=== PATIENT | female | born 1940 | race Caucasian/White ===

== ENCOUNTER → 2016-03-10 | Outpatient (CLI) | payer OTHER ==
[~2016-03-10] MED LIST: ALB2.5NEB INH; ALBU17IN INH; AMIT50TA PO; AMIT75TA PO; ANUS25SU PR; ATEN50TA2 PO; ATOR1TAB18 PO; BUTATAB6 PO; CALCTAB41 PO; CALCTAB75 PO; CENTTAB47 PO; CLAR10CA3 PO; CLOT10TR MT; COUM1TAB14 PO; COUM2TAB10 PO; DIGO0.25 PO; DYMI137S; ESTR62CR PV; FAMO40TA3 PO; FIOR1CAP PO; FIORCAP3 PO; FISH100049 PO; FLON1SPR; GUAI1TAB PO; LANO250T12 PO; LIPI80TA PO; LUTE10TA PO; MAGN64TASA PO; MAGNESIUM PO; MUCI30TA2 PO; MUCI600T34 PO; MULT1TAB10 PO; NYST5000 PO; PATA2.5S OU; PRED20TA PO; PREM0.6254 PO; PRIL40CA PO; REFR1DRO8 OU; SYMB80INH INH; TIOT18INH INH; TYLE167L PO; ULTR50TA PO; VOLT1GEL24 TD; WARF-18 PO
--- NOTE | 2016-03-10 13:02 | REP ---
Clinical: Chronic cough. Technique: PA and lateral. Comparison: 10/13/2014. Findings: Mediastinum and cardiac silhouette are stable and within normal limits. Lung bass demonstrate diffuse chronic interstitial changes with elements of bronchiectasis and suspected fibrosis. No acute consolidation, effusion, or pneumothorax. Skeletal structures demonstrate age-related changes. Impression: Chronic interstitial changes and evidence for bronchiectasis with fibrosis. Consider chest CT for further investigation if the patient remains symptomatic. Signed by Linwood Valverde MD 03/10/2016 12:53 P
[2016-03-10 18:07] LABS: ANION GAP 9 MEQ/L (8-16); BLOOD UREA NITROGEN 13 MG/DL (7-18); CALCIUM LEVEL 8.9 MG/DL (8.8-10.2); CARBON DIOXIDE LEVEL 28 MEQ/L (21-32); CHLORIDE LEVEL 106 MEQ/L (98-107); CREATININE FOR GFR 0.64 MG/DL (0.55-1.02); GLOMERULAR FILTRATION RATE > 60.0 (>39); GLUCOSE, FASTING 101 MG/DL (83-110); POTASSIUM SERUM 4.7 MEQ/L (3.5-5.1); SODIUM LEVEL 143 MEQ/L (136-145)
[2016-03-10 18:16] LABS: MEAN CORPUSCULAR HEMOGLOBIN 31.2 pg (27.0-33.0); MEAN CORPUSCULAR HGB CONC 33.2 g/dl (32.0-36.5); MEAN CORPUSCULAR VOLUME 94.1 fl (80.0-96.0); PLATELET COUNT, AUTOMATED 252 k/mm3 (150-450); RED CELL DISTRIBUTION WIDTH 13.9 % (11.5-14.5); WHITE BLOOD COUNT 7.3 K/mm3 (4.0-10.0)
== END ==
LOC: M WUC 12:22
PROVIDERS: ATTEND Nurse Practitioner Family
DX: R35.0 Frequency of micturition (principal); R05 Cough; R06.00 Dyspnea, unspecified
CPT/HCPCS: 36415; 71020; 80048; 81002; 85025; 87088; 87186; G0463

== ENCOUNTER → 2016-03-13 | Outpatient (CLI) | payer OTHER ==
[~2016-03-13] MED LIST changes: -ALB2.5NEB INH; -BUTATAB6 PO; -CLOT10TR MT; -DIGO0.25 PO; -FAMO40TA3 PO; -FLON1SPR; -GUAI1TAB PO; -LANO250T12 PO; +LANO250T9 PO; -PRED20TA PO; -SYMB80INH INH; -VOLT1GEL24 TD
[2016-03-13 17:58] LABS: INR 4.18
== END | disposition home or self-care (01) ==
LOC: M WUC 15:00
PROVIDERS: ATTEND Nurse Practitioner Family
DX: I48.91 Unspecified atrial fibrillation (principal); Z79.01 Long term (current) use of anticoagulants

== ENCOUNTER → 2016-03-20 | Outpatient (CLI) | payer OTHER ==
[~2016-03-20] MED LIST changes: +LANO250T12 PO; -LANO250T9 PO
== END | disposition home or self-care (01) ==
LOC: M WUC 13:26
PROVIDERS: ATTEND Nurse Practitioner Family
DX: I48.2 Chronic atrial fibrillation (principal)

== ENCOUNTER → 2016-03-21 | Outpatient (REF) | payer OTHER ==
[2016-03-21 21:16] LABS: INR 4.05
== END | disposition home or self-care (01) ==
LOC: M LAB REF 09:05
PROVIDERS: ATTEND Nurse Practitioner Family
DX: I48.2 Chronic atrial fibrillation (principal)

== ENCOUNTER → 2016-03-24 | Outpatient (CLI) | payer OTHER ==
[2016-03-24 19:31] LABS: INR 1.85
== END ==
LOC: M WUC 17:13
PROVIDERS: ATTEND Nurse Practitioner Family
DX: I48.2 Chronic atrial fibrillation (principal); Z51.81 Encounter for therapeutic drug level monitoring; Z79.01 Long term (current) use of anticoagulants

== ENCOUNTER → 2016-03-24 | Outpatient (CLI) | payer OTHER ==
--- NOTE | 2016-03-25 03:14 | REP ---
Clinical: Bronchiectasis. Technique: Axial noncontrast images from the thoracic inlet to the upper abdomen with coronal and sagittal re-formations. Findings: The lung bass demonstrate mild scattered emphysematous changes with small bullae predominantly noted in the anterior right upper lobe and posterior left lower lobe. Subtle presumed chronic changes are also noted scattered amongst the subpleural right upper lobe and bilateral lower lobes. Mild perihilar bronchiectasis and bronchial wall calcifications are also apparent and consistent with chronic changes. No acute consolidation, nodule or mass lesion is appreciated. No pleural effusion/reaction. No pneumothorax. Mediastinum demonstrates atherosclerotic changes to the thoracic aorta and coronary arteries. No evidence for cardiomegaly, pericardial effusion, or aortic aneurysm. No adenopathy. Musculoskeletal structures demonstrate age-related changes without focal osseous abnormality. Impression: Mild scattered chronic appearing changes as noted above. No acute mediastinal or pleuroparenchymal process appreciated. Signed by Linwood Valverde MD 03/25/2016 03:06 A
== END ==
LOC: M RAD 17:50
PROVIDERS: ATTEND Nurse Practitioner Family
DX: J47.9 Bronchiectasis, uncomplicated (principal); I48.2 Chronic atrial fibrillation; Z51.81 Encounter for therapeutic drug level monitoring; Z79.01 Long term (current) use of anticoagulants

== ENCOUNTER 2016-04-01 22:41 | Emergency (ER) | payer OTHER ==
[2016-04-01] MEDS ORDERED: LEVALBUTEROL 1.25 MG/0.5 ML CONCENTRATE NEB As Ordered ONE (23:11)
[2016-04-01] MEDS ORDERED: dexameTHASONE 20 MG/5 ML VIAL (J1100) As Ordered ONE (23:22)
--- NOTE | 2016-04-02 00:41 | EDDOCDS ---
Nurse's Notes [facility] Name: Abida Bledsoe Age: 75 yrs Sex: Female : 1940 Arrival Date: 04/01/2016 Time: 22:41 Bed 5 Private MD: Darwin Ortega MD Diagnosis: Pulmonary fibrosis, unspecified Presentation: 04/01 22:53 Presenting complaint: Patient states: Pt to ED for evaluation after episode of what pt mv5 reports as hyperventilation after coughing episode. Pt states hx of pulmonary fibrosis, became anxious when unable to clear thick secretions during coughing episode. Pt denies chest pain. 22:53 Adult Sepsis Screening: The patient does not have new or worsening altered mentation. mv5 Patient's respiratory rate is less than 22. Systolic blood pressure is greater than 100. Patient has a qSOFA score of 0- Negative Sepsis Screen. Suicide/Homicide risk assessment- the patient denies having any suicidal and/or homicidal ideations and does not present with any other emotional, behavioral or mental health complaints. 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 Transition of care: patient was not received from another setting of care. 22:53 Acuity: GENOVEVA Level 3 mv5 22:53 Method Of Arrival: Walkin/Carried/Asstd mv5 Triage Assessment: 23:01 General: Appears in no apparent distress, well nourished. Pain: Denies pain. mv5 Neurological: No deficits noted. Level of Consciousness is awake, alert, Oriented to person, place, time. Respiratory: Onset: The symptoms/episode began/occurred today, Airway is patent Respiratory effort is even, unlabored, Respiratory pattern is regular, Sputum is Breath sounds with wheezes bilaterally. Reports hyperventilation. Historical: - Allergies: PENICILLINS; - Home Meds: 1. multivitamin Oral tab 1 tablet daily 2. Fish Oil 1,000 mg Oral cap 4 caps daily 3. loratadine 10 mg Oral TbDL 1 tab once daily 4. amitriptyline 75 mg Oral tab 1 tab once daily in PM 5. amitriptyline 50 mg Oral tab 1 tab once daily in AM 6. atenolol 50 mg Oral tab 1 tab 2 times per day 7. lutein 10 mg oral tab daily 8. magnesium oxide 140 mg Oral cap 128 mg twice a day 9. Patanol 0.1 % Opht drop 1 drop 2 times per day 10. digoxin 250 mcg Oral tab 1 tab once daily 11. Anusol Rectal supp daily 12. Calcium + Vitamin D 600 mg calcium- 200 unit oral tab 500 mg daily 13. Mucinex 600 mg oral Ta12 1 tab every 12 hours 14. Premarin 0.625 mg/gram Vagl crea every other day 15. albuterol sulfate 90 mcg/actuation Inhl HFAA 1 puff every 4-6 hours 16. Spiriva with HandiHaler 18 mcg Inhl CpDv 1 cap once daily 17. albuterol sulfate 2.5 mg /3 mL (0.083 %) Nebulizer nebu 3 mL 4 times per day 18. Lipitor 80 mg Oral tab 1 tab once daily 19. Coumadin 4 mg Oral tab 1 tab 3 times per week 20. Coumadin 2 mg Oral tab 1 tab 4 times per week 21. Fioricet 50-325-40 mg Oral tab 1 tab every 4 hours 22. prednisone 5 mg Oral DsPk Unknown daily - PMHx: pulmonary fibrosis; COPD; Hypertension; Atrial Fib; High Cholesterol; - PSHx: Right knee replacement 11/11; Cataract Surgery- Bilateral; Hysterectomy; Shoulder Arthroscopy- Left; - Social history: Smoking status: Patient states former smoker of tobacco. No barriers to communication noted, The patient speaks fluent Romansh, Patient uses. - Family history: Not pertinent. - : The pt / caregiver states he / she is on anticoagulants: coumadin. Home medication list is obtained from PCP visit history list. - Exposure Risk Screening:: None identified. Screenin:05 Screening information is obtained from the patient, family members. Fall risk: No risks mv5 identified. Assistance ADL's: requires no assistance with activities of daily living. Abuse/DV Screen: The patient / caregiver reports he/she is: not in a situation that causes fear, pain or injury. Nutritional screening: No deficits noted. Advance Directives: There is no active DNR order. home support is adequate. Assessment: 23:05 General: See triage assessment. Cardiovascular: No deficits noted. Capillary refill < 3 mv5 seconds. Derm: Skin is intact, Skin is pink, warm & dry. 23:05 Cardiovascular: Rhythm is atrial fibrillation Other in a controlled rate. mv5 04/02 00:05 General: Appears in no apparent distress. General: Pt assisted to bedside commode and mv5 returned to stretcher safely.. Respiratory: Airway is patent Respiratory effort is even, unlabored. Derm: Skin is intact, Skin is pink, warm & dry. 00:07 Reassessment: Patient states symptoms have improved. mv5 Vital Signs: 02 22:42 BP 169 / 80 RA Sitting (auto/lg); Pulse 104; Resp 20; Temp 97.2(O); Pulse Ox 88% on rs6 R/A; Weight 78.02 kg (R); Height 5 ft. 3 in. (160.02 cm) (R); Pain 0/10; 23:19 BP 153 / 68 (auto/); mv5 23:19 Pulse 90 MON; Pulse Ox 97% 1 lpm ; mv5 22:42 Body Mass Index 30.47 (78.02 kg, 160.02 cm) rs6 Vitals: 22:42 Log In Time: April 01, 2016 at 22:42. rs6 22:43 RN notified that patient meets Red Flag criteria. rs6 ED Course: 22:42 Patient visited by Autumn Lomax PCA. rs6 22:42 Darwin Ortega is Private Physician. rs6 22:42 Patient moved to Waiting rs6 22:45 Mesha Chatterjee,LITA is Primary Nurse. rs6 22:45 Niko Cao DO is Attending Physician. cs11 22:45 Patient visited by Niko Cao DO. cs11 22:45 Patient moved to 5 rs6 22:56 Triage Initiated mv5 23:05 The patient / caregiver is instructed regarding the plan of care and ED course. Cardiac mv5 monitor on. Pulse ox on. NIBP on. 23:21 Inserted saline lock: 22 gauge in right hand and blood collected. The patient tolerated mv5 the procedure well. 23:30 Patient visited by Mesha Chatterjee RN. mv5 04/02 00:05 Patient visited by Mesha Chatterjee RN. mv5 00:23 Darwin Ortega is Referral Physician. cs11 00:39 No procedures done that require assistance. mv5 Administered Medications: 04/01 23:29 Drug: Dexamethasone 12 mg [dexamethasone 4 mg/mL injection solution] Route: IV; Rate: mv5 bolus; Site: right hand; 23:30 Drug: Levalbuterol 1.25 mg [levalbuterol 1.25 mg/0.5 mL solution for nebulization (0.5 nk1 mL)] Route: Nebulizer; 23:49 Drug: Levalbuterol 1.25 mg [levalbuterol 1.25 mg/0.5 mL solution for nebulization (0.5 nk1 mL)] Route: Nebulizer; 04/02 00:28 Follow up: Response: Nebulizer completed nk1 00:28 Follow up: Response: Nebulizer completed nk1 00:28 Follow up: Response: Nebulizer completed nk1 RT: 04/01 23:35 Respiratory: Respiratory effort is even, unlabored, Respiratory pattern is regular nk1 symmetrical, Breath sounds are diminished Breath sounds with wheezes bilaterally. in left posterior upper lobe, right posterior upper lobe, left posterior lower lobe, right posterior middle lobe and right posterior lower lobe. 23:35 Initial Med Neb Given as ordered Patient was instructed and evaluated on procedure nk1 Patient tolerated procedure well without adverse effect. 23:50 Subsequent Med Neb Given as ordered Patient tolerated procedure well without adverse nk1 effect. Respiratory: Respiratory: Breath sounds with wheezes with increased aeration throughout. patient states she feels improvement since her first neb treatment. 04/02 00:05 Subsequent Med Neb Given as ordered. nk1 00:10 Respiratory: Breath sounds with wheezes bilaterally. in left posterior upper lobe, nk1 right posterior upper lobe, left posterior lower lobe, right posterior middle lobe and right posterior lower lobe with increased aeration. Order Results: There are currently no results for this order. Outcome: 00:24 Discharge ordered by Provider. cs11 00:39 Discharge Assessment: Patient awake, alert and oriented x 3. No cognitive and/or mv5 functional deficits noted. Patient verbalized understanding of disposition instructions. patient administered narcotics - no. The following High Risk Discharge criteria are identified: None. Discharged to home ambulatory. Condition: stable. Discharge instructions given to patient, family, Demonstrated understanding of instructions, Pt was receptive of discharge instructions/ teaching. No special radiology studies were completed. Property sent home with patient. 00:41 Patient left the ED. mv5 Signatures: Sendy Foreman, RN RN kmg1 Re Ca,RT RT nk1 Niko Cao, DO cs11 Autumn Lomax, ACCOUNT EXECUTIVE KEY ACCOUNTS ACCOUNT EXECUTIVE KEY ACCOUNTS rs6 Mesha ChatterjeeRN RN mv5 Corrections: (The following items were deleted from the chart) 04/01 22:52 22:52 Presenting complaint: kmg1 kmg1 04/02 23:49 Initial Med Neb Given as ordered Patient was instructed and evaluated on nk1 procedure Patient tolerated procedure well without adverse effect nk1 04/02 23:50 Subsequent Med Neb Given as ordered Patient tolerated procedure well nk1 without adverse effect nk1 04/02 00:10 Subsequent Med Neb Given as ordered nk1 nk1 MTDD
--- NOTE | 2016-04-02 00:41 | EDDOCDS ---
Physician Documentation [facility] Name: Abida Bledsoe Age: 75 yrs Sex: Female : 1940 Arrival Date: 04/01/2016 Time: 22:41 Bed 5 Private MD: Darwin Ortega MD Disposition: 04/02/16 00:24 Discharged to Home/Self Care. Impression: Pulmonary fibrosis, unspecified. - Condition is Stable. - Prescriptions for Prednisone 20 mg Oral Tablet - take 3 tablets by ORAL route once daily for 3 days; 9 tablet. - Medication Reconciliation, Local Pharmacy Hours form. - Follow up: Darwin Ortega; When: Call to arrange an appointment; Reason: Recheck today's complaints. - Problem is chronic. - Symptoms have improved. Historical: - Allergies: PENICILLINS; - Home Meds: 1. multivitamin Oral tab 1 tablet daily 2. Fish Oil 1,000 mg Oral cap 4 caps daily 3. loratadine 10 mg Oral TbDL 1 tab once daily 4. amitriptyline 75 mg Oral tab 1 tab once daily in PM 5. amitriptyline 50 mg Oral tab 1 tab once daily in AM 6. atenolol 50 mg Oral tab 1 tab 2 times per day 7. lutein 10 mg oral tab daily 8. magnesium oxide 140 mg Oral cap 128 mg twice a day 9. Patanol 0.1 % Opht drop 1 drop 2 times per day 10. digoxin 250 mcg Oral tab 1 tab once daily 11. Anusol Rectal supp daily 12. Calcium + Vitamin D 600 mg calcium- 200 unit oral tab 500 mg daily 13. Mucinex 600 mg oral Ta12 1 tab every 12 hours 14. Premarin 0.625 mg/gram Vagl crea every other day 15. albuterol sulfate 90 mcg/actuation Inhl HFAA 1 puff every 4-6 hours 16. Spiriva with HandiHaler 18 mcg Inhl CpDv 1 cap once daily 17. albuterol sulfate 2.5 mg /3 mL (0.083 %) Nebulizer nebu 3 mL 4 times per day 18. Lipitor 80 mg Oral tab 1 tab once daily 19. Coumadin 4 mg Oral tab 1 tab 3 times per week 20. Coumadin 2 mg Oral tab 1 tab 4 times per week 21. Fioricet 50-325-40 mg Oral tab 1 tab every 4 hours 22. prednisone 5 mg Oral DsPk Unknown daily - PMHx: pulmonary fibrosis; COPD; Hypertension; Atrial Fib; High Cholesterol; - PSHx: Right knee replacement 11/11; Cataract Surgery- Bilateral; Hysterectomy; Shoulder Arthroscopy- Left; - Social history: Smoking status: Patient states former smoker of tobacco. No barriers to communication noted, The patient speaks fluent Lao, Patient uses. - Family history: Not pertinent. - : The pt / caregiver states he / she is on anticoagulants: coumadin. Home medication list is obtained from PCP visit history list. - Exposure Risk Screening:: None identified. Vital Signs: 04/01 22:42 BP 169 / 80 RA Sitting (auto/lg); Pulse 104; Resp 20; Temp 97.2(O); Pulse Ox 88% on rs6 R/A; Weight 78.02 kg / 172 lbs (R); Height 5 ft. 3 in. (160.02 cm) (R); Pain 0/10; 23:19 BP 153 / 68 (auto/); mv5 23:19 Pulse 90 MON; Pulse Ox 97% 1 lpm ; mv5 22:42 Body Mass Index 30.47 (78.02 kg, 160.02 cm) rs6 MDM: 22:59 IV Saline Lock ordered. cs11 22:59 Dexamethasone 12 mg IV at bolus once ordered. cs11 22:59 Levalbuterol 1.25 mg Nebulizer every 15 minutes x3 ordered. cs11 22:59 Call Respiratory ordered. cs11 23:01 Chest, 1 View Ordered. EDMS 23:01 Call Respiratory complete. ml3 Administered Medications: 23:29 Drug: Dexamethasone 12 mg [dexamethasone 4 mg/mL injection solution] Route: IV; Rate: mv5 bolus; Site: right hand; 23:30 Drug: Levalbuterol 1.25 mg [levalbuterol 1.25 mg/0.5 mL solution for nebulization (0.5 nk1 mL)] Route: Nebulizer; 23:49 Drug: Levalbuterol 1.25 mg [levalbuterol 1.25 mg/0.5 mL solution for nebulization (0.5 nk1 mL)] Route: Nebulizer; 04/02 00:28 Follow up: Response: Nebulizer completed nk1 00:28 Follow up: Response: Nebulizer completed nk1 00:28 Follow up: Response: Nebulizer completed nk1 Signatures: Dispatcher [employer] EDPaulina Bergmanzabeth, [employer] ml3 Niko Cao, DO cs11 Mesha Chatterjee,RN RN mv5 Re Ca RT nk1 MTDD
--- NOTE | 2016-04-02 08:17 | REP ---
PORTABLE CHEST X-RAY: Single view. HISTORY: Cough. FINDINGS: EKG monitoring electrodes overlie the chest. There is some pleuroparenchymal fibrosis along the left heart border in the region of the lingula. Lung bass are otherwise clear. Heart is not enlarged. Pulmonary vasculature is not increased. Pleural angles are sharp. IMPRESSION: Pleuroparenchymal opacity consistent with fibrosis in the lingula along the left heart border. Otherwise no acute disease. Signed by Rafal Mathis MD 04/02/2016 10:06 A
[2016-04-03] MEDS ORDERED: GUAI1TAB PO (13:25)
[2016-04-03] MEDS ORDERED: BUTATAB6 PO (13:25)
[2016-04-03] MEDS ORDERED: ALB2.5NEB INH (13:31)
[2016-04-03] MEDS ORDERED: SYMB80INH INH (13:31)
[2016-04-03] MEDS ORDERED: COUM1TAB14 PO (13:31)
[2016-04-03] MEDS ORDERED: VOLT1GEL24 TD (13:31)
[2016-04-03] MEDS ORDERED: MAGN64TASA PO (13:31)
[2016-04-03] MEDS ORDERED: PRED20TA PO (13:31)
[2016-04-03] MEDS ORDERED: COUM2TAB10 PO (13:31)
[2016-04-03] MEDS ORDERED: FLON1SPR (13:31)
[2016-04-03] MEDS ORDERED: ANUS25SU PR (13:31)
[2016-04-03] MEDS ORDERED: ESTR62CR PV (13:31)
[2016-04-03] MEDS ORDERED: DIGO0.25 PO (13:31)
[2016-04-03] MEDS ORDERED: CLOT10TR MT (13:31)
[2016-04-03] MEDS ORDERED: FAMO40TA3 PO (13:31)
[2016-04-03] MEDS ORDERED: IPRATROPIUM 0.5MG/ALBUTEROL 2.5MG INH SOL UD 3ML (DUONEB)(J7620) As Ordered ONE (14:26)
--- NOTE | 2016-04-04 01:41 | EDDOCDS ---
Nurse's Notes [facility] Name: Abida Bledsoe Age: 75 yrs Sex: Female : 1940 Arrival Date: 04/01/2016 Time: 22:41 Bed 5 Private MD: Darwin Ortega MD Diagnosis: Pulmonary fibrosis, unspecified Presentation: 04/01 22:53 Presenting complaint: Patient states: Pt to ED for evaluation after episode of what pt mv5 reports as hyperventilation after coughing episode. Pt states hx of pulmonary fibrosis, became anxious when unable to clear thick secretions during coughing episode. Pt denies chest pain. 22:53 Adult Sepsis Screening: The patient does not have new or worsening altered mentation. mv5 Patient's respiratory rate is less than 22. Systolic blood pressure is greater than 100. Patient has a qSOFA score of 0- Negative Sepsis Screen. Suicide/Homicide risk assessment- the patient denies having any suicidal and/or homicidal ideations and does not present with any other emotional, behavioral or mental health complaints. Status: Patient is not a adoption services manager or dependent. Transition of care: patient was not received from another setting of care. 22:53 Acuity: GENOVEVA Level 3 mv5 22:53 Method Of Arrival: Walkin/Carried/Asstd mv5 Triage Assessment: 23:01 General: Appears in no apparent distress, well nourished. Pain: Denies pain. mv5 Neurological: No deficits noted. Level of Consciousness is awake, alert, Oriented to person, place, time. Respiratory: Onset: The symptoms/episode began/occurred today, Airway is patent Respiratory effort is even, unlabored, Respiratory pattern is regular, Sputum is Breath sounds with wheezes bilaterally. Reports hyperventilation. Historical: - Allergies: PENICILLINS; - Home Meds: 1. multivitamin Oral tab 1 tablet daily 2. Fish Oil 1,000 mg Oral cap 4 caps daily 3. loratadine 10 mg Oral TbDL 1 tab once daily 4. amitriptyline 75 mg Oral tab 1 tab once daily in PM 5. amitriptyline 50 mg Oral tab 1 tab once daily in AM 6. atenolol 50 mg Oral tab 1 tab 2 times per day 7. lutein 10 mg oral tab daily 8. magnesium oxide 140 mg Oral cap 128 mg twice a day 9. Patanol 0.1 % Opht drop 1 drop 2 times per day 10. digoxin 250 mcg Oral tab 1 tab once daily 11. Anusol Rectal supp daily 12. Calcium + Vitamin D 600 mg calcium- 200 unit oral tab 500 mg daily 13. Mucinex 600 mg oral Ta12 1 tab every 12 hours 14. Premarin 0.625 mg/gram Vagl crea every other day 15. albuterol sulfate 90 mcg/actuation Inhl HFAA 1 puff every 4-6 hours 16. Spiriva with HandiHaler 18 mcg Inhl CpDv 1 cap once daily 17. albuterol sulfate 2.5 mg /3 mL (0.083 %) Nebulizer nebu 3 mL 4 times per day 18. Lipitor 80 mg Oral tab 1 tab once daily 19. Coumadin 4 mg Oral tab 1 tab 3 times per week 20. Coumadin 2 mg Oral tab 1 tab 4 times per week 21. Fioricet 50-325-40 mg Oral tab 1 tab every 4 hours 22. prednisone 5 mg Oral DsPk Unknown daily - PMHx: pulmonary fibrosis; COPD; Hypertension; Atrial Fib; High Cholesterol; - PSHx: Right knee replacement 11/11; Cataract Surgery- Bilateral; Hysterectomy; Shoulder Arthroscopy- Left; - Social history: Smoking status: Patient states former smoker of tobacco. No barriers to communication noted, The patient speaks fluent Malay, Patient uses. - Family history: Not pertinent. - : The pt / caregiver states he / she is on anticoagulants: coumadin. Home medication list is obtained from PCP visit history list. - Exposure Risk Screening:: None identified. Screenin:05 Screening information is obtained from the patient, family members. Fall risk: No risks mv5 identified. Assistance ADL's: requires no assistance with activities of daily living. Abuse/DV Screen: The patient / caregiver reports he/she is: not in a situation that causes fear, pain or injury. Nutritional screening: No deficits noted. Advance Directives: There is no active DNR order. home support is adequate. Assessment: 23:05 General: See triage assessment. Cardiovascular: No deficits noted. Capillary refill < 3 mv5 seconds. Derm: Skin is intact, Skin is pink, warm & dry. 23:05 Cardiovascular: Rhythm is atrial fibrillation Other in a controlled rate. mv5 04/02 00:05 General: Appears in no apparent distress. General: Pt assisted to bedside commode and mv5 returned to stretcher safely.. Respiratory: Airway is patent Respiratory effort is even, unlabored. Derm: Skin is intact, Skin is pink, warm & dry. 00:07 Reassessment: Patient states symptoms have improved. mv5 Vital Signs: 0203 22:42 BP 169 / 80 RA Sitting (auto/lg); Pulse 104; Resp 20; Temp 97.2(O); Pulse Ox 88% on rs6 R/A; Weight 78.02 kg (R); Height 5 ft. 3 in. (160.02 cm) (R); Pain 0/10; 23:19 BP 153 / 68 (auto/); mv5 23:19 Pulse 90 MON; Pulse Ox 97% 1 lpm ; mv5 22:42 Body Mass Index 30.47 (78.02 kg, 160.02 cm) rs6 Vitals: 22:42 Log In Time: April 01, 2016 at 22:42. rs6 22:43 RN notified that patient meets Red Flag criteria. rs6 ED Course: 22:42 Patient visited by Autumn Lomax PCA. rs6 22:42 Darwin Ortega is Private Physician. rs6 22:42 Patient moved to Waiting rs6 22:45 Mesha Chatterjee,LITA is Primary Nurse. rs6 22:45 Niko Cao DO is Attending Physician. cs11 22:45 Patient visited by Niko Cao DO. cs11 22:45 Patient moved to 5 rs6 22:56 Triage Initiated mv5 23:05 The patient / caregiver is instructed regarding the plan of care and ED course. Cardiac mv5 monitor on. Pulse ox on. NIBP on. 23:21 Inserted saline lock: 22 gauge in right hand and blood collected. The patient tolerated mv5 the procedure well. 23:30 Patient visited by Mesha Chatterjee RN. mv5 0204 00:05 Patient visited by Mesha Chatterjee RN. mv5 00:23 Dariwn Ortega is Referral Physician. cs11 00:39 No procedures done that require assistance. mv5 00:42 Discontinued intact, bleeding controlled, pressure dressing applied, No mv5 redness/swelling at site. 01:04 Patient name changed from Abida\S\M\S\Rakan\S\ to Abida\S\Roberta\S\Rakan. EDMS 01:04 [facility] Payment Agreement was scanned into [employer] and attached to record. [facility] 08:49 Chest, 1 View Returned. EDMS 15:51 T-Sheet-- Draft Copy was scanned into [employer] and attached to record. klr Administered Medications: 04/01 23:29 Drug: Dexamethasone 12 mg [dexamethasone 4 mg/mL injection solution] Route: IV; Rate: mv5 bolus; Site: right hand; 23:30 Drug: Levalbuterol 1.25 mg [levalbuterol 1.25 mg/0.5 mL solution for nebulization (0.5 nk1 mL)] Route: Nebulizer; 23:49 Drug: Levalbuterol 1.25 mg [levalbuterol 1.25 mg/0.5 mL solution for nebulization (0.5 nk1 mL)] Route: Nebulizer; 04/02 00:28 Follow up: Response: Nebulizer completed nk1 00:28 Follow up: Response: Nebulizer completed nk1 00:28 Follow up: Response: Nebulizer completed nk1 RT: 04/01 23:35 Respiratory: Respiratory effort is even, unlabored, Respiratory pattern is regular nk1 symmetrical, Breath sounds are diminished Breath sounds with wheezes bilaterally. in left posterior upper lobe, right posterior upper lobe, left posterior lower lobe, right posterior middle lobe and right posterior lower lobe. 23:35 Initial Med Neb Given as ordered Patient was instructed and evaluated on procedure nk1 Patient tolerated procedure well without adverse effect. 23:50 Subsequent Med Neb Given as ordered Patient tolerated procedure well without adverse nk1 effect. Respiratory: Respiratory: Breath sounds with wheezes with increased aeration throughout. patient states she feels improvement since her first neb treatment. 04/02 00:05 Subsequent Med Neb Given as ordered. nk1 00:10 Respiratory: Breath sounds with wheezes bilaterally. in left posterior upper lobe, nk1 right posterior upper lobe, left posterior lower lobe, right posterior middle lobe and right posterior lower lobe with increased aeration. Order Results: Radiology Order: Chest, 1 View Test: Chest, 1 View REASON FOR EXAMINATION: Cough; PORTABLE CHEST X-RAY: Single view.; ; HISTORY: Cough.; ; FINDINGS: EKG monitoring electrodes overlie the chest. There is some; pleuroparenchymal fibrosis along the left heart border in the region of the; lingula. Lung bass are otherwise clear. Heart is not enlarged. Pulmonary; vasculature is not increased. Pleural angles are sharp.; ; IMPRESSION: Pleuroparenchymal opacity consistent with fibrosis in the lingula; along the left heart border. Otherwise no acute disease.; ; ; Signed by; Rafal Mathis MD 04/02/2016 10:06 A; Outcome: 00:24 Discharge ordered by Provider. cs11 00:39 Discharge Assessment: Patient awake, alert and oriented x 3. No cognitive and/or mv5 functional deficits noted. Patient verbalized understanding of disposition instructions. patient administered narcotics - no. The following High Risk Discharge criteria are identified: None. Discharged to home ambulatory. Condition: stable. Discharge instructions given to patient, family, Demonstrated understanding of instructions, Pt was receptive of discharge instructions/ teaching. No special radiology studies were completed. Property sent home with patient. 00:41 Patient left the ED. mv5 Signatures: Dispatcher [employer] EDMS Sendy Foreman, RN RN kmg1 Re Ca,RT RT nk1 Niko Cao, DO DO cs11 Ankita Reveles Rebecca, QUALITY CONTROL SYSTEMS MANAGER QUALITY CONTROL SYSTEMS MANAGER rs6 Jennifer Machuca Megan,RN RN mv5 Corrections: (The following items were deleted from the chart) 04/01 22:52 22:52 Presenting complaint: kmg1 km 04/02 99:04/01 23:49 Initial Med Neb Given as ordered Patient was instructed and evaluated on nk1 procedure Patient tolerated procedure well without adverse effect nk1 04/02 99:04/01 23:50 Subsequent Med Neb Given as ordered Patient tolerated procedure well nk1 without adverse effect nk1 04/02 99: 00:10 Subsequent Med Neb Given as ordered nk1 nk1 Chart Complete MTDD
--- NOTE | 2016-04-04 01:41 | EDDOCDS ---
Physician Documentation [facility] Name: Abida Bledsoe Age: 75 yrs Sex: Female : 1940 Arrival Date: 04/01/2016 Time: 22:41 Bed 5 Private MD: Darwin Ortega MD Disposition: 04/02/16 00:24 Discharged to Home/Self Care. Impression: Pulmonary fibrosis, unspecified. - Condition is Stable. - Prescriptions for Prednisone 20 mg Oral Tablet - take 3 tablets by ORAL route once daily for 3 days; 9 tablet. - Medication Reconciliation, Local Pharmacy Hours form. - Follow up: Darwin Ortega; When: Call to arrange an appointment; Reason: Recheck today's complaints. - Problem is chronic. - Symptoms have improved. Historical: - Allergies: PENICILLINS; - Home Meds: 1. multivitamin Oral tab 1 tablet daily 2. Fish Oil 1,000 mg Oral cap 4 caps daily 3. loratadine 10 mg Oral TbDL 1 tab once daily 4. amitriptyline 75 mg Oral tab 1 tab once daily in PM 5. amitriptyline 50 mg Oral tab 1 tab once daily in AM 6. atenolol 50 mg Oral tab 1 tab 2 times per day 7. lutein 10 mg oral tab daily 8. magnesium oxide 140 mg Oral cap 128 mg twice a day 9. Patanol 0.1 % Opht drop 1 drop 2 times per day 10. digoxin 250 mcg Oral tab 1 tab once daily 11. Anusol Rectal supp daily 12. Calcium + Vitamin D 600 mg calcium- 200 unit oral tab 500 mg daily 13. Mucinex 600 mg oral Ta12 1 tab every 12 hours 14. Premarin 0.625 mg/gram Vagl crea every other day 15. albuterol sulfate 90 mcg/actuation Inhl HFAA 1 puff every 4-6 hours 16. Spiriva with HandiHaler 18 mcg Inhl CpDv 1 cap once daily 17. albuterol sulfate 2.5 mg /3 mL (0.083 %) Nebulizer nebu 3 mL 4 times per day 18. Lipitor 80 mg Oral tab 1 tab once daily 19. Coumadin 4 mg Oral tab 1 tab 3 times per week 20. Coumadin 2 mg Oral tab 1 tab 4 times per week 21. Fioricet 50-325-40 mg Oral tab 1 tab every 4 hours 22. prednisone 5 mg Oral DsPk Unknown daily - PMHx: pulmonary fibrosis; COPD; Hypertension; Atrial Fib; High Cholesterol; - PSHx: Right knee replacement 11/11; Cataract Surgery- Bilateral; Hysterectomy; Shoulder Arthroscopy- Left; - Social history: Smoking status: Patient states former smoker of tobacco. No barriers to communication noted, The patient speaks fluent Uzbek, Patient uses. - Family history: Not pertinent. - : The pt / caregiver states he / she is on anticoagulants: coumadin. Home medication list is obtained from PCP visit history list. - Exposure Risk Screening:: None identified. Vital Signs: 04/01 22:42 BP 169 / 80 RA Sitting (auto/lg); Pulse 104; Resp 20; Temp 97.2(O); Pulse Ox 88% on rs6 R/A; Weight 78.02 kg / 172 lbs (R); Height 5 ft. 3 in. (160.02 cm) (R); Pain 0/10; 23:19 BP 153 / 68 (auto/); mv5 23:19 Pulse 90 MON; Pulse Ox 97% 1 lpm ; mv5 22:42 Body Mass Index 30.47 (78.02 kg, 160.02 cm) rs6 MDM: 22:59 IV Saline Lock ordered. cs11 22:59 Dexamethasone 12 mg IV at bolus once ordered. cs11 22:59 Levalbuterol 1.25 mg Nebulizer every 15 minutes x3 ordered. cs11 22:59 Call Respiratory ordered. cs11 23:01 Chest, 1 View Ordered. EDMS 23:01 Call Respiratory complete. ml3 04/02 00:44 Financial registration complete. [facility] 01:04 [facility] Payment Agreement was scanned into [employer] and attached to record. [facility] 15:51 T-Sheet-- Draft Copy was scanned into [employer] and attached to record. klr Administered Medications: 04/01 23:29 Drug: Dexamethasone 12 mg [dexamethasone 4 mg/mL injection solution] Route: IV; Rate: mv5 bolus; Site: right hand; 23:30 Drug: Levalbuterol 1.25 mg [levalbuterol 1.25 mg/0.5 mL solution for nebulization (0.5 nk1 mL)] Route: Nebulizer; 23:49 Drug: Levalbuterol 1.25 mg [levalbuterol 1.25 mg/0.5 mL solution for nebulization (0.5 nk1 mL)] Route: Nebulizer; 04/02 00:28 Follow up: Response: Nebulizer completed nk1 00:28 Follow up: Response: Nebulizer completed nk1 00:28 Follow up: Response: Nebulizer completed nk1 Signatures: Dispatcher [employer] EDMS Kaitlyn Mujica, Rivet Bucker Unit ml3 Niko Cao, DO cs11 Ankita Reveles Kathie klr Vannedery, Megan,RN RN mv5 Re Ca RT nk1 The chart was reviewed and I authenticate all verbal orders and agree with the evaluation and treatment provided.Attachments: 01:04 [facility] Payment Agreement [facility] 15:51 T-Sheet-- Draft Copy [facility] Chart Complete [facility]
--- NOTE | 2016-04-04 01:41 | EDDOCDS ---
Physician Documentation [facility] Name: Abida Bledsoe Age: 75 yrs Sex: Female : 1940 Arrival Date: 04/01/2016 Time: 22:41 Bed 5 Private MD: Darwin Ortega MD Disposition: 04/02/16 00:24 Discharged to Home/Self Care. Impression: Pulmonary fibrosis, unspecified. - Condition is Stable. - Prescriptions for Prednisone 20 mg Oral Tablet - take 3 tablets by ORAL route once daily for 3 days; 9 tablet. - Medication Reconciliation, Local Pharmacy Hours form. - Follow up: Darwin Ortega; When: Call to arrange an appointment; Reason: Recheck today's complaints. - Problem is chronic. - Symptoms have improved. Historical: - Allergies: PENICILLINS; - Home Meds: 1. multivitamin Oral tab 1 tablet daily 2. Fish Oil 1,000 mg Oral cap 4 caps daily 3. loratadine 10 mg Oral TbDL 1 tab once daily 4. amitriptyline 75 mg Oral tab 1 tab once daily in PM 5. amitriptyline 50 mg Oral tab 1 tab once daily in AM 6. atenolol 50 mg Oral tab 1 tab 2 times per day 7. lutein 10 mg oral tab daily 8. magnesium oxide 140 mg Oral cap 128 mg twice a day 9. Patanol 0.1 % Opht drop 1 drop 2 times per day 10. digoxin 250 mcg Oral tab 1 tab once daily 11. Anusol Rectal supp daily 12. Calcium + Vitamin D 600 mg calcium- 200 unit oral tab 500 mg daily 13. Mucinex 600 mg oral Ta12 1 tab every 12 hours 14. Premarin 0.625 mg/gram Vagl crea every other day 15. albuterol sulfate 90 mcg/actuation Inhl HFAA 1 puff every 4-6 hours 16. Spiriva with HandiHaler 18 mcg Inhl CpDv 1 cap once daily 17. albuterol sulfate 2.5 mg /3 mL (0.083 %) Nebulizer nebu 3 mL 4 times per day 18. Lipitor 80 mg Oral tab 1 tab once daily 19. Coumadin 4 mg Oral tab 1 tab 3 times per week 20. Coumadin 2 mg Oral tab 1 tab 4 times per week 21. Fioricet 50-325-40 mg Oral tab 1 tab every 4 hours 22. prednisone 5 mg Oral DsPk Unknown daily - PMHx: pulmonary fibrosis; COPD; Hypertension; Atrial Fib; High Cholesterol; - PSHx: Right knee replacement 11/11; Cataract Surgery- Bilateral; Hysterectomy; Shoulder Arthroscopy- Left; - Social history: Smoking status: Patient states former smoker of tobacco. No barriers to communication noted, The patient speaks fluent Korean, Patient uses. - Family history: Not pertinent. - : The pt / caregiver states he / she is on anticoagulants: coumadin. Home medication list is obtained from PCP visit history list. - Exposure Risk Screening:: None identified. Vital Signs: 04/01 22:42 BP 169 / 80 RA Sitting (auto/lg); Pulse 104; Resp 20; Temp 97.2(O); Pulse Ox 88% on rs6 R/A; Weight 78.02 kg / 172 lbs (R); Height 5 ft. 3 in. (160.02 cm) (R); Pain 0/10; 23:19 BP 153 / 68 (auto/); mv5 23:19 Pulse 90 MON; Pulse Ox 97% 1 lpm ; mv5 22:42 Body Mass Index 30.47 (78.02 kg, 160.02 cm) rs6 MDM: 22:59 IV Saline Lock ordered. cs11 22:59 Dexamethasone 12 mg IV at bolus once ordered. cs11 22:59 Levalbuterol 1.25 mg Nebulizer every 15 minutes x3 ordered. cs11 22:59 Call Respiratory ordered. cs11 23:01 Chest, 1 View Ordered. EDMS 23:01 Call Respiratory complete. ml3 04/02 00:44 Financial registration complete. [facility] 01:04 [facility] Payment Agreement was scanned into [employer] and attached to record. [facility] 15:51 T-Sheet-- Draft Copy was scanned into [employer] and attached to record. klr Administered Medications: 04/01 23:29 Drug: Dexamethasone 12 mg [dexamethasone 4 mg/mL injection solution] Route: IV; Rate: mv5 bolus; Site: right hand; 23:30 Drug: Levalbuterol 1.25 mg [levalbuterol 1.25 mg/0.5 mL solution for nebulization (0.5 nk1 mL)] Route: Nebulizer; 23:49 Drug: Levalbuterol 1.25 mg [levalbuterol 1.25 mg/0.5 mL solution for nebulization (0.5 nk1 mL)] Route: Nebulizer; 04/02 00:28 Follow up: Response: Nebulizer completed nk1 00:28 Follow up: Response: Nebulizer completed nk1 00:28 Follow up: Response: Nebulizer completed nk1 Signatures: Dispatcher [employer] EDMS Kaitlyn Mujica, Assistant Construction Superintendent Unit ml3 Niko Cao, DO cs11 Ankita Reveles Kathie klr Vannedery, Megan,RN RN mv5 Re Ca RT nk1 The chart was reviewed and I authenticate all verbal orders and agree with the evaluation and treatment provided.Attachments: 01:04 [facility] Payment Agreement [facility] 15:51 T-Sheet-- Draft Copy [facility] Chart Complete [facility]
== END 2016-04-02 00:41 | disposition home or self-care (01) ==
LOC: M ED 22:41
DX: J84.10 Pulmonary fibrosis, unspecified (principal); J44.9 Chronic obstructive pulmonary disease, unspecified; I10 Essential (primary) hypertension; I48.91 Unspecified atrial fibrillation; E78.00 Pure hypercholesterolemia, unspecified; Z87.891 Personal history of nicotine dependence; Z79.01 Long term (current) use of anticoagulants; Z79.52 Long term (current) use of systemic steroids; Z79.899 Other long term (current) drug therapy; Z88.0 Allergy status to penicillin

== ENCOUNTER 2016-04-03 12:00 | Inpatient (IN) | payer OTHER ==
[~2016-04-03] VITALS: Ht 160 cm; Wt 78.3 kg
[~2016-04-03 12:00] MED LIST changes: -ALB2.5NEB INH; -BUTATAB6 PO; -CLOT10TR MT; -DIGO0.25 PO; -FAMO40TA3 PO; -FLON1SPR; -GUAI1TAB PO; -PRED20TA PO; -SYMB80INH INH; -VOLT1GEL24 TD
[2016-04-03 12:33] LABS: BASO % 0.4 % (0.0-1.0); EOS # 0.1 K/mm3 (0.0-0.50); EOS % 0.7 % (0.0-3.0); LARGE UNSTAINED CELL # 0.2 K/mm3 (0.0-0.4); LARGE UNSTAINED CELL % 1.4 % (0.0-4.0); LYMPH # 0.9 K/mm3 (1.5-4.5); LYMPH % 7.2 % (24.0-44.0); MEAN CORPUSCULAR HGB CONC 32.9 g/dl (32.0-36.5); MEAN CORPUSCULAR VOLUME 94.1 fl (80.0-96.0); MONO # 0.7 K/mm3 (0.0-0.8); NEUTROPHILS % 84.3 % (36.0-66.0); PLATELET COUNT, AUTOMATED 271 k/mm3 (150-450); RED CELL DISTRIBUTION WIDTH 13.9 % (11.5-14.5); WHITE BLOOD COUNT 10.7 K/mm3 (4.0-10.0)
[2016-04-03] MEDS ORDERED: methylPREDNISolone INJ 125 MG/2 ML VIAL (J2930) As Ordered ONE (12:38)
[2016-04-03 12:42] LABS: INR 3.28
[2016-04-03] MEDS ORDERED: IPRATROPIUM 0.5MG/ALBUTEROL 2.5MG INH SOL UD 3ML (DUONEB)(J7620) As Ordered ONE ×2 (12:55→13:00)
[2016-04-03 13:05] LABS: ANION GAP 8 MEQ/L (8-16); BLOOD UREA NITROGEN 14 MG/DL (7-18); CALCIUM LEVEL 8.5 MG/DL (8.8-10.2); CARBON DIOXIDE LEVEL 33 MEQ/L (21-32); CHLORIDE LEVEL 99 MEQ/L (98-107); CREATININE FOR GFR 0.54 MG/DL (0.55-1.02); DIGOXIN LEVEL 1.3 NG/ML (0.5-2.0); GLOMERULAR FILTRATION RATE > 60.0 (>39); GLUCOSE, FASTING 100 MG/DL (83-110); POTASSIUM SERUM 3.8 MEQ/L (3.5-5.1); SODIUM LEVEL 140 MEQ/L (136-145)
[2016-04-03 13:16] LABS: ABG BASE EXCESS 7.7 (-2.0-2.0); ABG DEVICE NASAL CANN; ABG HCO3 34.9 MEQ/L (22.0-26.0); ABG PARTIAL PRESSURE CO2 59.7 mmHg (35.0-45.0); ABG PARTIAL PRESSURE O2 314.6 mmHg (75.0-100.0); ABG STANDARD HCO3 31.6 MEQ/L (22.0-26.0); ABG TOTAL CO2 36.8 MEQ/L (23.0-31.0); ABG pH (ARTERIAL) 7.385 UNITS (7.350-7.450)
[2016-04-03] MEDS ORDERED: BUTATAB6 PO (13:25)
[2016-04-03] MEDS ORDERED: GUAI1TAB PO (13:25)
[2016-04-03] MEDS ORDERED: COUM2TAB10 PO (13:31)
[2016-04-03] MEDS ORDERED: ANUS25SU PR (13:31)
[2016-04-03] MEDS ORDERED: COUM1TAB14 PO (13:31)
[2016-04-03] MEDS ORDERED: FAMO40TA3 PO (13:31)
[2016-04-03] MEDS ORDERED: CLOT10TR MT (13:31)
[2016-04-03] MEDS ORDERED: FLON1SPR (13:31)
[2016-04-03] MEDS ORDERED: DIGO0.25 PO (13:31)
[2016-04-03] MEDS ORDERED: ESTR62CR PV (13:31)
[2016-04-03] MEDS ORDERED: PRED20TA PO (13:31)
[2016-04-03] MEDS ORDERED: VOLT1GEL24 TD (13:31)
[2016-04-03] MEDS ORDERED: SYMB80INH INH (13:31)
[2016-04-03] MEDS ORDERED: MAGN64TASA PO (13:31)
[2016-04-03] MEDS ORDERED: ALB2.5NEB INH (13:31)
--- NOTE | 2016-04-03 13:40 | REP ---
PORTABLE CHEST X-RAY: Single view. HISTORY: Shortness of breath. Comparison chest x-ray April 01, 2016. FINDINGS: EKG monitoring electrodes overlie the chest. The lungs are symmetrically aerated and clear. Pleural angles are sharp. Heart size is unchanged. Pulmonary vasculature is not increased. IMPRESSION: No active disease. Signed by Rafal Mathis MD 04/03/2016 02:05 P
[2016-04-03] MEDS ORDERED: IPRATROPIUM 0.5MG/ALBUTEROL 2.5MG INH SOL UD 3ML (DUONEB)(J7620) NEB PRN (13:45)
[2016-04-03] MEDS ORDERED: **NOTE PATIENT COMMENT** MISC XX SCH (13:45)
--- NOTE | 2016-04-03 14:35 | ECGEPIP ---
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
--- NOTE | 2016-04-03 15:15 | EDDOCDS ---
Nurse's Notes [facility] Name: Abida Bledsoe Age: 75 yrs Sex: Female : 1940 Arrival Date: 04/03/2016 Time: 12:00 Bed 14 Private MD: Darwin Ortega MD Diagnosis: Chronic obstructive pulmonary disease with (acute) exacerbation;Chronic obstructive pulmonary disease with acute lower respiratory infection Presentation: 04/03 12:04 Presenting complaint: Patient states: cough with shortness of breath. reports was seen kr3 Monday for same, felt better at discharge but symptoms returned when got home from ED. Adult Sepsis Screening: The patient does not have new or worsening altered mentation. Patient has a respiratory rate of greater than or equal to 22 (1 point). Systolic blood pressure is greater than 100. Patient has a qSOFA score of 1- Negative Sepsis Screen. Suicide/Homicide risk assessment- the patient denies having any suicidal and/or homicidal ideations and does not present with any other emotional, behavioral or mental health complaints. Status: Patient is not a access services assistant or dependent. Transition of care: patient was not received from another setting of care. 12:04 Acuity: GENOVEVA Level 2 kr3 12:04 Method Of Arrival: Wheelchair kr3 12:19 Red Flag criteria, patient assessed and taken directly to a bed. kr3 Triage Assessment: 12:09 General: Appears uncomfortable, Behavior is appropriate for age, cooperative. Pain: kr3 Location: back Pain currently is 0 out of 10 on a pain scale. At worst was 8 out of 10 on a pain scale. The patient is triaged at the bedside. See Assessment in Nurses Notes section of ED record. Neurological: Level of Consciousness is awake, alert. Respiratory: Onset: The symptoms/episode began/occurred since monday, Reports shortness of breath cough that is productive, labored breathing pain with cough pain with respiration. Derm: Skin is normal. Historical: - Allergies: PENICILLINS; - Home Meds: 1. albuterol sulfate 90 mcg/actuation Inhl HFAA 1 puff every 4-6 hours 2. albuterol sulfate 2.5 mg /3 mL (0.083 %) Inhl nebu 3 mL 4 times per day (Last dose: 04/03/2016 11:00) 3. amitriptyline 75 mg Oral tab 1 tab nightly in PM 4. amitriptyline 50 mg Oral tab 1 tab once daily in AM 5. Anusol Rectal supp daily 6. atenolol 50 mg Oral tab 1 tab 2 times per day 7. Calcium + Vitamin D 600 mg calcium- 200 unit Oral tab 500 mg daily 8. Coumadin 4 mg Oral tab 1 tab 3 times per week 9. Coumadin 2 mg Oral tab 1 tab 4 times per week 10. digoxin 250 mcg Oral tab 1 tab once daily 11. Fioricet 50-325-40 mg Oral tab 1 tab every 4 hours 12. Fish Oil 1,000 mg Oral cap 4 caps daily 13. Lipitor 80 mg Oral tab 1 tab once daily 14. loratadine 10 mg Oral TbDL 1 tab once daily 15. lutein 10 mg oral tab daily 16. magnesium oxide 140 mg Oral cap 128 mg twice a day 17. Mucinex 600 mg oral Ta12 1 tab every 12 hours 18. multivitamin Oral tab 1 tab daily 19. Patanol 0.1 % Opht drop 1 drop 2 times per day 20. prednisone Unknown Oral once daily 21. Spiriva with HandiHaler 18 mcg Inhl CpDv 1 cap once daily 22. Premarin 0.625 mg/gram Vagl crea every other day - PMHx: Atrial Fib; COPD; High Cholesterol; Hypertension; pulmonary fibrosis; - PSHx: Cataract Surgery- Bilateral; Knee Arthroplasty, Right; Hysterectomy; Shoulder Arthroplasty, Left; - Social history: Smoking status: Patient states former smoker of tobacco. No barriers to communication noted, The patient speaks fluent Arabic, Speaks appropriately for age. - Family history: Not pertinent. - : The pt / caregiver states he / she is on anticoagulants: coumadin. Home medication list is obtained from the patient, family members, [employer] import data. - Exposure Risk Screening:: None identified. Screenin:28 Screening information is obtained from the patient. Fall risk: No risks identified. jo3 Assistance ADL's: requires no assistance with activities of daily living. Abuse/DV Screen: The patient / caregiver reports he/she is: not in a situation that causes fear, pain or injury. Nutritional screening: No deficits noted. home support is adequate. 14:56 Advance Directives: There is no active DNR order. [facility] Assessment: 12:28 General: Appears in no apparent distress, comfortable, Behavior is appropriate for age, jo3 cooperative. Neurological: Level of Consciousness is awake, alert, Oriented to person, place, time. Cardiovascular: Rhythm is atrial fibrillation. Cardiovascular: Chest pain is denied. Respiratory: Airway is patent Respiratory effort is even, labored. Derm: Skin is pink, warm & dry. 14:37 General: resting quietly on stretcher, at bedside, denies needs at this time. cj 14:37 General: respiratory treatment obtained, awaiting dispo appears comfortable. [facility] 14:56 General: no visible distress, denies further needs, states more comfortable after [facility] respiratory treatment. Respiratory: Breath sounds are diminished bilaterally. Vital Signs: 12:02 BP 194 / 90 RA Sitting (auto/lg); Pulse 114; Resp 24; Temp 99.8(T); Pulse Ox 85% on rs6 R/A; Weight 77.11 kg (R); Height 5 ft. 3 in. (160.02 cm) (R); Pain 6/10; 12:15 BP 133 / 98 (auto/); jo3 12:15 Pulse 106 MON; Pulse Ox 98% ; jo3 12:30 BP 198 / 79 (auto/); jo3 12:30 Pulse 98 MON; Pulse Ox 96% ; jo3 12:44 Pulse 102 MON; Pulse Ox 95% ; jo3 13:00 BP 174 / 79 (auto/); cjh 13:00 Pulse 92 MON; Pulse Ox 98% ; cjh 13:15 BP 179 / 86 (auto/); cjh 13:15 Pulse 96 MON; Pulse Ox 98% ; cjh 13:15 BP 130 / 0; ac1 13:30 Pulse 106 MON; Pulse Ox 95% ; cjh 13:30 BP 188 / 91 (auto/); cjh 13:45 Pulse 106 MON; Pulse Ox 96% ; cjh 13:45 BP 170 / 78 (auto/); cjh 14:00 Pulse 102 MON; Pulse Ox 95% ; cjh 14:00 BP 180 / 77 (auto/); cjh 14:14 BP 133 / 5; ac1 14:15 Pulse 104 MON; Pulse Ox 97% ; cjh 14:15 BP 181 / 79 (auto/); cjh 14:33 BP 161 / 74 (auto/); cjh 14:33 BP 161 / 74; Pulse 104 MON; Resp 20; Temp 99.4; Pulse Ox 97% ; Pain 1/10; cjh 12:02 Body Mass Index 30.11 (77.11 kg, 160.02 cm) rs6 Vitals: 12:02 Log In Time: April 03, 2016 at 12:02. RN notified that patient meets Red Flag rs6 criteria. ED Course: 12:01 Patient visited by Autumn Lomax PCA. rs6 12:01 Darwin Ortega is Private Physician. rs6 12:01 Patient moved to Waiting rs6 12:03 Patient moved to 14 rs6 12:05 Triage Initiated kr3 12:09 Imani Bergman MD is Attending Physician. sd1 12:09 Patient visited by Imani Bergman MD. sd1 12:17 Patient visited by Janine Rondon PCA. ct3 12:17 Accompanied by Family Member, Patient has correct armband on for positive ct3 identification. Placed in gown. Bed in low position. Call light in reach. Side rails up X 1. waiver analyst on. Pulse ox on. NIBP on. 12:17 EKG done. (by ED staff). Reviewed by Imani Bergman MD. ct3 12:28 The patient / caregiver is instructed regarding the plan of care and ED course. jo3 12:28 DIGOXIN LEVEL Sent. jo3 12:28 PT/INR Sent. jo3 12:28 BLOOD CULTURES Sent. jo3 12:28 BNP Sent. jo3 12:28 Inserted saline lock: 20 gauge in left forearm. Labs drawn. (by ED staff). Sent per jo3 order to lab. Labs/Blood culture drawn. 12:30 Patient visited by Kaylie Peterson RN. jo3 12:30 ON LICENSE OF [facility] Payment Agreement was scanned into [employer] and attached to record. mpb 12:32 Patient visited by Viola Childress. lr2 12:32 Assisted to bedside commode. lr2 12:45 Patient visited by Kaylie Peterson RN. jo3 13:14 -Arterial Blood Gas Sent. ac1 13:35 Aneesh Harden MD is Hospitalizing Provider. sd1 14:13 Chest, 1 View Returned. EDMS 14:47 EKG-ADULT Returned. EDMS 14:56 No procedures done that require assistance. [facility] Administered Medications: 12:45 Drug: Solu-MEDROL 125 mg [Solu-Medrol 500 mg intravenous solution (125 mg)] Route: IVP; jo3 Site: left forearm; 12:55 Drug: Albuterol-Ipratropium 1 neb [ipratropium-albuterol 0.5 mg-3 mg(2.5 mg base)/3 mL ac1 nebulization soln (1 neb)] Route: Nebulizer; 13:00 Follow up: whz bilat ac1 13:15 Follow up: BP 130 / 0 ac1 13:16 Drug: Albuterol-Ipratropium 1 neb [ipratropium-albuterol 0.5 mg-3 mg(2.5 mg base)/3 mL ac1 nebulization soln (1 neb)] Route: Nebulizer; 13:30 Drug: Albuterol-Ipratropium 1 neb [ipratropium-albuterol 0.5 mg-3 mg(2.5 mg base)/3 mL ac1 nebulization soln (1 neb)] Route: Nebulizer; 13:35 Follow up: bs-doroteo bil ac 14:14 Follow up: BP 133 / 5 ac1 14:28 Drug: Albuterol-Ipratropium 3 ml [ipratropium-albuterol 0.5 mg-3 mg(2.5 mg base)/3 mL ac1 nebulization soln (3 mL)] Route: Inhalation; Intake: RT: 12:55 Initial Med Neb Given as ordered Patient was instructed and evaluated on procedure. ac1 Respiratory: Breath sounds are diminished bilaterally. Breath sounds with wheezes. 13:15 Subsequent Med Neb Given as ordered. ac1 13:20 Respiratory: Breath sounds are diminished bilaterally. Breath sounds with wheezes. ac1 13:30 Subsequent Med Neb Given as ordered. ac1 13:40 Respiratory: Breath sounds with wheezes bilaterally. ac1 14:28 Subsequent Med Neb Given as ordered Patient was reinforced on procedure. ac1 14:29 Respiratory: Breath sounds are diminished bilaterally. Breath sounds with wheezes. ac1 14:32 Respiratory: Breath sounds with wheezes bilaterally. ac1 Order Results: Lab Order: Basic Metabolic Profile; SPEC'M 04/03/16 12:25 Test: GLUCOSE, FASTING; Value: 100; Range: 83-110; Units: MG/DL; Status: F Test: BLOOD UREA NITROGEN; Value: 14; Range: 7-18; Units: MG/DL; Status: F Test: CREATININE FOR GFR; Value: 0.54; Range: 0.55-1.02; Abnormal: Below low normal; Units: MG/DL; Status: F Test: GLOMERULAR FILTRATION RATE; Value: > 60.0; Range: >39; Status: F Test: SODIUM LEVEL; Value: 140; Range: 136-145; Units: MEQ/L; Status: F Test: POTASSIUM SERUM; Value: 3.8; Range: 3.5-5.1; Units: MEQ/L; Status: F Test: CHLORIDE LEVEL; Value: 99; Range: 98-107; Units: MEQ/L; Status: F Test: CARBON DIOXIDE LEVEL; Value: 33; Range: 21-32; Abnormal: Above high normal; Units: MEQ/L; Status: F Test: ANION GAP; Value: 8; Range: 8-16; Units: MEQ/L; Status: F Test: CALCIUM LEVEL; Value: 8.5; Range: 8.8-10.2; Abnormal: Below low normal; Units: MG/DL; Status: F Test Note: ; Units are mL/min/1.73 m2 Chronic Kidney Disease Staging per NKF: Stage I & II GFR >=60 Normal to Mildly Decreased Stage III GFR 30-59 Moderately Decreased Stage IV GFR 15-29 Severely Decreased Stage V GFR <15 Very Little GFR Left ESRD GFR <15 on HERBICIDE SERVICE SALES REPRESENTATIVE Lab Order: CBC with Diff; SPEC'M 04/03/16 12:25 Test: WHITE BLOOD COUNT; Value: 10.7; Range: 4.0-10.0; Abnormal: Above high normal; Units: K/mm3; Status: F Test: RED BLOOD COUNT; Value: 4.34; Range: 4.00-5.40; Units: M/mm3; Status: F Test: HEMOGLOBIN; Value: 13.4; Range: 12.0-16.0; Units: g/dl; Status: F Test: HEMATOCRIT; Value: 40.8; Range: 36.0-47.0; Units: %; Status: F Test: MEAN CORPUSCULAR VOLUME; Value: 94.1; Range: 80.0-96.0; Units: fl; Status: F Test: MEAN CORPUSCULAR HEMOGLOBIN; Value: 31.0; Range: 27.0-33.0; Units: pg; Status: F Test: MEAN CORPUSCULAR HGB CONC; Value: 32.9; Range: 32.0-36.5; Units: g/dl; Status: F Test: RED CELL DISTRIBUTION WIDTH; Value: 13.9; Range: 11.5-14.5; Units: %; Status: F Test: PLATELET COUNT, AUTOMATED; Value: 271; Range: 150-450; Units: k/mm3; Status: F Test: NEUTROPHILS %; Value: 84.3; Range: 36.0-66.0; Abnormal: Above high normal; Units: %; Status: F Test: LYMPH %; Value: 7.2; Range: 24.0-44.0; Abnormal: Below low normal; Units: %; Status: F Test: MONO %; Value: 6.0; Range: 0.0-5.0; Abnormal: Above high normal; Units: %; Status: F Test: EOS %; Value: 0.7; Range: 0.0-3.0; Units: %; Status: F Test: BASO %; Value: 0.4; Range: 0.0-1.0; Units: %; Status: F Test: LARGE UNSTAINED CELL %; Value: 1.4; Range: 0.0-4.0; Units: %; Status: F Test: NEUTROPHILS #; Value: 9.0; Range: 1.8-7.7; Abnormal: Above high normal; Units: K/mm3; Status: F Test: LYMPH #; Value: 0.9; Range: 1.5-4.5; Abnormal: Below low normal; Units: K/mm3; Status: F Test: MONO #; Value: 0.7; Range: 0.0-0.8; Units: K/mm3; Status: F Test: EOS #; Value: 0.1; Range: 0.0-0.50; Units: K/mm3; Status: F Test: BASO #; Value: 0.0; Range: 0.0-0.2; Units: K/mm3; Status: F Test: LARGE UNSTAINED CELL #; Value: 0.2; Range: 0.0-0.4; Units: K/mm3; Status: F Lab Order: BNP; [facility] 04/03/16 12:25 Test: BRAIN NATRIURETIC PEPTIDE; Value: 211; Range: <100; Abnormal: Above high normal; Units: PG/ML; Status: F Lab Order: PT/INR; [facility] 04/03/16 12:25 Test: PROTHROMBIN TIME; Value: 33.4; Range: 12.3-14.5; Abnormal: Above high normal; Units: SECONDS; Status: F Test: INR; Value: 3.28; Status: F Test Note: ; THERAPUTIC HUMAN INR VALUES INDICATIONS NORMAL RANGES PROPHYLAXIS/TREATMENT OF: VENOUS THROMBOSIS 2.0-3.0 PULMONARY EMBOLISM 2.0-3.0 PREVENTION OF SYSTEMIC EMBOLISM FROM: TISSUE HEART VALVES 2.0-3.0 ACUTE MYOCARDIAL INFARCTION 2.0-3.0 VALVULAR HEART DISEASE 2.0-3.0 ATRIAL FIBRILLATION 2.0-3.0 MECHANICAL VALVES(HIGH RISK) 2.5-3.5 RECURRENT MYOCARDIAL INFARCTION 2.5-3.5 Lab Order: DIGOXIN LEVEL; [facility] 04/03/16 12:25 Test: DIGOXIN LEVEL; Value: 1.3; Range: 0.5-2.0; Units: NG/ML; Status: F Lab Order: -Arterial Blood Gas; [facility] 04/03/16 13:05 Test: ABG pH (ARTERIAL); Value: 7.385; Range: 7.350-7.450; Units: UNITS; Status: F Test: ABG PARTIAL PRESSURE CO2; Value: 59.7; Range: 35.0-45.0; Abnormal: Above high normal; Units: mmHg; Status: F Test: ABG PARTIAL PRESSURE O2; Value: 314.6; Range: 75.0-100.0; Abnormal: Above high normal; Units: mmHg; Status: F Test: ABG TOTAL CO2; Value: 36.8; Range: 23.0-31.0; Abnormal: Above high normal; Units: MEQ/L; Status: F Test: ABG HCO3; Value: 34.9; Range: 22.0-26.0; Abnormal: Above high normal; Units: MEQ/L; Status: F Test: ABG BASE EXCESS; Value: 7.7; Range: -2.0-2.0; Abnormal: Above high normal; Status: F Test: ABG STANDARD HCO3; Value: 31.6; Range: 22.0-26.0; Abnormal: Above high normal; Units: MEQ/L; Status: F Test: ABG O2 SATURATION; Value: 100.0; Range: 95.0-99.0; Abnormal: Above high normal; Units: %; Status: F Test: ABG DEVICE; Value: NASAL SHERRIE; Status: F Radiology Order: EKG-ADULT Test: EKG-ADULT REASON FOR EXAMINATION: Shortness of Breath; Stationary ECG Study; [facility]; ; Test Date: 2016-04-03; Pat Name: ABIDA BLEDSOE Department:; Room: -; 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; : 1940 Requested By: Imani Bergman; Order Number: [id number] Reading MD: Severino Rodarte; Measurements; Intervals [place]; Rate: 98 P:; NE: 0 QRS: 66; QRSD: 87 T: -26; QT: 298; QTc: 380; Interpretive Statements; ATRIAL FIBRILLATION; NONSPECIFIC ST T-WAVE ABNORMALITY; ; Electronically Signed On 04-03-2016 14:34:48 EST by Severino Rodarte; Radiology Order: Chest, 1 View Test: Chest, 1 View REASON FOR EXAMINATION: Shortness of Breath; PORTABLE CHEST X-RAY: Single view.; ; HISTORY: Shortness of breath.; ; Comparison chest x-ray April 01, 2016.; ; FINDINGS: EKG monitoring electrodes overlie the chest. The lungs are; symmetrically aerated and clear. Pleural angles are sharp. Heart size is; unchanged. Pulmonary vasculature is not increased.; ; IMPRESSION:; ; No active disease.; ; ; Signed by; Rafal Mathis MD 04/03/2016 02:05 P; Outcome: 13:35 Decision to Hospitalize by Provider. sd1 14:56 Discharge Assessment: Patient awake, alert and oriented x 3. No cognitive and/or h functional deficits noted. Patient verbalized understanding of disposition instructions. patient administered narcotics - no. The following High Risk Discharge criteria are identified: None. Discharged to Admitted to Med/Surg. Condition: stable. No special radiology studies were completed. Property sent home with patient. :Personal belongings accompany Pt. 15:14 Patient left the ED. [facility] Signatures: Dispatcher [employer] EDMS Imani Bergman MD MD sd1 Barb Silvestre,RT RT ac1 Renetta Willson,RN RN kr3 Kaylie PetersonRN RN jo3 Janine Rondon, YOKER YOKER ct3 Heather HernandezRN RN [facility] Autumn Lomax, YOKER YOKER rs6 Taj Engel, Reg Reg Viola Godoy lr2 MTDD
--- NOTE | 2016-04-03 15:15 | EDDOCDS ---
Physician Documentation [facility] Name: Abida Bledsoe Age: 75 yrs Sex: Female : 1940 Arrival Date: 04/03/2016 Time: 12:00 Bed 14 Private MD: Darwin Ortega MD Disposition: 04/03/16 13:35 Hospitalization ordered by Aneesh Harden for Inpatient Admission. Preliminary diagnosis are Chronic obstructive pulmonary disease with (acute) exacerbation, Chronic obstructive pulmonary disease with acute lower respiratory infection. - Bed requested for 4 [place]. - Status is Inpatient Admission. [facility] - Condition is Stable. - Problem is an acute exacerbation. - Symptoms are unchanged. Historical: - Allergies: PENICILLINS; - Home Meds: 1. albuterol sulfate 90 mcg/actuation Inhl HFAA 1 puff every 4-6 hours 2. albuterol sulfate 2.5 mg /3 mL (0.083 %) Inhl nebu 3 mL 4 times per day (Last dose: 04/03/2016 11:00) 3. amitriptyline 75 mg Oral tab 1 tab nightly in PM 4. amitriptyline 50 mg Oral tab 1 tab once daily in AM 5. Anusol Rectal supp daily 6. atenolol 50 mg Oral tab 1 tab 2 times per day 7. Calcium + Vitamin D 600 mg calcium- 200 unit Oral tab 500 mg daily 8. Coumadin 4 mg Oral tab 1 tab 3 times per week 9. Coumadin 2 mg Oral tab 1 tab 4 times per week 10. digoxin 250 mcg Oral tab 1 tab once daily 11. Fioricet 50-325-40 mg Oral tab 1 tab every 4 hours 12. Fish Oil 1,000 mg Oral cap 4 caps daily 13. Lipitor 80 mg Oral tab 1 tab once daily 14. loratadine 10 mg Oral TbDL 1 tab once daily 15. lutein 10 mg oral tab daily 16. magnesium oxide 140 mg Oral cap 128 mg twice a day 17. Mucinex 600 mg oral Ta12 1 tab every 12 hours 18. multivitamin Oral tab 1 tab daily 19. Patanol 0.1 % Opht drop 1 drop 2 times per day 20. prednisone Unknown Oral once daily 21. Spiriva with HandiHaler 18 mcg Inhl CpDv 1 cap once daily 22. Premarin 0.625 mg/gram Vagl crea every other day - PMHx: Atrial Fib; COPD; High Cholesterol; Hypertension; pulmonary fibrosis; - PSHx: Cataract Surgery- Bilateral; Knee Arthroplasty, Right; Hysterectomy; Shoulder Arthroplasty, Left; - Social history: Smoking status: Patient states former smoker of tobacco. No barriers to communication noted, The patient speaks fluent Occitan, Speaks appropriately for age. - Family history: Not pertinent. - : The pt / caregiver states he / she is on anticoagulants: coumadin. Home medication list is obtained from the patient, family members, [employer] import data. - Exposure Risk Screening:: None identified. Vital Signs: 04/03 12:02 BP 194 / 90 RA Sitting (auto/lg); Pulse 114; Resp 24; Temp 99.8(T); Pulse Ox 85% on rs6 R/A; Weight 77.11 kg / 170 lbs (R); Height 5 ft. 3 in. (160.02 cm) (R); Pain 6/10; 12:15 BP 133 / 98 (auto/); jo3 12:15 Pulse 106 MON; Pulse Ox 98% ; jo3 12:30 BP 198 / 79 (auto/); jo3 12:30 Pulse 98 MON; Pulse Ox 96% ; jo3 12:44 Pulse 102 MON; Pulse Ox 95% ; jo3 13:00 BP 174 / 79 (auto/); cjh 13:00 Pulse 92 MON; Pulse Ox 98% ; cjh 13:15 BP 179 / 86 (auto/); cjh 13:15 Pulse 96 MON; Pulse Ox 98% ; cjh 13:15 BP 130 / 0; ac1 13:30 Pulse 106 MON; Pulse Ox 95% ; cjh 13:30 BP 188 / 91 (auto/); cjh 13:45 Pulse 106 MON; Pulse Ox 96% ; cjh 13:45 BP 170 / 78 (auto/); cjh 14:00 Pulse 102 MON; Pulse Ox 95% ; cjh 14:00 BP 180 / 77 (auto/); cjh 14:14 BP 133 / 5; ac1 14:15 Pulse 104 MON; Pulse Ox 97% ; cjh 14:15 BP 181 / 79 (auto/); cjh 14:33 BP 161 / 74 (auto/); cjh 14:33 BP 161 / 74; Pulse 104 MON; Resp 20; Temp 99.4; Pulse Ox 97% ; Pain 1/10; cjh 12:02 Body Mass Index 30.11 (77.11 kg, 160.02 cm) rs6 MDM: 12:04 -Blood Culture (Adults Only), peripheral from different site, or from device/port/PICC sd1 etc. if present ordered. 12:04 Medical Insurance Claims Processor/Pulse Ox/q 15 min VS ordered. sd1 12:04 IV Saline Lock ordered. sd1 12:04 Oxygen at 4L/Min NC or Home dosage ordered. sd1 12:04 Rhythm Strip to chart ordered. sd1 12:05 -Blood Culture Ordered. EDMS 12:05 Basic Metabolic Profile Ordered. EDMS 12:05 CBC with Diff Ordered. EDMS 12:05 ECG WITH READING ER PHYS+CARDIAG ordered. EDMS 12:05 BNP Ordered. EDMS 12:05 -Blood Culture (Adults Only), peripheral from different site, or from device/port/PICC ar3 etc. if present complete. 12:06 Chest, 1 View Ordered. EDMS 12:07 BLOOD CULTURES Ordered. EDMS 12:12 PT/INR Ordered. EDMS 12:15 DIGOXIN LEVEL Ordered. EDMS 12:18 Albuterol-Ipratropium 1 neb Nebulizer every 20 minutes x3 ordered. sd1 12:18 Solu-MEDROL 125 mg IVP once ordered. sd1 12:18 Call Respiratory ordered. sd1 12:18 Call Respiratory complete. ar3 12:19 -Arterial Blood Gas Ordered. EDMS 12:29 Financial registration complete. mpb 12:30 [facility] [place] Payment Agreement was scanned into [employer] and attached to record. mpb 12:54 BED REQUEST+ADM ordered. EDMS 13:05 CBC with Diff Reviewed. sd1 13:05 BNP Reviewed. sd1 13:05 PT/INR Reviewed. sd1 13:26 Basic Metabolic Profile Reviewed. sd1 13:26 -Arterial Blood Gas Reviewed. sd1 13:26 DIGOXIN LEVEL Reviewed. sd1 13:40 Admission / Observation Status ordered. EDMS 13:40 NO ADDED SALT DIET ordered. EDMS 14:23 Call Respiratory ordered. cjh 14:24 Call Respiratory complete. cjh 14:26 Albuterol-Ipratropium 3 ml Inhalation once ordered. [facility] Administered Medications: 12:45 Drug: Solu-MEDROL 125 mg [Solu-Medrol 500 mg intravenous solution (125 mg)] Route: IVP; jo3 Site: left forearm; 12:55 Drug: Albuterol-Ipratropium 1 neb [ipratropium-albuterol 0.5 mg-3 mg(2.5 mg base)/3 mL ac1 nebulization soln (1 neb)] Route: Nebulizer; 13:00 Follow up: z bilat ac1 13:15 Follow up: BP 130 / 0 ac1 13:16 Drug: Albuterol-Ipratropium 1 neb [ipratropium-albuterol 0.5 mg-3 mg(2.5 mg base)/3 mL ac1 nebulization soln (1 neb)] Route: Nebulizer; 13:30 Drug: Albuterol-Ipratropium 1 neb [ipratropium-albuterol 0.5 mg-3 mg(2.5 mg base)/3 mL ac1 nebulization soln (1 neb)] Route: Nebulizer; 13:35 Follow up: bs-z bil ac1 14:14 Follow up: BP 133 / 5 ac1 14:28 Drug: Albuterol-Ipratropium 3 ml [ipratropium-albuterol 0.5 mg-3 mg(2.5 mg base)/3 mL ac1 nebulization soln (3 mL)] Route: Inhalation; Signatures: Dispatcher [employer] EDMS Imani Bergman MD MD sd1 Renetta Willson RN RN tricia3 Kaylie Peterson RN RN jo3 Scarlett Anthony, PARTS PULLER PARTS PULLER ar3 Heather Hernandez RN RN cjh Sourwine, Sharon, RN RN sls2 Taj Engel, Trace Reg mpb Barb Silvestre RT ac1 The chart was reviewed and I authenticate all verbal orders and agree with the evaluation and treatment provided.Corrections: (The following items were deleted from the chart) 12:15 12:13 DIGOXIN LEVEL+LAB ordered. EDMS EDMS Attachments: 12:30 [facility] Payment Agreement mpb MTDD
[2016-04-03 15:17] VITALS: BP 168/90
[2016-04-03] MEDS: DOXYCYCLINE HYCLATE 100 MG in D5W MINI-BAG PLUS 100 ML IV SCH (15:54)
[2016-04-03] MEDS: IPRATROPIUM 0.5MG/ALBUTEROL 2.5MG INH SOL UD 3ML (DUONEB)(J7620) NEB SCH ×2 (18:44→23:06)
[2016-04-03] MEDS: ATORVASTATIN 20 MG TAB PO SCH (21:13)
[2016-04-03] MEDS: FAMOTIDINE 20 MG TAB PO SCH (21:13)
[2016-04-03] MEDS: ATENOLOL 50 MG TAB PO SCH (21:14)
[2016-04-03] MEDS: AMITRIPTYLINE 25 MG TAB PO SCH (21:15)
[2016-04-03 22:00] VITALS: BP 158/65
[2016-04-03] MEDS: CLOTRIMAZOLE 10 MG TROCHE PO SCH (22:04)
[2016-04-03] MEDS: methylPREDNISolone INJ 125 MG/2 ML VIAL (J2930) IV SCH (23:00)
[2016-04-03] MEDS: ACETAMINOPHEN TAB 650MG DOSE (2X325MG) PO PRN (23:00)
[2016-04-04] MEDS: DOXYCYCLINE HYCLATE 100 MG in D5W MINI-BAG PLUS 100 ML IV SCH ×2 (04:57→16:31)
[2016-04-04 05:42] LABS: MEAN CORPUSCULAR HEMOGLOBIN 30.5 pg (27.0-33.0); MEAN CORPUSCULAR VOLUME 95.4 fl (80.0-96.0); RED CELL DISTRIBUTION WIDTH 13.9 % (11.5-14.5); WHITE BLOOD COUNT 9.6 K/mm3 (4.0-10.0)
[2016-04-04 05:59] LABS: ANION GAP 6 MEQ/L (8-16); BLOOD UREA NITROGEN 14 MG/DL (7-18); CALCIUM LEVEL 8.5 MG/DL (8.8-10.2); CARBON DIOXIDE LEVEL 32 MEQ/L (21-32); CHLORIDE LEVEL 98 MEQ/L (98-107); CREATININE FOR GFR 0.67 MG/DL (0.55-1.02); GLOMERULAR FILTRATION RATE > 60.0 (>39); GLUCOSE, FASTING 182 MG/DL (83-110); POTASSIUM SERUM 4.3 MEQ/L (3.5-5.1); SODIUM LEVEL 136 MEQ/L (136-145)
[2016-04-04 06:00] VITALS: BP 178/92
[2016-04-04 06:00] LABS: INR 2.86
[2016-04-04 06:47] VITALS: BP 162/90
[2016-04-04] MEDS: IPRATROPIUM 0.5MG/ALBUTEROL 2.5MG INH SOL UD 3ML (DUONEB)(J7620) NEB SCH ×2 (07:46→13:26)
[2016-04-04] MEDS: AMITRIPTYLINE 50 MG TAB PO SCH (09:25)
[2016-04-04] MEDS: DIGOXIN 0.125 MG TAB PO SCH (09:31)
[2016-04-04] MEDS: ATENOLOL 50 MG TAB PO SCH ×2 (09:31→20:32)
--- NOTE | 2016-04-04 09:54 | IPNPDOC ---
Assessment/Plan Date Seen The patient was seen on 04/04/16. Problems Problems: (1) COPD exacerbation Status: Acute Problem Specific Plan: Monitor Clinically Problem Text: D2 doxy IV Solumedrol IV 60 BID 04/04/16 thick secretions; therefore, held ipra and added Mucinex/Acapella (2) Atrial fibrillation Status: Chronic Problem Specific Plan: Monitor Clinically Problem Text: On Atenolol and dig. On coumadin which was held yesterday due to supratherapeutic INR. INR today is 2.86. Will give Coumadin 2 mg today. Recheck INR tomorrow. (Pt is usually on Comadin 2 mg alternating with 4 mg, as outpt.) (3) GERD (gastroesophageal reflux disease) Status: Chronic Problem Specific Plan: Monitor Clinically Problem Text: On Pepcid. (4) Hyperlipidemia Status: Chronic Problem Specific Plan: Monitor Clinically Problem Text: Lipitor. Plan / VTE VTE Prophylaxis Ordered?: Yes (On Coumadin) Subjective Review of Systems CC/HPI The patient is a 75-year-old female admitted with a reason for visit of Copd Exacerbation. Events since last encounter Pt states she is feeling a little better today. Still with some SOB and wheezing. Denies CP, Abd pain. Constitutional: Denies: Chills, Fever Pulmonary: Reports: Dyspnea Cardiovascular: Denies: Chest Pain Gastrointestinal: Denies: Abdominal Pain Objective Physical Examination General Exam: Positive: Alert, No Acute Distress Neck Exam: Negative: JVD Chest Exam: Positive: Diminished, Rhonchi, Wheezing Abdomen Exam: Positive: Normal bowel sounds, Soft, Negative: Tenderness Extremity Exam: Negative: Edema Vital Signs/I&O Vital Signs Date Time Temp Pulse Resp B/P Pulse Ox O2 Delivery O2 Flow Rate FiO2 04/04/16 09:31 86 04/04/16 09:31 172/88 04/04/16 06:00 96.8 17 98 Nasal Cannula 2.0 I&O- Last 24 Hours up to 6 AM 04/04/16 05:59 Intake Total 220 ml Output Total 550 ml Balance -330 ml Laboratory Data Labs 24H Laboratory Tests 2 04/03/16 12:25: Anion Gap 8, B-Type Natriuretic Peptide 211H, White Blood Count 10.7H, Red Blood Count 4.34, Hemoglobin 13.4, Hematocrit 40.8, Mean Corpuscular Volume 94.1 , Mean Corpuscular Hemoglobin 31.0, Mean Corpuscular Hemoglobin Concent 32.9, Red Cell Distribution Width 13.9, Platelet Count 271, Neutrophils (%) (Auto) 84.3H, Lymphocytes (%) (Auto) 7.2L, Monocytes (%) (Auto) 6.0H, Eosinophils (%) ( Auto) 0.7, Basophils (%) (Auto) 0.4, Neutrophils # (Auto) 9.0H, Lymphocytes # ( Auto) 0.9L, Monocytes # (Auto) 0.7, Eosinophils # (Auto) 0.1, Basophils # (Auto ) 0.0, Blood Urea Nitrogen 14, Creatinine 0.54L, Sodium Level 140, Potassium Level 3.8, Chloride Level 99, Carbon Dioxide Level 33H, Calcium Level 8.5L, Digoxin Level 1.3, Glomerular Filtration Rate > 60.0, Large Unclassified Cells # 0.2, Large Unclassified Cells % 1.4, Prothromb Time International Ratio 3.28, Prothrombin Time 33.4H 04/03/16 13:05: Arterial Blood pH 7.385, Arterial Blood Partial Pressure CO2 59.7H, Arterial Blood Partial Pressure O2 314.6H, Arterial Blood Total CO2 36.8H, Arterial Blood HCO3 34.9H, Arterial Blood Base Excess 7.7H, Arterial Blood Oxygen Saturation 100.0H, Blood Gas Bicarbonate Standard 31.6H, Oxygen Delivery Device NASAL SHERRIE 04/04/16 05:27: Anion Gap 6L, Blood Urea Nitrogen 14, Creatinine 0.67, Sodium Level 136, Potassium Level 4.3, Chloride Level 98, Carbon Dioxide Level 32, Calcium Level 8.5L, Glomerular Filtration Rate > 60.0, Prothromb Time International Ratio 2.86 , Prothrombin Time 30.0H CBC/BMP Laboratory Tests 04/03/16 12:25 Calcium Level 8.5 L, Red Blood Count 4.34, Mean Corpuscular Volume 94.1, Mean Corpuscular Hemoglobin 31.0, Mean Corpuscular Hemoglobin Concent 32.9, Red Cell Distribution Width 13.9, Neutrophils (%) (Auto) 84.3 H, Lymphocytes (%) (Auto) 7.2 L, Monocytes (%) (Auto) 6.0 H, Eosinophils (%) (Auto) 0.7, Basophils (%) ( Auto) 0.4, Neutrophils # (Auto) 9.0 H, Lymphocytes # (Auto) 0.9 L, Monocytes # ( Auto) 0.7, Eosinophils # (Auto) 0.1, Basophils # (Auto) 0.0 04/04/16 05:27 Calcium Level 8.5 L, Red Blood Count 4.45, Mean Corpuscular Volume 95.4, Mean Corpuscular Hemoglobin 30.5, Mean Corpuscular Hemoglobin Concent 32.0, Red Cell Distribution Width 13.9 Microbiology Microbiology 04/03/16 Blood Culture, Received Pending 04/03/16 Blood Culture, Received Pending Angel Cruz Apr 04, 2016 09:54 Ankur Stout M.D. Apr 04, 2016 15:59
[2016-04-04] MEDS: CLOTRIMAZOLE 10 MG TROCHE PO SCH ×4 (10:29→20:32)
[2016-04-04] MEDS: ACETAMINOPHEN TAB 650MG DOSE (2X325MG) PO PRN (10:58)
[2016-04-04] MEDS: methylPREDNISolone INJ 125 MG/2 ML VIAL (J2930) IV SCH ×2 (12:54→23:11)
[2016-04-04 14:00] VITALS: BP 142/66
[2016-04-04] MEDS ORDERED: LEVALBUTEROL 1.25 MG/0.5 ML CONCENTRATE NEB INH PRN (16:00)
[2016-04-04] MEDS: LEVALBUTEROL 1.25 MG/0.5 ML CONCENTRATE NEB INH SCH ×3 (16:58→23:26)
[2016-04-04] MEDS ORDERED: WARFARIN SOD 2 MG TAB PO ONE (17:00)
[2016-04-04] MEDS: ATORVASTATIN 20 MG TAB PO SCH (20:32)
[2016-04-04] MEDS: FAMOTIDINE 20 MG TAB PO SCH (20:32)
[2016-04-04] MEDS: AMITRIPTYLINE 25 MG TAB PO SCH (20:32)
[2016-04-04] MEDS: guaiFENesin ER 600 MG TAB PO SCH (20:33)
[2016-04-04 22:00] VITALS: BP 152/68
[2016-04-05] MEDS: LEVALBUTEROL 1.25 MG/0.5 ML CONCENTRATE NEB INH SCH ×6 (03:53→23:31)
[2016-04-05] MEDS: DOXYCYCLINE HYCLATE 100 MG in D5W MINI-BAG PLUS 100 ML IV SCH ×2 (04:09→17:00)
[2016-04-05 06:00] VITALS: BP 148/64
[2016-04-05 06:40] LABS: MEAN CORPUSCULAR HEMOGLOBIN 31.1 pg (27.0-33.0); MEAN CORPUSCULAR HGB CONC 32.5 g/dl (32.0-36.5); MEAN CORPUSCULAR VOLUME 95.6 fl (80.0-96.0); RED CELL DISTRIBUTION WIDTH 13.4 % (11.5-14.5); WHITE BLOOD COUNT 11.3 K/mm3 (4.0-10.0)
[2016-04-05 06:45] LABS: INR 2.14
[2016-04-05 06:59] LABS: ANION GAP 6 MEQ/L (8-16); BLOOD UREA NITROGEN 18 MG/DL (7-18); CALCIUM LEVEL 8.9 MG/DL (8.8-10.2); CARBON DIOXIDE LEVEL 36 MEQ/L (21-32); CHLORIDE LEVEL 98 MEQ/L (98-107); CREATININE FOR GFR 0.69 MG/DL (0.55-1.02); GLOMERULAR FILTRATION RATE > 60.0 (>39); GLUCOSE, FASTING 165 MG/DL (83-110); POTASSIUM SERUM 4.1 MEQ/L (3.5-5.1); SODIUM LEVEL 140 MEQ/L (136-145)
--- NOTE | 2016-04-05 07:12 | IPNPDOC ---
Assessment/Plan Date Seen The patient was seen on 04/05/16. Problems Problems: (1) COPD exacerbation Status: Acute Problem Specific Plan: Monitor Clinically Problem Text: D3 doxy IV Solumedrol IV 60 BID D#3. Consider weaning tomorrow if continued improvement. 04/04/16 thick secretions; therefore, held ipra and added Mucinex/Acapella 04/05/16 ordered O2 titration 88-92%. Encourage acapella and ambulation to augment pulmonary toilet. Overall feels to be slowly improving. (2) Atrial fibrillation Status: Chronic Problem Specific Plan: Monitor Clinically Problem Text: On Atenolol and dig. On coumadin which was held on admission due to supratherapeutic INR. (Pt is usually on Comadin 2 mg alternating with 4 mg, as outpt.) 04/04: INR is 2.86. 2 mg given. 04/05: INR 2.14. Will give 4mg today x1. May be able to resume her outpt regimen if INR stabilizes tomorrow. Daily INR checks. (3) HARLEY on CPAP Status: Chronic Problem Specific Plan: Monitor Clinically Problem Text: Compliant at home but w/o CPAP here in hospital. She's receiving NC. (4) GERD (gastroesophageal reflux disease) Status: Chronic Problem Specific Plan: Monitor Clinically Problem Text: On Pepcid. Normal stool w/o blood or change in appearance. (5) Hyperlipidemia Status: Chronic Problem Specific Plan: Monitor Clinically Problem Text: Lipitor. (6) Depression Status: Chronic Problem Specific Plan: Monitor Clinically Problem Text: Amitriptyline BID. Stable. Plan / VTE VTE Prophylaxis Ordered?: Yes (On Coumadin) Plan Diet: Continue Current Activity: Encourage Ambulation Respiratory: Wean Oxygen Diagnostics: Repeat Labs in AM Anticipated Discharge: Home Subjective Review of Systems CC/HPI The patient is a 75-year-old female admitted with a reason for visit of Copd Exacerbation. Events since last encounter Seen and evaluated at the bedside this morning. She continues to require 2L NC, however, she has documented sats as high as 98%. Office readings are in the 90- 95% range. Overall, feels like secretions are improving. She's not been utilizing acapella, and she's only gotten up once in the past day to walk around the unit. General: Reports: Normal Appetite, Denies: Chills, Fatigue, Malaise, Night Sweats Constitutional: Denies: Chills, Fever, Malaise, Night Sweats, Weakness Pulmonary: Reports: Cough (thick secretions), Dyspnea (improving) Cardiovascular: Denies: Chest Pain, Lt Headedness, Orthopnea, Palpitations, Paroxysmal Noc. Dyspnea Gastrointestinal: Denies: Abdominal Pain, Diarrhea, Nausea, Vomiting Hematologic: Denies: Bleeding Excessively, Bruising, Petecchia, Purpura Objective Physical Examination General Exam: Positive: Alert, No Acute Distress Neck Exam: Negative: JVD Chest Exam: Positive: Diminished, Other (fair air movement), Wheezing (diffuse) , Negative: Rhonchi Heart Exam: Positive: Irregular Rhythm, Rate Normal, Negative: Murmurs Abdomen Exam: Positive: Normal bowel sounds, Soft, Negative: Tenderness Extremity Exam: Negative: Edema Skin Exam: Positive: Nl turgor and temperature Vital Signs/I&O Vital Signs Date Time Temp Pulse Resp B/P Pulse Ox O2 Delivery O2 Flow Rate FiO2 04/05/16 06:00 97.0 86 19 148/64 95 Nasal Cannula 2.0 I&O- Last 24 Hours up to 6 AM 04/05/16 06:00 Intake Total 1430 ml Output Total 1775 ml Balance -345 ml Laboratory Data Labs 24H Laboratory Tests 2 04/05/16 06:21: Anion Gap 6L, Blood Urea Nitrogen 18, Creatinine 0.69, Sodium Level 140, Potassium Level 4.1, Chloride Level 98, Carbon Dioxide Level 36H, Calcium Level 8.9, Glomerular Filtration Rate > 60.0, Prothromb Time International Ratio 2.14 , Prothrombin Time 24.0H CBC/BMP Laboratory Tests 04/05/16 06:21 Calcium Level 8.9, Red Blood Count 4.47, Mean Corpuscular Volume 95.6, Mean Corpuscular Hemoglobin 31.1, Mean Corpuscular Hemoglobin Concent 32.5, Red Cell Distribution Width 13.4 Microbiology Microbiology 04/03/16 Blood Culture - Preliminary, Resulted No growth after 24 hours . All specim... 04/03/16 Blood Culture - Preliminary, Resulted No growth after 24 hours . All specim... GME ATTESTATION GME ATTESTATION My preceptor for this patient encounter was physically present in the building during the encounter and was fully available. As needed, all aspects of the patient interview, examination, medical decision making process, and medical care plan development were reviewed and approved by the preceptor. Preceptor is aware and concurs with the plan as stated in the body of this note and will attest to such by his/her cosignature. ATTENDING NOTE Patient seen and examine and agree with care and plan. CHUCK ROSAS DO Apr 05, 2016 07:12 Rebel Mcallister MD Apr 05, 2016 12:29
[2016-04-05] MEDS: guaiFENesin ER 600 MG TAB PO SCH ×2 (09:10→20:48)
[2016-04-05] MEDS: CLOTRIMAZOLE 10 MG TROCHE PO SCH ×4 (09:10→20:48)
[2016-04-05] MEDS: AMITRIPTYLINE 50 MG TAB PO SCH (09:10)
[2016-04-05] MEDS: ATENOLOL 50 MG TAB PO SCH ×2 (09:12→20:48)
[2016-04-05] MEDS: DIGOXIN 0.125 MG TAB PO SCH (09:14)
[2016-04-05] MEDS: methylPREDNISolone INJ 125 MG/2 ML VIAL (J2930) IV SCH ×2 (12:16→23:21)
[2016-04-05 14:00] VITALS: BP 130/64
--- NOTE | 2016-04-05 16:15 | EDDOCDS ---
Physician Documentation [facility] Name: Abida Bledsoe Age: 75 yrs Sex: Female : 1940 Arrival Date: 04/03/2016 Time: 12:00 Bed 14 Private MD: Darwin Ortega MD Disposition: 04/03/16 13:35 Hospitalization ordered by Aneesh Harden for Inpatient Admission. Preliminary diagnosis are Chronic obstructive pulmonary disease with (acute) exacerbation, Chronic obstructive pulmonary disease with acute lower respiratory infection. - Bed requested for 4 [place]. - Status is Inpatient Admission. [facility] - Condition is Stable. - Problem is an acute exacerbation. - Symptoms are unchanged. Historical: - Allergies: PENICILLINS; - Home Meds: 1. albuterol sulfate 90 mcg/actuation Inhl HFAA 1 puff every 4-6 hours 2. albuterol sulfate 2.5 mg /3 mL (0.083 %) Inhl nebu 3 mL 4 times per day (Last dose: 04/03/2016 11:00) 3. amitriptyline 75 mg Oral tab 1 tab nightly in PM 4. amitriptyline 50 mg Oral tab 1 tab once daily in AM 5. Anusol Rectal supp daily 6. atenolol 50 mg Oral tab 1 tab 2 times per day 7. Calcium + Vitamin D 600 mg calcium- 200 unit Oral tab 500 mg daily 8. Coumadin 4 mg Oral tab 1 tab 3 times per week 9. Coumadin 2 mg Oral tab 1 tab 4 times per week 10. digoxin 250 mcg Oral tab 1 tab once daily 11. Fioricet 50-325-40 mg Oral tab 1 tab every 4 hours 12. Fish Oil 1,000 mg Oral cap 4 caps daily 13. Lipitor 80 mg Oral tab 1 tab once daily 14. loratadine 10 mg Oral TbDL 1 tab once daily 15. lutein 10 mg oral tab daily 16. magnesium oxide 140 mg Oral cap 128 mg twice a day 17. Mucinex 600 mg oral Ta12 1 tab every 12 hours 18. multivitamin Oral tab 1 tab daily 19. Patanol 0.1 % Opht drop 1 drop 2 times per day 20. prednisone Unknown Oral once daily 21. Spiriva with HandiHaler 18 mcg Inhl CpDv 1 cap once daily 22. Premarin 0.625 mg/gram Vagl crea every other day - PMHx: Atrial Fib; COPD; High Cholesterol; Hypertension; pulmonary fibrosis; - PSHx: Cataract Surgery- Bilateral; Knee Arthroplasty, Right; Hysterectomy; Shoulder Arthroplasty, Left; - Social history: Smoking status: Patient states former smoker of tobacco. No barriers to communication noted, The patient speaks fluent Ukrainian, Speaks appropriately for age. - Family history: Not pertinent. - : The pt / caregiver states he / she is on anticoagulants: coumadin. Home medication list is obtained from the patient, family members, [employer] import data. - Exposure Risk Screening:: None identified. Vital Signs: 04/03 12:02 BP 194 / 90 RA Sitting (auto/lg); Pulse 114; Resp 24; Temp 99.8(T); Pulse Ox 85% on rs6 R/A; Weight 77.11 kg / 170 lbs (R); Height 5 ft. 3 in. (160.02 cm) (R); Pain 6/10; 12:15 BP 133 / 98 (auto/); jo3 12:15 Pulse 106 MON; Pulse Ox 98% ; jo3 12:30 BP 198 / 79 (auto/); jo3 12:30 Pulse 98 MON; Pulse Ox 96% ; jo3 12:44 Pulse 102 MON; Pulse Ox 95% ; jo3 13:00 BP 174 / 79 (auto/); cjh 13:00 Pulse 92 MON; Pulse Ox 98% ; cjh 13:15 BP 179 / 86 (auto/); cjh 13:15 Pulse 96 MON; Pulse Ox 98% ; cjh 13:15 BP 130 / 0; ac1 13:30 Pulse 106 MON; Pulse Ox 95% ; cjh 13:30 BP 188 / 91 (auto/); cjh 13:45 Pulse 106 MON; Pulse Ox 96% ; cjh 13:45 BP 170 / 78 (auto/); cjh 14:00 Pulse 102 MON; Pulse Ox 95% ; cjh 14:00 BP 180 / 77 (auto/); cjh 14:14 BP 133 / 5; ac1 14:15 Pulse 104 MON; Pulse Ox 97% ; cjh 14:15 BP 181 / 79 (auto/); cjh 14:33 BP 161 / 74 (auto/); cjh 14:33 BP 161 / 74; Pulse 104 MON; Resp 20; Temp 99.4; Pulse Ox 97% ; Pain 1/10; cjh 12:02 Body Mass Index 30.11 (77.11 kg, 160.02 cm) rs6 MDM: 12:04 -Blood Culture (Adults Only), peripheral from different site, or from device/port/PICC sd1 etc. if present ordered. 12:04 Certified Financial Planner/Pulse Ox/q 15 min VS ordered. sd1 12:04 IV Saline Lock ordered. sd1 12:04 Oxygen at 4L/Min NC or Home dosage ordered. sd1 12:04 Rhythm Strip to chart ordered. sd1 12:05 -Blood Culture Ordered. EDMS 12:05 Basic Metabolic Profile Ordered. EDMS 12:05 CBC with Diff Ordered. EDMS 12:05 ECG WITH READING ER PHYS+CARDIAG ordered. EDMS 12:05 BNP Ordered. EDMS 12:05 -Blood Culture (Adults Only), peripheral from different site, or from device/port/PICC ar3 etc. if present complete. 12:06 Chest, 1 View Ordered. EDMS 12:07 BLOOD CULTURES Ordered. EDMS 12:12 PT/INR Ordered. EDMS 12:15 DIGOXIN LEVEL Ordered. EDMS 12:18 Albuterol-Ipratropium 1 neb Nebulizer every 20 minutes x3 ordered. sd1 12:18 Solu-MEDROL 125 mg IVP once ordered. sd1 12:18 Call Respiratory ordered. sd1 12:18 Call Respiratory complete. ar3 12:19 -Arterial Blood Gas Ordered. EDMS 12:29 Financial registration complete. mpb 12:30 [facility] [place] Payment Agreement was scanned into [employer] and attached to record. mpb 12:54 BED REQUEST+ADM ordered. EDMS 13:05 CBC with Diff Reviewed. sd1 13:05 BNP Reviewed. sd1 13:05 PT/INR Reviewed. sd1 13:26 Basic Metabolic Profile Reviewed. sd1 13:26 -Arterial Blood Gas Reviewed. sd1 13:26 DIGOXIN LEVEL Reviewed. sd1 13:40 Admission / Observation Status ordered. EDMS 13:40 NO ADDED SALT DIET ordered. EDMS 14:23 Call Respiratory ordered. cjh 14:24 Call Respiratory complete. cjh 14:26 Albuterol-Ipratropium 3 ml Inhalation once ordered. [facility] 04/04 09:37 T-Sheet-- Draft Copy was scanned into [employer] and attached to record. gb 09:38 ECG/EKG was scanned into [employer] and attached to record. gb Administered Medications: 04/03 12:45 Drug: Solu-MEDROL 125 mg [Solu-Medrol 500 mg intravenous solution (125 mg)] Route: IVP; jo3 Site: left forearm; 12:55 Drug: Albuterol-Ipratropium 1 neb [ipratropium-albuterol 0.5 mg-3 mg(2.5 mg base)/3 mL ac1 nebulization soln (1 neb)] Route: Nebulizer; 13:00 Follow up: z bilat ac1 13:15 Follow up: BP 130 / 0 ac1 13:16 Drug: Albuterol-Ipratropium 1 neb [ipratropium-albuterol 0.5 mg-3 mg(2.5 mg base)/3 mL ac1 nebulization soln (1 neb)] Route: Nebulizer; 13:30 Drug: Albuterol-Ipratropium 1 neb [ipratropium-albuterol 0.5 mg-3 mg(2.5 mg base)/3 mL ac1 nebulization soln (1 neb)] Route: Nebulizer; 13:35 Follow up: bs-z bilat ac1 14:14 Follow up: BP 133 / 5 ac1 14:28 Drug: Albuterol-Ipratropium 3 ml [ipratropium-albuterol 0.5 mg-3 mg(2.5 mg base)/3 mL ac1 nebulization soln (3 mL)] Route: Inhalation; Signatures: [facility] Imani Bergman MD MD sd1 Camilla Hudson, Reg Reg gb Renetta Willson,RN RN tricia3 Kaylie PetersonRN RN jo3 Scarlett Anthony, SLEEP MEDICINE PHYSICIAN SLEEP MEDICINE PHYSICIAN ar3 Heather Hernandez RN RN cjh Sourwine, Sharon, RN RN ashlyn2 Taj Engel, Reg Reg mpb Barb Silvestre RT ac1 The chart was reviewed and I authenticate all verbal orders and agree with the evaluation and treatment provided.Corrections: (The following items were deleted from the chart) 12:15 12:13 DIGOXIN LEVEL+LAB ordered. EDMS EDMS Attachments: 12:30 [facility] Payment Agreement mpb 04/04 09:37 T-Sheet-- Draft Copy gb 09:38 ECG/EKG gb Chart Complete MTDD
--- NOTE | 2016-04-05 16:15 | EDDOCDS ---
Physician Documentation [facility] Name: Abida Bledsoe Age: 75 yrs Sex: Female : 1940 Arrival Date: 04/03/2016 Time: 12:00 Bed 14 Private MD: Darwin Ortega MD Disposition: 04/03/16 13:35 Hospitalization ordered by Aneesh Harden for Inpatient Admission. Preliminary diagnosis are Chronic obstructive pulmonary disease with (acute) exacerbation, Chronic obstructive pulmonary disease with acute lower respiratory infection. - Bed requested for 4 [place]. - Status is Inpatient Admission. [facility] - Condition is Stable. - Problem is an acute exacerbation. - Symptoms are unchanged. Historical: - Allergies: PENICILLINS; - Home Meds: 1. albuterol sulfate 90 mcg/actuation Inhl HFAA 1 puff every 4-6 hours 2. albuterol sulfate 2.5 mg /3 mL (0.083 %) Inhl nebu 3 mL 4 times per day (Last dose: 04/03/2016 11:00) 3. amitriptyline 75 mg Oral tab 1 tab nightly in PM 4. amitriptyline 50 mg Oral tab 1 tab once daily in AM 5. Anusol Rectal supp daily 6. atenolol 50 mg Oral tab 1 tab 2 times per day 7. Calcium + Vitamin D 600 mg calcium- 200 unit Oral tab 500 mg daily 8. Coumadin 4 mg Oral tab 1 tab 3 times per week 9. Coumadin 2 mg Oral tab 1 tab 4 times per week 10. digoxin 250 mcg Oral tab 1 tab once daily 11. Fioricet 50-325-40 mg Oral tab 1 tab every 4 hours 12. Fish Oil 1,000 mg Oral cap 4 caps daily 13. Lipitor 80 mg Oral tab 1 tab once daily 14. loratadine 10 mg Oral TbDL 1 tab once daily 15. lutein 10 mg oral tab daily 16. magnesium oxide 140 mg Oral cap 128 mg twice a day 17. Mucinex 600 mg oral Ta12 1 tab every 12 hours 18. multivitamin Oral tab 1 tab daily 19. Patanol 0.1 % Opht drop 1 drop 2 times per day 20. prednisone Unknown Oral once daily 21. Spiriva with HandiHaler 18 mcg Inhl CpDv 1 cap once daily 22. Premarin 0.625 mg/gram Vagl crea every other day - PMHx: Atrial Fib; COPD; High Cholesterol; Hypertension; pulmonary fibrosis; - PSHx: Cataract Surgery- Bilateral; Knee Arthroplasty, Right; Hysterectomy; Shoulder Arthroplasty, Left; - Social history: Smoking status: Patient states former smoker of tobacco. No barriers to communication noted, The patient speaks fluent Hungarian, Speaks appropriately for age. - Family history: Not pertinent. - : The pt / caregiver states he / she is on anticoagulants: coumadin. Home medication list is obtained from the patient, family members, [employer] import data. - Exposure Risk Screening:: None identified. Vital Signs: 04/03 12:02 BP 194 / 90 RA Sitting (auto/lg); Pulse 114; Resp 24; Temp 99.8(T); Pulse Ox 85% on rs6 R/A; Weight 77.11 kg / 170 lbs (R); Height 5 ft. 3 in. (160.02 cm) (R); Pain 6/10; 12:15 BP 133 / 98 (auto/); jo3 12:15 Pulse 106 MON; Pulse Ox 98% ; jo3 12:30 BP 198 / 79 (auto/); jo3 12:30 Pulse 98 MON; Pulse Ox 96% ; jo3 12:44 Pulse 102 MON; Pulse Ox 95% ; jo3 13:00 BP 174 / 79 (auto/); cjh 13:00 Pulse 92 MON; Pulse Ox 98% ; cjh 13:15 BP 179 / 86 (auto/); cjh 13:15 Pulse 96 MON; Pulse Ox 98% ; cjh 13:15 BP 130 / 0; ac1 13:30 Pulse 106 MON; Pulse Ox 95% ; cjh 13:30 BP 188 / 91 (auto/); cjh 13:45 Pulse 106 MON; Pulse Ox 96% ; cjh 13:45 BP 170 / 78 (auto/); cjh 14:00 Pulse 102 MON; Pulse Ox 95% ; cjh 14:00 BP 180 / 77 (auto/); cjh 14:14 BP 133 / 5; ac1 14:15 Pulse 104 MON; Pulse Ox 97% ; cjh 14:15 BP 181 / 79 (auto/); cjh 14:33 BP 161 / 74 (auto/); cjh 14:33 BP 161 / 74; Pulse 104 MON; Resp 20; Temp 99.4; Pulse Ox 97% ; Pain 1/10; cjh 12:02 Body Mass Index 30.11 (77.11 kg, 160.02 cm) rs6 MDM: 12:04 -Blood Culture (Adults Only), peripheral from different site, or from device/port/PICC sd1 etc. if present ordered. 12:04 Mobile Home Technician/Pulse Ox/q 15 min VS ordered. sd1 12:04 IV Saline Lock ordered. sd1 12:04 Oxygen at 4L/Min NC or Home dosage ordered. sd1 12:04 Rhythm Strip to chart ordered. sd1 12:05 -Blood Culture Ordered. EDMS 12:05 Basic Metabolic Profile Ordered. EDMS 12:05 CBC with Diff Ordered. EDMS 12:05 ECG WITH READING ER PHYS+CARDIAG ordered. EDMS 12:05 BNP Ordered. EDMS 12:05 -Blood Culture (Adults Only), peripheral from different site, or from device/port/PICC ar3 etc. if present complete. 12:06 Chest, 1 View Ordered. EDMS 12:07 BLOOD CULTURES Ordered. EDMS 12:12 PT/INR Ordered. EDMS 12:15 DIGOXIN LEVEL Ordered. EDMS 12:18 Albuterol-Ipratropium 1 neb Nebulizer every 20 minutes x3 ordered. sd1 12:18 Solu-MEDROL 125 mg IVP once ordered. sd1 12:18 Call Respiratory ordered. sd1 12:18 Call Respiratory complete. ar3 12:19 -Arterial Blood Gas Ordered. EDMS 12:29 Financial registration complete. mpb 12:30 [facility] [place] Payment Agreement was scanned into [employer] and attached to record. mpb 12:54 BED REQUEST+ADM ordered. EDMS 13:05 CBC with Diff Reviewed. sd1 13:05 BNP Reviewed. sd1 13:05 PT/INR Reviewed. sd1 13:26 Basic Metabolic Profile Reviewed. sd1 13:26 -Arterial Blood Gas Reviewed. sd1 13:26 DIGOXIN LEVEL Reviewed. sd1 13:40 Admission / Observation Status ordered. EDMS 13:40 NO ADDED SALT DIET ordered. EDMS 14:23 Call Respiratory ordered. cjh 14:24 Call Respiratory complete. cjh 14:26 Albuterol-Ipratropium 3 ml Inhalation once ordered. [facility] 04/04 09:37 T-Sheet-- Draft Copy was scanned into [employer] and attached to record. gb 09:38 ECG/EKG was scanned into [employer] and attached to record. gb Administered Medications: 04/03 12:45 Drug: Solu-MEDROL 125 mg [Solu-Medrol 500 mg intravenous solution (125 mg)] Route: IVP; jo3 Site: left forearm; 12:55 Drug: Albuterol-Ipratropium 1 neb [ipratropium-albuterol 0.5 mg-3 mg(2.5 mg base)/3 mL ac1 nebulization soln (1 neb)] Route: Nebulizer; 13:00 Follow up: z bilat ac1 13:15 Follow up: BP 130 / 0 ac1 13:16 Drug: Albuterol-Ipratropium 1 neb [ipratropium-albuterol 0.5 mg-3 mg(2.5 mg base)/3 mL ac1 nebulization soln (1 neb)] Route: Nebulizer; 13:30 Drug: Albuterol-Ipratropium 1 neb [ipratropium-albuterol 0.5 mg-3 mg(2.5 mg base)/3 mL ac1 nebulization soln (1 neb)] Route: Nebulizer; 13:35 Follow up: bs-z bilat ac1 14:14 Follow up: BP 133 / 5 ac1 14:28 Drug: Albuterol-Ipratropium 3 ml [ipratropium-albuterol 0.5 mg-3 mg(2.5 mg base)/3 mL ac1 nebulization soln (3 mL)] Route: Inhalation; Signatures: [facility] Imani Bergman MD MD sd1 Camilla Hudson, Reg Reg gb Renetta Willson,RN RN tricia3 Kaylie PetersonRN RN jo3 Scarlett Anthony, HYDRODYNAMICS TEACHER HYDRODYNAMICS TEACHER ar3 Heather Hernandez RN RN cjh Sourwine, Sharon, RN RN ashlyn2 Taj Engel, Reg Reg mpb Barb Silvestre RT ac1 The chart was reviewed and I authenticate all verbal orders and agree with the evaluation and treatment provided.Corrections: (The following items were deleted from the chart) 12:15 12:13 DIGOXIN LEVEL+LAB ordered. EDMS EDMS Attachments: 12:30 [facility] Payment Agreement mpb 04/04 09:37 T-Sheet-- Draft Copy gb 09:38 ECG/EKG gb Chart Complete MTDD
--- NOTE | 2016-04-05 16:15 | EDDOCDS ---
Nurse's Notes [facility] Name: Abida Bledsoe Age: 75 yrs Sex: Female : 1940 Arrival Date: 04/03/2016 Time: 12:00 Bed 14 Private MD: Darwin Ortega MD Diagnosis: Chronic obstructive pulmonary disease with (acute) exacerbation;Chronic obstructive pulmonary disease with acute lower respiratory infection Presentation: 04/03 12:04 Presenting complaint: Patient states: cough with shortness of breath. reports was seen kr3 Monday for same, felt better at discharge but symptoms returned when got home from ED. Adult Sepsis Screening: The patient does not have new or worsening altered mentation. Patient has a respiratory rate of greater than or equal to 22 (1 point). Systolic blood pressure is greater than 100. Patient has a qSOFA score of 1- Negative Sepsis Screen. Suicide/Homicide risk assessment- the patient denies having any suicidal and/or homicidal ideations and does not present with any other emotional, behavioral or mental health complaints. Status: Patient is not a service station operator or dependent. Transition of care: patient was not received from another setting of care. 12:04 Acuity: GENOVEVA Level 2 kr3 12:04 Method Of Arrival: Wheelchair kr3 12:19 Red Flag criteria, patient assessed and taken directly to a bed. kr3 Triage Assessment: 12:09 General: Appears uncomfortable, Behavior is appropriate for age, cooperative. Pain: kr3 Location: back Pain currently is 0 out of 10 on a pain scale. At worst was 8 out of 10 on a pain scale. The patient is triaged at the bedside. See Assessment in Nurses Notes section of ED record. Neurological: Level of Consciousness is awake, alert. Respiratory: Onset: The symptoms/episode began/occurred since monday, Reports shortness of breath cough that is productive, labored breathing pain with cough pain with respiration. Derm: Skin is normal. Historical: - Allergies: PENICILLINS; - Home Meds: 1. albuterol sulfate 90 mcg/actuation Inhl HFAA 1 puff every 4-6 hours 2. albuterol sulfate 2.5 mg /3 mL (0.083 %) Inhl nebu 3 mL 4 times per day (Last dose: 04/03/2016 11:00) 3. amitriptyline 75 mg Oral tab 1 tab nightly in PM 4. amitriptyline 50 mg Oral tab 1 tab once daily in AM 5. Anusol Rectal supp daily 6. atenolol 50 mg Oral tab 1 tab 2 times per day 7. Calcium + Vitamin D 600 mg calcium- 200 unit Oral tab 500 mg daily 8. Coumadin 4 mg Oral tab 1 tab 3 times per week 9. Coumadin 2 mg Oral tab 1 tab 4 times per week 10. digoxin 250 mcg Oral tab 1 tab once daily 11. Fioricet 50-325-40 mg Oral tab 1 tab every 4 hours 12. Fish Oil 1,000 mg Oral cap 4 caps daily 13. Lipitor 80 mg Oral tab 1 tab once daily 14. loratadine 10 mg Oral TbDL 1 tab once daily 15. lutein 10 mg oral tab daily 16. magnesium oxide 140 mg Oral cap 128 mg twice a day 17. Mucinex 600 mg oral Ta12 1 tab every 12 hours 18. multivitamin Oral tab 1 tab daily 19. Patanol 0.1 % Opht drop 1 drop 2 times per day 20. prednisone Unknown Oral once daily 21. Spiriva with HandiHaler 18 mcg Inhl CpDv 1 cap once daily 22. Premarin 0.625 mg/gram Vagl crea every other day - PMHx: Atrial Fib; COPD; High Cholesterol; Hypertension; pulmonary fibrosis; - PSHx: Cataract Surgery- Bilateral; Knee Arthroplasty, Right; Hysterectomy; Shoulder Arthroplasty, Left; - Social history: Smoking status: Patient states former smoker of tobacco. No barriers to communication noted, The patient speaks fluent Sami, Speaks appropriately for age. - Family history: Not pertinent. - : The pt / caregiver states he / she is on anticoagulants: coumadin. Home medication list is obtained from the patient, family members, [employer] import data. - Exposure Risk Screening:: None identified. Screenin:28 Screening information is obtained from the patient. Fall risk: No risks identified. jo3 Assistance ADL's: requires no assistance with activities of daily living. Abuse/DV Screen: The patient / caregiver reports he/she is: not in a situation that causes fear, pain or injury. Nutritional screening: No deficits noted. home support is adequate. 14:56 Advance Directives: There is no active DNR order. [facility] Assessment: 12:28 General: Appears in no apparent distress, comfortable, Behavior is appropriate for age, jo3 cooperative. Neurological: Level of Consciousness is awake, alert, Oriented to person, place, time. Cardiovascular: Rhythm is atrial fibrillation. Cardiovascular: Chest pain is denied. Respiratory: Airway is patent Respiratory effort is even, labored. Derm: Skin is pink, warm & dry. 14:37 General: resting quietly on stretcher, at bedside, denies needs at this time. cj 14:37 General: respiratory treatment obtained, awaiting dispo appears comfortable. [facility] 14:56 General: no visible distress, denies further needs, states more comfortable after [facility] respiratory treatment. Respiratory: Breath sounds are diminished bilaterally. Vital Signs: 12:02 BP 194 / 90 RA Sitting (auto/lg); Pulse 114; Resp 24; Temp 99.8(T); Pulse Ox 85% on rs6 R/A; Weight 77.11 kg (R); Height 5 ft. 3 in. (160.02 cm) (R); Pain 6/10; 12:15 BP 133 / 98 (auto/); jo3 12:15 Pulse 106 MON; Pulse Ox 98% ; jo3 12:30 BP 198 / 79 (auto/); jo3 12:30 Pulse 98 MON; Pulse Ox 96% ; jo3 12:44 Pulse 102 MON; Pulse Ox 95% ; jo3 13:00 BP 174 / 79 (auto/); cjh 13:00 Pulse 92 MON; Pulse Ox 98% ; cjh 13:15 BP 179 / 86 (auto/); cjh 13:15 Pulse 96 MON; Pulse Ox 98% ; cjh 13:15 BP 130 / 0; ac1 13:30 Pulse 106 MON; Pulse Ox 95% ; cjh 13:30 BP 188 / 91 (auto/); cjh 13:45 Pulse 106 MON; Pulse Ox 96% ; cjh 13:45 BP 170 / 78 (auto/); cjh 14:00 Pulse 102 MON; Pulse Ox 95% ; cjh 14:00 BP 180 / 77 (auto/); cjh 14:14 BP 133 / 5; ac1 14:15 Pulse 104 MON; Pulse Ox 97% ; cjh 14:15 BP 181 / 79 (auto/); cjh 14:33 BP 161 / 74 (auto/); cjh 14:33 BP 161 / 74; Pulse 104 MON; Resp 20; Temp 99.4; Pulse Ox 97% ; Pain 1/10; cjh 12:02 Body Mass Index 30.11 (77.11 kg, 160.02 cm) rs6 Vitals: 12:02 Log In Time: April 03, 2016 at 12:02. RN notified that patient meets Red Flag rs6 criteria. ED Course: 12:01 Patient visited by Autumn Lomax PCA. rs6 12:01 Darwin Ortega is Private Physician. rs6 12:01 Patient moved to Waiting rs6 12:03 Patient moved to 14 rs6 12:05 Triage Initiated kr3 12:09 Imani Bergman MD is Attending Physician. sd1 12:09 Patient visited by Imani Bergman MD. sd1 12:17 Patient visited by Janine Rondon PCA. ct3 12:17 Accompanied by Family Member, Patient has correct armband on for positive ct3 identification. Placed in gown. Bed in low position. Call light in reach. Side rails up X 1. hospital personnel director on. Pulse ox on. NIBP on. 12:17 EKG done. (by ED staff). Reviewed by Imani Bergman MD. ct3 12:28 The patient / caregiver is instructed regarding the plan of care and ED course. jo3 12:28 DIGOXIN LEVEL Sent. jo3 12:28 PT/INR Sent. jo3 12:28 BLOOD CULTURES Sent. jo3 12:28 BNP Sent. jo3 12:28 Inserted saline lock: 20 gauge in left forearm. Labs drawn. (by ED staff). Sent per jo3 order to lab. Labs/Blood culture drawn. 12:30 Patient visited by Kaylie Peterson RN. jo3 12:30 [facility] Payment Agreement was scanned into R[employer] and attached to record. mpb 12:32 Patient visited by Viola Childress. lr2 12:32 Assisted to bedside commode. lr2 12:45 Patient visited by Kaylie Peterson RN. jo3 13:14 -Arterial Blood Gas Sent. ac1 13:35 Aneesh Harden MD is Hospitalizing Provider. sd1 14:13 Chest, 1 View Returned. EDMS 14:47 EKG-ADULT Returned. EDMS 14:56 No procedures done that require assistance. [facility] 04/04 09:37 T-Sheet-- Draft Copy was scanned into Revert and attached to record. gb 09:38 ECG/EKG was scanned into [employer] and attached to record. gb Administered Medications: 04/03 12:45 Drug: Solu-MEDROL 125 mg [Solu-Medrol 500 mg intravenous solution (125 mg)] Route: IVP; jo3 Site: left forearm; 12:55 Drug: Albuterol-Ipratropium 1 neb [ipratropium-albuterol 0.5 mg-3 mg(2.5 mg base)/3 mL ac1 nebulization soln (1 neb)] Route: Nebulizer; 13:00 Follow up: stephanie moses ac1 13:15 Follow up: BP 130 / 0 ac1 13:16 Drug: Albuterol-Ipratropium 1 neb [ipratropium-albuterol 0.5 mg-3 mg(2.5 mg base)/3 mL ac1 nebulization soln (1 neb)] Route: Nebulizer; 13:30 Drug: Albuterol-Ipratropium 1 neb [ipratropium-albuterol 0.5 mg-3 mg(2.5 mg base)/3 mL ac1 nebulization soln (1 neb)] Route: Nebulizer; 13:35 Follow up: bs-stephanie moses ac1 14:14 Follow up: BP 133 / 5 ac1 14:28 Drug: Albuterol-Ipratropium 3 ml [ipratropium-albuterol 0.5 mg-3 mg(2.5 mg base)/3 mL ac1 nebulization soln (3 mL)] Route: Inhalation; Intake: RT: 12:55 Initial Med Neb Given as ordered Patient was instructed and evaluated on procedure. ac1 Respiratory: Breath sounds are diminished bilaterally. Breath sounds with wheezes. 13:15 Subsequent Med Neb Given as ordered. ac1 13:20 Respiratory: Breath sounds are diminished bilaterally. Breath sounds with wheezes. ac1 13:30 Subsequent Med Neb Given as ordered. ac1 13:40 Respiratory: Breath sounds with wheezes bilaterally. ac1 14:28 Subsequent Med Neb Given as ordered Patient was reinforced on procedure. ac1 14:29 Respiratory: Breath sounds are diminished bilaterally. Breath sounds with wheezes. ac1 14:32 Respiratory: Breath sounds with wheezes bilaterally. ac1 Order Results: Lab Order: Basic Metabolic Profile; SPEC'M 04/03/16 12:25 Test: GLUCOSE, FASTING; Value: 100; Range: 83-110; Units: MG/DL; Status: F Test: BLOOD UREA NITROGEN; Value: 14; Range: 7-18; Units: MG/DL; Status: F Test: CREATININE FOR GFR; Value: 0.54; Range: 0.55-1.02; Abnormal: Below low normal; Units: MG/DL; Status: F Test: GLOMERULAR FILTRATION RATE; Value: > 60.0; Range: >39; Status: F Test: SODIUM LEVEL; Value: 140; Range: 136-145; Units: MEQ/L; Status: F Test: POTASSIUM SERUM; Value: 3.8; Range: 3.5-5.1; Units: MEQ/L; Status: F Test: CHLORIDE LEVEL; Value: 99; Range: 98-107; Units: MEQ/L; Status: F Test: CARBON DIOXIDE LEVEL; Value: 33; Range: 21-32; Abnormal: Above high normal; Units: MEQ/L; Status: F Test: ANION GAP; Value: 8; Range: 8-16; Units: MEQ/L; Status: F Test: CALCIUM LEVEL; Value: 8.5; Range: 8.8-10.2; Abnormal: Below low normal; Units: MG/DL; Status: F Test Note: ; Units are mL/min/1.73 m2 Chronic Kidney Disease Staging per NKF: Stage I & II GFR >=60 Normal to Mildly Decreased Stage III GFR 30-59 Moderately Decreased Stage IV GFR 15-29 Severely Decreased Stage V GFR <15 Very Little GFR Left ESRD GFR <15 on PUBLIC POLICY ASSOCIATE Lab Order: CBC with Diff; SPEC'M 04/03/16 12:25 Test: WHITE BLOOD COUNT; Value: 10.7; Range: 4.0-10.0; Abnormal: Above high normal; Units: K/mm3; Status: F Test: RED BLOOD COUNT; Value: 4.34; Range: 4.00-5.40; Units: M/mm3; Status: F Test: HEMOGLOBIN; Value: 13.4; Range: 12.0-16.0; Units: g/dl; Status: F Test: HEMATOCRIT; Value: 40.8; Range: 36.0-47.0; Units: %; Status: F Test: MEAN CORPUSCULAR VOLUME; Value: 94.1; Range: 80.0-96.0; Units: fl; Status: F Test: MEAN CORPUSCULAR HEMOGLOBIN; Value: 31.0; Range: 27.0-33.0; Units: pg; Status: F Test: MEAN CORPUSCULAR HGB CONC; Value: 32.9; Range: 32.0-36.5; Units: g/dl; Status: F Test: RED CELL DISTRIBUTION WIDTH; Value: 13.9; Range: 11.5-14.5; Units: %; Status: F Test: PLATELET COUNT, AUTOMATED; Value: 271; Range: 150-450; Units: k/mm3; Status: F Test: NEUTROPHILS %; Value: 84.3; Range: 36.0-66.0; Abnormal: Above high normal; Units: %; Status: F Test: LYMPH %; Value: 7.2; Range: 24.0-44.0; Abnormal: Below low normal; Units: %; Status: F Test: MONO %; Value: 6.0; Range: 0.0-5.0; Abnormal: Above high normal; Units: %; Status: F Test: EOS %; Value: 0.7; Range: 0.0-3.0; Units: %; Status: F Test: BASO %; Value: 0.4; Range: 0.0-1.0; Units: %; Status: F Test: LARGE UNSTAINED CELL %; Value: 1.4; Range: 0.0-4.0; Units: %; Status: F Test: NEUTROPHILS #; Value: 9.0; Range: 1.8-7.7; Abnormal: Above high normal; Units: K/mm3; Status: F Test: LYMPH #; Value: 0.9; Range: 1.5-4.5; Abnormal: Below low normal; Units: K/mm3; Status: F Test: MONO #; Value: 0.7; Range: 0.0-0.8; Units: K/mm3; Status: F Test: EOS #; Value: 0.1; Range: 0.0-0.50; Units: K/mm3; Status: F Test: BASO #; Value: 0.0; Range: 0.0-0.2; Units: K/mm3; Status: F Test: LARGE UNSTAINED CELL #; Value: 0.2; Range: 0.0-0.4; Units: K/mm3; Status: F Lab Order: BNP; [facility] 04/03/16 12:25 Test: BRAIN NATRIURETIC PEPTIDE; Value: 211; Range: <100; Abnormal: Above high normal; Units: PG/ML; Status: F Lab Order: PT/INR; [facility] 04/03/16 12:25 Test: PROTHROMBIN TIME; Value: 33.4; Range: 12.3-14.5; Abnormal: Above high normal; Units: SECONDS; Status: F Test: INR; Value: 3.28; Status: F Test Note: ; THERAPUTIC HUMAN INR VALUES INDICATIONS NORMAL RANGES PROPHYLAXIS/TREATMENT OF: VENOUS THROMBOSIS 2.0-3.0 PULMONARY EMBOLISM 2.0-3.0 PREVENTION OF SYSTEMIC EMBOLISM FROM: TISSUE HEART VALVES 2.0-3.0 ACUTE MYOCARDIAL INFARCTION 2.0-3.0 VALVULAR HEART DISEASE 2.0-3.0 ATRIAL FIBRILLATION 2.0-3.0 MECHANICAL VALVES(HIGH RISK) 2.5-3.5 RECURRENT MYOCARDIAL INFARCTION 2.5-3.5 Lab Order: DIGOXIN LEVEL; [facility] 04/03/16 12:25 Test: DIGOXIN LEVEL; Value: 1.3; Range: 0.5-2.0; Units: NG/ML; Status: F Lab Order: -Arterial Blood Gas; [facility] 04/03/16 13:05 Test: ABG pH (ARTERIAL); Value: 7.385; Range: 7.350-7.450; Units: UNITS; Status: F Test: ABG PARTIAL PRESSURE CO2; Value: 59.7; Range: 35.0-45.0; Abnormal: Above high normal; Units: mmHg; Status: F Test: ABG PARTIAL PRESSURE O2; Value: 314.6; Range: 75.0-100.0; Abnormal: Above high normal; Units: mmHg; Status: F Test: ABG TOTAL CO2; Value: 36.8; Range: 23.0-31.0; Abnormal: Above high normal; Units: MEQ/L; Status: F Test: ABG HCO3; Value: 34.9; Range: 22.0-26.0; Abnormal: Above high normal; Units: MEQ/L; Status: F Test: ABG BASE EXCESS; Value: 7.7; Range: -2.0-2.0; Abnormal: Above high normal; Status: F Test: ABG STANDARD HCO3; Value: 31.6; Range: 22.0-26.0; Abnormal: Above high normal; Units: MEQ/L; Status: F Test: ABG O2 SATURATION; Value: 100.0; Range: 95.0-99.0; Abnormal: Above high normal; Units: %; Status: F Test: ABG DEVICE; Value: NASAL SHERRIE; Status: F Radiology Order: EKG-ADULT Test: EKG-ADULT REASON FOR EXAMINATION: Shortness of Breath; Stationary ECG Study; [facility] - ED; ; Test Date: 2016-04-03; Pat Name: ABIDA BLEDSOE Department:; Room: -; Gender: F Scrip Clerk: ct; : 1940 Requested By: Imani Bergman; Order Number: [id number] Reading MD: Severino Rodarte; Measurements; Intervals [place]; Rate: 98 P:; TN: 0 QRS: 66; QRSD: 87 T: -26; QT: 298; QTc: 380; Interpretive Statements; ATRIAL FIBRILLATION; NONSPECIFIC ST T-WAVE ABNORMALITY; ; Electronically Signed On 04-03-2016 14:34:48 EST by Severino Rodarte; Radiology Order: Chest, 1 View Test: Chest, 1 View REASON FOR EXAMINATION: Shortness of Breath; PORTABLE CHEST X-RAY: Single view.; ; HISTORY: Shortness of breath.; ; Comparison chest x-ray April 01, 2016.; ; FINDINGS: EKG monitoring electrodes overlie the chest. The lungs are; symmetrically aerated and clear. Pleural angles are sharp. Heart size is; unchanged. Pulmonary vasculature is not increased.; ; IMPRESSION:; ; No active disease.; ; ; Signed by; Rafal Mathis MD 04/03/2016 02:05 P; Outcome: 13:35 Decision to Hospitalize by Provider. sd1 14:56 Discharge Assessment: Patient awake, alert and oriented x 3. No cognitive and/or h functional deficits noted. Patient verbalized understanding of disposition instructions. patient administered narcotics - no. The following High Risk Discharge criteria are identified: None. Discharged to Admitted to Med/Surg. Condition: stable. No special radiology studies were completed. Property sent home with patient. :Personal belongings accompany Pt. 15:14 Patient left the ED. [facility] Signatures: Dispatcher [employer] EDImani Madison MD MD sd1 Camilla Hudson, Reg Reg gb Barb Silvestre,RT RT ac1 Renetta Willson,RN RN kr3 Kaylie PetersonRN RN jo3 Janine Rondon, FILLER BLOCK INSERTER REMOVER FILLER BLOCK INSERTER REMOVER ct3 Heather Hernandez RN RN [facility] Autumn Lomax, FILLER BLOCK INSERTER REMOVER FILLER BLOCK INSERTER REMOVER rs6 Taj Engel, Reg Reg mpb Viola Childress lr2 Chart Complete MTDD
[2016-04-05] MEDS ORDERED: WARFARIN SOD 2 MG TAB PO SCH (17:00)
[2016-04-05] MEDS ORDERED: WARFARIN SOD 4 MG TAB PO ONE (17:00)
[2016-04-05] MEDS: FAMOTIDINE 20 MG TAB PO SCH (20:47)
[2016-04-05] MEDS: AMITRIPTYLINE 25 MG TAB PO SCH (20:48)
[2016-04-05] MEDS: ATORVASTATIN 20 MG TAB PO SCH (20:48)
[2016-04-05 22:00] VITALS: BP 160/64
[2016-04-05] MEDS: [UNRECOGNIZED DRUG - OTHER] OU PRN (23:21)
[2016-04-06] MEDS ORDERED: MOM 30ML SUSPENSION UDC PO PRN (01:00)
[2016-04-06] MEDS: DOXYCYCLINE HYCLATE 100 MG in D5W MINI-BAG PLUS 100 ML IV SCH ×2 (04:06→16:04)
[2016-04-06] MEDS: LEVALBUTEROL 1.25 MG/0.5 ML CONCENTRATE NEB INH SCH ×6 (04:27→23:33)
[2016-04-06 06:00] VITALS: BP 180/80
[2016-04-06 06:04] LABS: MEAN CORPUSCULAR HEMOGLOBIN 30.8 pg (27.0-33.0); MEAN CORPUSCULAR HGB CONC 32.8 g/dl (32.0-36.5); MEAN CORPUSCULAR VOLUME 93.9 fl (80.0-96.0); RED CELL DISTRIBUTION WIDTH 13.4 % (11.5-14.5); WHITE BLOOD COUNT 10.4 K/mm3 (4.0-10.0)
[2016-04-06 06:07] LABS: INR 1.99
[2016-04-06 06:16] LABS: ANION GAP 6 MEQ/L (8-16); BLOOD UREA NITROGEN 20 MG/DL (7-18); CALCIUM LEVEL 8.9 MG/DL (8.8-10.2); CARBON DIOXIDE LEVEL 35 MEQ/L (21-32); CHLORIDE LEVEL 97 MEQ/L (98-107); CREATININE FOR GFR 0.68 MG/DL (0.55-1.02); GLOMERULAR FILTRATION RATE > 60.0 (>39); GLUCOSE, FASTING 167 MG/DL (83-110); POTASSIUM SERUM 4.1 MEQ/L (3.5-5.1); SODIUM LEVEL 138 MEQ/L (136-145)
[2016-04-06] MEDS: ATENOLOL 50 MG TAB PO SCH ×2 (07:01→20:34)
[2016-04-06 08:00] VITALS: BP 160/78
[2016-04-06] MEDS: AMITRIPTYLINE 50 MG TAB PO SCH (08:32)
[2016-04-06] MEDS: guaiFENesin ER 600 MG TAB PO SCH ×2 (08:33→20:35)
[2016-04-06] MEDS: CLOTRIMAZOLE 10 MG TROCHE PO SCH ×4 (08:33→20:34)
[2016-04-06] MEDS: DIGOXIN 0.125 MG TAB PO SCH (08:33)
[2016-04-06 10:13] VITALS: BP 140/70
[2016-04-06] MEDS: methylPREDNISolone INJ 125 MG/2 ML VIAL (J2930) IV SCH ×2 (11:27→23:20)
[2016-04-06 14:00] VITALS: BP 139/83
[2016-04-06] MEDS ORDERED: WARFARIN SOD 5 MG TAB PO ONE (17:00)
--- NOTE | 2016-04-06 18:14 | IPNPDOC ---
Subjective General Date Seen The patient was seen on 04/06/16. Chief Complaint/HPI The patient is a 75-year-old female admitted with a reason for visit of Copd Exacerbation. Subjective Constitutional: Denies: Chills, Fever, Night Sweats Pulmonary: Reports: Cough, Dyspnea, Other Symptoms, Denies: Pleuritic Chest Pain Cardiovascular: Denies: Chest Pain, Palpitations Gastrointestinal: Denies: Abdominal Pain, Nausea Objective Physical Examination General Exam: Positive: Alert, No Acute Distress Neck Exam: Negative: JVD Chest Exam: Positive: Diminished, Other (fair air movement), Wheezing (none noted today), Negative: Rhonchi Heart Exam: Positive: Irregular Rhythm, Rate Normal, Negative: Murmurs Abdomen Exam: Positive: Normal bowel sounds, Soft, Negative: Tenderness Extremity Exam: Negative: Edema Skin Exam: Positive: Nl turgor and temperature Assessment /Plan Problems Problems: (1) COPD exacerbation Status: Acute Problem Specific Plan: Monitor Clinically Problem Text: D3 doxy IV Solumedrol IV 60 BID D#3. Consider weaning tomorrow if continued improvement. 04/04/16 thick secretions; therefore, held ipra and added Mucinex/Acapella 04/05/16 ordered O2 titration 88-92%. Encourage acapella and ambulation to augment pulmonary toilet. Overall feels to be slowly improving. (2) Atrial fibrillation Status: Chronic Problem Specific Plan: Monitor Clinically Problem Text: On Atenolol and dig. On coumadin which was held on admission due to supratherapeutic INR. (Pt is usually on Comadin 2 mg alternating with 4 mg, as outpt.) 04/04: INR is 2.86. 2 mg given. 04/05: INR 2.14. Will give 4mg today x1. May be able to resume her outpt regimen if INR stabilizes tomorrow. 04/06/16: INR 1.99 will receive 5mg today. Daily INR checks. (3) HARLEY on CPAP Status: Chronic Problem Specific Plan: Monitor Clinically Problem Text: Compliant at home but w/o CPAP here in hospital. She's receiving NC. (4) GERD (gastroesophageal reflux disease) Status: Chronic Problem Specific Plan: Monitor Clinically Problem Text: On Pepcid. Normal stool w/o blood or change in appearance. (5) Hyperlipidemia Status: Chronic Problem Specific Plan: Monitor Clinically Problem Text: Lipitor. (6) Depression Status: Chronic Problem Specific Plan: Monitor Clinically Problem Text: Amitriptyline BID. Stable. Plan/VTE VTE Prophylaxis Ordered?: Yes (On Coumadin) Plan Diet: Continue Current Activity: Encourage Ambulation Respiratory: Wean Oxygen Diagnostics: Repeat Labs in AM Anticipated Discharge: Home VS, I&O, 24H, Fishbone Vital Signs/I&O Vital Signs Date Time Temp Pulse Resp B/P Pulse Ox O2 Delivery O2 Flow Rate FiO2 04/06/16 14:00 95.3 89 18 139/83 91 Nasal Cannula 1.0 I&O- Last 24 Hours up to 6 AM 04/06/16 06:00 Intake Total 810 ml Output Total 1550 ml Balance -740 ml Laboratory Data 24H LABS Laboratory Tests 2 04/06/16 05:22: Anion Gap 6L, Blood Urea Nitrogen 20H, Creatinine 0.68, Sodium Level 138, Potassium Level 4.1, Chloride Level 97L, Carbon Dioxide Level 35H, Calcium Level 8.9, Glomerular Filtration Rate > 60.0, Prothromb Time International Ratio 1.99, Prothrombin Time 22.7H CBC/BMP Laboratory Tests 04/06/16 05:22 Calcium Level 8.9, Red Blood Count 4.42, Mean Corpuscular Volume 93.9, Mean Corpuscular Hemoglobin 30.8, Mean Corpuscular Hemoglobin Concent 32.8, Red Cell Distribution Width 13.4 Microbiology Microbiology 04/03/16 Blood Culture - Preliminary, Resulted No Growth after 48 hours. All Specime... 04/03/16 Blood Culture - Preliminary, Resulted No Growth after 72 hours. All specime... Rebel Mcallister MD Apr 06, 2016 18:14
[2016-04-06] MEDS: AMITRIPTYLINE 25 MG TAB PO SCH (20:34)
[2016-04-06] MEDS: ATORVASTATIN 20 MG TAB PO SCH (20:34)
[2016-04-06] MEDS: FAMOTIDINE 20 MG TAB PO SCH (20:35)
[2016-04-06 22:00] VITALS: BP 140/72
[2016-04-06] MEDS: ACETAMINOPHEN TAB 650MG DOSE (2X325MG) PO PRN (23:20)
[2016-04-07] MEDS: LEVALBUTEROL 1.25 MG/0.5 ML CONCENTRATE NEB INH SCH ×6 (04:29→23:40)
[2016-04-07] MEDS: DOXYCYCLINE HYCLATE 100 MG in D5W MINI-BAG PLUS 100 ML IV SCH ×2 (04:39→16:45)
[2016-04-07 05:57] LABS: MEAN CORPUSCULAR HEMOGLOBIN 30.4 pg (27.0-33.0); MEAN CORPUSCULAR HGB CONC 32.1 g/dl (32.0-36.5); MEAN CORPUSCULAR VOLUME 94.6 fl (80.0-96.0); RED CELL DISTRIBUTION WIDTH 13.6 % (11.5-14.5)
[2016-04-07 06:00] VITALS: BP 148/70
[2016-04-07 06:01] LABS: INR 2.6
[2016-04-07 06:08] LABS: ANION GAP 4 MEQ/L (8-16); BLOOD UREA NITROGEN 22 MG/DL (7-18); CALCIUM LEVEL 8.7 MG/DL (8.8-10.2); CARBON DIOXIDE LEVEL 39 MEQ/L (21-32); CHLORIDE LEVEL 97 MEQ/L (98-107); CREATININE FOR GFR 0.73 MG/DL (0.55-1.02); GLOMERULAR FILTRATION RATE > 60.0 (>39); GLUCOSE, FASTING 116 MG/DL (83-110); POTASSIUM SERUM 4.1 MEQ/L (3.5-5.1); SODIUM LEVEL 140 MEQ/L (136-145)
--- NOTE | 2016-04-07 08:10 | ECWPNAD ---
PATIENT NAME: KYREE PAGE : 1940 GENDER: FEMALE VISIT DATE: 04/03/2016 DISCHARGE DATE: 04/03/16 0000 VISIT LOCKED DATE TIME: PHYSICIAN: RAJNI MCCLAIN PHYSICIAN PAGER NO: TEXT TO [phone] RESOURCE: RAJNI MCCLAIN REASON FOR APPOINTMENT 1. ADMIT H + P HISTORY OF PRESENT ILLNESS GENERAL: COPD EXACERBATION, FAILED OUTPT TX. WAS IN ER 2/3, [place] WITH ABIO AND PREDNISONE. GOT WORSE YESTERDAY, PRESENTED TO ER TODAY. O2 SATS 83% RA, ADMITTED.WAS SEEN IN OFFICE 03/29, REFERRED TO [facility] FOR COPD. CURRENT MEDICATIONS TAKING MULTIVITAMINS 1 TABLET 1 TAB(S) ORALLY DAILY TAKING FISH OIL 1000 MG CAPSULE 2 CAPSULES ORALLY TWICE A DAY TAKING LORATADINE 10 MG TABLET 1 TABLET ORALLY DAILY NEEDED TAKING AMITRIPTYLINE HCL 75MG TABLET 50MG IN MORNING 75MG BEDTIME ORALLY TWICE DAILY TAKING ATENOLOL 50 MG TABLET 1 TABLET P.O. TWICE A DAY TAKING LUTEIN 10 MG TABLET 1 TABLET WITH A MEAL ORALLY ONCE A DAY TAKING MAGNESIUM CR 535 (64 MG) MG TABLET EXTENDED RELEASE 2 TABLET ORALLY TWICE A DAY TAKING PATANOL 0.1 % SOLUTION 1 DROP INTO AFFECTED EYE OPHTHALMIC TWICE A DAY TAKING MAY HAVE NYSTATIN LOZENGE 1 LOZENGE FOUR TIMES DAILY TAKING ANUSOL 25MG SUPPOSITORY 1 SUPPOSITORY NEEDED RECTAL ONCE A DAY TAKING CALCIUM 500+D 500-400 MG-UNIT TABLET 1 TABLET WITH MEALS ORALLY ONCE A DAY, NOTES: 1200MG DAILY TAKING PREMARIN 0.625 MG/GM CREAM DIRECTED VAGINAL EVERY OTHER DAY TAKING DIGOXIN 125 MCG TABLET 1 TABLET ORALLY ONCE A DAY TAKING MUCINEX 600 MG TABLET EXTENDED RELEASE 12 HOUR 1 TABLET NEEDED ORALLY EVERY 12 HRS TAKING COUMADIN 4 MG TABLET 4MG THREE TIMES A WEEK, 2MG THE REST OF THE WEEK ORALLY DIRECTED WITH PT/INR TAKING VENTOLIN HFA 108 (90 BASE) MCG/ACT AEROSOL SOLUTION 2 PUFFS NEEDED INHALATION EVERY 4 HRS TAKING SPIRIVA HANDIHALER 18 MCG CAPSULE 1 CAPSULE INHALATION ONCE A DAY TAKING NEBULIZER/TUBING/MOUTHPIECE - - DIRECTED VIA NEBULIZER QID PRN/ DX : J44.9 TAKING LIPITOR 80 MG TABLET 1 TABLET ORALLY AT BEDTIME TAKING VOLTAREN 1 % GEL APPLY TO R KNEE TRANSDERMAL TID PRN TAKING FLONASE 50 MCG/DOSE INHALER 2 SPRAYS IN EACH NOSTRIL NASALLY ONCE A DAY TAKING ALBUTEROL SULFATE (2.5 MG/3ML) 0.083% NEBULIZATION SOLUTION 1 VIAL INHALATION DX:J44.9 FOUR TIMES DAILY NEEDED TAKING FAMOTIDINE 40 MG TABLET 1 TABLET BEFORE BEDTIME ORALLY ONCE A DAY TAKING FIORICET 50-325-40 MG TABLET 1 TABLET NEEDED FOR TENSION HEADACHE ORALLY EVERY 4 HRS PRN MDD #2 TAKING SYMBICORT 80-4.5 MCG/ACT AEROSOL 2 PUFFS INHALATION TWICE A DAY TAKING SPACER/AERO CHAMBER MOUTHPIECE - MISCELLANEOUS DIRECTED _ - TAKING PREDNISONE 20 MG TABLET 1 TABLET ORALLY 40 MG PO DAILY X 3 DAYS THEN 20 MG PO DAILY X 3 DAYS, THEN 10 MG PO DAILY X 3 DAYS NOT-TAKING BACTRIM DS 800-160 MG TABLET 1 TABLET ORALLY TWICE A DAY NOT-TAKING PREDNISONE 20 MG TABLET 1 TABLET ORALLY ONCE A DAY NOT-TAKING DRISDOL (6 WEEK) 25561 UNIT 1 CAPSULE ORALLY ONCE WEEKLY, THEN STOP UNTIL FURTHER LAB TESTING IS DONE NOT-TAKING DRISDOL (6 WEEK) 13514 UNIT CAPSULE 1 CAPSULE ORALLY ONCE WEEKLY, THEN STOP UNTIL FURTHER LAB TESTING IS DONE NOT-TAKING MAY PT/INR STANDING ORDER - VENOUS DRAW ON DEMAND/DX : I48.0 NOT-TAKING VENTOLIN HFA 108 (90 BASE) MCG/ACT AEROSOL SOLUTION 2 PUFFS NEEDED INHALATION EVERY 4 HRS PRN DYSPNEA PAST MEDICAL HISTORY ATRIAL FIBRILLATION (REDDY) PFO (REDDY) CHRONIC BRONCHITIS HYPERLIPIDEMIA - ASVCD 10-YEAR RISK 21.3% IN 06/2015 TENSION HEADACHES OA (BACK AND KNEES) GERD/UGI 09/10 SMALL HH DEPRESSION (SREEDHAR) BILATERAL CAROTID STENOSIS - CAROTID U/S DONE 05/10 [facility] 15-49% ICAS, NO HEMODYNAMICALLY SIGNIFICANT STENOSIS 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 COPD ALLERGIES PENICILLIN (FOR ALLERGIES USE ONLY): ANAPHYLAXIS/RASH: ALLERGY EXAMINATION GENERAL EXAMINATION: GENERAL APPEARANCE:NO ACUTE DISTRESS, WELL NOURISHED AND HYDRATED. PSYCHAPPROPRIATE MOOD AND AFFECT . HEENT:UNREMARKABLE. NECK:NO LYMPHADENOPATHY, SUPPLE. CHEST:SYMMETRICAL, NORMAL SHAPE AND EXPANSION. LUNGS:BILATERAL WHEEZES, NO RALES, BILATERAL RHONCHI, CLEARED WITH COUGH. HEART:NO MURMURS, REGULAR RATE AND RHYTHM. ABDOMEN:NO HEPATOSPLENOMEGALY, NO MASSES PALPATED, SOFT AND NOT TENDER, SOFT, BOWEL SOUNDS PRESENT. EXTREMITIES:BILATERAL PITTING EDEMA. PERIPHERAL PULSES: NORMAL (2+) BILATERALLY. NEUROLOGIC EXAM:NON-FOCAL EXAM. LAB TESTS REVIEWEDPREOP LABS WERE REVIEWED. DIAGNOSTIC TESTS REVIEWEDEKG: NL; CXR: NAD. 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 ATRIAL FIBRILLATION CLINICAL NOTES: INR 3.X; HOLD WARFARIN TODAY, DAILY INR ORDERED. WILL NEED TO RESUME ONCE INR IN DOWN. PROCEDURE CODES ADM00 ADM HOSPITAL ADMISSION FOLLOW UP 1 WEEK ELECTRONICALLY SIGNED BY RAJNI MCCLAIN MD ON 04/05/2016 AT 09:18 AM EST DISCLAIMER : THIS IS A VISIT SUMMARY EXTRACTED FROM THE [employer] CHART. IT IS NOT A COPY OF THE [employer] PROGRESS NOTE. MTDD
[2016-04-07 09:00] VITALS: BP 144/78
[2016-04-07] MEDS: guaiFENesin ER 600 MG TAB PO SCH ×2 (09:11→20:32)
[2016-04-07] MEDS: CLOTRIMAZOLE 10 MG TROCHE PO SCH ×4 (09:11→20:32)
[2016-04-07] MEDS: AMITRIPTYLINE 50 MG TAB PO SCH (09:12)
[2016-04-07] MEDS: DIGOXIN 0.125 MG TAB PO SCH (09:13)
[2016-04-07] MEDS: ATENOLOL 50 MG TAB PO SCH ×2 (09:14→20:33)
--- NOTE | 2016-04-07 09:57 | IPNPDOC ---
Subjective General Date Seen The patient was seen on 04/07/16. Subjective Chief Complaint/HPI The patient is a 75-year-old female admitted with a reason for visit of Copd Exacerbation. Events since last encounter Seen this morning on 4PAV. She's reporting continued improvement in her cough but does still require O2 to maintain sats. Diet is good. General: Reports: Normal Appetite, Denies: Chills, Fatigue, Malaise, Night Sweats ENT: Denies: Dysphagia, Ear Pain, Head Aches Pulmonary: Reports: Cough, Denies: Dyspnea, Pleuritic Chest Pain Cardiovascular: Denies: Chest Pain, Lt Headedness, Orthopnea, Palpitations, Paroxysmal Noc. Dyspnea Gastrointestinal: Denies: Abdominal Pain, Constipation, Diarrhea, Nausea, Vomiting Objective Physical Examination General Exam: Positive: Alert, No Acute Distress Neck Exam: Negative: JVD Chest Exam: Positive: Diminished, Other (fair air movement), Wheezing (none noted today), Negative: Rhonchi Heart Exam: Positive: Irregular Rhythm, Rate Normal, Negative: Murmurs Abdomen Exam: Positive: Normal bowel sounds, Soft, Negative: Tenderness Extremity Exam: Negative: Edema Skin Exam: Positive: Nl turgor and temperature Assessment /Plan Problems Problems: (1) COPD exacerbation Status: Acute Problem Specific Plan: Monitor Clinically Problem Text: D5 doxy IV Solumedrol IV 60 BID D#5. Wean tonight to 30 BID. O2 titration 88-92%. Encourage acapella and ambulation to augment pulmonary toilet. Overall feels to be slowly improving. (2) Atrial fibrillation Status: Chronic Problem Specific Plan: Monitor Clinically Problem Text: On Atenolol and dig. On coumadin which was held on admission due to supratherapeutic INR. (Pt is usually on Comadin 2 mg alternating with 4 mg, as outpt.) 04/04: INR is 2.86. 2 mg given. 04/05: INR 2.14. Will give 4mg today x1. May be able to resume her outpt regimen if INR stabilizes tomorrow. 04/06/16: INR 1.99 will receive 5mg today. 04/07/16: INR up to 2.6. 2mg today. Daily INR checks. (3) HARLEY on CPAP Status: Chronic Problem Specific Plan: Monitor Clinically Problem Text: Compliant at home but w/o CPAP here in hospital. She's receiving NC. (4) GERD (gastroesophageal reflux disease) Status: Chronic Problem Specific Plan: Monitor Clinically Problem Text: On Pepcid. Normal stool w/o blood or change in appearance. (5) Hyperlipidemia Status: Chronic Problem Specific Plan: Monitor Clinically Problem Text: Lipitor. (6) Depression Status: Chronic Problem Specific Plan: Monitor Clinically Problem Text: Amitriptyline BID. Stable. Plan/VTE VTE Prophylaxis Ordered?: Yes (On Coumadin) Plan Diet: Continue Current Activity: Encourage Ambulation Respiratory: Wean Oxygen Diagnostics: Repeat Labs in AM Anticipated Discharge: Home VS, I&O, 24H, [facility] Vital Signs/I&O Vital Signs Date Time Temp Pulse Resp B/P Pulse Ox O2 Delivery O2 Flow Rate FiO2 04/07/16 09:14 84 144/78 04/07/16 06:50 NIPPV (BIPAP/CPAP) 04/07/16 06:00 97.4 19 95 04/06/16 23:25 2.0 I&O- Last 24 Hours up to 6 AM 04/07/16 06:00 Intake Total 1677 ml Output Total 1350 ml Balance 327 ml Laboratory Data 24H LABS Laboratory Tests 2 04/07/16 05:30: Anion Gap 4L, Blood Urea Nitrogen 22H, Creatinine 0.73, Sodium Level 140, Potassium Level 4.1, Chloride Level 97L, Carbon Dioxide Level 39H, Calcium Level 8.7L, Glomerular Filtration Rate > 60.0, Prothromb Time International Ratio 2.60, Prothrombin Time 27.9H CBC/BMP Laboratory Tests 04/07/16 05:30 Calcium Level 8.7 L, Red Blood Count 4.38, Mean Corpuscular Volume 94.6, Mean Corpuscular Hemoglobin 30.4, Mean Corpuscular Hemoglobin Concent 32.1, Red Cell Distribution Width 13.6 Microbiology Microbiology 04/03/16 Blood Culture - Preliminary, Resulted No Growth after 72 hours. All specime... 04/03/16 Blood Culture - Preliminary, Resulted No Growth after 72 hours. All specime... GME ATTESTATION GME ATTESTATION My preceptor for this patient encounter was physically present in the building during the encounter and was fully available. As needed, all aspects of the patient interview, examination, medical decision making process, and medical care plan development were reviewed and approved by the preceptor. Preceptor is aware and concurs with the plan as stated in the body of this note and will attest to such by his/her cosignature. ATTENDING NOTE Patient seen and examined and agree with findings and plan of care as noted by Dr. Rosas. CHUCK ROSAS DO Apr 07, 2016 09:57 Rebel Mcallister MD Apr 07, 2016 14:58
[2016-04-07] MEDS: methylPREDNISolone INJ 40 MG/1 ML VIAL (J2920) IV SCH ×2 (12:04→23:44)
[2016-04-07 14:00] VITALS: BP 166/72
[2016-04-07] MEDS: [UNRECOGNIZED DRUG - OTHER] OU PRN (16:45)
[2016-04-07] MEDS ORDERED: WARFARIN SOD 2 MG TAB PO ONE (17:00)
[2016-04-07] MEDS: SODIUM CHLORIDE NASAL 0.65% SPRAY BTL (OCEAN) PRN ×2 (18:34→20:33)
[2016-04-07 20:30] VITALS: BP 164/74
[2016-04-07] MEDS: FAMOTIDINE 20 MG TAB PO SCH (20:32)
[2016-04-07] MEDS: AMITRIPTYLINE 25 MG TAB PO SCH (20:32)
[2016-04-07] MEDS: ATORVASTATIN 20 MG TAB PO SCH (20:32)
[2016-04-08] MEDS: DOXYCYCLINE HYCLATE 100 MG in D5W MINI-BAG PLUS 100 ML IV SCH (03:01)
[2016-04-08] MEDS: LEVALBUTEROL 1.25 MG/0.5 ML CONCENTRATE NEB INH SCH ×3 (03:50→11:24)
[2016-04-08 05:45] VITALS: BP 132/76
[2016-04-08 07:13] LABS: MEAN CORPUSCULAR HEMOGLOBIN 30.5 pg (27.0-33.0); MEAN CORPUSCULAR HGB CONC 32.2 g/dl (32.0-36.5); MEAN CORPUSCULAR VOLUME 94.6 fl (80.0-96.0); RED CELL DISTRIBUTION WIDTH 13.2 % (11.5-14.5); WHITE BLOOD COUNT 13.6 K/mm3 (4.0-10.0)
[2016-04-08 07:35] LABS: ANION GAP 7 MEQ/L (8-16); BLOOD UREA NITROGEN 18 MG/DL (7-18); CALCIUM LEVEL 8.7 MG/DL (8.8-10.2); CARBON DIOXIDE LEVEL 34 MEQ/L (21-32); CHLORIDE LEVEL 98 MEQ/L (98-107); CREATININE FOR GFR 0.62 MG/DL (0.55-1.02); GLOMERULAR FILTRATION RATE > 60.0 (>39); GLUCOSE, FASTING 133 MG/DL (83-110); POTASSIUM SERUM 4.3 MEQ/L (3.5-5.1); SODIUM LEVEL 139 MEQ/L (136-145)
[2016-04-08 07:44] LABS: INR 2.79
[2016-04-08 08:06] VITALS: BP 162/84
[2016-04-08] MEDS: DIGOXIN 0.125 MG TAB PO SCH (08:06)
[2016-04-08] MEDS: ACETAMINOPHEN TAB 650MG DOSE (2X325MG) PO PRN (08:06)
[2016-04-08] MEDS: guaiFENesin ER 600 MG TAB PO SCH (08:06)
[2016-04-08] MEDS: ATENOLOL 50 MG TAB PO SCH (08:06)
[2016-04-08] MEDS: AMITRIPTYLINE 50 MG TAB PO SCH (08:06)
[2016-04-08] MEDS ORDERED: DOXY-278 PO (10:29)
[2016-04-08] MEDS ORDERED: PRED20TA PO (10:29)
[2016-04-08] MEDS: CLOTRIMAZOLE 10 MG TROCHE PO SCH ×2 (11:53→12:02)
[2016-04-08] MEDS: methylPREDNISolone INJ 40 MG/1 ML VIAL (J2920) IV SCH (12:02)
--- NOTE | 2016-04-08 14:38 | DSES ---
DATE OF ADMISSION: 04/03/2016 DATE OF DISCHARGE: 04/08/2016 PRIMARY CARE PROVIDER: Darwin Ortega MD and SHELLIE Fleming HISTORY OF PRESENT ILLNESS: 75-year-old female who has failed multiple days of outpatient treatment for chronic obstructive pulmonary disease (COPD) exacerbation, presented to the emergency room, was found to have some hypoxia requiring oxygen. Chest xray was negative. Patient was placed on steroid therapy with doxycycline intravenous (IV). She has received 5 days of IV doxycycline and her Solu-Medrol has been slowly weaned down. Patient has been stable on 1-2 liters nasal cannula in the 90-97% range. Vital signs have remained stable. White blood cell count has remained stable. Patient is anticipating potential for discharge today. PHYSICAL EXAMINATION: VITAL SIGNS: Stable. She is afebrile. HEENT: Neck is supple without lymphadenopathy. CARDIOVASCULAR: Heart rate and rhythm are regular. PULMONARY: Lungs are clear. ABDOMEN: Soft and nontender. Bilateral lower extremities are without any edema. Intake and output is stable. ASSESSMENT: 1. Chronic obstructive pulmonary disease (COPD) exacerbation. 2. History of atrial fibrillation. 3. Sleep apnea with continuous positive airway pressure (CPAP). 4. Gastroesophageal reflux disease (GERD). 5. Hyperlipidemia. 6. History of depression. PLAN: Patient will be discharged home. Diet is 2 gram sodium. Activity is as tolerated. She will remain on two liters nasal cannula oxygen in the home. MEDICATIONS: Are as follows: - doxycycline 100 mg by mouth twice a day for 10 days - prednisone 20 mg tablet, she is to take 60 mg by mouth daily for the next 5 days - Fioricet every 4 hours as needed for headache - albuterol sulfate inhalation every 4 hours as needed for shortness of breath - albuterol sulfate nebulizer four times a day as needed for shortness of breath - amitriptyline 50 mg tablet by mouth every morning - amitriptyline 75 mg by mouth nightly - atenolol 50 mg by mouth twice a day - atorvastatin 80 mg by mouth nightly - Symbicort two puffs inhalation twice a day - calcium with vitamin D one tablet by mouth daily - clotrimazole 10 mg three times a day as needed for thrush - Premarin vaginally every 2 days - digoxin 0.25 mg by mouth daily - famotidine 40 mg by mouth nightly - fish oil 1000 mg, she is to take two by mouth twice a day - Flonase one spray each nostril twice a day - guaifenesin 600 mg by mouth every 12 hours as needed for chest congestion - Anusol-HC per rectum as needed for hemorrhoids - Claritin 10 mg by mouth daily - Lutein 10 mg by mouth daily - magnesium chloride 64 mg by mouth twice a day - multivitamin one daily - Patanol both eyes twice a day as needed for allergy symptoms - Voltaren gel three times a day - warfarin 4 mg by mouth twice per week - warfarin sodium 2 mg by mouth five times per week Patient will repeat her INR on 04/11/2016. Patient is discharged in stable and satisfactory condition. No further questions at time of discharge.
== END 2016-04-08 13:51 | disposition home or self-care (01) | DRG 191 ==
LOC: M ED 12:00 → M ED INP 13:31 → M MSPAV 15:17
PROVIDERS: ADMIT Family Medicine; ATTEND Family Medicine
DX: J44.1 Chronic obstructive pulmonary disease with (acute) exacerbation (principal); Q21.1 Atrial septal defect; I48.91 Unspecified atrial fibrillation; K21.9 Gastro-esophageal reflux disease without esophagitis; F32.9 Major depressive disorder, single episode, unspecified; E78.5 Hyperlipidemia, unspecified; G47.33 Obstructive sleep apnea (adult) (pediatric); Z99.81 Dependence on supplemental oxygen; Z99.89 Dependence on other enabling machines and devices; Z79.01 Long term (current) use of anticoagulants; Z79.51 Long term (current) use of inhaled steroids; Z88.0 Allergy status to penicillin; Z79.899 Other long term (current) drug therapy

== ENCOUNTER → 2016-04-03 | Outpatient (CLI) | payer OTHER ==
[~2016-04-03] MED LIST changes: +ALB2.5NEB INH; +BUTATAB6 PO; +CLOT10TR MT; +DIGO0.25 PO; +FAMO40TA3 PO; +FLON1SPR; +GUAI1TAB PO; +PRED20TA PO; +SYMB80INH INH; +VOLT1GEL24 TD
[2016-04-03 18:27] LABS: INR 3.14
== END ==
LOC: M WUC 11:29
PROVIDERS: ATTEND Nurse Practitioner Family
DX: I48.2 Chronic atrial fibrillation (principal); Z51.81 Encounter for therapeutic drug level monitoring; Z79.01 Long term (current) use of anticoagulants

== ENCOUNTER → 2016-04-10 | Outpatient (CLI) | payer OTHER ==
[~2016-04-10] MED LIST changes: +ALB2.5NEB INH; +BUTATAB6 PO; +CLOT10TR MT; +DIGO0.25 PO; +DOXY-278 PO; +FAMO40TA3 PO; +FLON1SPR; +GUAI1TAB PO; +PRED20TA PO; +SYMB80INH INH; +VOLT1GEL24 TD
[2016-04-10 17:40] LABS: INR 3.6
== END | disposition home or self-care (01) ==
LOC: M WUC 15:48
PROVIDERS: ATTEND Nurse Practitioner Family
DX: I48.2 Chronic atrial fibrillation (principal)

== ENCOUNTER → 2016-04-17 | Outpatient (CLI) | payer OTHER, SELFPAY ==
[2016-04-17 19:07] LABS: INR 2.36
== END | disposition home or self-care (01) ==
LOC: M WUC 10:49
PROVIDERS: ATTEND Nurse Practitioner Family
DX: I48.2 Chronic atrial fibrillation (principal)

== ENCOUNTER → 2016-04-24 | Outpatient (CLI) | payer OTHER ==
[2016-04-24 18:17] LABS: INR 1.64
== END ==
LOC: M WUC 14:35
PROVIDERS: ATTEND Nurse Practitioner Family
DX: I48.2 Chronic atrial fibrillation (principal)

== ENCOUNTER → 2016-05-01 | Outpatient (CLI) | payer OTHER ==
[2016-05-01 18:13] LABS: INR 2.11
== END ==
LOC: M WUC 14:36
PROVIDERS: ATTEND Nurse Practitioner Family
DX: I48.2 Chronic atrial fibrillation (principal)

== ENCOUNTER → 2016-05-02 | Outpatient (CLI) | payer OTHER ==
[~2016-05-02] MED LIST changes: -LANO250T12 PO; +LANO250T15 PO
--- NOTE | 2016-05-03 06:29 | REP ---
Bilateral knee series: 11 views including AP standing view of both knees. History: Bilateral arthritis. Status post right knee replacement. Comparison radiographs of the left knee are from December 20, 2015. Findings: Standing view of the left knee demonstrates fairly advanced joint space loss in the medial compartment of the left knee with osteoarthritic spurring and some sclerosis. There is lateral osteophyte formation and there is medial and lateral chondrocalcinosis. Patellofemoral spurring is noted as well. There is vascular calcification. The findings are unchanged radiographically from December 20, 2015. Multiple views of the right knee demonstrate a right knee arthroplasty, components of which appear to be in good position relative to each other and their chilkat bones. Impression: Three compartment osteoarthritis left knee. Status post right knee arthroplasty. No acute abnormality seen. Signed by Rafal Mathis MD 05/03/2016 10:04 A
== END ==
LOC: M WUC 18:46
PROVIDERS: ATTEND Family Medicine
DX: M17.0 Bilateral primary osteoarthritis of knee (principal); Z96.651 Presence of right artificial knee joint
CPT/HCPCS: 73565; G0463

== ENCOUNTER → 2016-05-08 | Outpatient (CLI) | payer OTHER ==
[~2016-05-08] MED LIST changes: +LANO250T12 PO; -LANO250T15 PO
[2016-05-08 18:24] LABS: INR 1.66
== END ==
LOC: M WUC 11:02
PROVIDERS: ATTEND Nurse Practitioner Family
DX: I48.2 Chronic atrial fibrillation (principal); Z79.01 Long term (current) use of anticoagulants

== ENCOUNTER → 2016-05-15 | Outpatient (CLI) | payer OTHER ==
[2016-05-15 18:25] LABS: INR 2.66
== END ==
LOC: M WUC 14:04
PROVIDERS: ATTEND Nurse Practitioner Family
DX: I48.2 Chronic atrial fibrillation (principal)

== ENCOUNTER → 2016-05-22 | Outpatient (CLI) | payer OTHER ==
[2016-05-22 17:23] LABS: INR 2.42
== END ==
LOC: M WUC 15:35
PROVIDERS: ATTEND Nurse Practitioner Family
DX: I48.2 Chronic atrial fibrillation (principal)

== ENCOUNTER → 2016-05-29 | Outpatient (CLI) | payer OTHER ==
[~2016-05-29] MED LIST changes: -LANO250T12 PO; +LANO250T15 PO
[2016-05-29 17:46] LABS: INR 1.66
== END ==
LOC: M WUC 16:33
PROVIDERS: ATTEND Nurse Practitioner Family
DX: I48.2 Chronic atrial fibrillation (principal)

== ENCOUNTER → 2016-06-05 | Outpatient (CLI) | payer OTHER | LOC: M WUC 14:14 | PROVIDERS: ATTEND Nurse Practitioner Family | DX: I48.2 Chronic atrial fibrillation (principal) ==

== ENCOUNTER → 2016-06-19 | Outpatient (REF) | payer OTHER ==
[2016-06-19 20:28] LABS: INR 2.65
== END ==
LOC: M LABWUC 20:05
PROVIDERS: ATTEND Nurse Practitioner Family
DX: I48.2 Chronic atrial fibrillation (principal)

== ENCOUNTER → 2016-07-03 | Outpatient (CLI) | payer OTHER ==
[2016-07-03 18:56] LABS: INR 2.76
== END ==
LOC: M WUC 14:54
PROVIDERS: ATTEND Nurse Practitioner Family
DX: I48.2 Chronic atrial fibrillation (principal)

== ENCOUNTER → 2016-07-04 | Outpatient (CLI) | payer OTHER ==
--- NOTE | 2016-07-05 03:16 | REP ---
Clinical: Acute bilateral knee pain. Technique: AP, lateral, bilateral oblique and sunrise views of the right and left knee. Comparison: 05/02/2016. Findings: Right knee demonstrates prior stable arthroplasty with degenerative changes involving the patella including irregular mottled appearance and. Patellar calcifications. Subtle acute injury along the superior aspect of the patella and specifically at the insertion of quadriceps tendon should be correlated with physical examination. Left knee demonstrates advanced tricompartmental osteoarthritic degenerative changes similar to prior examination. The anterior and suprapatellar soft tissues are incompletely evaluated due to positioning. No obvious acute fracture noted. Impression: 1. Degenerative changes as described above including prior right arthroplasty. Trauma involving the superior aspect of the right patella and associated quadriceps tendon cannot be excluded and requires correlation. 2. Advanced tricompartmental degenerative changes to the left knee similar to prior examination. Signed by Linwood Valverde MD 07/05/2016 03:06 A
== END ==
LOC: M WUC 15:01
PROVIDERS: ATTEND Family Medicine
DX: M17.0 Bilateral primary osteoarthritis of knee (principal)
CPT/HCPCS: 73564; G0463

== ENCOUNTER → 2016-07-29 | Outpatient (CLI) | payer OTHER ==
--- NOTE | 2016-07-29 14:52 | REP ---
TRIPLE PHASE BONE SCAN OF THE KNEES: Following the intravenous administration of 19.7 mCi of technetium-99m MDP, patient's knees are imaged in the flow phase in the anterior and posterior projections showing symmetrical blood flow. Immediate blood pool and 3 hour delayed images are performed of the knees in the anterior, posterior, and both lateral projections. There is a photopenic area in the right knee joint compatible with a total knee prosthesis. Minimal increased uptake along the margins of the femoral and tibial prosthesis is likely normal postsurgical uptake. There is increased uptake in the medial left knee joint most consistent with arthritic change. IMPRESSION: No compelling scintigraphic evidence of loosening of the right knee prosthesis. There is arthritic uptake in the medial left knee joint. Signed by Vel Bansal MD 07/29/2016 04:00 P
== END ==
LOC: M RAD 10:41
PROVIDERS: ATTEND Orthopaedic Surgery
DX: Z96.651 Presence of right artificial knee joint (principal); M25.561 Pain in right knee
CPT/HCPCS: 78315; A9503

== ENCOUNTER → 2016-07-31 | Outpatient (CLI) | payer OTHER ==
[2016-07-31 17:45] LABS: INR 2.87
== END ==
LOC: M WUC 15:25
PROVIDERS: ATTEND Nurse Practitioner Family
DX: I48.2 Chronic atrial fibrillation (principal)

== ENCOUNTER → 2016-08-07 | Outpatient (CLI) | payer OTHER ==
[2016-08-07 18:12] LABS: BASO % 0.7 % (0.0-1.0); EOS # 0.2 K/mm3 (0.0-0.50); EOS % 2.8 % (0.0-3.0); LARGE UNSTAINED CELL # 0.1 K/mm3 (0.0-0.4); LARGE UNSTAINED CELL % 2.1 % (0.0-4.0); LYMPH # 1.2 K/mm3 (1.5-4.5); LYMPH % 16.5 % (24.0-44.0); MEAN CORPUSCULAR HEMOGLOBIN 31.3 pg (27.0-33.0); MEAN CORPUSCULAR HGB CONC 33.6 g/dl (32.0-36.5); MEAN CORPUSCULAR VOLUME 92.9 fl (80.0-96.0); MONO # 0.5 K/mm3 (0.0-0.8); MONO % 7.4 % (0.0-5.0); NEUTROPHILS # 4.6 K/mm3 (1.8-7.7); NEUTROPHILS % 70.6 % (36.0-66.0); PLATELET COUNT, AUTOMATED 235 k/mm3 (150-450); RED CELL DISTRIBUTION WIDTH 13.6 % (11.5-14.5); WHITE BLOOD COUNT 6.5 K/mm3 (4.0-10.0)
[2016-08-07 18:49] LABS: ERYTHROCYTE SEDIMENTATION RATE 19 mm/hr (0-30)
== END ==
LOC: M WUC 13:47
PROVIDERS: ATTEND Orthopaedic Surgery
DX: M25.569 Pain in unspecified knee (principal)

== ENCOUNTER → 2016-08-28 | Outpatient (CLI) | payer OTHER ==
[~2016-08-28] MED LIST changes: +AMLO5TAB2 PO; -ATOR1TAB18 PO; +ATOR80TA59 PO; -COUM2TAB10 PO; +COUM2TAB22 PO; +LISI10TA4 PO; -MUCI30TA2 PO; +MUCI30TA5 PO; -MUCI600T34 PO; +MUCI600T37 PO; -ULTR50TA PO; +ULTR50TA8 PO; +VOLT1GEL15 TD; -VOLT1GEL24 TD
[2016-08-29 09:54] LABS: INR 2.68
== END ==
LOC: M WUC 15:32
PROVIDERS: ATTEND Nurse Practitioner Family
DX: I48.2 Chronic atrial fibrillation (principal)

== ENCOUNTER → 2016-09-19 | Outpatient (CLI) | payer OTHER ==
--- NOTE | 2016-09-19 17:53 | REP ---
MRI LEFT SHOULDER: TECHNIQUE: Axial T2 fat sat, coronal oblique T1, T2 fat sat, post arthrogram axial T1 fat sat, proton density, coronal oblique T1 fat sat, T2 sat, sagittal oblique T2 fat sat, ABER T1 fat sat. There is evidence of prior surgery with apparent resection of the distal end of the clavicle. Ill-defined high signal in the supraspinatus tendon on T2 weighed images is compatible with mild tendinopathy/tendonitis. No definite rotator cuff tendon tear is seen. Biceps tendon is within the bicipital groove with no tenosynovitis. There is no Hill Sach's deformity. The deltoid muscle demonstrates no abnormal signal. No definite labral tear is seen. Moderate chondromalacia is seen of the glenoid with subchondral marrow edema. Mild fluid in the subacromial subdeltoid bursae suggests bursitis. IMPRESSION: Evidence of prior surgery at the acromioclavicular region with resection of the distal end of the clavicle. Supraspinatus tendinopathy/tendonitis with no definite rotator cuff tear. No definite labral tear. Moderate chondromalacia of the glenoid with subchondral marrow edema. Mild fluid in the subacromial/subdeltoid bursae suggests bursitis. Signed by Vel Bansal MD 09/20/2016 03:26 P
--- NOTE | 2016-09-19 18:35 | REP ---
MRI RIGHT SHOULDER: TECHNIQUE: Axial T2 fat sat, coronal oblique T1, T2 fat sat, post arthrogram axial T1 fat sat, proton density, coronal oblique T1 fat sat, T2 sat, sagittal oblique T2 fat sat, ABER T1 fat sat. There is a full thickness tear of the supraspinatus tendon predominantly involving the anterior aspect of the tendon. There is a gap in the tendon measuring approximately 1 cm in length. There is no other definite rotator cuff tendon tear. There are moderate hypertrophic degenerative changes of the acromioclavicular joint. The acromion is mildly curved in shape. Biceps tendon is within the bicipital groove with no tenosynovitis. There is no Hill-Sachs deformity. Deltoid muscle demonstrates no abnormal signal. No definite labral tear is seen. A few tiny subchondral cysts are seen in the superolateral humeral head. There is moderate chondromalacia of the glenoid with subchondral marrow edema in the glenoid. Moderate joint fluid extends into the subacromial subdeltoid bursa. IMPRESSION: Full thickness tear supraspinatus tendon with a 1 cm gap in the tendon. The tear is predominantly anteriorly in the distal end of the tendon. Moderate hypertrophic degenerative changes of acromioclavicular joint. No definite labral tear. A few tiny subchondral cysts are seen in the humeral head. There is moderate chondromalacia at the glenohumeral joint with mild spurring. There is moderate subchondral marrow edema in the glenoid. Moderate joint effusion extending into the subacromial subdeltoid bursa. Signed by Vel Bansal MD 09/20/2016 03:27 P
== END ==
LOC: M RAD 15:09
PROVIDERS: ATTEND Physician Assistant Surgical
DX: M19.011 Primary osteoarthritis, right shoulder (principal); M19.012 Primary osteoarthritis, left shoulder

== ENCOUNTER → 2016-09-25 | Outpatient (CLI) | payer OTHER | LOC: M WUC 15:40 | PROVIDERS: ATTEND Nurse Practitioner Family | DX: Z53.8 Procedure and treatment not carried out for other reasons (principal) ==

== ENCOUNTER → 2016-09-26 | Outpatient (REF) | payer OTHER ==
[2016-09-26 21:25] LABS: INR 5.87
== END ==
LOC: M LABWUC 19:44
PROVIDERS: ATTEND Nurse Practitioner Family
DX: I48.2 Chronic atrial fibrillation (principal)

== ENCOUNTER → 2016-09-29 | Outpatient (CLI) | payer OTHER ==
[2016-09-29 19:25] LABS: INR 2.1
== END ==
LOC: M WUC 17:56
PROVIDERS: ATTEND Nurse Practitioner Family
DX: I48.2 Chronic atrial fibrillation (principal)

== ENCOUNTER → 2016-10-09 | Outpatient (CLI) | payer OTHER ==
[2016-10-09 18:33] LABS: INR 2.45
== END ==
LOC: M WUC 13:39
PROVIDERS: ATTEND Nurse Practitioner Family
DX: I48.2 Chronic atrial fibrillation (principal)

== ENCOUNTER → 2016-11-06 | Outpatient (CLI) | payer OTHER ==
[2016-11-06 17:43] LABS: INR 2.14
== END ==
LOC: M WUC 10:24
PROVIDERS: ATTEND Nurse Practitioner Family
DX: I48.2 Chronic atrial fibrillation (principal)

== ENCOUNTER → 2016-11-16 | Outpatient (CLI) | payer OTHER ==
[~2016-11-16] MED LIST changes: +CONRAY-43 43% 50ML VIAL (Q9960) As Ordered ONE; +LIDOCAINE 1% MDV 20ML VIAL As Ordered ONE; +methylPREDNISolone SUSP 40 MG/ML (DEPO-medrol) VIAL (J1030) As Ordered ONE
== END ==
LOC: M RADPRO 09:30
PROVIDERS: ATTEND Physician Assistant Surgical
DX: M19.011 Primary osteoarthritis, right shoulder (principal); M19.012 Primary osteoarthritis, left shoulder; M75.51 Bursitis of right shoulder; M75.52 Bursitis of left shoulder; Z53.9 Procedure and treatment not carried out, unspecified reason
CPT/HCPCS: J1030; Q9960

== ENCOUNTER → 2016-11-23 | Outpatient (CLI) | payer OTHER ==
[2016-11-23 11:36] LABS: INR 1.1
--- NOTE | 2016-11-23 17:19 | REP ---
BILATERAL SHOULDER ARTHROGRAMS: The procedure was performed by VICENTA Montilla under the direct supervision of Dr. Bansal. The procedure along with its risks, benefits, and complications were discussed with the patient prior to the examination. Informed consent was obtained both verbally and written. The right shoulder was started with first. The right humeral head was localized using fluoroscopic guidance. The skin was marked, prepped and draped in the usual sterile fashion. 1% lidocaine was used for local anesthetic. Using fluoroscopic guidance a 22-gauge spinal needle was inserted and advanced to the humeral head. 0.5 mL of Conray-60 was injected to verify placement. 5 mL of a solution containing 3 mL of 1% lidocaine and 2 mL of Depo-Medrol 40 mg was injected into the joint space. The needle was removed. The patient tolerated the procedure well and had no immediate complications. At this time the patient was moved and repositioned to access the left shoulder. The left humeral head was localized using fluoroscopic guidance. The skin was marked, prepped and draped in the usual sterile fashion. Local anesthetic was achieved using 1% lidocaine. Using fluoroscopic guidance a 22-gauge spinal needle was inserted and advanced to the humeral head. 0.5 mL of Conray-60 was injected to verify placement. 5 mL of a solution containing 3 mL of 1% lidocaine and 2 mL of Depo-Medrol 40 mg was injected into the joint space. The needle was then removed. The patient tolerated the procedure well and had no immediate complications. Fluoroscopy time of 10 seconds. Reviewed by VICENTA Mejía 11/23/2016 05:33 PEdited and Signed by Vel Bansal MD 11/24/2016 07:58 P
== END ==
LOC: M RADPRO 10:50
PROVIDERS: ATTEND Physician Assistant Surgical
DX: M19.90 Unspecified osteoarthritis, unspecified site (principal); M75.51 Bursitis of right shoulder; M75.52 Bursitis of left shoulder; Z79.01 Long term (current) use of anticoagulants
CPT/HCPCS: 20610; 36415; 77002; 85610; J1030; Q9960

== ENCOUNTER → 2016-11-27 | Outpatient (CLI) | payer OTHER ==
[~2016-11-27] MED LIST changes: -CONRAY-43 43% 50ML VIAL (Q9960) As Ordered ONE; -LIDOCAINE 1% MDV 20ML VIAL As Ordered ONE; -methylPREDNISolone SUSP 40 MG/ML (DEPO-medrol) VIAL (J1030) As Ordered ONE
[2016-11-27 18:23] LABS: INR 2.11
== END ==
LOC: M WUC 16:20
PROVIDERS: ATTEND Nurse Practitioner Family
DX: I48.2 Chronic atrial fibrillation (principal)

== ENCOUNTER → 2016-12-21 | Outpatient (REF) | payer OTHER ==
[2016-12-21 14:14] LABS: ANION GAP 8 MEQ/L (8-16); BLOOD UREA NITROGEN 9 MG/DL (7-18); CALCIUM LEVEL 8.7 MG/DL (8.8-10.2); CARBON DIOXIDE LEVEL 30 MEQ/L (21-32); CHLORIDE LEVEL 104 MEQ/L (98-107); CREATININE FOR GFR 0.63 MG/DL (0.55-1.02); GLOMERULAR FILTRATION RATE > 60.0 (>39); GLUCOSE, FASTING 102 MG/DL (83-110); POTASSIUM SERUM 4.4 MEQ/L (3.5-5.1); SODIUM LEVEL 142 MEQ/L (136-145)
== END ==
LOC: M SFHCPLAZ 11:53
PROVIDERS: ATTEND Physician Assistant Medical
DX: I10 Essential (primary) hypertension (principal)

== ENCOUNTER → 2017-01-22 | Outpatient (CLI) | payer OTHER | LOC: M WUC 08:00 | DX: I48.91 Unspecified atrial fibrillation (principal); I08.0 Rheumatic disorders of both mitral and aortic valves; Z79.01 Long term (current) use of anticoagulants; Z53.9 Procedure and treatment not carried out, unspecified reason ==

== ENCOUNTER → 2017-01-29 | Outpatient (CLI) | payer OTHER ==
[2017-01-29 17:57] LABS: ALBUMIN 3.4 GM/DL (3.2-5.2); ALBUMIN/GLOBULIN RATIO 1.03 (1.00-1.93); ALKALINE PHOSPHATASE 72 U/L (45-117); ALT/SGPT 45 U/L (12-78); ANION GAP 6 MEQ/L (8-16); AST/SGOT 30 U/L (7-37); BILIRUBIN,TOTAL 0.6 MG/DL (0.2-1.0); BLOOD UREA NITROGEN 19 MG/DL (7-18); CALCIUM LEVEL 8.8 MG/DL (8.8-10.2); CARBON DIOXIDE LEVEL 31 MEQ/L (21-32); CHLORIDE LEVEL 103 MEQ/L (98-107); CHOLESTEROL LEVEL 151 MG/DL (<200); CREATININE FOR GFR 0.66 MG/DL (0.55-1.02); GLOMERULAR FILTRATION RATE > 60.0 (>39); GLUCOSE, FASTING 106 MG/DL (83-110); POTASSIUM SERUM 4.2 MEQ/L (3.5-5.1); SODIUM LEVEL 140 MEQ/L (136-145); TOTAL PROTEIN 6.7 GM/DL (6.4-8.2); TRIGLYCERIDES LEVEL 171 MG/DL (<150)
[2017-01-29 18:17] LABS: MEAN CORPUSCULAR HEMOGLOBIN 30.5 pg (27.0-33.0); MEAN CORPUSCULAR VOLUME 92.3 fl (80.0-96.0); PLATELET COUNT, AUTOMATED 253 10^3/uL (150-450); WHITE BLOOD COUNT 5.6 10^3/uL (4.0-10.0)
[2017-01-29 18:19] LABS: INR 3.2
== END ==
LOC: M WUC 11:54
PROVIDERS: ATTEND Family Medicine
DX: I48.2 Chronic atrial fibrillation (principal); I08.2 Rheumatic disorders of both aortic and tricuspid valves; J44.1 Chronic obstructive pulmonary disease with (acute) exacerbation; E78.2 Mixed hyperlipidemia; M85.80 Other specified disorders of bone density and structure, unspecified site; Z51.81 Encounter for therapeutic drug level monitoring; Z79.01 Long term (current) use of anticoagulants; I10 Essential (primary) hypertension

== ENCOUNTER → 2017-01-29 | Outpatient (CLI) | payer OTHER ==
[2017-01-29 17:57] LABS: ALBUMIN 3.5 GM/DL (3.2-5.2); ANION GAP 8 MEQ/L (8-16); BLOOD UREA NITROGEN 19 MG/DL (7-18); CALCIUM LEVEL 8.7 MG/DL (8.8-10.2); CARBON DIOXIDE LEVEL 31 MEQ/L (21-32); CHLORIDE LEVEL 102 MEQ/L (98-107); CREATININE FOR GFR 0.68 MG/DL (0.55-1.02); GLOMERULAR FILTRATION RATE > 60.0 (>39); GLUCOSE, FASTING 106 MG/DL (83-110); MAGNESIUM LEVEL 1.7 MG/DL (1.8-2.4); PHOSPHORUS LEVEL 4.1 MG/DL (2.5-4.9); POTASSIUM SERUM 4.2 MEQ/L (3.5-5.1); SODIUM LEVEL 141 MEQ/L (136-145)
== END ==
LOC: M WUC 11:58
PROVIDERS: ATTEND Physician Assistant
DX: I10 Essential (primary) hypertension (principal); I48.2 Chronic atrial fibrillation

== ENCOUNTER → 2017-02-12 | Outpatient (CLI) | payer OTHER ==
[2017-02-12 18:14] LABS: INR 2.96
== END ==
LOC: M WUC 16:22
PROVIDERS: ATTEND Family Medicine
DX: Z51.81 Encounter for therapeutic drug level monitoring (principal); Z79.01 Long term (current) use of anticoagulants; I48.91 Unspecified atrial fibrillation; I08.2 Rheumatic disorders of both aortic and tricuspid valves

== ENCOUNTER → 2017-02-26 | Outpatient (REF) | payer OTHER ==
[2017-02-26 17:13] LABS: ALBUMIN 3.7 GM/DL (3.2-5.2); ANION GAP 8 MEQ/L (8-16); BLOOD UREA NITROGEN 19 MG/DL (7-18); CARBON DIOXIDE LEVEL 31 MEQ/L (21-32); CHLORIDE LEVEL 102 MEQ/L (98-107); CREATININE FOR GFR 0.63 MG/DL (0.55-1.02); GLOMERULAR FILTRATION RATE > 60.0 (>39); GLUCOSE, FASTING 100 MG/DL (83-110); POTASSIUM SERUM 4.2 MEQ/L (3.5-5.1); SODIUM LEVEL 141 MEQ/L (136-145)
== END ==
LOC: M LAB REF 17:06
DX: I10 Essential (primary) hypertension (principal); Z51.81 Encounter for therapeutic drug level monitoring; Z79.01 Long term (current) use of anticoagulants; I48.91 Unspecified atrial fibrillation; I08.2 Rheumatic disorders of both aortic and tricuspid valves
CPT/HCPCS: 80069

== ENCOUNTER → 2017-02-26 | Outpatient (REF) | payer OTHER ==
[2017-02-26 17:09] LABS: INR 1.58
== END ==
LOC: M LABWUC 16:38
DX: Z51.81 Encounter for therapeutic drug level monitoring (principal); Z79.01 Long term (current) use of anticoagulants; I48.91 Unspecified atrial fibrillation; I08.2 Rheumatic disorders of both aortic and tricuspid valves

== ENCOUNTER → 2017-03-02 | Outpatient (CLI) | payer OTHER ==
[2017-03-02 19:45] LABS: INR 2.31; PROTHROMBIN TIME 26.3 SECONDS (12.4-14.5)
== END ==
LOC: M WUC 18:38
DX: I48.91 Unspecified atrial fibrillation (principal)
CPT/HCPCS: 85610

== ENCOUNTER → 2017-03-19 | Outpatient (CLI) | payer OTHER ==
[2017-03-19 18:20] LABS: INR 3.24; PROTHROMBIN TIME 34.6 SECONDS (12.4-14.5)
== END ==
LOC: M WUC 16:01
DX: I48.91 Unspecified atrial fibrillation (principal); I08.0 Rheumatic disorders of both mitral and aortic valves; Z79.01 Long term (current) use of anticoagulants
CPT/HCPCS: 85610

== ENCOUNTER → 2017-03-26 | Outpatient (CLI) | payer OTHER ==
[2017-03-26 17:54] LABS: INR 3.08; PROTHROMBIN TIME 33.2 SECONDS (12.4-14.5)
== END ==
LOC: M WUC 16:16
DX: I08.0 Rheumatic disorders of both mitral and aortic valves (principal)
CPT/HCPCS: 85610

== ENCOUNTER → 2017-04-11 | Outpatient (CLI) | payer OTHER ==
[2017-04-11 20:01] LABS: INR 4.52; PROTHROMBIN TIME 45.3 SECONDS (12.4-14.5)
== END ==
LOC: M WUC 17:20
DX: Z51.81 Encounter for therapeutic drug level monitoring (principal); Z79.01 Long term (current) use of anticoagulants; I48.91 Unspecified atrial fibrillation
CPT/HCPCS: 85610

== ENCOUNTER → 2017-04-18 | Outpatient (CLI) | payer OTHER ==
[2017-04-18 14:18] LABS: INR 2.55; PROTHROMBIN TIME 28.5 SECONDS (12.4-14.5)
== END ==
LOC: M WUC 09:32
DX: Z79.01 Long term (current) use of anticoagulants (principal); I48.91 Unspecified atrial fibrillation
CPT/HCPCS: 85610

== ENCOUNTER → 2017-04-23 | Outpatient (CLI) | payer OTHER ==
[2017-04-23 18:10] LABS: ALBUMIN 3.2 GM/DL (3.2-5.2); ANION GAP 9 MEQ/L (8-16); BLOOD UREA NITROGEN 16 MG/DL (7-18); CALCIUM LEVEL 8.9 MG/DL (8.8-10.2); CARBON DIOXIDE LEVEL 29 MEQ/L (21-32); CHLORIDE LEVEL 99 MEQ/L (98-107); CREATININE FOR GFR 0.74 MG/DL (0.55-1.30); GLOMERULAR FILTRATION RATE > 60.0 (>39); GLUCOSE, FASTING 138 MG/DL (70-100); PHOSPHORUS LEVEL 3.9 MG/DL (2.5-4.9); POTASSIUM SERUM 4.7 MEQ/L (3.5-5.1); SODIUM LEVEL 137 MEQ/L (136-145)
== END ==
LOC: M WUC 16:05
DX: I10 Essential (primary) hypertension (principal); I48.91 Unspecified atrial fibrillation; I08.0 Rheumatic disorders of both mitral and aortic valves; Z51.81 Encounter for therapeutic drug level monitoring; Z79.01 Long term (current) use of anticoagulants
CPT/HCPCS: 80069

== ENCOUNTER → 2017-04-23 | Outpatient (CLI) | payer OTHER ==
[2017-04-23 18:26] LABS: INR 3.02; PROTHROMBIN TIME 32.7 SECONDS (12.4-14.5)
== END ==
LOC: M WUC 16:15
DX: I48.91 Unspecified atrial fibrillation (principal); I08.0 Rheumatic disorders of both mitral and aortic valves; Z51.81 Encounter for therapeutic drug level monitoring; Z79.01 Long term (current) use of anticoagulants
CPT/HCPCS: 85610

== ENCOUNTER → 2017-05-01 | Outpatient (CLI) | payer OTHER | LOC: M PLARAD 08:02 | DX: S46.012D Strain of muscle(s) and tendon(s) of the rotator cuff of left shoulder, subsequent encounter (principal); M19.019 Primary osteoarthritis, unspecified shoulder; X58.XXXA Exposure to other specified factors, initial encounter; Y92.89 Other specified places as the place of occurrence of the external cause; Y93.89 Activity, other specified; Y99.8 Other external cause status | CPT/HCPCS: 73221 ==

== ENCOUNTER → 2017-05-02 | Outpatient (CLI) | payer OTHER ==
[2017-05-02 12:22] LABS: INR 2.82; PROTHROMBIN TIME 30.9 SECONDS (12.4-14.5)
== END ==
LOC: M WUC 10:05
DX: I48.91 Unspecified atrial fibrillation (principal); I08.0 Rheumatic disorders of both mitral and aortic valves; Z79.01 Long term (current) use of anticoagulants
CPT/HCPCS: 85610

== ENCOUNTER → 2017-05-29 | Outpatient (CLI) | payer OTHER ==
[2017-05-29 20:10] LABS: INR 3.62; PROTHROMBIN TIME 37.9 SECONDS (12.4-14.5)
== END ==
LOC: M WUC 18:41
DX: I48.2 Chronic atrial fibrillation (principal); I51.81 Takotsubo syndrome; Z79.01 Long term (current) use of anticoagulants
CPT/HCPCS: 85610

== ENCOUNTER → 2017-06-04 | Outpatient (CLI) | payer OTHER ==
[2017-06-04 17:20] LABS: HEMATOCRIT 42.9 % (36.0-47.0); HEMOGLOBIN 13.9 g/dl (12.0-15.5); MEAN CORPUSCULAR HEMOGLOBIN 30.2 pg (27.0-33.0); MEAN CORPUSCULAR HGB CONC 32.4 g/dl (32.0-36.5); MEAN CORPUSCULAR VOLUME 93.3 fl (80.0-96.0); PLATELET COUNT, AUTOMATED 230 10^3/uL (150-450); RED CELL DISTRIBUTION WIDTH 13.4 % (11.5-14.5)
[2017-06-04 17:21] LABS: INR 3.21; PROTHROMBIN TIME 34.3 SECONDS (12.4-14.5)
[2017-06-04 18:02] LABS: ALBUMIN 3.5 GM/DL (3.2-5.2); ALBUMIN/GLOBULIN RATIO 0.97 (1.00-1.93); ALKALINE PHOSPHATASE 84 U/L (45-117); ALT/SGPT 41 U/L (12-78); ANION GAP 5 MEQ/L (8-16); AST/SGOT 35 U/L (7-37); BILIRUBIN,TOTAL 0.5 MG/DL (0.2-1.0); BLOOD UREA NITROGEN 21 MG/DL (7-18); CALCIUM LEVEL 8.9 MG/DL (8.8-10.2); CARBON DIOXIDE LEVEL 33 MEQ/L (21-32); CHLORIDE LEVEL 105 MEQ/L (98-107); CHOLESTEROL LEVEL 140 MG/DL (<200); CREATININE FOR GFR 0.65 MG/DL (0.55-1.30); GLOMERULAR FILTRATION RATE > 60.0 (>39); GLUCOSE, FASTING 107 MG/DL (70-100); HDL CHOLESTEROL 50 MG/DL (>40); LDL CHOLESTEROL 52.2 MG/DL (<100); NON-HDL-C 90 MG/DL; POTASSIUM SERUM 4.1 MEQ/L (3.5-5.1); SODIUM LEVEL 143 MEQ/L (136-145); TOTAL PROTEIN 7.1 GM/DL (6.4-8.2); TRIGLYCERIDES LEVEL 189 MG/DL (<150)
== END ==
LOC: M WUC 11:11
DX: J44.1 Chronic obstructive pulmonary disease with (acute) exacerbation (principal); I48.2 Chronic atrial fibrillation; Z51.81 Encounter for therapeutic drug level monitoring; Z79.01 Long term (current) use of anticoagulants; Z79.899 Other long term (current) drug therapy
CPT/HCPCS: 80053

== ENCOUNTER → 2017-06-18 | Outpatient (CLI) | payer OTHER ==
[2017-06-18 18:03] LABS: INR 3.37; PROTHROMBIN TIME 35.7 SECONDS (12.4-14.5)
[2017-06-18 18:28] LABS: ESTIMATED AVERAGE GLUCOSE 120 MG/DL (60-110); HEMOGLOBIN A1c 5.8 %
== END ==
LOC: M WUC 11:52
DX: Z51.81 Encounter for therapeutic drug level monitoring (principal); Z79.01 Long term (current) use of anticoagulants; I48.2 Chronic atrial fibrillation; Z13.1 Encounter for screening for diabetes mellitus
CPT/HCPCS: 83036

== ENCOUNTER → 2017-07-02 | Outpatient (CLI) | payer OTHER ==
[2017-07-02 18:05] LABS: INR 2.52; PROTHROMBIN TIME 28.2 SECONDS (12.4-14.5)
== END ==
LOC: M WUC 16:19
DX: I48.2 Chronic atrial fibrillation (principal); Z79.01 Long term (current) use of anticoagulants
CPT/HCPCS: 85610

== ENCOUNTER → 2017-07-25 | Outpatient (CLI) | payer OTHER ==
[2017-07-25 20:01] LABS: INR 2.98; PROTHROMBIN TIME 32.3 SECONDS (12.4-14.5)
== END ==
LOC: M WUC 17:33
DX: I48.2 Chronic atrial fibrillation (principal); Z79.01 Long term (current) use of anticoagulants
CPT/HCPCS: 85610

== ENCOUNTER → 2017-08-08 | Outpatient (CLI) | payer OTHER ==
[2017-08-08 15:54] LABS: PROTHROMBIN TIME 28.9 SECONDS (12.4-14.5)
== END ==
LOC: M WUC 11:20
DX: I48.2 Chronic atrial fibrillation (principal); Z79.01 Long term (current) use of anticoagulants; Z51.81 Encounter for therapeutic drug level monitoring
CPT/HCPCS: 85610

== ENCOUNTER → 2017-08-20 | Outpatient (CLI) | payer OTHER ==
[2017-08-20 10:57] LABS: INR 2.59; PROTHROMBIN TIME 28.8 SECONDS (12.4-14.5)
== END ==
LOC: M WUC 08:22
DX: I48.2 Chronic atrial fibrillation (principal); Z51.81 Encounter for therapeutic drug level monitoring; Z79.01 Long term (current) use of anticoagulants
CPT/HCPCS: 85610

== ENCOUNTER → 2017-08-23 | Outpatient (REF) | payer OTHER ==
[2017-08-23 17:07] LABS: APPEARANCE, URINE HAZY (CLEAR); BACTERIA, URINE AUTO 2+ (NEGATIVE); BILIRUBIN, URINE AUTO NEGATIVE (NEGATIVE); BLOOD, URINE BLOOD NEGATIVE (NEGATIVE); COLOR, URINE YELLOW (YELLOW); GLUCOSE, URINE (UA) AUTO NEGATIVE (NEGATIVE); KETONE, URINE AUTO NEGATIVE (NEGATIVE); LEUKOCYTE ESTERASE, URINE AUTO TRACE (NEGATIVE); MUCUS, URINE SMALL (NEGATIVE); NITRITE, URINE AUTO NEGATIVE (NEGATIVE); PROTEIN, URINE AUTO NEGATIVE (NEGATIVE); RBC, URINE AUTO 1 /HPF (0-3); SPECIFIC GRAVITY URINE AUTO 1.019 (1.002-1.035); SQUAMOUS EPITHELIAL CELL UR AU 4 /HPF (0-6); UROBILINOGEN, URINE AUTO 0.2 mg/dL (0.0-2.0); WBC, URINE AUTO 2 /HPF (0-3)
== END ==
LOC: M LAB REF 16:36
DX: N39.0 Urinary tract infection, site not specified (principal)
CPT/HCPCS: 81001

== ENCOUNTER → 2017-08-26 | Outpatient (CLI) | payer OTHER ==
[2017-08-26 18:00] LABS: THYROID STIMULATING HORMONE 0.925 uIU/ML (0.358-3.740)
[2017-08-28 09:07] LABS: PROLACTIN 5.9 NG/ML
== END ==
LOC: M WUC 09:38
DX: N64.4 Mastodynia (principal); Z79.899 Other long term (current) drug therapy
CPT/HCPCS: 84146

== ENCOUNTER → 2017-08-29 | Outpatient (CLI) | payer OTHER | LOC: M RAD 09:15 | DX: N64.4 Mastodynia (principal) | CPT/HCPCS: 77066 ==

== ENCOUNTER → 2017-09-03 | Outpatient (CLI) | payer OTHER ==
[2017-09-03 19:54] LABS: INR 2.41; PROTHROMBIN TIME 26.7 SECONDS (12.1-14.4)
== END ==
LOC: M WUC 09:59
DX: Z51.81 Encounter for therapeutic drug level monitoring (principal); Z79.01 Long term (current) use of anticoagulants; I48.2 Chronic atrial fibrillation
CPT/HCPCS: 85610

== ENCOUNTER → 2017-10-01 | Outpatient (CLI) | payer OTHER ==
[2017-10-01 17:41] LABS: INR 2.42; PROTHROMBIN TIME 26.9 SECONDS (12.1-14.4)
== END ==
LOC: M WUC 10:15
DX: I48.2 Chronic atrial fibrillation (principal); Z51.81 Encounter for therapeutic drug level monitoring; Z79.01 Long term (current) use of anticoagulants
CPT/HCPCS: 85610

== ENCOUNTER → 2017-10-17 | Outpatient (REF) | payer OTHER ==
[2017-10-17 19:23] LABS: AMORPHOUS SEDIMENT SMALL (NEGATIVE); APPEARANCE, URINE HAZY (CLEAR); BACTERIA, URINE AUTO NEGATIVE (NEGATIVE); BILIRUBIN, URINE AUTO NEGATIVE (NEGATIVE); BLOOD, URINE BLOOD NEGATIVE (NEGATIVE); COLOR, URINE YELLOW (YELLOW); GLUCOSE, URINE (UA) AUTO NEGATIVE (NEGATIVE); KETONE, URINE AUTO NEGATIVE (NEGATIVE); LEUKOCYTE ESTERASE, URINE AUTO NEGATIVE (NEGATIVE); MUCUS, URINE SMALL (NEGATIVE); NITRITE, URINE AUTO NEGATIVE (NEGATIVE); PROTEIN, URINE AUTO NEGATIVE (NEGATIVE); RBC, URINE AUTO 1 /HPF (0-3); SPECIFIC GRAVITY URINE AUTO 1.018 (1.002-1.035); SQUAMOUS EPITHELIAL CELL UR AU 3 /HPF (0-6); UROBILINOGEN, URINE AUTO 0.2 mg/dL (0.0-2.0); WBC, URINE AUTO 2 /HPF (0-3)
== END ==
LOC: M LAB REF 18:49
DX: R10.2 Pelvic and perineal pain (principal)
CPT/HCPCS: 81001

== ENCOUNTER → 2017-10-18 | Outpatient (CLI) | payer OTHER ==
[2017-10-18 15:38] LABS: ESTIMATED AVERAGE GLUCOSE 140 MG/DL (60-110); HEMOGLOBIN A1c 6.5 %
== END ==
LOC: M WUC 08:26
DX: R73.03 Prediabetes (principal)
CPT/HCPCS: 83036

== ENCOUNTER → 2017-10-29 | Outpatient (CLI) | payer OTHER ==
[2017-10-29 17:09] LABS: ANION GAP 7 MEQ/L (8-16); BLOOD UREA NITROGEN 22 MG/DL (7-18); CALCIUM LEVEL 8.8 MG/DL (8.8-10.2); CARBON DIOXIDE LEVEL 30 MEQ/L (21-32); CHLORIDE LEVEL 106 MEQ/L (98-107); CREATININE FOR GFR 0.75 MG/DL (0.55-1.30); GLOMERULAR FILTRATION RATE > 60.0 (>39); GLUCOSE, FASTING 105 MG/DL (70-100); POTASSIUM SERUM 4.1 MEQ/L (3.5-5.1); SODIUM LEVEL 143 MEQ/L (136-145)
[2017-10-29 17:11] LABS: INR 1.84; PROTHROMBIN TIME 21.6 SECONDS (12.1-14.4)
[2017-10-29 17:19] LABS: ESTIMATED AVERAGE GLUCOSE 134 MG/DL (60-110); HEMOGLOBIN A1c 6.3 %
== END ==
LOC: M WUC 09:34
DX: R73.02 Impaired glucose tolerance (oral) (principal); I48.2 Chronic atrial fibrillation; Z79.01 Long term (current) use of anticoagulants
CPT/HCPCS: 83036

== ENCOUNTER → 2017-11-05 | Outpatient (CLI) | payer OTHER ==
[2017-11-05 18:14] LABS: PROTHROMBIN TIME 24.9 SECONDS (12.1-14.4)
== END ==
LOC: M WUC 09:01
DX: I48.2 Chronic atrial fibrillation (principal); Z79.01 Long term (current) use of anticoagulants
CPT/HCPCS: 85610

== ENCOUNTER → 2017-11-09 | Outpatient (CLI) | payer OTHER | LOC: M WUC 13:50 | DX: M79.644 Pain in right finger(s) (principal); R10.30 Lower abdominal pain, unspecified | CPT/HCPCS: 87086 ==

== ENCOUNTER → 2017-11-12 | Outpatient (CLI) | payer OTHER ==
[2017-11-12 18:24] LABS: INR 1.28; PROTHROMBIN TIME 16.2 SECONDS (12.1-14.4)
== END ==
LOC: M WUC 09:32
DX: Z79.01 Long term (current) use of anticoagulants (principal); I48.2 Chronic atrial fibrillation; Z79.899 Other long term (current) drug therapy
CPT/HCPCS: 85610

== ENCOUNTER → 2017-11-14 | Outpatient (REF) | payer OTHER | LOC: M LAB REF 16:37 | DX: R10.30 Lower abdominal pain, unspecified (principal) | CPT/HCPCS: 87088; 87186 ==

== ENCOUNTER → 2017-11-29 | Outpatient (CLI) | payer OTHER ==
[2017-11-29 16:52] LABS: C REACTIVE PROTEIN QUANTITATIV 0.45 MG/DL (0.00-0.30)
[2017-11-29 16:55] LABS: BASO # 0.1 10^3/uL (0.0-0.2); EOS # 0.2 10^3/uL (0.0-0.50); EOS % 3.2 % (0.0-3.0); HEMATOCRIT 42.4 % (36.0-47.0); HEMOGLOBIN 14.1 g/dl (12.0-15.5); IMMATURE GRANULOCYTE % 1.4 % (0-3.0); LYMPH # 1.6 10^3/uL (1.5-4.5); LYMPH % 24.9 % (24.0-44.0); MEAN CORPUSCULAR HEMOGLOBIN 31.3 pg (27.0-33.0); MEAN CORPUSCULAR HGB CONC 33.3 g/dl (32.0-36.5); MONO # 0.5 10^3/uL (0.0-0.8); NEUTROPHILS # 3.9 10^3/uL (1.8-7.7); NEUTROPHILS % 61.5 % (36.0-66.0); PLATELET COUNT, AUTOMATED 226 10^3/uL (150-450); RED BLOOD COUNT 4.51 10^6/uL (4.00-5.40); RED CELL DISTRIBUTION WIDTH 13.4 % (11.5-14.5); WHITE BLOOD COUNT 6.3 10^3/uL (4.0-10.0)
[2017-11-29 17:42] LABS: ERYTHROCYTE SEDIMENTATION RATE 6 mm/hr (0-30)
== END ==
LOC: M WUC 12:43
DX: Z96.651 Presence of right artificial knee joint (principal)
CPT/HCPCS: 86140

== ENCOUNTER → 2017-11-29 | Outpatient (CLI) | payer OTHER ==
[2017-11-29 17:07] LABS: INR 2.24; PROTHROMBIN TIME 25.3 SECONDS (12.1-14.4)
== END ==
LOC: M WUC 12:46
DX: Z51.81 Encounter for therapeutic drug level monitoring (principal); Z79.01 Long term (current) use of anticoagulants; I48.2 Chronic atrial fibrillation

== ENCOUNTER → 2017-11-29 | Outpatient (REF) | payer OTHER | LOC: M LAB REF 17:00 | DX: R10.30 Lower abdominal pain, unspecified (principal) | CPT/HCPCS: 87086 ==

== ENCOUNTER → 2017-12-06 | Outpatient (CLI) | payer OTHER | LOC: M WUC 12:49 | DX: Z51.81 Encounter for therapeutic drug level monitoring (principal); Z79.01 Long term (current) use of anticoagulants; I48.2 Chronic atrial fibrillation | CPT/HCPCS: 85610 ==

== ENCOUNTER → 2017-12-12 | Outpatient (CLI) | payer OTHER | LOC: M RAD 08:08 | DX: Z96.651 Presence of right artificial knee joint (principal) | CPT/HCPCS: 78315 ==

== ENCOUNTER → 2017-12-30 | Outpatient (CLI) | payer OTHER ==
[2017-12-30 18:03] LABS: INR 2.49; PROTHROMBIN TIME 27.4 SECONDS (12.1-14.4)
== END ==
LOC: M WUC 13:11
DX: Z51.81 Encounter for therapeutic drug level monitoring (principal); Z79.01 Long term (current) use of anticoagulants; I48.2 Chronic atrial fibrillation
CPT/HCPCS: 85610

== ENCOUNTER → 2018-01-11 | Outpatient (CLI) | payer OTHER ==
[2018-01-11 20:32] LABS: INR 1.86; PROTHROMBIN TIME 21.8 SECONDS (12.1-14.4)
== END ==
LOC: M WUC 15:44
DX: I48.2 Chronic atrial fibrillation (principal); Z79.01 Long term (current) use of anticoagulants
CPT/HCPCS: 85610

== ENCOUNTER → 2018-01-20 | Outpatient (CLI) | payer OTHER ==
[2018-01-20 14:00] LABS: INR 2.71; PROTHROMBIN TIME 29.4 SECONDS (12.1-14.4)
== END ==
LOC: M WUC 08:18
DX: Z51.81 Encounter for therapeutic drug level monitoring (principal); Z79.01 Long term (current) use of anticoagulants; I48.2 Chronic atrial fibrillation
CPT/HCPCS: 85610

== ENCOUNTER → 2018-02-10 | Outpatient (CLI) | payer OTHER ==
[~2018-02-10] MED LIST changes: -AMLO5TAB2 PO; +AMLO5TAB4 PO; -DOXY-278 PO; +DOXY-350 PO
[2018-02-10 16:59] LABS: INR 2.12; PROTHROMBIN TIME 24.1 SECONDS (12.1-14.4)
== END ==
LOC: M WUC 14:53
PROVIDERS: ATTEND Family Medicine
DX: I48.2 Chronic atrial fibrillation (principal); Z79.01 Long term (current) use of anticoagulants

== ENCOUNTER → 2018-03-16 | Outpatient (CLI) | payer MEDICARE ==
[~2018-03-16] MED LIST changes: -AMLO5TAB4 PO; +AMLO5TAB6 PO
[2018-03-16 17:24] LABS: INR 2.4; PROTHROMBIN TIME 26.7 SECONDS (12.1-14.4)
== END ==
LOC: M WUC 15:24
PROVIDERS: ATTEND Family Medicine
DX: I48.2 Chronic atrial fibrillation (principal); Z51.81 Encounter for therapeutic drug level monitoring; Z79.01 Long term (current) use of anticoagulants

== ENCOUNTER → 2018-03-16 | Outpatient (CLI) | payer MEDICARE ==
--- NOTE | 2018-03-16 15:55 | REP ---
Chest two views HISTORY: COPD Comparison: 03/10/1969 A diffuse increase in interstitial markings is present in the lungs consistent with chronic interstitial fibrosis. The heart is normal in size. The pulmonary vasculature is normal in appearance. The bony structure is intact. IMPRESSION: Chronic interstitial fibrosis. Electronically Signed by Florin Mccullough MD 03/16/2018 03:47 P
== END ==
LOC: M WUC 15:27
PROVIDERS: ATTEND Physician Assistant
DX: J44.1 Chronic obstructive pulmonary disease with (acute) exacerbation (principal)

== ENCOUNTER → 2018-03-16 | Outpatient (REF) | payer MEDICARE, SELFPAY | LOC: M SFHCPLAZ 12:05 | PROVIDERS: ATTEND Physician Assistant | DX: J44.1 Chronic obstructive pulmonary disease with (acute) exacerbation (principal) ==

== ENCOUNTER → 2018-04-07 | Outpatient (CLI) | payer MEDICARE ==
[2018-04-07 17:39] LABS: INR 4.52
== END ==
LOC: M WUC 15:11
PROVIDERS: ATTEND Family Medicine
DX: I48.2 Chronic atrial fibrillation (principal); Z79.01 Long term (current) use of anticoagulants

== ENCOUNTER → 2018-04-09 | Outpatient (CLI) | payer MEDICARE ==
[2018-04-09 20:59] LABS: INR 2.92; PROTHROMBIN TIME 31.1 SECONDS (12.1-14.4)
== END ==
LOC: M WUC 16:46
PROVIDERS: ATTEND Family Medicine
DX: I48.2 Chronic atrial fibrillation (principal); Z79.01 Long term (current) use of anticoagulants

== ENCOUNTER → 2018-04-21 | Outpatient (CLI) | payer MEDICARE, OTHER ==
[2018-04-21 18:50] LABS: INR 2.62; PROTHROMBIN TIME 28.6 SECONDS (12.1-14.4)
== END ==
LOC: M WUC 15:52
PROVIDERS: ATTEND Family Medicine
DX: Z79.01 Long term (current) use of anticoagulants (principal)

== ENCOUNTER → 2018-05-12 | Outpatient (CLI) | payer MEDICARE, OTHER ==
[2018-05-12 17:53] LABS: ALBUMIN 3.7 GM/DL (3.2-5.2); ALT/SGPT 33 U/L (12-78); BILIRUBIN,TOTAL 0.4 MG/DL (0.2-1.0); BLOOD UREA NITROGEN 19 MG/DL (7-18); CALCIUM LEVEL 8.5 MG/DL (8.8-10.2); CARBON DIOXIDE LEVEL 32 MEQ/L (21-32); CHLORIDE LEVEL 104 MEQ/L (98-107); CHOLESTEROL LEVEL 154 MG/DL (<200); CREATININE FOR GFR 0.71 MG/DL (0.55-1.30); GLOMERULAR FILTRATION RATE > 60.0 (>39); GLUCOSE, FASTING 94 MG/DL (70-100); HDL CHOLESTEROL 56 MG/DL (>40); LDL CHOLESTEROL 59 MG/DL (<100); NON-HDL-C 98 MG/DL; POTASSIUM SERUM 4.5 MEQ/L (3.5-5.1); SODIUM LEVEL 141 MEQ/L (136-145); TOTAL PROTEIN 7.3 GM/DL (6.4-8.2); TRIGLYCERIDES LEVEL 197 MG/DL (<150)
[2018-05-12 18:00] LABS: HEMATOCRIT 41.1 % (36.0-47.0); HEMOGLOBIN 13.1 g/dl (12.0-15.5); MEAN CORPUSCULAR HEMOGLOBIN 30.8 pg (27.0-33.0); MEAN CORPUSCULAR HGB CONC 31.9 g/dl (32.0-36.5); MEAN CORPUSCULAR VOLUME 96.7 fl (80.0-96.0); PLATELET COUNT, AUTOMATED 275 10^3/uL (150-450); RED BLOOD COUNT 4.25 10^6/uL (4.00-5.40); WHITE BLOOD COUNT 6.9 10^3/uL (4.0-10.0)
[2018-05-12 18:05] LABS: HEMOGLOBIN A1c 6.2 %
[2018-05-12 18:25] LABS: INR 2.61; PROTHROMBIN TIME 28.5 SECONDS (12.1-14.4)
[2018-05-12 18:46] LABS: MAU/CREAT RATIO 88.4 MCG/MG (0.0-30.0)
[2018-05-14 10:10] LABS: TOTAL 25(OH) VITAMIN D 32.4 NG/ML (30.0-100.0)
== END ==
LOC: M WUC 13:45
PROVIDERS: ATTEND Family Medicine
DX: Z79.01 Long term (current) use of anticoagulants (principal); J44.9 Chronic obstructive pulmonary disease, unspecified; J96.11 Chronic respiratory failure with hypoxia; I48.2 Chronic atrial fibrillation; R73.03 Prediabetes; I10 Essential (primary) hypertension; E78.2 Mixed hyperlipidemia; E55.9 Vitamin D deficiency, unspecified; Z79.899 Other long term (current) drug therapy

== ENCOUNTER → 2018-05-23 | Outpatient (CLI) | payer MEDICARE ==
[~2018-05-23] MED LIST changes: +ISOVUE-370 76% 125ML VIAL (Q9967 PER ML) As Ordered ONE
--- NOTE | 2018-05-23 09:58 | REP ---
CT NECK WITH CONTRAST: HISTORY: Sialadenitis. CONTRAST: Isovue-370 75 mL. COMPARISON: 12/03/2014. Small internal laryngoceles are present. These measure 3 mm on the right and 1.5 mm on the left. The naso-, michael-, and hypopharynx, and subglottic trachea are normal in appearance. There is fatty replacement in the parotid glands. The submandibular and thyroid glands are normal in size and density. Small lymph node less than 1 cm in size are present in the internal jugular chains, posterior triangles and submandibular areas. Atherosclerotic calcification is present at the carotid bifurcations. Degenerative change is present in the cervical spine. The lung apices are clear. The visualized sinuses are clear. IMPRESSION:There are small bilateral internal laryngoceles unchanged compared to the previous study. Electronically Signed by Florin Mccullough MD 05/23/2018 10:09 A
== END ==
LOC: M RAD 08:40
PROVIDERS: ATTEND Otolaryngology
DX: K11.20 Sialoadenitis, unspecified (principal); J38.7 Other diseases of larynx
CPT/HCPCS: 70491; Q9967

== ENCOUNTER → 2018-06-13 | Outpatient (REF) | payer MEDICARE ==
[~2018-06-13] MED LIST changes: -ISOVUE-370 76% 125ML VIAL (Q9967 PER ML) As Ordered ONE
[2018-06-13 12:15] LABS: APPEARANCE, URINE CLEAR (CLEAR); BACTERIA, URINE AUTO NEGATIVE (NEGATIVE); BILIRUBIN, URINE AUTO NEGATIVE (NEGATIVE); BLOOD, URINE BLOOD NEGATIVE (NEGATIVE); COLOR, URINE YELLOW (YELLOW); GLUCOSE, URINE (UA) AUTO NEGATIVE (NEGATIVE); KETONE, URINE AUTO NEGATIVE (NEGATIVE); LEUKOCYTE ESTERASE, URINE AUTO NEGATIVE (NEGATIVE); NITRITE, URINE AUTO NEGATIVE (NEGATIVE); PROTEIN, URINE AUTO NEGATIVE (NEGATIVE); RBC, URINE AUTO 4 /HPF (0-3); SPECIFIC GRAVITY URINE AUTO 1.013 (1.002-1.035); SQUAMOUS EPITHELIAL CELL UR AU 0 /HPF (0-6); UROBILINOGEN, URINE AUTO 0.2 mg/dL (0.0-2.0); WBC, URINE AUTO 1 /HPF (0-3)
== END ==
LOC: M SFHCPLAZ 11:06
PROVIDERS: ATTEND Family Medicine
DX: R30.0 Dysuria (principal)
CPT/HCPCS: 81001; 87088; 87186; G0463

== ENCOUNTER → 2018-06-27 | Outpatient (CLI) | payer MEDICARE ==
--- NOTE | 2018-06-28 08:55 | REP ---
CAROTID ULTRASOUND: Real-time ultrasound evaluation and duplex Doppler interrogation of the extracranial carotid vasculature is performed. There is mild to moderate plaquing and narrowing in both carotid bulbs extending into the internal and external carotid arteries. Luminal narrowing is less than 50%. There is no evidence of hemodynamically significant stenosis of either internal carotid artery. Normal flow velocities are seen. The vertebral arteries demonstrate normal direction of flow. RIGHT LEFT Peak systolic velocity ICA 83.1 cm/s 78.7 cm/s End diastolic velocity ICA 17.5 cm/s 19.2 cm/s Peak systolic velocity CCA 72.6 cm/s 47.3 cm/s Peak systolic velocity ECA 210.9 cm/s 10.0 cm/s ICA/CCA ratio 1.14 1.7 IMPRESSION: Bilateral luminal narrowing of the internal carotid arteries less than 50%. No evidence of hemodynamically significant stenosis. Electronically Signed by Vel Bansal MD 06/28/2018 08:45 A
== END ==
LOC: M RAD 17:37
PROVIDERS: ATTEND Family Medicine
DX: Z86.79 Personal history of other diseases of the circulatory system (principal); M85.80 Other specified disorders of bone density and structure, unspecified site

== ENCOUNTER → 2018-06-28 | Outpatient (REF) | payer MEDICARE | LOC: M LAB REF 12:53 | PROVIDERS: ATTEND Physician Assistant | DX: R30.0 Dysuria (principal) ==

== ENCOUNTER → 2018-07-08 | Outpatient (CLI) | payer MEDICARE ==
--- NOTE | 2018-07-08 11:40 | REP ---
Chest x-ray: Two views. History: COPD with exacerbation. Comparison study: March 16, 2018. Findings: The lungs are symmetrically aerated and clear. Pleural angles are sharp. Heart size is normal. Pulmonary vasculature is not increased. No significant bony abnormality. Impression: No active disease. Electronically Signed by Rafal Mathis MD 07/08/2018 11:32 A
--- NOTE | 2018-07-08 11:41 | REP ---
KUB: Two views. History: Lower abdomen pain. Findings: Bowel gas pattern is normal on supine radiographs. Mild vascular calcification is noted in the pelvis. There is a dextroconvex curvature in the lumbar spine. Psoas margins and flank stripes are intact. No mass, organomegaly, or pathologic calcification is appreciated. Impression: Negative abdominal films. Electronically Signed by Rafal Mathis MD 07/08/2018 11:33 A
== END ==
LOC: M WUC 10:58
PROVIDERS: ATTEND Physician Assistant
DX: R10.30 Lower abdominal pain, unspecified (principal); J44.1 Chronic obstructive pulmonary disease with (acute) exacerbation; Z79.01 Long term (current) use of anticoagulants

== ENCOUNTER → 2018-07-08 | Outpatient (CLI) | payer MEDICARE ==
[2018-07-08 18:15] LABS: INR 3.29; PROTHROMBIN TIME 34.2 SECONDS (12.1-14.4)
== END ==
LOC: M WUC 10:55
PROVIDERS: ATTEND Family Medicine
DX: Z79.01 Long term (current) use of anticoagulants (principal)

== ENCOUNTER → 2018-07-14 | Outpatient (CLI) | payer MEDICARE ==
[~2018-07-14] MED LIST changes: +COUM1TAB19 PO; +FISH1000 PO
[2018-07-14 13:40] LABS: INR 3.62; PROTHROMBIN TIME 36.9 SECONDS (12.1-14.4)
== END ==
LOC: M WUC 12:26
PROVIDERS: ATTEND Family Medicine
DX: I48.2 Chronic atrial fibrillation (principal)

== ENCOUNTER → 2018-07-17 | Outpatient (CLI) | payer MEDICARE ==
[~2018-07-17] MED LIST changes: +ALBU83IN INH; +BISO10TA6 PO; +BREO1INH INH; +CHLO25TA PO; +COLA100C5 PO; +DIGO0.12 PO; +DOXY100T2 PO; +ESTR1CRE PV; +FAMO20TA4 PO; +FLON1SPR NARES; +HM S0.65 NARES; +INCR1INH INH; +LEVA1TAB2 PO; +LORA-622 PO; +LOSA50TA88 PO; +MAGN1TAB39 PO; +MAXI0.1O OU; +MUCI600T31 PO; +OCUV1CAP4 PO; +VENTAER INH; +VOLT1GEL15 TOP
--- NOTE | 2018-07-17 19:02 | REP ---
MR LUMBAR SPINE WITHOUT CONTRAST: HISTORY: Back pain. Decreased signal intensity on T2 weighted images is present in the T11-12 through L5-1 intervertebral discs. The L2-3 through L4-5 intervertebral discs are decreased in height. These findings are consistent with disc degeneration. A diffuse disc bulge is present at the L1-2 level. There is minimal compression of the thecal sac. There is hypertrophy of the posterior articulating facets. The L1 nerves exit the neural foramina without compression. A diffuse disc bulge and small left paracentral and intraforaminal disc extrusion are present at the L2-3 level. There is hypertrophy of the ligamenta flava and posterior articulating facets. These findings produce minimal central canal stenosis. The L2 nerves exit the neural foramina without compression. A diffuse disc bulge is present at the L3-4 level. There is hypertrophy of the ligamenta flava and posterior articulating facets. These findings produce mild central canal stenosis. The L3 nerves exit the neural foramina without compression. A diffuse disc bulge is present at the L4-5 level. There is hypertrophy at the ligamenta flava and posterior articulating facets. These findings produce moderate central canal stenosis. The L4 nerves exit the neural foramina without compression. A 5 mm cyst is present along the right lateral aspect of the L4 spinous process. A 4 mm cyst is present lateral to the right L5 facet. A diffuse bulge is present at the L5-S1 level. This abuts the thecal sac and S1 nerves. There is hypertrophy of the posterior articulating facets. The L5 nerves exit the neural foramina without compression. The conus medullaris is normal in appearance terminating at the level of the L1 vertebral body. A Tarlov cyst is present at the S2 level. Normal signal intensity is present in the lumbar vertebral bodies. A 2.3 cm cyst is present in the right kidney. IMPRESSION:1. Diffuse disc bulge at the L1-2 level with minimal thecal sac compression. 2. Minimal central canal stenosis at the L2-3 level secondary to disc bulge, disc extrusion, ligamentous and facet hypertrophy. 3. Mild central canal stenosis at the L3-4 level secondary to disc bulge, ligamentous and facet hypertrophy. 4. Moderate central stenosis at the L4-5 level secondary to disc bulge, ligamentous and facet hypertrophy. 5. Diffuse disc bulge at the L5-S1 level. This abuts the thecal sac and S1 nerves. 6. 2.3 cm right renal cyst. Electronically Signed by Florin Mccullough MD 07/17/2018 07:05 P
== END ==
LOC: M RAD 14:50
PROVIDERS: ATTEND Orthopaedic Surgery
DX: M51.36 Other intervertebral disc degeneration, lumbar region (principal)
CPT/HCPCS: 72148; G0463

== ENCOUNTER → 2018-07-20 | Outpatient (CLI) | payer MEDICARE ==
[~2018-07-20] MED LIST changes: +E-Z-GAS II EFFERVESCENT PACKET (SODIUM BICARB./CITRIC ACID/SIMETHICONE) As Ordered ONE; +E-Z-HD 98% w/w 340GM SUSP BTL As Ordered ONE; +E-Z-PAQUE 96% w/w SUSP 176GM BTL As Ordered ONE; -LEVA1TAB2 PO
--- NOTE | 2018-07-24 10:01 | REP ---
Upper GI air contrast The procedure was performed under the direct supervision of Dr. Bansal. The images were reviewed with Dr. Bansal The fuel manager film shows no organomegaly or pathological masses. The intestinal gas pattern is non-specific. Liquid barium and gas producing crystals were given in the erect position as well as liquid barium in the prone oblique position in order to perform a double contrast upper GI examination. During the oral and pharyngeal stages of deglutition there is aspiration with cough response. Esophageal transport is prompt and efficient and there is no esophagitis, stricture, mucosal ring or hiatal hernia. The stomach pena are normally outlined . The rugal folds are smooth and regular. There is no gastritis neoplasm or ulcer disease. The duodenal pena are normally outlined . The mucosal folds are smooth and regular. There is no duodenitis pancreatitis peptic ulcer disease or neoplasm. The visualized portion of the proximal small bowel appears normal in course and caliber. Impression: There is aspiration with cough response. Otherwise, unremarkable double contrast upper GI examination. 1.2 minutes of fluoro time was utilized for this procedure. Reviewed by VICENTA Johansen 07/20/2018 03:30 P Electronically Signed by Vel Bansal MD 07/24/2018 09:51 A
== END ==
LOC: M RAD 07:58
PROVIDERS: ATTEND Internal Medicine Gastroenterology
DX: R13.10 Dysphagia, unspecified (principal); K21.9 Gastro-esophageal reflux disease without esophagitis

== ENCOUNTER → 2018-07-24 | Outpatient (CLI) | payer MEDICARE ==
[~2018-07-24] MED LIST changes: -E-Z-GAS II EFFERVESCENT PACKET (SODIUM BICARB./CITRIC ACID/SIMETHICONE) As Ordered ONE; -E-Z-HD 98% w/w 340GM SUSP BTL As Ordered ONE; -E-Z-PAQUE 96% w/w SUSP 176GM BTL As Ordered ONE; +LEVA1TAB2 PO
[2018-07-24 12:49] LABS: INR 2.17; PROTHROMBIN TIME 24.6 SECONDS (12.1-14.4)
== END ==
LOC: M WUC 09:48
PROVIDERS: ATTEND Family Medicine
DX: Z79.01 Long term (current) use of anticoagulants (principal)

== ENCOUNTER → 2018-07-29 | Outpatient (CLI) | payer MEDICARE ==
[~2018-07-29] MED LIST changes: -LEVA1TAB2 PO
[2018-07-29 18:15] LABS: BASO % 0.2 % (0.0-1.0); EOS # 0.1 10^3/uL (0.0-0.50); EOS % 0.9 % (0.0-3.0); HEMATOCRIT 39.4 % (36.0-47.0); LYMPH # 0.9 10^3/uL (1.5-4.5); LYMPH % 5.6 % (24.0-44.0); MEAN CORPUSCULAR HEMOGLOBIN 31.3 pg (27.0-33.0); MEAN CORPUSCULAR VOLUME 94.7 fl (80.0-96.0); MONO # 1.3 10^3/uL (0.0-0.8); MONO % 8.3 % (0.0-5.0); PLATELET COUNT, AUTOMATED 215 10^3/uL (150-450); RED BLOOD COUNT 4.16 10^6/uL (4.00-5.40); WHITE BLOOD COUNT 15.5 10^3/uL (4.0-10.0)
[2018-07-29 18:44] LABS: BILIRUBIN,TOTAL 0.7 MG/DL (0.2-1.0); CALCIUM LEVEL 8.9 MG/DL (8.8-10.2); CREATININE FOR GFR 1.14 MG/DL (0.55-1.30); FREE T4 1.06 NG/DL (0.76-1.46); GLOMERULAR FILTRATION RATE 48.8 (>32); POTASSIUM SERUM 4.4 MEQ/L (3.5-5.1); THYROID STIMULATING HORMONE 1.22 uIU/ML (0.358-3.740); TOTAL PROTEIN 6.8 GM/DL (6.4-8.2)
== END ==
LOC: M WUC 17:00
PROVIDERS: ATTEND Physician Assistant
DX: R41.82 Altered mental status, unspecified (principal); Z79.01 Long term (current) use of anticoagulants

== ENCOUNTER → 2018-07-29 | Outpatient (CLI) | payer MEDICARE ==
[2018-07-29 18:14] LABS: INR 2.23; PROTHROMBIN TIME 25.1 SECONDS (12.1-14.4)
== END ==
LOC: M WUC 16:02
PROVIDERS: ATTEND Family Medicine
DX: Z79.01 Long term (current) use of anticoagulants (principal)

== ENCOUNTER 2018-07-31 11:58 | Inpatient (IN) | payer MEDICARE ==
[~2018-07-31] VITALS: Ht 157.5 cm; Wt 78.1 kg
[~2018-07-31 11:58] MED LIST changes: -ALBU83IN INH; -BISO10TA6 PO; -BREO1INH INH; -CHLO25TA PO; -COLA100C5 PO; -DIGO0.12 PO; -DOXY100T2 PO; -ESTR1CRE PV; -FAMO20TA4 PO; -FLON1SPR NARES; -HM S0.65 NARES; -INCR1INH INH; -LEVA1TAB2 PO; -LORA-622 PO; -LOSA50TA88 PO; -MAGN1TAB39 PO; -MAXI0.1O OU; -MUCI600T31 PO; -OCUV1CAP4 PO; -VENTAER INH; -VOLT1GEL15 TOP
[2018-07-31] MEDS ORDERED: ACETAMINOPHEN 325 MG TAB PO ONE (13:30)
[2018-07-31 13:34] LABS: BASO # 0.1 10^3/uL (0.0-0.2); BASO % 0.5 % (0.0-1.0); EOS # 0.1 10^3/uL (0.0-0.50); EOS % 1.1 % (0.0-3.0); HEMATOCRIT 38.8 % (36.0-47.0); HEMOGLOBIN 12.8 g/dl (12.0-15.5); LYMPH # 1.1 10^3/uL (1.5-4.5); LYMPH % 9.8 % (24.0-44.0); MEAN CORPUSCULAR HEMOGLOBIN 31.8 pg (27.0-33.0); MEAN CORPUSCULAR VOLUME 96.3 fl (80.0-96.0); MONO # 1.2 10^3/uL (0.0-0.8); MONO % 10.4 % (0.0-5.0); NEUTROPHILS # 8.6 10^3/uL (1.8-7.7); NEUTROPHILS % 77.4 % (36.0-66.0); PLATELET COUNT, AUTOMATED 232 10^3/uL (150-450); RED BLOOD COUNT 4.03 10^6/uL (4.00-5.40); WHITE BLOOD COUNT 11.1 10^3/uL (4.0-10.0)
[2018-07-31] MEDS ORDERED: FIOR1CAP PO (13:38)
[2018-07-31] MEDS ORDERED: CALCTAB41 PO (13:38)
[2018-07-31] MEDS ORDERED: FISH1000 PO (13:38)
[2018-07-31] MEDS ORDERED: LOSA50TA88 PO (13:38)
[2018-07-31] MEDS ORDERED: COUM1TAB19 PO (13:38)
[2018-07-31] MEDS ORDERED: AMIT50TA PO (13:38)
[2018-07-31] MEDS ORDERED: VENTAER INH (13:38)
[2018-07-31] MEDS ORDERED: DIGO0.12 PO (13:38)
[2018-07-31] MEDS ORDERED: FAMO20TA4 PO (13:38)
[2018-07-31] MEDS ORDERED: ESTR1CRE PV (13:38)
[2018-07-31] MEDS ORDERED: LORA-622 PO (13:38)
[2018-07-31] MEDS ORDERED: MUCI600T31 PO (13:38)
[2018-07-31] MEDS ORDERED: MAGN1TAB39 PO (13:38)
[2018-07-31] MEDS ORDERED: COLA100C5 PO (13:38)
[2018-07-31] MEDS ORDERED: CLOT10TR MT (13:38)
[2018-07-31] MEDS ORDERED: OCUV1CAP4 PO (13:38)
[2018-07-31] MEDS ORDERED: AMIT75TA PO (13:38)
[2018-07-31] MEDS ORDERED: BISO10TA6 PO (13:38)
[2018-07-31] MEDS ORDERED: HM S0.65 NARES (13:38)
[2018-07-31] MEDS ORDERED: ATOR80TA59 PO (13:38)
[2018-07-31] MEDS ORDERED: FLON1SPR NARES (13:38)
[2018-07-31] MEDS ORDERED: CHLO25TA PO (13:39)
[2018-07-31] MEDS ORDERED: MAXI0.1O OU (13:41)
[2018-07-31] MEDS ORDERED: INCR1INH INH (13:45)
[2018-07-31] MEDS ORDERED: BREO1INH INH (13:45)
[2018-07-31] MEDS ORDERED: DOXY100T2 PO (13:48)
[2018-07-31] MEDS ORDERED: VOLT1GEL15 TOP (13:48)
[2018-07-31] MEDS ORDERED: ALBU83IN INH (13:48)
--- NOTE | 2018-07-31 13:52 | REP ---
CT Head without contrast HISTORY: Altered mental status COMPARISON: 11/04/2014 Areas of decreased attenuation are present in the periventricular and subcortical white matter. This represents small-vessel ischemic disease. There is no intraparenchymal hemorrhage, acute infarct, mass or midline shift. The ventricular system and cortical sulci are dilated consistent with mild volume loss. There is no extra cerebral collection. There is no fracture. Mucosal thickening is present in the sphenoid sinus. IMPRESSION: 1. Small vessel ischemic disease. 2. Mild volume loss. Electronically Signed by Florin Mccullough MD 07/31/2018 01:44 P
[2018-07-31 13:57] LABS: ABG BASE EXCESS -0.9 (-2.0-2.0); ABG HCO3 24.2 MEQ/L (22.0-26.0); ABG O2 SATURATION 99.4 % (95.0-99.0); ABG PARTIAL PRESSURE CO2 41.6 mmHg (35.0-45.0); ABG PARTIAL PRESSURE O2 157.7 mmHg (75.0-100.0); ABG STANDARD HCO3 23.8 MEQ/L (22.0-26.0); ABG TOTAL CO2 25.4 MEQ/L (23.0-31.0); ABG pH (ARTERIAL) 7.382 UNITS (7.350-7.450)
--- NOTE | 2018-07-31 14:01 | REP ---
Chest one-view HISTORY: Altered mental status Comparison: 07/08/2018 Patchy density is present in the right lower lobe consistent with an infiltrate. The left lung is clear. The heart is normal in size. The pulmonary vasculature is normal in appearance. Impression: Right lower lobe infiltrate. Electronically Signed by Florin Mccullough MD 07/31/2018 01:52 P
[2018-07-31 14:09] LABS: ALBUMIN 2.6 GM/DL (3.2-5.2); ALT/SGPT 38 U/L (12-78); BILIRUBIN,DIRECT < 0.1 MG/DL (0.0-0.2); BILIRUBIN,TOTAL 0.4 MG/DL (0.2-1.0); BLOOD UREA NITROGEN 25 MG/DL (7-18); CALCIUM LEVEL 8.7 MG/DL (8.8-10.2); CARBON DIOXIDE LEVEL 29 MEQ/L (21-32); CHLORIDE LEVEL 101 MEQ/L (98-107); CPK CREATINE PHOSPHOKINASE 124 U/L (26-192); CREATININE FOR GFR 0.94 MG/DL (0.55-1.30); GLOMERULAR FILTRATION RATE > 60.0 (>32); GLUCOSE, FASTING 100 MG/DL (70-100); MB/CK RELATIVE INDEX 1.29 (< OR =4); NT-PRO BNP 1927 PG/ML (<450); POTASSIUM SERUM 4.8 MEQ/L (3.5-5.1); SODIUM LEVEL 136 MEQ/L (136-145); THYROID STIMULATING HORMONE 0.787 uIU/ML (0.358-3.740); TOTAL PROTEIN 6.8 GM/DL (6.4-8.2); TROPONIN I < 0.02 NG/ML (< 0.10)
[2018-07-31 14:43] LABS: OSMOLALITY SERUM 290 MOSM/KG (280-301)
[2018-07-31] MEDS ORDERED: MOXIFLOXACIN HCL 400 MG in APPROPRIATE DILUENT 1 EA IV ONE (14:45)
[2018-07-31] MEDS ORDERED: IPRATROPIUM 0.5MG/ALBUTEROL 2.5MG INH SOL UD 3ML (DUONEB)(J7620) NEB ONE (15:00)
[2018-07-31] MEDS ORDERED: methylPREDNISolone INJ 125 MG/2 ML VIAL (J2930) IV ONE (15:00)
[2018-07-31 15:55] LABS: DIGOXIN LEVEL 1.4 NG/ML (0.5-2.0)
[2018-07-31] MEDS ORDERED: IPRATROPIUM 0.5MG/ALBUTEROL 2.5MG INH SOL UD 3ML (DUONEB)(J7620) NEB SCH (16:00)
--- NOTE | 2018-07-31 16:23 | HPEPDOC ---
General Date of Admission Date of Service: Jul 31, 2018 Chief Complaint The patient is a 78-year-old female admitted with a reason for visit of AMS. Source: Patient, Family Exam Limitations: No limitations History of Present Illness 78 yo F with a history of HTN, COPD, chronic a fib on digoxin and coumadin, GERD, HLD presented to the ED for altered mental status. The patient states that she has been gradually weakened over a few days with feeling "warm." She did not check the temperature herself. The patient was confused, and the patient's fiance brought in the patient. She uses O2, 1-2 L at home, but recently, breathing has worsened gradually. The patient denies a cough, chills, nausea, vomiting, dysuria, or urgency. She does have urinary incontinence, especially when she coughs. In the ED, she was found to be febrile at 100.9F, and CXR shows pneumonia. She was wheezing. She received solumedrol 125 mg IV once, moxyfloxacin x1, and she is admitted for further medical management. Home Medications Scheduled Amitriptyline HCl (Amitriptyline HCl) 50 Mg Tablet, 50 MG PO QAM, (Reported) Amitriptyline HCl (Amitriptyline HCl) 75 Mg Tablet, 75 MG PO QHS, (Reported) Atorvastatin Calcium (Atorvastatin Calcium) 80 Mg Tablet, 80 MG PO QHS, (Reported) Bisoprolol Fumarate (Bisoprolol Fumarate) 10 Mg Tablet, 15 MG PO DAILY, (Reported) Calcium Carbonate/Vitamin D3 (Calcium 500-Vit D3 400 Tablet) 1 Each Tablet, 1 TAB PO DAILY, (Reported) Chlorthalidone (Chlorthalidone) 25 Mg Tablet, 12.5 MG PO DAILY, (Reported) Digoxin (Digoxin) 125 Mcg Tablet, 125 MCG PO DAILY, (Reported) Docusate Sodium (Colace) 100 Mg Capsule, 100 MG PO QHS, (Reported) Famotidine (Famotidine) 20 Mg Tablet, 20 MG PO BID, (Reported) Fluticasone/Vilanterol (Breo Ellipta 100-25 Mcg INH) 1 Each Blst.w.dev, 1 PUFF INH DAILY, (Reported) Losartan Potassium (Losartan Potassium) 50 Mg Tablet, 50 MG PO QHS, (Reported) Lutein/Zeaxanthin (Ocuvite Lutein 25-5 mg Softgel) 1 Each Capsule, 1 CAP PO DAILY, (Reported) Magnesium Chloride (Magnesium Chloride) 64 Mg Tablet.dr, 64 MG PO BID, (Reported) [place]-3 Fatty Acids/Fish Oil (Fish Oil 1,000 mg Capsule) 1 Each Capsule, 2,000 MG PO BID, (Reported) Umeclidinium [place] (Incruse Ellipta) 62.5 Mcg Blst.w.dev, 1 PUFF INH DAILY, (Reported) Warfarin Sodium (Coumadin) 3 Mg Tablet, 3 MG PO 6XWK, (Reported) SUN/MON/MON//MON/SAT EVENINGS, PCP TOLD PT TO TAKE 1.5MG ON 08/01 DUE TO INR Scheduled PRN Albuterol Sulf (Albuterol Sulfate) 2.5 Mg/3 Ml Vial.neb, 2.5 MG INH QID PRN for SHORTNESS OF BREATH, (Reported) Albuterol Sulfate (Ventolin Hfa) 18 Gm Hfa.aer.ad, 2 PUFF INH Q4H PRN for SHORTNESS OF BREATH, (Reported) Butalb/Acetaminophen/Caffeine (Fioricet 50-300-40 mg Capsule) 1 Each Capsule, 1 CAP PO Q4H PRN for HEADACHE, (Reported) Clotrimazole (Clotrimazole) 10 Mg [place], 10 MG MT QID PRN for THRUSH, (Reported) Diclofenac Sodium (Voltaren) 100 Gm Gel..gram., 1 DOSE TOP QID PRN for PAIN, (Reported) APPLY TO RIGHT KNEE Estradiol (Estrace) 42.5 Gm Cream.appl, 1 DOSE PV QHS PRN for DISCOMFORT, (Reported) Fluticasone Propionate (Flonase Allergy Relief) 9.9 Ml [place].susp, 2 SPRAY NARES DAILY PRN for CONGESTION, (Reported) Guaifenesin (Mucinex) 600 Mg Tab.er.12h, 600 MG PO BID PRN for CONGESTION, (Reported) Loratadine (Loratadine) 10 Mg Tablet, 10 MG PO DAILY PRN for ALLERGIES, (Reported) Neomycin/Polymyxin B/Dexametha (Maxitrol Eye Ointment) 3.5 Gm Oint...g., 1 APLCT OU QHS PRN for DRY EYES, (Reported) Sodium Chloride (Saline Nasal [place]) 44 Ml [place], 1-2 SPRAY NARES Q2H PRN for NASAL DRYNESS, (Reported) Allergies Coded Allergies: Penicillins (Verified Allergy, Severe, tounge swells and rash, 07/19/18) Past Medical History Medical History HTN, COPD, chronic a fib on digoxin and coumadin, GERD, HLD Surgical History Denies PSH Family History Diabetes Social History * Smoker: former Smoker Alcohol: rarely Drugs: denies see above A-FIB/CHADSVASC A-FIB History Current/History of A-Fib/PAF?: Yes Current PO Anticoag Therapy: Yes Review of Systems Constitutional: Reports: Fever Eyes: Denies: Pain, Vision change, Conjunctivae inflammation, Eyelid inflammation, Redness, Other ENT: Denies: Head Aches, Ear Pain, Dysphagia, Sinus Congestion, Post Nasal Drip, Sore Throat, Epistaxis, Other Symptoms Skin: Denies: Rash, Lesions, Jaundice, Bruising, Itching, Dry, Breakdown, Nail Changes, Other Pulmonary: Reports: Dyspnea Cardiovascular: Denies: Chest Pain, Palpitations, Orthopnea, Paroxysmal Noc. Dyspnea, Edema, Lt Headedness, Other Symptoms Gastrointestinal: Denies: Nausea, Vomiting, Abdominal Pain, Diarrhea, Constipation, Melena, Hematochezia, Other Symptoms Genitourinary: Reports: Other Symptoms (urinary leaking on cough) Hematologic: Denies: Bruising, Bleeding Excessively, Petecchia, Purpura, Enlarged Lymph Nodes, Other Hematologic Endocrine: Denies: Polydipsia, Polyphagia, Polyuria, Heat Intolerance, Cold Intolerance, Other Endocrine Sx Musculoskeletal: Denies: Neck Pain, Back Pain, Shoulder Pain, Arm Pain, Hand Pain, Leg Pain, Foot Pain, Joint Pain, Muscle Pain, Spasms, Other Symptoms Neurological: Denies: Weakness, Numbness, Incoordination, Change in speech, Confusion, Seizures, Other Symptoms Psych: Denies: Mood Normal, Anxiety, Depression, Memory Issues, Thoughts of Self Harm, Anger, Thoughts of Harming Other, Other Psych Physical Examination General Exam: Positive: Alert, Cooperative Eye Exam: Positive: PERRLA ENT Exam: Positive: Atraumatic, Mucous membr. moist/pink Neck Exam: Positive: Supple Chest Exam: Positive: Other (R basal crackles, no wheezing (not reliable right after breathing treatment)) Heart Exam: Positive: Irregular Rhythm Telemetry: Positive: Atrial fibrillation Abdomen Exam: Positive: Normal bowel sounds Extremity Exam: Positive: Clubbing Skin Exam: Positive: Other skin issue (no skin lesions) Neuro Exam: Positive: Normal Gait, Normal Speech Psych Exam: Positive: Mental status NL, Mood NL Vital Signs Vital Signs Date Time Temp Pulse Resp B/P (MAP) Pulse Ox O2 Delivery O2 Flow Rate FiO2 07/31/18 15:11 88 16 07/31/18 12:14 07/31/18 11:59 100.9 95 Nasal Cannula 1.0 Laboratory Data Labs 24H Laboratory Tests 2 07/31/18 12:13: Immature Granulocyte % (Auto) 0.8, White Blood Count 11.1H, Red Blood Count 4.03, Hemoglobin 12.8, Hematocrit 38.8, Mean Corpuscular Volume 96.3H, Mean C orpuscular Hemoglobin 31.8, Mean Corpuscular Hemoglobin Concent 33.0, Red Cell Distribution Width 14.6H, Platelet Count 232, Neutrophils (%) (Auto) 77.4H, Lymphocytes (%) (Auto) 9.8L, Monocytes (%) (Auto) 10.4H, Eosinophils (%) (Auto) 1.1, Basophils (%) (Auto) 0.5, Neutrophils # (Auto) 8.6H, Lymphocytes # (Auto) 1.1L, Monocytes # (Auto) 1.2H, Eosinophils # (Auto) 0.1, Basophils # (Auto) 0.1, Nucleated Red Blood Cells % (auto) 0.0, Anion Gap 6L, Glomerular Filtration Rate > 60.0, Osmolality 290, Calcium Level 8.7L, Aspartate Amino Transf (AST/SGOT) 39H, Alanine Aminotransferase (ALT/SGPT) 38, Alkaline Phosphatase 105, Total Bilirubin 0.4, Direct Bilirubin < 0.1, Total Creatine Kinase 124, Creatine Kinase MB 2.0, Creatine Kinase MB Relative Index 1.29, Troponin I < 0.02, QQ-Tpv-I-Type Natriuretic Peptide 1927H, Total Protein 6.8, Albumin 2.6L, Albumin/Globulin Ratio 0.62L, Thyroid Stimulating Hormone (TSH) 0.787, Digoxin Level 1.4 07/31/18 13:07: Urine Color YELLOW, Urine Appearance HAZY, Urine pH 5.0, Urine Specific [place] 1.014, Urine Protein 1+H, Urine Glucose (UA) NEGATIVE, Urine Ketones NEGATIVE, Urine Blood NEGATIVE, Urine Nitrite NEGATIVE, Urine Bilirubin NEGATIVE, Urine Urobilinogen 0.2, Urine Leukocyte Esterase NEGATIVE, Urine WBC (Auto) 4H, Urine RBC (Auto) 1, Urine Hyaline Casts (Auto) 1, Urine Bacteria (Auto) NEGATIVE, Urine Squamous Epithelial Cells 0, Urine Mucus (Auto) SMALL, Urine Sperm (Auto) 07/31/18 13:40: Bedside Glucose (Misc Panel) 97 07/31/18 13:42: Lactic Acid Level 1.1, Ammonia 17 07/31/18 13:45: Blood Gas Bicarbonate Standard 23.8, Arterial Blood pH 7.382, Arterial Blood Partial Pressure CO2 41.6, Arterial Blood Partial Pressure O2 157.7H, Arterial Blood Total CO2 25.4, Arterial Blood HCO3 24.2, Arterial Blood Base Excess -0.9, Arterial Blood Oxygen Saturation 99.4H CBC/BMP Laboratory Tests 07/31/18 12:13 Red Blood Count 4.03, Mean Corpuscular Volume 96.3 H, Mean Corpuscular Hemoglobin 31.8, Mean Corpuscular Hemoglobin Concent 33.0, Red Cell Distribution Width 14.6 H, Neutrophils (%) (Auto) 77.4 H, Lymphocytes (%) (Auto) 9.8 L, Monocytes (%) (Auto) 10.4 H, Eosinophils (%) (Auto) 1.1, Basophils (%) (Auto) 0.5, Neutrophils # (Auto) 8.6 H, Lymphocytes # (Auto) 1.1 L, Monocytes # (Auto) 1.2 H, Eosinophils # (Auto) 0.1, Basophils # (Auto) 0.1 Microbiology Microbiology 07/31/18 Blood Culture, Received Pending 07/31/18 Blood Culture, Received Pending 07/31/18 Respiratory Virus Panel (PCR) (BI) - Final, Complete Assessment/Plan 78 F with COPD presents to the ED for altered mental status, and she was found to have pneumonia in RLL and clinically wheezing, suspecting COPD exacerbation 2/2 pneumonia # Community acquired pneumonia, COPD acute exacerbation 2/2 pneumonia, sepsis - The patient has leukocytosis and a fever with CXR-confirmed pneumonia, meeting the criteria for sepsis. - The patient has a risk factor for pneumonia, which is COPD. The patient is on home O2. - She received solu-medrol 125 x1 in the ED, given wheezing. Will continue prednisone 40 mg daily. - She received moxifloxacine. Will continue levaquin daily. - Continue breathing treatment with duoneb and symbicort. - Follow blood culture. # Elevated BNP and lower extremity swelling - BNP is 1900, and she has b/l edema +1. - Will obtain echocardiogram to r/o CHF. # HTN, HLD, GERD - Cont. chlorthalidone, losartan, and famotidine. - Cont. atorvastatin. # A fib - Continue coumadin 3 mg daily, follow daily INR - Continue digoxin. Follow digoxin level. # Moderate protein calorie malnutrition - Encourage PO intake # DVT ppx - Cont. coumadin. Problems (1) COPD exacerbation Status: Acute (2) Atrial fibrillation Status: Chronic (3) Hyperlipidemia Status: Chronic (4) GERD (gastroesophageal reflux disease) Status: Chronic (5) Essential hypertension Status: Acute (6) Pneumonia Status: Acute Plan / VTE VTE Prophylaxis Ordered?: Yes VTE Exclusion Mechanical Proph: Other VTE Exclusion Pharmacological: Other SWATHI PANTOJA MD Jul 31, 2018 16:23
[2018-07-31] MEDS ORDERED: WARFARIN SOD 3 MG TAB PO SCH (17:00)
[2018-07-31 17:50] VITALS: BP 160/80
[2018-07-31 18:15] LABS: INR 3.25; PROTHROMBIN TIME 33.9 SECONDS (12.1-14.4)
[2018-07-31] MEDS: WARFARIN SOD 3 MG TAB PO SCH (18:32)
[2018-07-31] MEDS ORDERED: predniSONE 20 MG TAB PO ONE (20:00)
[2018-07-31] MEDS: IPRATROPIUM 0.5MG/ALBUTEROL 2.5MG INH SOL UD 3ML (DUONEB)(J7620) NEB SCH (20:00)
[2018-07-31] MEDS: SYMBICORT 80/4.5MCG INHALER 6GM INH SCH (20:16)
[2018-07-31] MEDS: ATORVASTATIN 20 MG TAB PO SCH (20:48)
[2018-07-31] MEDS: FAMOTIDINE 20 MG TAB PO SCH (20:48)
[2018-07-31] MEDS: LOSARTAN 50 MG TAB PO SCH (20:48)
[2018-07-31 22:00] VITALS: BP 117/84
[2018-08-01] MEDS: IPRATROPIUM 0.5MG/ALBUTEROL 2.5MG INH SOL UD 3ML (DUONEB)(J7620) NEB SCH ×4 (01:41→20:40)
[2018-08-01 06:00] VITALS: BP 154/70
[2018-08-01 06:11] LABS: HEMATOCRIT 37.6 % (36.0-47.0); HEMOGLOBIN 12.4 g/dl (12.0-15.5); MEAN CORPUSCULAR HEMOGLOBIN 31.6 pg (27.0-33.0); MEAN CORPUSCULAR VOLUME 95.7 fl (80.0-96.0); PLATELET COUNT, AUTOMATED 245 10^3/uL (150-450); RED BLOOD COUNT 3.93 10^6/uL (4.00-5.40)
[2018-08-01 06:22] LABS: INR 3.18; PROTHROMBIN TIME 33.3 SECONDS (12.1-14.4)
[2018-08-01 06:35] LABS: ALBUMIN 2.4 GM/DL (3.2-5.2); BILIRUBIN,TOTAL 0.3 MG/DL (0.2-1.0); CALCIUM LEVEL 8.7 MG/DL (8.8-10.2); CREATININE FOR GFR 1.1 MG/DL (0.55-1.30); GLOMERULAR FILTRATION RATE 50.9 (>32); POTASSIUM SERUM 4.3 MEQ/L (3.5-5.1); TOTAL PROTEIN 7.5 GM/DL (6.4-8.2)
--- NOTE | 2018-08-01 07:45 | ECGEPIP ---
[facility] [place] - ED Test Date: 2018-07-31 Pat Name: KYREE PAGE Department: Room: - Gender: Female Quality Compliance Consultant: : 1940 Requested By: Imani Bergman Order Number: [id number] Reading MD: Imani Bergman Measurements Intervals [place] Rate: 89 P: [place]: -1 QRS: 78 QRSD: 95 T: QT: 312 QTc: 381 Interpretive Statements ATRIAL FIBRILLATION ST DEVIATION AND MODERATE T-WAVE ABNORMALITY, CONSIDER ISCHEMIA LVH DECREASED RATE 12/29/16 Electronically Signed on 08-01-2018 7:45:13 EDT by Imani Bergman
[2018-08-01] MEDS: FAMOTIDINE 20 MG TAB PO SCH ×2 (08:58→20:31)
[2018-08-01] MEDS: predniSONE 20 MG TAB PO SCH (08:58)
[2018-08-01] MEDS: DIGOXIN 0.125 MG TAB PO SCH (09:00)
[2018-08-01] MEDS: CHLORTHALIDONE 12.5MG PER 1/2 TABLET PO SCH (09:00)
[2018-08-01] MEDS: SYMBICORT 80/4.5MCG INHALER 6GM INH SCH ×2 (09:03→21:45)
[2018-08-01 14:00] VITALS: BP 150/59
[2018-08-01] MEDS ORDERED: LevoFLOXacin IV 500 MG in APPROPRIATE DILUENT 1 EA IV SCH (16:00)
[2018-08-01] MEDS: WARFARIN SOD 3 MG TAB PO SCH (16:55)
--- NOTE | 2018-08-01 19:45 | ECHO ---
DATE OF PROCEDURE: 08/01/2018 AGE: 78 GENDER: Female HEIGHT: 63 inches WEIGHT: 171 pounds BODY SURFACE AREA: 1.79 m2 PATIENT LOCATION: [address] [place] [address] room 4231 REFERRING PHYSICIAN: Jodi Gant INDICATION: Edema. 2-D MEASUREMENTS: RV: 3.2 cm LV: 3.6 cm Septum: 1.2 cm Posterior wall: 1.2 cm Aortic root: 2.7 cm LA: 4.2 cm LVEF: 75-80% DOPPLER MEASUREMENTS: AV: 1.5 m/s LVOT: 0.94 m/s LVOT diameter: 1.9 cm MV E 110 Early mitral deceleration time 208 ms E prime 8.4 EE prime ratio 13 PCWP: 17.4 mmHg PV 1.1 m/s Pulmonary artery acceleration time: 90 ms RVSP: 50-55 mmHg IVC: 2.0 cm COMMENTS: Underlying atrial fibrillation with slightly rapid ventricular response. No intraventricular conduction disturbance. M-mode and two-dimensional echocardiography was performed with pulsed, continuous wave, color flow and tissue Doppler studies. Borderline left ventricular hypertrophy with hyperkinetic wall motion. Mildly dilated left atrium with current estimated mean left atrial pressure mildly increased. Normal right heart chamber sizes and motion with Doppler evidence of moderate pulmonary hypertension. Normal IVC size with reduced respiratory collapse in keeping with an elevated central venous pressure. Mild aortic valvular sclerosis without functional valvular abnormality. Normal aortic root size. Mild mitral annular calcification without inflow tract obstruction and only very mild insufficiency. Normal appearing tricuspid valve with at least mild insufficiency. No apparent intracardiac mass or pericardial effusion. Imaging from the subcostal four-chamber projections. We could not visualize a patent foramen ovale or intra-atrial shunt. MTDD
[2018-08-01 20:31] VITALS: BP 150/70
[2018-08-01] MEDS: LOSARTAN 50 MG TAB PO SCH (20:31)
[2018-08-01] MEDS: ATORVASTATIN 20 MG TAB PO SCH (20:32)
[2018-08-01 22:00] VITALS: BP 150/70
--- NOTE | 2018-08-01 23:13 | IPNPDOC ---
Subjective Date Seen The patient was seen on 08/01/18. Subjective Chief Complaint/HPI The patient feels better. Her mental status is back to her baseline. She still has cough, but it has improved. She can ambulate well. Mildly short of breath. No other complaints. General: Denies: ROS Unobtainable, Chills, Night Sweats, Fatigue, Malaise, Normal Appetite, Other Symptoms Constitutional: Denies: Chills, Fever, Malaise, Night Sweats, Weakness, Fatigue, Weight Loss, Lethargy, Other Eyes: Denies: Pain, Vision change, Conjunctivae inflammation, Eyelid inflammation, Redness, Other ENT: Denies: Head Aches, Ear Pain, Dysphagia, Sinus Congestion, Post Nasal Drip, Sore Throat, Epistaxis, Other Symptoms Skin: Denies: Rash, Lesions, Jaundice, Bruising, Itching, Dry, Breakdown, Nail Changes, Other Pulmonary: Reports: Dyspnea, Cough Cardiovascular: Denies: Chest Pain, Palpitations, Orthopnea, Paroxysmal Noc. Dyspnea, Edema, Lt Headedness, Other Symptoms Gastrointestinal: Denies: Nausea, Vomiting, Abdominal Pain, Diarrhea, Constipation, Melena, Hematochezia, Other Symptoms Genitourinary: Denies: Dysuria, Frequency, Incontinence, Hematuria, Retention, Other Symptoms Hematologic: Denies: Bruising, Bleeding Excessively, Petecchia, Purpura, Enlarged Lymph Nodes, Other Hematologic Endocrine: Denies: Polydipsia, Polyphagia, Polyuria, Heat Intolerance, Cold Intolerance, Other Endocrine Sx Musculoskeletal: Denies: Neck Pain, Back Pain, Shoulder Pain, Arm Pain, Hand Pain, Leg Pain, Foot Pain, Joint Pain, Muscle Pain, Spasms, Other Symptoms Neurological: Denies: Weakness, Numbness, Incoordination, Change in speech, Confusion, Seizures, Other Symptoms Psych: Denies: Mood Normal, Anxiety, Depression, Memory Issues, Thoughts of Self Harm, Anger, Thoughts of Harming Other, Other Psych Objective Physical Examination General Exam: Positive: Alert, Cooperative Eye Exam: Positive: PERRLA ENT Exam: Positive: Atraumatic, Mucous membr. moist/pink Neck Exam: Positive: Supple Chest Exam: Positive: Other (R basal crackles, no wheezing (not reliable right after breathing treatment)) Heart Exam: Positive: Irregular Rhythm Telemetry: Positive: Atrial fibrillation Abdomen Exam: Positive: Normal bowel sounds Extremity Exam: Positive: Clubbing Skin Exam: Positive: Other skin issue (no skin lesions) Neuro Exam: Positive: Normal Gait, Normal Speech Psych Exam: Positive: Mental status NL, Mood NL Assessment /Plan Assessment 78 F with COPD presents to the ED for altered mental status, and she was found to have pneumonia in RLL and clinically wheezing, suspecting COPD exacerbation 2/2 pneumonia # Community acquired pneumonia, COPD acute exacerbation 2/2 pneumonia, sepsis - Clinically, the patient has improved much. - She received solu-medrol 125 x1 in the ED, given wheezing. Prednisone 40 mg daily has been continued. - Continue levaquin daily. Continue breathing treatment with duoneb and symbicort. - Follow blood culture. # Elevated BNP and lower extremity swelling - BNP is 1900, and she has b/l edema +1. - Follow echocardiogram to r/o CHF. # HTN, HLD, GERD - Cont. chlorthalidone, losartan, and famotidine. - Cont. atorvastatin. # A fib - Continue coumadin 3 mg daily, follow daily INR - Continue digoxin. Digoxin level was wnl. # Moderate protein calorie malnutrition - Encourage PO intake # DVT ppx - Cont. coumadin. Problems (1) COPD exacerbation Status: Acute (2) Atrial fibrillation Status: Chronic (3) Hyperlipidemia Status: Chronic (4) GERD (gastroesophageal reflux disease) Status: Chronic (5) Essential hypertension Status: Acute (6) Pneumonia Status: Acute Plan/VTE VTE Prophylaxis Ordered?: Yes VTE Exclusion Mechanical Proph: Other VTE Exclusion Pharmacological: Other VS, I&O, 24H, Fishbone Vital Signs/I&O Vital Signs Date Time Temp Pulse Resp B/P (MAP) Pulse Ox O2 Delivery O2 Flow Rate FiO2 08/01/18 20:33 1.0 08/01/18 20:31 150/70 08/01/18 14:00 97.8 100 18 97 07/31/18 11:59 Nasal Cannula I&O- Last 24 Hours up to 6 AM 08/01/18 05:59 Intake Total 350 ml Output Total 275 ml Balance 75 ml Laboratory Data 24H LABS Laboratory Tests 2 08/01/18 05:43: Nucleated Red Blood Cells % (auto) 0.0, Prothrombin Time 33.3H, Prothromb Time International Ratio 3.18, Anion Gap 8, Glomerular Filtration Rate 50.9, Lactic Acid Level 1.9, Blood Urea Nitrogen 29H, Creatinine 1.10, Sodium Level 137, Pota ssium Level 4.3, Chloride Level 102, Carbon Dioxide Level 27, Calcium Level 8.7L, Aspartate Amino Transf (AST/SGOT) 34, Alanine Aminotransferase (ALT/SGPT) 42, Alkaline Phosphatase 97, Total Bilirubin 0.3, Total Protein 7.5, Albumin 2.4L, Magnesium Level 2.0, Albumin/Globulin Ratio 0.47L CBC/BMP Laboratory Tests 08/01/18 05:43 Red Blood Count 3.93 L, Mean Corpuscular Volume 95.7, Mean Corpuscular Hemoglobin 31.6, Mean Corpuscular Hemoglobin Concent 33.0, Red Cell Distribution Width 14.3, Calcium Level 8.7 L, Aspartate Amino Transf (AST/SGOT) 34, Alanine Aminotransferase (ALT/SGPT) 42, Alkaline Phosphatase 97, Total Bilirubin 0.3, Total Protein 7.5, Albumin 2.4 L Microbiology Microbiology 07/31/18 Blood Culture - Preliminary, Resulted No growth after 24 hours . All specim... 07/31/18 Blood Culture - Preliminary, Resulted No growth after 24 hours . All specim... 07/31/18 Respiratory Virus Panel (PCR) (BI) - Final, Complete SWATHI PANTOJA MD Aug 01, 2018 23:13
[2018-08-02] MEDS: IPRATROPIUM 0.5MG/ALBUTEROL 2.5MG INH SOL UD 3ML (DUONEB)(J7620) NEB SCH ×2 (01:38→07:35)
[2018-08-02 05:12] LABS: HEMATOCRIT 38.5 % (36.0-47.0); HEMOGLOBIN 12.5 g/dl (12.0-15.5); MEAN CORPUSCULAR HEMOGLOBIN 31.3 pg (27.0-33.0); MEAN CORPUSCULAR HGB CONC 32.5 g/dl (32.0-36.5); MEAN CORPUSCULAR VOLUME 96.3 fl (80.0-96.0); PLATELET COUNT, AUTOMATED 301 10^3/uL (150-450); WHITE BLOOD COUNT 16.5 10^3/uL (4.0-10.0)
[2018-08-02 05:36] LABS: INR 2.94; PROTHROMBIN TIME 31.3 SECONDS (12.1-14.4)
[2018-08-02 05:49] LABS: ALBUMIN 2.5 GM/DL (3.2-5.2); BILIRUBIN,TOTAL 0.3 MG/DL (0.2-1.0); CALCIUM LEVEL 9.4 MG/DL (8.8-10.2); CREATININE FOR GFR 1.16 MG/DL (0.55-1.30); GLOMERULAR FILTRATION RATE 47.9 (>32); POTASSIUM SERUM 4.4 MEQ/L (3.5-5.1); TOTAL PROTEIN 7.7 GM/DL (6.4-8.2)
[2018-08-02 06:00] VITALS: BP 148/67
[2018-08-02] MEDS: SYMBICORT 80/4.5MCG INHALER 6GM INH SCH (07:35)
[2018-08-02] MEDS ORDERED: LevoFLOXacin 500 MG TABLET PO SCH (08:45)
[2018-08-02] MEDS: predniSONE 20 MG TAB PO SCH (09:03)
[2018-08-02] MEDS: FAMOTIDINE 20 MG TAB PO SCH (09:03)
[2018-08-02] MEDS: CHLORTHALIDONE 12.5MG PER 1/2 TABLET PO SCH (09:03)
[2018-08-02] MEDS: DIGOXIN 0.125 MG TAB PO SCH (09:04)
[2018-08-02] MEDS ORDERED: PRED20TA PO (09:44)
[2018-08-02] MEDS ORDERED: LEVA1TAB2 PO (09:44)
[2018-08-02] MEDS ORDERED: ACETAMINOPHEN TAB 650MG DOSE (2X325MG) PO ONE (11:30)
--- NOTE | 2018-08-02 18:46 | DS.PDOC ---
Discharge Summary General Date of Admission Jul 31, 2018 at 15:42 Date of Discharge 08/02/2018 Discharge Summary PROCEDURES PERFORMED DURING STAY: [None]. ADMITTING DIAGNOSES: 1. Altered mental status. DISCHARGE DIAGNOSES: 1. Pneumonia and sepsis COMPLICATIONS/CHIEF COMPLAINT: Atrial Fibrillation,Copd,Pneumonia. HISTORY OF PRESENT ILLNESS: 78 yo F with a history of HTN, COPD, chronic a fib on digoxin and coumadin, GERD, HLD presented to the ED for altered mental status. The patient states that she has been gradually weakened over a few days with feeling "warm." She did not check the temperature herself. The patient was confused, and the patient's fiance brought in the patient. She uses O2, 1-2 L at home, but recently, breathing has worsened gradually. The patient denies a cough, chills, nausea, vomiting, dysuria, or urgency. She does have urinary incontinence, especially when she coughs. In the ED, she was found to be febrile at 100.9F, and CXR shows pneumonia. She was wheezing. She received solumedrol 125 mg IV once, moxyfloxacin x1, and she is admitted for further medical management. HOSPITAL COURSE: 78 F with COPD presents to the ED for altered mental status, and she was found to have pneumonia in RLL and clinically wheezing, suspecting COPD exacerbation 2/2 pneumonia. She has community acquired pneumonia, COPD acute exacerbation 2/2 pneumonia, sepsis. She received moxifloxacin in the ED, and she has received levofloxacin in the inpatient jensen. Clinically, the patient has improved much. She received solu-medrol 125 x1 in the ED, given wheezing. Prednisone 40 mg daily has been continued. We continued breathing treatment with duoneb and symbicort. The patient was found to have elevated BNP and lower extremity swelling. BNP is 1900, and she has b/l edema +1. Echocardiogram shows hyperkinetic heart with LVEF 75-80%. No evidence of diastolic heart failure. For HTN, HLD, GERD, we continued chlorthalidone, losartan, and famotidine. Cont. atorvastatin. For A fib, she was continued on coumadin 3 mg daily, follow daily INR. Continue digoxin. Digoxin level was wnl. DISCHARGE MEDICATIONS: Please see below. ALLERGIES: Please see below. PHYSICAL EXAMINATION ON DISCHARGE: General Exam: Positive: Alert, Cooperative Eye Exam: Positive: PERRLA ENT Exam: Positive: Atraumatic, Mucous membr. moist/pink Neck Exam: Positive: Supple Chest Exam: Positive: Other (R basal crackles, no wheezing (not reliable right after breathing treatment)) Heart Exam: Positive: Irregular Rhythm Telemetry: Positive: Atrial fibrillation Abdomen Exam: Positive: Normal bowel sounds Extremity Exam: Positive: Clubbing Skin Exam: Positive: Other skin issue (no skin lesions) Neuro Exam: Positive: Normal Gait, Normal Speech Psych Exam: Positive: Mental status NL, Mood NL LABORATORY DATA: Please see below. DISCHARGE PLAN: The patient will follow her primary care physician. DISPOSITION: Home, Self-Care. Vital Signs/I&Os Vital Signs Date Time Temp Pulse Resp B/P (MAP) Pulse Ox O2 Delivery O2 Flow Rate FiO2 08/02/18 11:45 1.0 08/02/18 09:04 74 08/02/18 06:00 98.1 18 148/67 (94) 94 07/31/18 11:59 Nasal Cannula I&O- Last 24 Hours up to 6 AM 08/02/18 06:00 Intake Total 1260 ml Output Total 1300 ml Balance -40 ml Laboratory Data Labs 24H Laboratory Tests 2 08/02/18 05:01: Nucleated Red Blood Cells % (auto) 0.0, Prothrombin Time 31.3H, Prothromb Time International Ratio 2.94, Anion Gap 8, Glomerular Filtration Rate 47.9, Blood Urea Nitrogen 37H, Creatinine 1.16, Sodium Level 138, Potassium Level 4.4, Chloride Level 104, Carbon Dioxide Level 26, Calcium Level 9.4, Aspartate Amino Transf (AST/SGOT) 68H, Alanine Aminotransferase (ALT/SGPT) 72, Alkaline Phosphatase 92, Total Bilirubin 0.3, Total Protein 7.7, Albumin 2.5L, Albumin/Globulin Ratio 0.48L CBC/BMP Laboratory Tests 08/02/18 05:01 Red Blood Count 4.00, Mean Corpuscular Volume 96.3 H, Mean Corpuscular Hemoglobin 31.3, Mean Corpuscular Hemoglobin Concent 32.5, Red Cell Distribution Width 14.3, Calcium Level 9.4, Aspartate Amino Transf (AST/SGOT) 68 H, Alanine Aminotransferase (ALT/SGPT) 72, Alkaline Phosphatase 92, Total Bilirubin 0.3, Total Protein 7.7, Albumin 2.5 L Microbiology Microbiology 07/31/18 Blood Culture - Preliminary, Resulted No Growth after 48 hours. All Specime... 07/31/18 Blood Culture - Preliminary, Resulted No Growth after 48 hours. All Specime... 07/31/18 Respiratory Virus Panel (PCR) (BI) - Final, Complete Discharge Medications Scheduled Amitriptyline HCl (Amitriptyline HCl) 50 Mg Tablet, 50 MG PO QAM, (Reported) Amitriptyline HCl (Amitriptyline HCl) 75 Mg Tablet, 75 MG PO QHS, (Reported) Atorvastatin Calcium (Atorvastatin Calcium) 80 Mg Tablet, 80 MG PO QHS, (Reported) Bisoprolol Fumarate (Bisoprolol Fumarate) 10 Mg Tablet, 15 MG PO DAILY, (Reported) Calcium Carbonate/Vitamin D3 (Calcium 500-Vit D3 400 Tablet) 1 Each Tablet, 1 TAB PO DAILY, (Reported) Chlorthalidone (Chlorthalidone) 25 Mg Tablet, 12.5 MG PO DAILY, (Reported) Digoxin (Digoxin) 125 Mcg Tablet, 125 MCG PO DAILY, (Reported) Docusate Sodium (Colace) 100 Mg Capsule, 100 MG PO QHS, (Reported) Famotidine (Famotidine) 20 Mg Tablet, 20 MG PO BID, (Reported) Fluticasone/Vilanterol (Breo Ellipta 100-25 Mcg INH) 1 Each Blst.w.dev, 1 PUFF INH DAILY, (Reported) Levofloxacin (Levaquin) 500 Mg Tablet, 500 MG PO DAILY@06 Losartan Potassium (Losartan Potassium) 50 Mg Tablet, 50 MG PO QHS, (Reported) Lutein/Zeaxanthin (Ocuvite Lutein 25-5 mg Softgel) 1 Each Capsule, 1 CAP PO NICOLE Y, (Reported) Magnesium Chloride (Magnesium Chloride) 64 Mg Tablet.dr, 64 MG PO BID, (Reported) [place]-3 Fatty Acids/Fish Oil (Fish Oil 1,000 mg Capsule) 1 Each Capsule, 2,000 MG PO BID, (Reported) Prednisone (Prednisone) 20 Mg Tablet, 40 MG PO DAILY Umeclidinium [place] (Incruse Ellipta) 62.5 Mcg Blst.w.dev, 1 PUFF INH DAILY, (Reported) Warfarin Sodium (Coumadin) 3 Mg Tablet, 3 MG PO 6XWK, (Reported) SUN/MON/WED/THURS/FRI/SAT EVENINGS, PCP TOLD PT TO TAKE 1.5MG ON 08/01 DUE TO INR Scheduled PRN Albuterol Sulf (Albuterol Sulfate) 2.5 Mg/3 Ml Vial.neb, 2.5 MG INH QID PRN for SHORTNESS OF BREATH, (Reported) Albuterol Sulfate (Ventolin Hfa) 18 Gm Hfa.aer.ad, 2 PUFF INH Q4H PRN for SHORTNESS OF BREATH, (Reported) Butalb/Acetaminophen/Caffeine (Fioricet 50-300-40 mg Capsule) 1 Each Capsule, 1 CAP PO Q4H PRN for HEADACHE, (Reported) Clotrimazole (Clotrimazole) 10 Mg Sabra, 10 MG MT QID PRN for THRUSH, (Reported) Diclofenac Sodium (Voltaren) 100 Gm Gel..gram., 1 DOSE TOP QID PRN for PAIN, (Reported) APPLY TO RIGHT KNEE Estradiol (Estrace) 42.5 Gm Cream.appl, 1 DOSE PV QHS PRN for DISCOMFORT, (Reported) Fluticasone Propionate (Flonase Allergy Relief) 9.9 Ml [place].susp, 2 SPRAY NARES DAILY PRN for CONGESTION, (Reported) Guaifenesin (Mucinex) 600 Mg Tab.er.12h, 600 MG PO BID PRN for CONGESTION, (Reported) Loratadine (Loratadine) 10 Mg Tablet, 10 MG PO DAILY PRN for ALLERGIES, (Reported) Neomycin/Polymyxin B/Dexametha (Maxitrol Eye Ointment) 3.5 Gm Oint...g., 1 APLCT OU QHS PRN for DRY EYES, (Reported) Sodium Chloride (Saline Nasal [place]) 44 Ml [place], 1-2 SPRAY NARES Q2H PRN for NASAL DRYNESS, (Reported) Allergies Coded Allergies: Penicillins (Verified Allergy, Severe, tounge swells and rash, 07/19/18) SWATHI PANTOJA MD Aug 02, 2018 18:46
== END 2018-08-02 12:44 | disposition home or self-care (01) | DRG 871 ==
LOC: M ED 11:58 → M ED INP 15:42 → M MSPAV 17:59
PROVIDERS: ADMIT Internal Medicine; ATTEND Internal Medicine
DX: A41.9 Sepsis, unspecified organism (principal); J18.9 Pneumonia, unspecified organism; J44.1 Chronic obstructive pulmonary disease with (acute) exacerbation; J44.0 Chronic obstructive pulmonary disease with (acute) lower respiratory infection; E44.0 Moderate protein-calorie malnutrition; R41.82 Altered mental status, unspecified; R32 Unspecified urinary incontinence; I10 Essential (primary) hypertension; I48.2 Chronic atrial fibrillation; K21.9 Gastro-esophageal reflux disease without esophagitis; E78.5 Hyperlipidemia, unspecified; Z99.81 Dependence on supplemental oxygen; Z79.01 Long term (current) use of anticoagulants; Z79.899 Other long term (current) drug therapy; Z88.0 Allergy status to penicillin; Z87.891 Personal history of nicotine dependence

== ENCOUNTER → 2018-07-31 | Outpatient (REF) | payer MEDICARE ==
[~2018-07-31] MED LIST changes: +LEVA1TAB2 PO
== END ==
LOC: M SFHCPLAZ 10:42
PROVIDERS: ATTEND Family Medicine
DX: J96.21 Acute and chronic respiratory failure with hypoxia (principal); R41.0 Disorientation, unspecified; Z53.8 Procedure and treatment not carried out for other reasons

== ENCOUNTER → 2018-08-05 | Outpatient (CLI) | payer MEDICARE ==
[~2018-08-05] MED LIST changes: +ALBU83IN INH; +BISO10TA6 PO; +BREO1INH INH; +CHLO25TA PO; +COLA100C5 PO; +DIGO0.12 PO; +DOXY100T2 PO; +ESTR1CRE PV; +FAMO20TA4 PO; +FLON1SPR NARES; +HM S0.65 NARES; +INCR1INH INH; +LEVA1TAB2 PO; +LORA-622 PO; +LOSA50TA88 PO; +MAGN1TAB39 PO; +MAXI0.1O OU; +MUCI600T31 PO; +OCUV1CAP4 PO; +VENTAER INH; +VOLT1GEL15 TOP
[2018-08-05 18:05] LABS: INR 3.2; PROTHROMBIN TIME 33.5 SECONDS (12.1-14.4)
== END ==
LOC: M WUC 16:07
PROVIDERS: ATTEND Family Medicine
DX: Z51.81 Encounter for therapeutic drug level monitoring (principal); Z79.01 Long term (current) use of anticoagulants

== ENCOUNTER → 2018-08-12 | Outpatient (CLI) | payer MEDICARE ==
[2018-08-12 18:33] LABS: INR 1.99
== END ==
LOC: M WUC 15:23
PROVIDERS: ATTEND Family Medicine
DX: Z79.01 Long term (current) use of anticoagulants (principal)

== ENCOUNTER → 2018-08-19 | Outpatient (CLI) | payer MEDICARE ==
[2018-08-19 18:47] LABS: INR 3.17; PROTHROMBIN TIME 32.5 SECONDS (11.8-14.0)
== END ==
LOC: M WUC 14:14
PROVIDERS: ATTEND Family Medicine
DX: Z79.01 Long term (current) use of anticoagulants (principal)

== ENCOUNTER 2018-08-23 14:30 | Outpatient (RCR) | payer MEDICARE | END 2018-08-26 | LOC: M PT 14:30 | PROVIDERS: ATTEND Physician Assistant | DX: M51.36 Other intervertebral disc degeneration, lumbar region (principal) ==

== ENCOUNTER 2018-09-12 15:15 | Outpatient (RCR) | payer MEDICARE ==
[~2018-09-12 15:15] MED LIST changes: -BISO10TA10 PO; +BISO10TA7 PO; -GABA-843 PO; -SPIR-10 PO
== END 2018-09-26 ==
LOC: M PT 15:15
PROVIDERS: ATTEND Family Medicine
DX: Z51.89 Encounter for other specified aftercare (principal); R26.0 Ataxic gait

== ENCOUNTER → 2018-09-12 | Outpatient (CLI) | payer MEDICARE ==
[~2018-09-12] MED LIST changes: -BISO10TA6 PO; +BISO10TA7 PO
[2018-09-12 17:48] LABS: INR 3.62; PROTHROMBIN TIME 36.1 SECONDS (11.8-14.0)
== END ==
LOC: M WUC 11:43
PROVIDERS: ATTEND Family Medicine
DX: Z79.01 Long term (current) use of anticoagulants (principal)

== ENCOUNTER → 2018-09-12 | Outpatient (CLI) | payer MEDICARE ==
[~2018-09-12] MED LIST changes: +BISO10TA10 PO; -BISO10TA7 PO; +GABA-843 PO; +SPIR-10 PO
--- NOTE | 2018-09-12 14:00 | REP ---
PA and lateral chest: Comparison is 07/08/2018. The lung bass are clear. The cardiac size is normal. The demetrio, mediastinum, and skeletal structures are unremarkable except for thoracic kyphosis. Impression: Negative PA and lateral chest except for thoracic kyphosis. There is no interval change. Electronically Signed by Vel Gold MD 09/12/2018 01:51 P
== END ==
LOC: M WUC 11:38
PROVIDERS: ATTEND Internal Medicine Pulmonary Disease
DX: M40.204 Unspecified kyphosis, thoracic region (principal); J18.9 Pneumonia, unspecified organism; G47.10 Hypersomnia, unspecified; Z79.01 Long term (current) use of anticoagulants
CPT/HCPCS: 36415; 71046; 85610; G0463

== ENCOUNTER → 2018-09-20 | Outpatient (CLI) | payer MEDICARE ==
[2018-09-20 18:19] LABS: INR 2.17
== END ==
LOC: M WUC 15:12
PROVIDERS: ATTEND Family Medicine
DX: Z79.01 Long term (current) use of anticoagulants (principal)

== ENCOUNTER → 2018-09-29 | Outpatient (CLI) | payer MEDICARE ==
[~2018-09-29] MED LIST changes: +GABA-843 PO; +SPIR-10 PO
[2018-09-29 18:09] LABS: INR 2.85; PROTHROMBIN TIME 29.8 SECONDS (11.8-14.0)
== END ==
LOC: M WUC 16:33
PROVIDERS: ATTEND Family Medicine
DX: Z79.01 Long term (current) use of anticoagulants (principal)

== ENCOUNTER 2018-10-12 09:40 | Day surgery (SDC) | payer MEDICARE ==
[~2018-10-12] VITALS: Ht 157.5 cm; Wt 73.5 kg
[~2018-10-12 09:40] MED LIST changes: +BISO10TA10 PO; -BISO10TA7 PO
[2018-10-12] MEDS ORDERED: NS 1,000 ML IV ONE (10:00)
[2018-10-12] MEDS ORDERED: fentaNYL 100 MCG/2 ML INJECTION (J3010) As Ordered ONE (10:40)
[2018-10-12] MEDS ORDERED: LIDOCAINE 2% INJ 100 MG/5 ML SDV (FOR ANES.) As Ordered ONE (10:40)
[2018-10-12] MEDS ORDERED: PROPOFOL 500 MG/50 ML VIAL As Ordered ONE (10:40)
--- NOTE | 2018-10-12 10:51 | ROOR ---
Patient Name: Abida Bledsoe Procedure Date: 10/12/2018 10:37 AM Date of : 1940 Age: 78 Room: [facility] Gender: Female Note Status: Finalized Procedure: Upper GI endoscopy Indications: Epigastric abdominal pain Providers: Ernie BLUM MD Referring MD: Rocael THOMASON MD Requesting Provider: Medicines: Monitored Anesthesia Care Complications: No immediate complications. Procedure: Pre-Anesthesia Assessment: - The heart rate, respiratory rate, oxygen saturations, blood pressure, adequacy of pulmonary ventilation, and response to care were monitored throughout the procedure. The Endoscope was introduced through the mouth, and advanced to the second part of duodenum. The upper GI endoscopy was accomplished without difficulty. The patient tolerated the procedure well. Findings: The examined esophagus was normal. Localized minimal inflammation characterized by erythema was found in the gastric antrum. Biopsies were taken with a cold forceps for histology. The cardia and gastric fundus were normal on retroflexion. The exam of the stomach was otherwise normal. (compliant, large volume sometimes seen in gastroparesis) The examined duodenum was normal. Impression: - Normal esophagus. - Minimal gastritis. Biopsied. - Normal examined duodenum. Recommendation: - Use Prilosec (omeprazole) 20 mg PO daily for 3 months. - (the script was sent to your pharmacy on file) - Follow an antireflux regimen. - Eat smaller, more frequent meals throughout the day. - Low fat diet. - Liquid/soft foods are tolerated better than solid foods. - Low fiber/well cooked vegetables are tolerated better than high fiber/fibrous foods/raw vegetables. - Avoid medications that inhibit gastric/intestinal motility such as narcotic medications. Ernie Blum MD Ernie BLUM MD 10/12/2018 10:50:51 AM Electronically signed by Ernie BLUM MD Number of Addenda: 0 Note Initiated On: 10/12/2018 10:37 AM Estimated Blood Loss: Estimated blood loss: none.
--- NOTE | 2018-10-12 11:46 | ROOR ---
Patient Name: Abida Bledsoe Procedure Date: 10/12/2018 10:37 AM Date of : 1940 Age: 78 Room: [facility] Gender: Female Note Status: Finalized Procedure: Colonoscopy Indications: High risk colon cancer surveillance: Personal history of colonic polyps, Last colonoscopy: April 2015 Providers: Ernie BLUM MD Referring MD: Rocael THOMASON MD Requesting Provider: Medicines: Monitored Anesthesia Care Complications: No immediate complications. Procedure: Pre-Anesthesia Assessment: - The heart rate, respiratory rate, oxygen saturations, blood pressure, adequacy of pulmonary ventilation, and response to care were monitored throughout the procedure. The Colonoscope was introduced through the anus and advanced to the cecum, identified by appendiceal orifice and ileocecal valve. The colonoscopy was performed without difficulty. The patient tolerated the procedure well. The quality of the bowel preparation was adequate and fair. Findings: The perianal and digital rectal examinations were normal. A 20 mm polyp was found in the sigmoid colon. The polyp was flat. The polyp was removed with a piecemeal technique using a hot snare. Resection and retrieval were complete. To prevent bleeding after the polypectomy, four hemostatic clips were successfully placed (MR conditional). There was no bleeding at the end of the procedure. Area was successfully injected with 2 mL Melanie ink for tattooing. A 5 mm polyp was found in the descending colon. The polyp was sessile. The polyp was removed with a cold snare. Resection and retrieval were complete. Three carpet-like polyps were found in the cecum. The polyps were 5 to 10 mm in size. These polyps were removed with a piecemeal technique using a cold snare. Resection and retrieval were complete. Multiple medium-mouthed diverticula were found in the sigmoid colon. Internal hemorrhoids were found during retroflexion. The hemorrhoids were medium-sized. Impression: - Preparation of the colon was fair. - One 20 mm polyp in the sigmoid colon (at 30 cm from verge), removed piecemeal using a hot snare. Resected and retrieved. Clips (MR conditional) were placed. Location Injected/tattooed. - One 5 mm polyp in the descending colon, removed with a cold snare. Resected and retrieved. - Three 5 to 10 mm polyps in the cecum, removed piecemeal using a cold snare. Resected and retrieved. - Diverticulosis in the sigmoid colon. - Internal hemorrhoids. Recommendation: - If the pathology report is benign, then repeat colonoscopy for surveillance after piecemeal polypectomy in 6 months to 1 year. - Resume Coumadin (warfarin) at prior dose in 2 days (on 10/14/18). Refer to managing physician for further adjustment of therapy. Ernie Blum MD Ernie BLUM MD 10/12/2018 11:45:29 AM Electronically signed by Ernie BLUM MD Number of Addenda: 0 Note Initiated On: 10/12/2018 10:37 AM Estimated Blood Loss: Estimated blood loss: none.
[2018-10-12 12:20] VITALS: BP 119/76
== END 2018-10-12 12:48 | disposition home or self-care (01) ==
LOC: M OPP 09:40
PROVIDERS: ATTEND Internal Medicine Gastroenterology
DX: Z12.11 Encounter for screening for malignant neoplasm of colon (principal); Z86.010 Personal history of colon polyps; K64.8 Other hemorrhoids; D12.5 Benign neoplasm of sigmoid colon; K63.5 Polyp of colon; D12.0 Benign neoplasm of cecum; K57.30 Diverticulosis of large intestine without perforation or abscess without bleeding; K29.70 Gastritis, unspecified, without bleeding; R10.13 Epigastric pain; Z79.01 Long term (current) use of anticoagulants; Z79.899 Other long term (current) drug therapy; Z88.0 Allergy status to penicillin; Z87.891 Personal history of nicotine dependence
CPT/HCPCS: 43239; 45381; 45385; 88305; J3010

== ENCOUNTER → 2018-10-18 | Outpatient (CLI) | payer MEDICARE ==
[2018-10-23 00:10] LABS: AMITRIPTYLINE 79 ng/mL (Not Estab.); AMITRIPTYLINE AND NORTRIPTYLI 131 ng/mL (80-200); NORTRIPTYLINE 52 ng/mL (Not Estab.)
== END ==
LOC: M WUC 14:21
PROVIDERS: ATTEND Psychiatry & Neurology Psychiatry
DX: Z51.81 Encounter for therapeutic drug level monitoring (principal); Z79.01 Long term (current) use of anticoagulants
CPT/HCPCS: 36415; G0480

== ENCOUNTER 2018-10-25 13:02 | Outpatient (RCR) | payer MEDICARE | END 2018-10-27 | LOC: M PT 13:02 | PROVIDERS: ATTEND Physician Assistant | DX: R26.2 Difficulty in walking, not elsewhere classified (principal) ==

== ENCOUNTER → 2018-10-30 | Outpatient (CLI) | payer MEDICARE ==
[2018-10-30 16:39] LABS: INR 3.7; PROTHROMBIN TIME 36.7 SECONDS (11.8-14.0)
== END ==
LOC: M WUC 13:53
PROVIDERS: ATTEND Family Medicine
DX: Z51.81 Encounter for therapeutic drug level monitoring (principal); Z79.01 Long term (current) use of anticoagulants

== ENCOUNTER → 2018-11-04 | Outpatient (CLI) | payer MEDICARE ==
[2018-11-04 18:30] LABS: INR 3.4; PROTHROMBIN TIME 34.3 SECONDS (11.8-14.0)
== END ==
LOC: M WUC 15:25
PROVIDERS: ATTEND Family Medicine
DX: Z51.81 Encounter for therapeutic drug level monitoring (principal); Z79.01 Long term (current) use of anticoagulants

== ENCOUNTER → 2018-11-11 | Outpatient (CLI) | payer MEDICARE ==
[2018-11-11 18:21] LABS: INR 2.52
== END ==
LOC: M WUC 13:53
PROVIDERS: ATTEND Family Medicine
DX: Z79.01 Long term (current) use of anticoagulants (principal)

== ENCOUNTER 2018-11-23 13:45 | Outpatient (RCR) | payer MEDICARE | END 2018-11-26 | LOC: M PT 13:45 | PROVIDERS: ATTEND Physician Assistant | DX: R26.0 Ataxic gait (principal) ==

== ENCOUNTER → 2018-11-25 | Outpatient (CLI) | payer MEDICARE ==
[2018-11-25 17:20] LABS: INR 3.03; PROTHROMBIN TIME 31.3 SECONDS (11.8-14.0)
== END ==
LOC: M WUC 15:52
PROVIDERS: ATTEND Family Medicine
DX: Z79.01 Long term (current) use of anticoagulants (principal)

== ENCOUNTER → 2018-12-02 | Outpatient (CLI) | payer MEDICARE ==
[2018-12-02 18:00] LABS: BASO # 0.1 10^3/uL (0.0-0.2); BASO % 0.8 % (0.0-1.0); EOS # 0.2 10^3/uL (0.0-0.5); EOS % 3.1 % (0.0-3.0); HEMATOCRIT 43.5 % (36.0-47.0); LYMPH # 1.3 10^3/uL (1.5-5.0); LYMPH % 20.7 % (24.0-44.0); MEAN CORPUSCULAR HGB CONC 32.2 g/dl (32.0-36.5); MEAN CORPUSCULAR VOLUME 99.5 fl (80.0-96.0); MONO # 0.6 10^3/uL (0.0-0.8); MONO % 8.6 % (0.0-5.0); NEUTROPHILS # 4.2 10^3/uL (1.5-8.5); PLATELET COUNT, AUTOMATED 241 10^3/uL (150-450); RED BLOOD COUNT 4.37 10^6/uL (4.00-5.40); WHITE BLOOD COUNT 6.4 10^3/uL (4.0-10.0)
[2018-12-02 18:06] LABS: CALCIUM LEVEL 8.8 MG/DL (8.8-10.2); CREATININE FOR GFR 0.96 MG/DL (0.55-1.30); FREE T4 0.7 NG/DL (0.76-1.46); GLOMERULAR FILTRATION RATE 59.5 (>32); THYROID STIMULATING HORMONE 1.04 uIU/ML (0.358-3.740)
[2018-12-02 18:21] LABS: INR 3.51; PROTHROMBIN TIME 35.2 SECONDS (11.8-14.0)
== END ==
LOC: M WUC 15:43
PROVIDERS: ATTEND Family Medicine
DX: Z79.01 Long term (current) use of anticoagulants (principal); G47.10 Hypersomnia, unspecified; I50.810 Right heart failure, unspecified

== ENCOUNTER → 2018-12-09 | Outpatient (CLI) | payer MEDICARE ==
[2018-12-09 18:06] LABS: INR 2.72; PROTHROMBIN TIME 28.7 SECONDS (11.8-14.0)
== END ==
LOC: M WUC 16:18
PROVIDERS: ATTEND Family Medicine
DX: Z79.01 Long term (current) use of anticoagulants (principal)

== ENCOUNTER 2018-12-13 13:45 | Outpatient (RCR) | payer MEDICARE | END 2018-12-27 | LOC: M PT 13:45 | PROVIDERS: ATTEND Physician Assistant | DX: M47.817 Spondylosis without myelopathy or radiculopathy, lumbosacral region (principal); M51.37 Other intervertebral disc degeneration, lumbosacral region; M51.27 Other intervertebral disc displacement, lumbosacral region; M48.07 Spinal stenosis, lumbosacral region ==

== ENCOUNTER → 2018-12-16 | Outpatient (CLI) | payer MEDICARE ==
[2018-12-16 18:16] LABS: INR 4.1; PROTHROMBIN TIME 39.8 SECONDS (11.8-14.0)
== END ==
LOC: M WUC 14:34
PROVIDERS: ATTEND Family Medicine
DX: Z79.01 Long term (current) use of anticoagulants (principal)

== ENCOUNTER → 2018-12-24 | Outpatient (CLI) | payer MEDICARE ==
[2018-12-24 20:57] LABS: INR 2.18; PROTHROMBIN TIME 24.1 SECONDS (11.8-14.0)
== END ==
LOC: M WUC 16:42
PROVIDERS: ATTEND Family Medicine
DX: Z79.01 Long term (current) use of anticoagulants (principal)

== ENCOUNTER → 2018-12-27 | Outpatient (CLI) | payer MEDICARE ==
--- NOTE | 2018-12-27 14:25 | REP ---
Clinical: Pain. Technique: AP, lateral, bilateral oblique views of the left knee. Findings: Moderate osteoarthritic degenerative changes are appreciated including increase sclerosis to the tibial plateau, medial subluxation, cortical irregularities and spurring/osteophyte formation as well as elements of chondrocalcinosis. No acute fracture dislocation. No effusion. Impression: Moderate tricompartmental osteoarthritic degenerative changes. Electronically Signed by Linwood Valverde MD 12/27/2018 02:17 P
--- NOTE | 2018-12-27 14:54 | REP ---
LEFT HIP: Three views left hip performed. No fracture or dislocation is seen. There is mild joint space narrowing, subchondral sclerosis and spurring compatible with arthritic changes. Vascular calcifications are seen in the soft tissues and there are phleboliths in the pelvis. IMPRESSION: Mild degenerative changes. Electronically Signed by Vel Bansal MD 12/27/2018 03:56 P
== END ==
LOC: M WUC 13:58
PROVIDERS: ATTEND Nurse Practitioner Family
DX: M25.552 Pain in left hip (principal); M25.561 Pain in right knee

== ENCOUNTER → 2019-01-02 | Outpatient (CLI) | payer MEDICARE ==
[2019-01-02 20:39] LABS: INR 2.96; PROTHROMBIN TIME 30.8 SECONDS (11.8-14.0)
== END ==
LOC: M WUC 16:43
PROVIDERS: ATTEND Family Medicine
DX: Z79.01 Long term (current) use of anticoagulants (principal)

== ENCOUNTER → 2019-01-12 | Outpatient (CLI) | payer MEDICARE ==
[2019-01-12 17:52] LABS: INR 4.92; PROTHROMBIN TIME 46.1 SECONDS (11.8-14.0)
[2019-01-12 17:55] LABS: CREATININE FOR GFR 0.98 MG/DL (0.55-1.30); FREE T4 0.85 NG/DL (0.76-1.46); GLOMERULAR FILTRATION RATE 58.1 (>32); POTASSIUM SERUM 5.6 MEQ/L (3.5-5.1); THYROID STIMULATING HORMONE 0.475 uIU/ML (0.358-3.740)
== END ==
LOC: M WUC 14:52
PROVIDERS: ATTEND Family Medicine
DX: E03.9 Hypothyroidism, unspecified (principal); R73.03 Prediabetes; Z79.01 Long term (current) use of anticoagulants

== ENCOUNTER → 2019-01-14 | Outpatient (CLI) | payer MEDICARE ==
[2019-01-14 20:10] LABS: PROTHROMBIN TIME 49.5 SECONDS (11.8-14.0)
[2019-01-14 20:22] LABS: CALCIUM LEVEL 9.1 MG/DL (8.8-10.2); CREATININE FOR GFR 1.04 MG/DL (0.55-1.30); GLOMERULAR FILTRATION RATE 54.3 (>32); POTASSIUM SERUM 5.1 MEQ/L (3.5-5.1)
[2019-01-14 20:56] LABS: INR 5.37
== END ==
LOC: M WUC 16:26
PROVIDERS: ATTEND Family Medicine
DX: E87.5 Hyperkalemia (principal); Z51.81 Encounter for therapeutic drug level monitoring

== ENCOUNTER → 2019-01-16 | Outpatient (CLI) | payer MEDICARE ==
[2019-01-16 16:16] LABS: CALCIUM LEVEL 9.6 MG/DL (8.8-10.2); CREATININE FOR GFR 1.17 MG/DL (0.55-1.30); GLOMERULAR FILTRATION RATE 47.4 (>32); POTASSIUM SERUM 5.3 MEQ/L (3.5-5.1)
[2019-01-16 16:24] LABS: INR 1.54; PROTHROMBIN TIME 18.2 SECONDS (11.8-14.0)
== END ==
LOC: M WUC 12:38
PROVIDERS: ATTEND Family Medicine
DX: Z79.01 Long term (current) use of anticoagulants (principal); E87.5 Hyperkalemia

== ENCOUNTER → 2019-01-22 | Outpatient (CLI) | payer MEDICARE ==
[2019-01-22 20:45] LABS: INR 3.09; PROTHROMBIN TIME 31.8 SECONDS (11.8-14.0)
[2019-01-22 21:00] LABS: BLOOD UREA NITROGEN 24 MG/DL (7-18); CALCIUM LEVEL 8.9 MG/DL (8.8-10.2); CARBON DIOXIDE LEVEL 30 MEQ/L (21-32); CHLORIDE LEVEL 108 MEQ/L (98-107); CREATININE FOR GFR 0.81 MG/DL (0.55-1.30); GLOMERULAR FILTRATION RATE > 60.0 (>32); GLUCOSE, FASTING 87 MG/DL (70-100); POTASSIUM SERUM 4.3 MEQ/L (3.5-5.1); SODIUM LEVEL 141 MEQ/L (136-145)
== END ==
LOC: M WUC 15:46
PROVIDERS: ATTEND Family Medicine
DX: Z51.81 Encounter for therapeutic drug level monitoring (principal); Z79.01 Long term (current) use of anticoagulants; I48.20 Chronic atrial fibrillation, unspecified; I10 Essential (primary) hypertension

== ENCOUNTER → 2019-01-29 | Outpatient (REF) | payer MEDICARE ==
[~2019-01-29] MED LIST changes: -DIGO0.12 PO; +DIGO0.123 PO; +DIGO0.253 PO
[2019-01-29 12:59] LABS: BLOOD UREA NITROGEN 23 MG/DL (7-18); CALCIUM LEVEL 8.7 MG/DL (8.8-10.2); CARBON DIOXIDE LEVEL 29 MEQ/L (21-32); CHLORIDE LEVEL 107 MEQ/L (98-107); CREATININE FOR GFR 0.95 MG/DL (0.55-1.30); GLOMERULAR FILTRATION RATE > 60.0 (>32); GLUCOSE, FASTING 119 MG/DL (70-100); POTASSIUM SERUM 4.4 MEQ/L (3.5-5.1); SODIUM LEVEL 142 MEQ/L (136-145)
[2019-01-29 13:04] LABS: INR 3.16; PROTHROMBIN TIME 32.4 SECONDS (11.8-14.0)
== END ==
LOC: M SFHCPLAZ 10:36
PROVIDERS: ATTEND Family Medicine
DX: E87.5 Hyperkalemia (principal); I48.20 Chronic atrial fibrillation, unspecified; Z51.81 Encounter for therapeutic drug level monitoring; Z79.01 Long term (current) use of anticoagulants
CPT/HCPCS: 36415; 80048; 85610; G0463

== ENCOUNTER → 2019-02-28 | Outpatient (REF) | payer MEDICARE ==
[~2019-02-28] MED LIST changes: -BISO10TA10 PO; +BISO10TA14 PO
[2019-02-28 11:51] LABS: CALCIUM LEVEL 8.9 MG/DL (8.8-10.2); CREATININE FOR GFR 1.05 MG/DL (0.55-1.30); GLOMERULAR FILTRATION RATE 53.7 (>32)
[2019-02-28 12:03] LABS: INR 2.73; PROTHROMBIN TIME 28.8 SECONDS (11.8-14.0)
== END ==
LOC: M SFHCPLAZ 08:56
PROVIDERS: ATTEND Family Medicine
DX: R73.03 Prediabetes (principal); I10 Essential (primary) hypertension; I48.20 Chronic atrial fibrillation, unspecified; Z51.81 Encounter for therapeutic drug level monitoring; Z79.01 Long term (current) use of anticoagulants
CPT/HCPCS: 36415; 80048; 83036; 85610; G0463

== ENCOUNTER → 2019-03-08 | Outpatient (CLI) | payer MEDICARE ==
[2019-03-08 12:45] LABS: BASO # 0.1 10^3/uL (0.0-0.2); EOS # 0.2 10^3/uL (0.0-0.5); EOS % 2.6 % (0.0-3.0); HEMATOCRIT 39.2 % (36.0-47.0); HEMOGLOBIN 12.3 g/dl (12.0-15.5); LYMPH # 1.1 10^3/uL (1.5-5.0); LYMPH % 18.1 % (24.0-44.0); MEAN CORPUSCULAR HEMOGLOBIN 31.1 pg (27.0-33.0); MEAN CORPUSCULAR HGB CONC 31.4 g/dl (32.0-36.5); MEAN CORPUSCULAR VOLUME 99.2 fl (80.0-96.0); MONO # 0.4 10^3/uL (0.0-0.8); MONO % 6.2 % (0.0-5.0); NEUTROPHILS # 4.4 10^3/uL (1.5-8.5); NEUTROPHILS % 70.5 % (36.0-66.0); PLATELET COUNT, AUTOMATED 267 10^3/uL (150-450); RED BLOOD COUNT 3.95 10^6/uL (4.00-5.40); WHITE BLOOD COUNT 6.3 10^3/uL (4.0-10.0)
[2019-03-08 13:02] LABS: HEMOGLOBIN A1c 6.6 %
[2019-03-08 13:58] LABS: ALBUMIN 3.3 GM/DL (3.2-5.2); ALT/SGPT 23 U/L (12-78); BILIRUBIN,TOTAL 0.4 MG/DL (0.2-1.0); BLOOD UREA NITROGEN 23 MG/DL (7-18); CALCIUM LEVEL 9.1 MG/DL (8.8-10.2); CARBON DIOXIDE LEVEL 29 MEQ/L (21-32); CHLORIDE LEVEL 106 MEQ/L (98-107); CREATININE FOR GFR 0.91 MG/DL (0.55-1.30); FREE T4 0.73 NG/DL (0.76-1.46); FREE THYROXINE INDEX 2.2 % (1.3-4.8); GLOMERULAR FILTRATION RATE > 60.0 (>32); GLUCOSE, FASTING 99 MG/DL (70-100); POTASSIUM SERUM 5.6 MEQ/L (3.5-5.1); SODIUM LEVEL 141 MEQ/L (136-145); T UPTAKE 35 % (30-39); THYROXINE (T4) 6.3 UG/DL (4.5-12.0); TOTAL PROTEIN 6.9 GM/DL (6.4-8.2)
[2019-03-08 16:01] LABS: VITAMIN B12 LEVEL 489 PG/ML
[2019-03-08 16:02] LABS: FOLATE 12.5 NG/ML
[2019-03-12 12:53] LABS: ALBUMIN 3.53 GM/DL (3.29-5.55); ALBUMIN % 51.2 % (55.8-66.1); ALPHA-1-GLOBULIN % 6.3 % (2.9-4.9); ALPHA-1-GLOBULINS 0.43 GM/DL (0.17-0.41); BETA-1-GLOBULINS % 7.3 % (4.7-7.2); GAMMA GLOBULIN % 12.2 % (11.1-18.8)
[2019-03-12 12:54] LABS: BETA-2-GLOBULINS 0.48 GM/DL (0.19-0.55); GAMMA GLOBULINS 0.84 GM/DL (0.65-1.58)
== END ==
LOC: M WUC 10:29
PROVIDERS: ATTEND Psychiatry & Neurology Neurology
DX: E11.9 Type 2 diabetes mellitus without complications (principal); E07.9 Disorder of thyroid, unspecified

== ENCOUNTER → 2019-03-21 | Outpatient (CLI) | payer MEDICARE ==
[2019-03-21 17:19] LABS: INR 3.31; PROTHROMBIN TIME 33.6 SECONDS (11.8-14.0)
== END ==
LOC: M WUC 14:14
PROVIDERS: ATTEND Family Medicine
DX: I48.91 Unspecified atrial fibrillation (principal); Z51.81 Encounter for therapeutic drug level monitoring; Z79.01 Long term (current) use of anticoagulants

== ENCOUNTER → 2019-03-25 | Outpatient (CLI) | payer MEDICARE ==
[2019-03-25 19:18] LABS: INR 1.81; PROTHROMBIN TIME 20.7 SECONDS (11.8-14.0)
== END ==
LOC: M WUC 15:04
PROVIDERS: ATTEND Family Medicine
DX: I48.20 Chronic atrial fibrillation, unspecified (principal); Z51.81 Encounter for therapeutic drug level monitoring; Z79.01 Long term (current) use of anticoagulants

== ENCOUNTER → 2019-04-01 | Outpatient (CLI) | payer MEDICARE ==
[2019-04-01 20:50] LABS: PROTHROMBIN TIME 50.7 SECONDS (11.8-14.0)
[2019-04-01 21:06] LABS: INR 5.54
== END ==
LOC: M WUC 15:46
PROVIDERS: ATTEND Family Medicine
DX: I48.20 Chronic atrial fibrillation, unspecified (principal)

== ENCOUNTER → 2019-04-04 | Outpatient (CLI) | payer MEDICARE ==
[2019-04-04 17:09] LABS: INR 3.18; PROTHROMBIN TIME 32.5 SECONDS (11.8-14.0)
== END ==
LOC: M WUC 14:04
PROVIDERS: ATTEND Family Medicine
DX: Z51.81 Encounter for therapeutic drug level monitoring (principal)

== ENCOUNTER → 2019-04-10 | Outpatient (CLI) | payer MEDICARE ==
[2019-04-10 19:23] LABS: INR 1.98; PROTHROMBIN TIME 22.3 SECONDS (11.8-14.0)
== END ==
LOC: M WUC 15:38
PROVIDERS: ATTEND Family Medicine
DX: I48.20 Chronic atrial fibrillation, unspecified (principal); Z51.81 Encounter for therapeutic drug level monitoring; Z79.01 Long term (current) use of anticoagulants

== ENCOUNTER → 2019-04-18 | Outpatient (CLI) | payer MEDICARE ==
[2019-04-18 20:20] LABS: INR 2.51
== END ==
LOC: M WUC 17:50
PROVIDERS: ATTEND Family Medicine
DX: I48.20 Chronic atrial fibrillation, unspecified (principal)

== ENCOUNTER → 2019-05-12 | Outpatient (CLI) | payer MEDICARE ==
[2019-05-12 17:25] LABS: INR 2.28; PROTHROMBIN TIME 24.9 SECONDS (11.8-14.0)
== END ==
LOC: M WUC 14:53
PROVIDERS: ATTEND Family Medicine
DX: I48.20 Chronic atrial fibrillation, unspecified (principal)

== ENCOUNTER → 2019-05-29 | Outpatient (CLI) | payer MEDICARE ==
[2019-05-29 20:41] LABS: INR 3.07; PROTHROMBIN TIME 31.6 SECONDS (11.8-14.0)
== END ==
LOC: M WUC 15:28
PROVIDERS: ATTEND Family Medicine
DX: I48.20 Chronic atrial fibrillation, unspecified (principal)

== ENCOUNTER → 2019-06-13 | Outpatient (CLI) | payer MEDICARE ==
[2019-06-13 20:19] LABS: INR 2.76; PROTHROMBIN TIME 29.1 SECONDS (11.8-14.0)
[2019-06-13 20:39] LABS: BLOOD UREA NITROGEN 24 MG/DL (7-18); CALCIUM LEVEL 9.1 MG/DL (8.8-10.2); CARBON DIOXIDE LEVEL 30 MEQ/L (21-32); CHLORIDE LEVEL 105 MEQ/L (98-107); CHOLESTEROL LEVEL 178 MG/DL (<200); CHOLESTEROL RISK RATIO 3.358 (<5); CREATININE FOR GFR 0.78 MG/DL (0.55-1.30); GLOMERULAR FILTRATION RATE > 60.0 (>32); GLUCOSE, FASTING 114 MG/DL (70-100); HDL CHOLESTEROL 53 MG/DL (>40); NON-HDL-C 125 MG/DL; POTASSIUM SERUM 4.6 MEQ/L (3.5-5.1); SODIUM LEVEL 140 MEQ/L (136-145); TRIGLYCERIDES LEVEL 424 MG/DL (<150)
== END ==
LOC: M WUC 18:13
PROVIDERS: ATTEND Family Medicine
DX: E78.2 Mixed hyperlipidemia (principal); I10 Essential (primary) hypertension; Z51.81 Encounter for therapeutic drug level monitoring; Z79.01 Long term (current) use of anticoagulants

== ENCOUNTER → 2019-07-25 | Outpatient (CLI) | payer MEDICARE ==
[2019-07-25 20:14] LABS: INR 1.92; PROTHROMBIN TIME 21.7 SECONDS (11.8-14.0)
== END ==
LOC: M WUC 15:34
PROVIDERS: ATTEND Family Medicine
DX: I48.20 Chronic atrial fibrillation, unspecified (principal)

== ENCOUNTER → 2019-08-01 | Outpatient (CLI) | payer MEDICARE ==
[~2019-08-01] MED LIST changes: -COUM1TAB14 PO; +COUM4TAB8 PO
[2019-08-01 19:51] LABS: INR 2.54; PROTHROMBIN TIME 27.2 SECONDS (11.8-14.0)
== END ==
LOC: M WUC 15:21
PROVIDERS: ATTEND Family Medicine
DX: I48.20 Chronic atrial fibrillation, unspecified (principal)

== ENCOUNTER → 2019-08-23 | Outpatient (REF) | payer MEDICARE ==
[~2019-08-23] MED LIST changes: +AMLO1TAB24 PO; -AMLO5TAB6 PO; +BUTA-199 PO; -BUTATAB6 PO; +GABA-282 PO; -GABA-843 PO; +LISI10TA22 PO; -LISI10TA4 PO
[2019-08-23 12:08] LABS: INR 1.8; PROTHROMBIN TIME 20.6 SECONDS (11.8-14.0)
== END ==
LOC: M SFHCPLAZ 11:01
PROVIDERS: ATTEND Family Medicine
DX: Z51.81 Encounter for therapeutic drug level monitoring (principal); Z79.01 Long term (current) use of anticoagulants

== ENCOUNTER → 2019-08-29 | Outpatient (CLI) | payer MEDICARE ==
[~2019-08-29] MED LIST changes: -AMLO1TAB24 PO; +AMLO5TAB6 PO; -BUTA-199 PO; +BUTATAB6 PO; -GABA-282 PO; +GABA-843 PO; -LISI10TA22 PO; +LISI10TA4 PO
[2019-08-29 16:31] LABS: INR 1.5; PROTHROMBIN TIME 17.8 SECONDS (11.8-14.0)
== END ==
LOC: M WUC 14:56
PROVIDERS: ATTEND Family Medicine
DX: Z51.81 Encounter for therapeutic drug level monitoring (principal)

== ENCOUNTER → 2019-09-09 | Outpatient (CLI) | payer MEDICARE ==
[~2019-09-09] MED LIST changes: +AMLO1TAB24 PO; -AMLO5TAB6 PO
[2019-09-09 18:38] LABS: INR 2.13; PROTHROMBIN TIME 23.6 SECONDS (11.8-14.0)
== END ==
LOC: M WUC 14:05
PROVIDERS: ATTEND Family Medicine
DX: Z51.81 Encounter for therapeutic drug level monitoring (principal); Z79.01 Long term (current) use of anticoagulants

== ENCOUNTER → 2019-09-12 | Outpatient (REF) | payer MEDICARE | LOC: M WUC 19:23 | PROVIDERS: ATTEND Physician Assistant | DX: M54.5 Low back pain (principal); R35.0 Frequency of micturition ==

== ENCOUNTER → 2019-09-16 | Outpatient (CLI) | payer SELFPAY | LOC: M LABSMTC 13:22 | PROVIDERS: ATTEND Pediatrics | DX: Z20.828 Contact with and (suspected) exposure to other viral communicable diseases (principal); Z11.59 Encounter for screening for other viral diseases ==

== ENCOUNTER → 2019-10-02 | Outpatient (REF) | payer MEDICARE ==
[2019-10-31 10:09] LABS: INR 2.5; PROTHROMBIN TIME 27.6 SECONDS (11.8-14.0)
== END ==
LOC: M SFHCPLAZ 06:52
PROVIDERS: ATTEND Nurse Practitioner Adult Health
DX: Z51.81 Encounter for therapeutic drug level monitoring (principal)

== ENCOUNTER → 2019-10-08 | Outpatient (REF) | payer MEDICARE ==
[2019-11-10 11:33] LABS: APPEARANCE, URINE HAZY (CLEAR); BACTERIA, URINE AUTO 1+ (NEGATIVE); BILIRUBIN, URINE AUTO NEGATIVE (NEGATIVE); BLOOD, URINE BLOOD NEGATIVE (NEGATIVE); COLOR, URINE YELLOW (YELLOW); GLUCOSE, URINE (UA) AUTO NEGATIVE (NEGATIVE); KETONE, URINE AUTO NEGATIVE (NEGATIVE); LEUKOCYTE ESTERASE, URINE AUTO 1+ (NEGATIVE); NITRITE, URINE AUTO NEGATIVE (NEGATIVE); PROTEIN, URINE AUTO NEGATIVE (NEGATIVE); RBC, URINE AUTO 0 /HPF (0-3); SPECIFIC GRAVITY URINE AUTO 1.018 (1.002-1.035); SQUAMOUS EPITHELIAL CELL UR AU 1 /HPF (0-6); UROBILINOGEN, URINE AUTO 0.2 mg/dL (0.0-2.0); WBC, URINE AUTO 12 /HPF (0-3)
== END ==
LOC: M SFHCPLAZ 14:03
PROVIDERS: ATTEND Family Medicine
DX: R30.0 Dysuria (principal)

== ENCOUNTER → 2019-10-11 | Outpatient (REF) | payer MEDICARE ==
[2019-11-28 18:40] LABS: INR 2.54; PROTHROMBIN TIME 27.9 SECONDS (12.5-14.3)
== END ==
LOC: M WUC 17:04
PROVIDERS: ATTEND Family Medicine
DX: Z51.81 Encounter for therapeutic drug level monitoring (principal); Z79.01 Long term (current) use of anticoagulants

== ENCOUNTER → 2019-11-02 | Outpatient (REF) | payer MEDICARE | LOC: M WUC 17:26 | PROVIDERS: ATTEND Nurse Practitioner Family | DX: R35.0 Frequency of micturition (principal) ==

== ENCOUNTER → 2019-11-07 | Outpatient (CLI) | payer MEDICARE ==
--- NOTE | 2019-11-26 14:47 | REP ---
LIMITED ABDOMINAL UTLRASOUND: 11/07/19 CLINICAL: Let upper quadrant pain with palpable mass. TECHNIQUE: Real time mauricio scale and color evaluation using linear high frequency and curved array transducers. FINDINGS: Directed ultrasound examination in the left upper quadrant overlying the palpable mass demonstrates a 2.6 x 1.3 x 3.5cm ovoid hyperechoic focus within the subcutaneous tissues which may represent lipoma. The structure appears avascular and no surrounding fluid or mass lesion is otherwise note. IMPRESSION: Ovoid hyperechoic focus in the subcutaneous fat suggesting lipoma. MTDD
== END ==
LOC: M RAD 08:55
PROVIDERS: ATTEND Physician Assistant Medical
DX: R10.12 Left upper quadrant pain (principal); R19.02 Left upper quadrant abdominal swelling, mass and lump

== ENCOUNTER → 2019-11-20 | Outpatient (CLI) | payer MEDICARE ==
[2019-11-20 19:54] LABS: INR 1.61; PROTHROMBIN TIME 19.5 SECONDS (12.5-14.3)
== END ==
LOC: M WUC 15:38
PROVIDERS: ATTEND Family Medicine
DX: Z51.81 Encounter for therapeutic drug level monitoring (principal); Z79.01 Long term (current) use of anticoagulants

== ENCOUNTER → 2019-11-25 | Outpatient (CLI) | payer MEDICARE ==
[2019-11-25 16:04] LABS: HEMATOCRIT 45.5 % (36.0-47.0); HEMOGLOBIN 14.6 g/dl (12.0-15.5); MEAN CORPUSCULAR HEMOGLOBIN 32.4 pg (27.0-33.0); MEAN CORPUSCULAR HGB CONC 32.1 g/dl (32.0-36.5); MEAN CORPUSCULAR VOLUME 100.9 fl (80.0-96.0); PLATELET COUNT, AUTOMATED 280 10^3/uL (150-450); RED BLOOD COUNT 4.51 10^6/uL (4.00-5.40); WHITE BLOOD COUNT 8.4 10^3/uL (4.0-10.0)
[2019-11-25 16:16] LABS: BLOOD UREA NITROGEN 31 MG/DL (7-18); CALCIUM LEVEL 9.1 MG/DL (8.8-10.2); CARBON DIOXIDE LEVEL 30 MEQ/L (21-32); CHLORIDE LEVEL 106 MEQ/L (98-107); CREATININE FOR GFR 0.85 MG/DL (0.55-1.30); FERRITIN 94 NG/ML (8-252); GLOMERULAR FILTRATION RATE > 60.0 (>32); GLUCOSE, FASTING 82 MG/DL (70-100); IRON (FE) 90 UG/DL (50-170); PERCENT SATURATION 23.1 % (13.2-45.0); POTASSIUM SERUM 4.8 MEQ/L (3.5-5.1); SODIUM LEVEL 139 MEQ/L (136-145); TOTAL IRON BINDING CAPACITY 390 UG/DL (250-450)
[2019-11-25 16:21] LABS: INR 2.07; PROTHROMBIN TIME 23.8 SECONDS (12.5-14.3)
== END ==
LOC: M PLALAB 13:54
PROVIDERS: ATTEND Family Medicine
DX: I48.20 Chronic atrial fibrillation, unspecified (principal); R53.82 Chronic fatigue, unspecified; Z51.81 Encounter for therapeutic drug level monitoring; Z79.01 Long term (current) use of anticoagulants

== ENCOUNTER → 2020-01-09 | Outpatient (REF) | payer MEDICARE | LOC: M SMT 12:49 | PROVIDERS: ATTEND Urology | DX: R30.0 Dysuria (principal) ==

== ENCOUNTER → 2020-01-16 | Outpatient (CLI) | payer MEDICARE ==
[2020-01-16 19:56] LABS: INR 2.22; PROTHROMBIN TIME 25.1 SECONDS (12.5-14.3)
== END ==
LOC: M WUC 17:14
PROVIDERS: ATTEND Urology
DX: Z51.81 Encounter for therapeutic drug level monitoring (principal)

== ENCOUNTER → 2020-02-13 | Outpatient (CLI) | payer MEDICARE ==
[2020-02-13 19:38] LABS: INR 1.79; PROTHROMBIN TIME 21.2 SECONDS (12.5-14.3)
== END ==
LOC: M WUC 16:46
PROVIDERS: ATTEND Urology
DX: Z51.81 Encounter for therapeutic drug level monitoring (principal)

== ENCOUNTER → 2020-02-26 | Outpatient (CLI) | payer MEDICARE ==
[~2020-02-26] MED LIST changes: +E-Z-GAS II EFFERVESCENT PACKET (SODIUM BICARB./CITRIC ACID/SIMETHICONE) As Ordered ONE; +E-Z-HD 98% w/w 340GM SUSP BTL As Ordered ONE; +E-Z-PAQUE 96% w/w SUSP 176GM BTL As Ordered ONE
--- NOTE | 2020-02-27 21:19 | REP ---
INDICATION: ESOPHAGEAL REFLUX. COMPARISON: None. TECHNIQUE: The procedure was performed under the direct supervision of Dr. Mathis. The images were reviewed with Dr. Mathis. Liquid barium was administered in the erect and prone oblique positions. 1.2 minutes of fluoro time was utilized for this procedure. FINDINGS: During the oral and pharyngeal stages of deglutition there is aspiration without cough response. Esophageal transport is probably deficient and there is no esophagitis or stricture or mucosal ring. There is a sliding-type hiatal hernia. Gastroesophageal reflux is not demonstrated on this examination. The stomach is grossly normal. The rugal folds are smooth and regular. There is no evidence of gastritis neoplasm pleural disease. The duodenum is grossly normal. The mucosal folds are smooth and regular. There is no evidence of duodenitis pancreatitis peptic ulcer disease or neoplasm. The visualized portion of the proximal small bowel appears normal in course and caliber. IMPRESSION: 1. There is aspiration without cough response. 2. There is a sliding-type hiatal hernia. <Electronically signed by Emmanuel Tubbs > 02/26/20 1625 <Electronically signed by Mark Mathis > 02/27/20 [id number]
== END ==
LOC: M RAD 08:43
PROVIDERS: ATTEND Family Medicine
DX: K21.9 Gastro-esophageal reflux disease without esophagitis (principal); K44.9 Diaphragmatic hernia without obstruction or gangrene

== ENCOUNTER → 2020-03-03 | Outpatient (CLI) | payer MEDICARE ==
[~2020-03-03] MED LIST changes: -E-Z-GAS II EFFERVESCENT PACKET (SODIUM BICARB./CITRIC ACID/SIMETHICONE) As Ordered ONE; -E-Z-HD 98% w/w 340GM SUSP BTL As Ordered ONE; -E-Z-PAQUE 96% w/w SUSP 176GM BTL As Ordered ONE
[2020-03-03 18:35] LABS: INR 2.42; PROTHROMBIN TIME 26.9 SECONDS (12.5-14.3)
== END ==
LOC: M WUC 16:03
PROVIDERS: ATTEND Family Medicine
DX: Z51.81 Encounter for therapeutic drug level monitoring (principal); Z79.01 Long term (current) use of anticoagulants

== ENCOUNTER 2020-03-16 13:59 | Outpatient (RCR) | payer MEDICARE ==
[~2020-03-16 13:59] MED LIST changes: -BUTA-199 PO; +BUTATAB6 PO; -LISI10TA22 PO; +LISI10TA4 PO
== END 2020-03-29 ==
LOC: M ST 13:59
PROVIDERS: ATTEND Family Medicine
DX: Z51.89 Encounter for other specified aftercare (principal); T17.9 Foreign body in respiratory tract, part unspecified; X58.XXXD Exposure to other specified factors, subsequent encounter

== ENCOUNTER → 2020-03-16 | Outpatient (CLI) | payer MEDICARE ==
[~2020-03-16] MED LIST changes: +BUTA-199 PO; -BUTATAB6 PO; +GABA-282 PO; -GABA-843 PO; +LISI10TA22 PO; -LISI10TA4 PO
[2020-03-16 18:36] LABS: BASO # 0.1 10^3/uL (0.0-0.2); BASO % 0.7 % (0.0-1.0); EOS # 0.1 10^3/uL (0.0-0.5); EOS % 1.2 % (0.0-3.0); HEMATOCRIT 47.7 % (36.0-47.0); HEMOGLOBIN 14.6 g/dl (12.0-15.5); LYMPH # 0.8 10^3/uL (1.5-5.0); LYMPH % 7.7 % (24.0-44.0); MEAN CORPUSCULAR HEMOGLOBIN 30.5 pg (27.0-33.0); MEAN CORPUSCULAR HGB CONC 30.6 g/dl (32.0-36.5); MEAN CORPUSCULAR VOLUME 99.8 fl (80.0-96.0); MONO # 0.9 10^3/uL (0.0-0.8); MONO % 8.4 % (0.0-5.0); NEUTROPHILS # 8.5 10^3/uL (1.5-8.5); NEUTROPHILS % 78.3 % (36.0-66.0); PLATELET COUNT, AUTOMATED 297 10^3/uL (150-450); RED BLOOD COUNT 4.78 10^6/uL (4.00-5.40); WHITE BLOOD COUNT 10.9 10^3/uL (4.0-10.0)
[2020-03-16 19:03] LABS: ERYTHROCYTE SEDIMENTATION RATE 4 mm/hr (0-30)
== END ==
LOC: M PLALAB 15:25
PROVIDERS: ATTEND Orthopaedic Surgery
DX: Z96.651 Presence of right artificial knee joint (principal)

== ENCOUNTER → 2020-03-25 | Outpatient (CLI) | payer MEDICARE ==
[~2020-03-25] MED LIST changes: +BUTA-199 PO; -BUTATAB6 PO; +LISI10TA22 PO; -LISI10TA4 PO
--- NOTE | 2020-03-25 11:09 | REP ---
INDICATION: PAIN IN RASHI LEGS COMPARISON: None. TECHNIQUE: Bansal scale and color Doppler evaluation bilateral lower extremities using linear high frequency transducer. FINDINGS: Ultrasound examination of the right and left lower extremity deep venous structures from the common femoral vein to the popliteal vein demonstrates normal compressibility flow and wave patterns in response to respiration and augmentation. There is no evidence for deep venous thrombosis. IMPRESSION: No evidence for deep venous thrombosis. <Electronically signed by Linwood Valverde > 03/25/20 1101
== END ==
LOC: M RAD 10:12
PROVIDERS: ATTEND Orthopaedic Surgery
DX: M79.661 Pain in right lower leg (principal); M79.605 Pain in left leg

== ENCOUNTER → 2020-04-03 | Outpatient (CLI) | payer MEDICARE ==
--- NOTE | 2020-04-03 17:17 | REP ---
INDICATION: R13.14 PHARYNGOESOPHAGEAL DYSPHAGIA. COMPARISON: None. TECHNIQUE: The procedure was performed under the direct supervision of Dr. Mathis. The procedure was performed with Mesha Angela from speech pathology present. 5 cc aliquots of thin, nectar, mixed fruit, soft and solid consistency barium as well as a barium pill were administered. With thin and nectar consistency barium there is laryngeal penetration. The detailed report of this examination will be provided by speech pathology. 1.5 minutes of fluoroscopy time was utilized for this procedure. FINDINGS: None IMPRESSION: With thin and nectar consistency barium there is laryngeal penetration. The detailed report of this examination will be provided by speech pathology. <Electronically signed by Emmanuel Tubbs > 04/03/20 1627 <Electronically signed by Mark Mathis > 04/03/20 [id number]
== END ==
LOC: M ST 13:33
PROVIDERS: ATTEND Family Medicine
DX: R13.14 Dysphagia, pharyngoesophageal phase (principal)

== ENCOUNTER → 2020-04-12 | Outpatient (CLI) | payer MEDICARE ==
[2020-04-12 14:11] LABS: INR 1.73; PROTHROMBIN TIME 20.6 SECONDS (12.5-14.3)
[2020-04-12 14:21] LABS: HEMOGLOBIN A1c 6.7 %
[2020-04-12 14:40] LABS: BLOOD UREA NITROGEN 25 MG/DL (7-18); CARBON DIOXIDE LEVEL 31 MEQ/L (21-32); CHLORIDE LEVEL 106 MEQ/L (98-107); CHOLESTEROL LEVEL 176 MG/DL (<200); CHOLESTEROL RISK RATIO 2.172 (<5); CREATININE FOR GFR 0.88 MG/DL (0.55-1.30); GLOMERULAR FILTRATION RATE > 60.0 (>32); GLUCOSE, FASTING 99 MG/DL (70-100); HDL CHOLESTEROL 81 MG/DL (>40); LDL CHOLESTEROL 74 MG/DL (<100); NON-HDL-C 95 MG/DL; SODIUM LEVEL 143 MEQ/L (136-145); TRIGLYCERIDES LEVEL 106 MG/DL (<150)
== END ==
LOC: M LAB 13:38
PROVIDERS: ATTEND Family Medicine
DX: E78.2 Mixed hyperlipidemia (principal); R73.03 Prediabetes; I10 Essential (primary) hypertension; Z51.81 Encounter for therapeutic drug level monitoring

== ENCOUNTER → 2020-04-20 | Outpatient (CLI) | payer MEDICARE ==
[2020-04-20 17:32] LABS: INR 2.79; PROTHROMBIN TIME 30.1 SECONDS (12.5-14.3)
== END ==
LOC: M WUC 14:22
PROVIDERS: ATTEND Urology
DX: Z51.81 Encounter for therapeutic drug level monitoring (principal); Z79.899 Other long term (current) drug therapy

== ENCOUNTER → 2020-04-29 | Outpatient (CLI) | payer MEDICARE ==
--- NOTE | 2020-04-29 17:11 | REP ---
INDICATION: CLAUDICATION COMPARISON: None. TECHNIQUE: Real time bansal scale and Duplex Doppler evaluation of the bilateral lower extremity arterial vasculature using linear high frequency transducer. FINDINGS: Bansal scale and duplex doppler images demonstrate mild diffuse plaquing bilaterally. Diffuse biphasic waveforms are noted. No focal stenosis is seen there is no evidence of arterial occlusion bilaterally. NIKO bilaterally is 0.6. Peak systolic velocities (cm/sec) Common femoral artery: Right 122; Left 98 Profunda femoris: Right 107; Left 103 SFA (proximal): Right 165; Left 116 SFA (mid): Right 95; Left 93 SFA (distal): Right 103; Left 75 Popliteal artery: Right 85; Left 52 ELLE (prox.): Right 51; Left 61 Tibioperoneal trunk: Right 81; Left 59 [employer] (prox.): Right 48; Left 30 [employer]BER (distal): Right 31; Left 25 ELLE (distal): Right 37; Left 60 IMPRESSION: Atheromatous changes with areas of narrowing but no obvious focal occlusion or stenosis. <Electronically signed by Vel Bansal > 04/29/20 [id number]
== END ==
LOC: M RAD 12:57
PROVIDERS: ATTEND Physician Assistant
DX: I70.213 Atherosclerosis of native arteries of extremities with intermittent claudication, bilateral legs (principal)

== ENCOUNTER → 2020-04-30 | Outpatient (CLI) | payer MEDICARE ==
--- NOTE | 2020-04-30 15:13 | REP ---
INDICATION: DORSALGIA. COMPARISON: 12/27/2018. TECHNIQUE: Two views left hip. FINDINGS: There is no acute fracture or dislocation. There is mild joint space narrowing, subchondral sclerosis and spurring. The findings are stable. IMPRESSION: Stable mild degenerative changes left hip joint. <Electronically signed by Vel Bansal > 04/30/20 0024
--- NOTE | 2020-04-30 15:20 | REP ---
INDICATION: DORSALGIA. COMPARISON: 02/08/2010. TECHNIQUE: Three AP and lateral views. FINDINGS: There is no compression fracture. There is normal lumbar lordosis. There is mild to moderate diffuse spurring. Disc space narrowing is seen at all levels with subchondral sclerosis, relatively mild in degree. There is sclerosis and spurring at the posterior facet joints especially L5-S1. The posterior elements are intact. There is mild curvature toward the right. Significant diffuse atherosclerotic calcifications are seen of the abdominal aorta with no radiographic evidence of aneurysm. IMPRESSION: Diffuse degenerative changes with no compression fracture. <Electronically signed by Vel Bansal > 04/30/20 [id number]
== END ==
LOC: M WUC 14:49
PROVIDERS: ATTEND Physician Assistant
DX: M54.9 Dorsalgia, unspecified (principal)

== ENCOUNTER 2020-05-12 13:57 | Inpatient (IN) | payer MEDICARE ==
[~2020-05-12] VITALS: Ht 160 cm; Wt 84.0 kg
--- NOTE | 2020-05-12 15:40 | REP ---
INDICATION: altered mental status COMPARISON: 09/12/2018 TECHNIQUE: PA and lateral. FINDINGS: Mediastinum and cardiac silhouette are within normal limits and stable. Lung bass demonstrate chronic interstitial changes. Superimposed left lower lobe airspace disease cannot be excluded. No effusion. No pneumothorax. IMPRESSION: Chronic changes. Superimposed left lower lobe airspace disease cannot be excluded. <Electronically signed by Linwood Valverde > 05/12/20 [id number]
[2020-05-12 16:00] LABS: BASO # 0.1 10^3/uL (0.0-0.2); BASO % 0.6 % (0.0-1.0); EOS # 0.1 10^3/uL (0.0-0.5); HEMATOCRIT 44.2 % (36.0-47.0); HEMOGLOBIN 14.5 g/dl (12.0-15.5); LYMPH # 1.1 10^3/uL (1.5-5.0); LYMPH % 11.5 % (24.0-44.0); MEAN CORPUSCULAR HEMOGLOBIN 31.8 pg (27.0-33.0); MEAN CORPUSCULAR HGB CONC 32.8 g/dl (32.0-36.5); MEAN CORPUSCULAR VOLUME 96.9 fl (80.0-96.0); MONO # 0.8 10^3/uL (0.0-0.8); MONO % 7.8 % (2.0-8.0); NEUTROPHILS # 7.7 10^3/uL (1.5-8.5); NEUTROPHILS % 78.1 % (36.0-66.0); PLATELET COUNT, AUTOMATED 234 10^3/uL (150-450); RED BLOOD COUNT 4.56 10^6/uL (4.00-5.40); WHITE BLOOD COUNT 9.9 10^3/uL (4.0-10.0)
[2020-05-12 16:07] LABS: RSV AMPLIFICATION NEGATIVE (NEGATIVE)
[2020-05-12] MEDS ORDERED: AMIT-255 PO (16:15)
[2020-05-12] MEDS ORDERED: NYST1POW9 TOP (16:15)
[2020-05-12] MEDS ORDERED: XALA0.007 OU (16:15)
[2020-05-12] MEDS ORDERED: GABA-282 PO (16:15)
[2020-05-12] MEDS ORDERED: ERYT5OIN25 OS (16:15)
[2020-05-12] MEDS ORDERED: FAMO40TA3 PO (16:15)
[2020-05-12] MEDS ORDERED: LEVE750T5 PO (16:15)
[2020-05-12] MEDS ORDERED: OMEP40CA97 PO (16:15)
[2020-05-12] MEDS ORDERED: WARF-58 PO (16:15)
[2020-05-12] MEDS ORDERED: ACET1TAB16 PO (16:15)
[2020-05-12 16:16] LABS: INR 1.91; PROTHROMBIN TIME 22.3 SECONDS (12.5-14.3)
[2020-05-12 16:18] LABS: PARTIAL THROMBOPLASTIN TIME 45.2 SECONDS (24.2-38.5)
[2020-05-12 16:21] LABS: ACETAMINOPHEN LEVEL < 2.0 UG/ML (10.0-30.0); ALBUMIN 3.6 GM/DL (3.2-5.2); ALT/SGPT 23 U/L (12-78); BILIRUBIN,DIRECT 0.1 MG/DL (0.0-0.2); BILIRUBIN,TOTAL 0.4 MG/DL (0.2-1.0); BLOOD UREA NITROGEN 24 MG/DL (7-18); CALCIUM LEVEL 9.6 MG/DL (8.8-10.2); CARBON DIOXIDE LEVEL 29 MEQ/L (21-32); CHLORIDE LEVEL 100 MEQ/L (98-107); CK-MB VALUE MASS 1.8 NG/ML (<3.6); CPK CREATINE PHOSPHOKINASE 72 U/L (26-192); CREATININE FOR GFR 0.78 MG/DL (0.55-1.30); ETHYL ALCOHOL (ETHANOL) < 0.003 % (0.000-0.010); GLOMERULAR FILTRATION RATE > 60.0 (>32); GLUCOSE, FASTING 129 MG/DL (70-100); POTASSIUM SERUM 4.5 MEQ/L (3.5-5.1); SALICYLATE LEVEL < 1.7 MG/DL (5.0-30.0); SODIUM LEVEL 136 MEQ/L (136-145); TROPONIN I < 0.02 NG/ML (< 0.10)
--- NOTE | 2020-05-12 17:19 | REPVR ---
PROCEDURE INFORMATION: Exam: CT Head Without Contrast Exam date and time: 05/12/2020 4:56 PM Age: 79 years old Clinical indication: Altered mental status/memory loss TECHNIQUE: Imaging protocol: Computed tomography of the head without contrast. Radiation optimization: All CT scans at this facility use at least one of these dose optimization techniques: automated exposure control; mA and/or kV adjustment per patient size (includes targeted exams where dose is matched to clinical indication); or iterative reconstruction. COMPARISON: CT Head without contrast 07/31/2018 12:37 PM FINDINGS: Brain: Global cerebral atrophy is consistent with patient's age. Decreased attenuation within the white matter tracts of both cerebral hemispheres is nonspecific but typically seen with small vessel disease/chronic white matter ischemic changes of aging. No intracranial hemorrhage or mass effect. No abnormal intra-axial or extra-axial fluid collections. Cerebral ventricles: No ventriculomegaly. Bones/joints: Unremarkable. No acute fracture. Paranasal sinuses: Visualized sinuses are unremarkable. No fluid levels. Mastoid air cells: Visualized mastoid air cells are well aerated. Orbital cavity: Bilateral scleral stefany. Vasculature: Calcified plaque within the cavernous carotid arteries. Soft tissues: Unremarkable. IMPRESSION: No acute abnormality. Electronically signed by: Naseem Weldon On 05/12/2020 17:19:31 PM
[2020-05-12] MEDS ORDERED: NYSTATIN 100,000 UNITS/GM TOPICAL PWD 15 GM TOP PRN (17:55)
[2020-05-12] MEDS ORDERED: ALBUTEROL 90 MCG/ACT 8GM HFA INHALER INH PRN (17:55)
[2020-05-12] MEDS ORDERED: DOCUSATE SODIUM 100MG CAPSULE PO PRN (17:55)
[2020-05-12] MEDS ORDERED: LORATADINE 10 MG TAB PO PRN (17:55)
--- NOTE | 2020-05-12 18:22 | HPEPDOC ---
General Date of Admission 05/12/20 Date of Service: May 12, 2020 Chief Complaint The patient is a 79-year-old female admitted with a reason for visit of Alt Mental Status. Source: Patient Exam Limitations: No limitations Timing/Duration: Day(s) Severity: Mild History of Present Illness Patient is 79 years old female with past medical history of advanced COPD on the 2 L of oxygen at home, carotid stenosis bilaterally, Atrial fibrillation with PFO on Coumadin, hypertension, hyperlipidemia, urinary incontinence presented to the hospital with altered mental status. According to her patient has been confused for past 3 days, she answered questions inappropriately, she was disoriented intermittently. Patient did not have fever, chills, nausea, vomiting. Also patient did not have cough or sputum production. Her stated that patient 3 years ago had pneumonia and she developed this similar s ymptoms. In ER CT head was done and it was negative for stroke or acute bleeding, no leukocytosis, INR 1.9. UA shows pyuria. EKG shows atrial fibrillation. When I saw the patient she was oriented in place but not in time. Home Medications Scheduled Amitriptyline HCl (Amitriptyline HCl) 25 Mg Tablet, 25 MG PO BID, (Reported) Atorvastatin Calcium (Atorvastatin Calcium) 80 Mg Tablet, 80 MG PO QHS, (Reported) Bisoprolol Fumarate (Bisoprolol Fumarate) 10 Mg Tablet, 15 MG PO DAILY, (Reported) Calcium Carbonate/Vitamin D3 (Calcium 500-Vit D3 400 Tablet) 1 Each Tablet, 1 TAB PO DAILY, (Reported) Chlorthalidone (Chlorthalidone) 25 Mg Tablet, 12.5 MG PO DAILY, (Reported) Clotrimazole (Clotrimazole) 10 Mg [place], 10 MG MT QHS, (Reported) Digoxin (Digoxin) 125 Mcg Tablet, 125 MCG PO DAILY, (Reported) Erythromycin Base (Erythromycin) 1 Gm Oint...g., 1 DOSE OS BID, (Reported) Famotidine (Famotidine) 40 Mg Tablet, 20 MG PO BID, (Reported) Fluticasone/Vilanterol (Breo Ellipta 100-25 Mcg INH) 1 Each Blst.w.dev, 1 PUFF INH DAILY, (Reported) Gabapentin (Gabapentin) 300 Mg Capsule, 300 MG PO TID, (Reported) Latanoprost (Xalatan) 0.005% 2.5ML Drops, 1 DROP OU QHS, (Reported) Levetiracetam (Levetiracetam) 750 Mg Tablet, 750 MG PO BID, (Reported) Losartan Potassium (Losartan Potassium) 50 Mg Tablet, 25 MG PO QHS, (Reported) Magnesium Chloride (Magnesium Chloride) 64 Mg Tablet.dr, 64 MG PO BID, (Re ported) Omeprazole (Omeprazole) 40 Mg Capsule.dr, 40 MG PO QPM, (Reported) Spironolactone (Spironolactone) 25 Mg Tablet, 12.5 MG PO DAILY, (Reported) Umeclidinium [place] (Incruse Ellipta) 62.5 Mcg Blst.w.dev, 1 PUFF INH DAILY, (Reported) Warfarin Sodium (Warfarin Sodium) 3 Mg Tablet, 3 MG PO 6XWK, (Reported) SUN, MON, WED, THURS, FRI, SAT PM Scheduled PRN Acetaminophen with Codeine (Acetaminophen-Cod #3 Tablet) 1 Each Tablet, 1 TAB PO Q6H PRN for PAIN, (Reported) Albuterol Sulf (Albuterol Sulfate) 2.5 Mg/3 Ml Vial.neb, 2.5 MG INH QID PRN for SHORTNESS OF BREATH, (Reported) Albuterol Sulfate (Ventolin Hfa) 18 Gm Hfa.aer.ad, 2 PUFF INH Q4H PRN for SHORTNESS OF BREATH, (Reported) Butalb/Acetaminophen/Caffeine (Fioricet 50-300-40 mg Capsule) 1 Each Capsule, 1 CAP PO Q4H PRN for HEADACHE, (Reported) Diclofenac Sodium (Voltaren) 100 Gm Gel..gram., 1 DOSE TOP QID PRN for PAIN, (Reported) APPLY TO RIGHT KNEE Docusate Sodium (Colace) 100 Mg Capsule, 100 MG PO QHS PRN for CONSTIPATION, (Reported) Estradiol (Estrace) 42.5 Gm Cream.appl, 1 DOSE PV QHS PRN for DISCOMFORT, (Reported) Fluticasone Propionate (Flonase Allergy Relief) 9.9 Ml [place].susp, 2 SPRAY NARES DAILY PRN for CONGESTION, (Reported) Guaifenesin (Mucinex) 600 Mg Tab.er.12h, 600 MG PO BID PRN for CONGESTION, (Reported) Loratadine (Loratadine) 10 Mg Tablet, 10 MG PO DAILY PRN for ALLERGIES, (Reported) Nystatin (Nystatin Powder) 15 Gm Powder, 1 DOSE TOP BID PRN for REDNESS/IRRITATION, (Reported) APPLY TO GROIN Sodium Chloride (Saline Nasal [place]) 44 Ml [place], 1-2 SPRAY NARES Q2H PRN for NASAL DRYNESS, (Reported) Allergies Coded Allergies: Penicillins (Verified Allergy, Severe, tounge swells and rash, 10/05/18) Past Medical History Medical History ATRIAL FIBRILLATION - DR. REDDY PFO - DR. REDDY CHRONIC BRONCHITIS/COPD - JIN CHRONIC RESPIRATORY FAILURE: OXYGEN DEPENDENT 2LNC HYPERTENSION HYPERLIPIDEMIA - ASVCD 10-YEAR RISK 24.9% IN 01/2017, ON ATORVASTATIN 80MG TENSION HEADACHES OSTEOARTHRITIS IN LEFT KNEE AND BACK GERD - UGI 09/10 SMALL HH DEPRESSION/ANXIETY - DR. GARCIA BBILATERAL CAROTID STENOSIS - CAROTID U/S DONE 05/10 [facility] 15-49% ICAS, NO HEMODYNAMICALLY SIGNIFICANT STENOSIS SIALOADENITIS - HAS SEEN ENT IN THE PAST DEXA 01/2016 - OSTEOPENIA LIPOMA LEFT BREAST 08/11- MANZANO- F/U MAMMO 01/11. PERSONAL HISTORY OF COLONIC POLYPS STATUS POST TOTAL RIGHT KNEE REPLACEMENT Surgical History LIPOMA EXCISIONS (MINERT) 1960S HYSTERECTOMY 1978 COLONOSCOPY WITH POLYPECTOMY (FLORES) 1986 L SHOULDER (WITHINGTON) 2003 L M[place] NEUROMA EXCISION (MAJAK) 2007 CATARACT BILATERAL EYES 11/09 COLONSCOPY (REINDL) 2012 REPEAT COLONOSCOPY (PIECEMEAL REMOVAL OF LESION DURING THE PREVIOUS ONE) - REINDL, REMOVAL OF POLYPS-TUBALVILLOUS Family History FATHER: 87 YRS, OF CVA AND THEN PNEUMONIA; WAS ALSO KNOWN TO HAVE HTN MOTHER: 82 YRS, OF HEMORRHAGIC CVA; WAS ALSO KNOWN TO HAVE HTN SIBLINGS: BROTHERS (2) - 1 OF BLOOD POISONING, 1 OF CIRRHOSIS AND LUNG CA SISTER (3) - 1 WITH ASTHMA, OA, HTN AND DM; 1 WITH SUSPECTED DAUGHTER(S): ALIVE 62 YRS, HTN, LIPIDS, MIGRAINES 1DAUGHTER(S) . DENIES FAMILY HX OF MM OR PANCREATIC CA FATHER HAD SKIN CANCER. Social History * Smoker: Denies Alcohol: Denies Drugs: denies A-FIB/CHADSVASC A-FIB History Current/History of A-Fib/PAF?: Yes Current PO Anticoag Therapy: Yes Review of Systems Constitutional: Denies: Chills, Fever Eyes: Denies: Pain Skin: Denies: Rash, Lesions Pulmonary: Denies: Dyspnea Cardiovascular: Denies: Chest Pain Gastrointestinal: Denies: Nausea, Vomiting Genitourinary: Reports: Dysuria, Frequency Hematologic: Denies: Bruising Endocrine: Denies: Polydipsia Musculoskeletal: Denies: Neck Pain, Back Pain Neurological: Reports: Confusion; Denies: Weakness Psych: Reports: Anxiety Physical Examination General Exam: Positive: Cooperative, No Acute Distress Eye Exam: Positive: PERRLA ENT Exam: Positive: Atraumatic Neck Exam: Positive: Supple; Negative: JVD Chest Exam: Positive: Clear to auscultation Heart Exam: Positive: Rate Normal Telemetry: Positive: No significant arrhythmia Abdomen Exam: Positive: Normal bowel sounds Extremity Exam: Negative: Clubbing Skin Exam: Positive: Nl turgor and temperature Neuro Exam: Positive: Strength at 5/5 X4 ext, Cranial Nerves 3-12 NL Psych Exam: Negative: Oriented x 3 (oriented in place, not in time) Vital Signs Vital Signs Date Time Temp Pulse Resp B/P (MAP) Pulse Ox O2 Delivery O2 Flow Rate FiO2 05/12/20 15:25 98.4 05/12/20 14:14 111 24 93 Room Air 05/12/20 14:00 184/83 (116) Laboratory Data Labs 24H Laboratory Tests 2 05/12/20 14:21: Immature Granulocyte % (Auto) 1.0, Neutrophils (%) (Auto) 78.1H, Lymphocytes (%) (Auto) 11.5L, Monocytes (%) (Auto) 7.8, Eosinophils (%) (Auto) 1.0, Basophils (%) (Auto) 0.6, Neutrophils # (Auto) 7.7, Lymphocytes # (Auto) 1.1L, Monocytes # (Auto) 0.8, Eosinophils # (Auto) 0.1, Basophils # (Auto) 0.1, Nucleated Red Blood Cells % (auto) 0.0, Anion Gap 7L, Glomerular Filtration Rate > 60.0, Calcium Level 9.6, Total Bilirubin 0.4, Direct Bilirubin 0.1, Aspartate Amino Transf (AST/SGOT) 19, Alanine Aminotransferase (ALT/SGPT) 23, Alkaline Phosphatase 81, Total Creatine Kinase 72, Creatine Kinase MB 1.8, Creatine Kinase MB Relative Index 2.50, Troponin I < 0.02, Total Protein 7.0, Albumin 3.6, Albumin/Globulin Ratio 1.1L, Thyroid Stimulating Hormone (TSH) 1.830, Salicylates Level < 1.7L, Acetaminophen Level < 2.0L, Ethyl Alcohol Level < 0.003 05/12/20 14:41: Ammonia 11 05/12/20 14:54: Prothrombin Time 22.3H, Prothromb Time International Ratio 1.91, Activated Partial Thromboplast Time 45.2H 05/12/20 15:08: Urine Color YELLOW, Urine Appearance CLEAR, Urine pH 5.0, Urine Specific [place] 1.017, Urine Protein 2+H, Urine Glucose (UA) NEGATIVE, Urine Ketones NEGATIVE, Urine Blood NEGATIVE, Urine Nitrite NEGATIVE, Urine Bilirubin NEGATIVE, Urine Urobilinogen 0.2, Urine Leukocyte Esterase TRACEH, Urine WBC (Auto) 18H, Urine RBC (Auto) 0, Urine Hyaline Casts (Auto) 0, Urine Bacteria (Auto) NEGATIVE, Urine Squamous Epithelial Cells 1, Urine Sperm (Auto) , Coronavirus (COVID- 19)(PCR) NEGATIVE, Influenza Type A (RT-PCR) NEGATIVE, Influenza Type B (RT-PCR) NEGATIVE, Respiratory Syncytial Virus (PCR) NEGATIVE CBC/BMP Laboratory Tests 05/12/20 14:21 Microbiology Microbiology 05/12/20 Urine Culture, Received Pending 05/12/20 Blood Culture, Received Pending Assessment/Plan Patient is 79 years old female with past medical history of advanced COPD on the 2 L of oxygen at home, carotid stenosis bilaterally, Atrial fibrillation with PF O on Coumadin, hypertension, hyperlipidemia, urinary incontinence presented to the hospital with altered mental status. According to her patient has been confused for past 3 days, she answered questions inappropriately, she was disoriented intermittently. Patient did not have fever, chills, nausea, vomiting. Also patient did not have cough or sputum production. Her stated that patient 3 years ago had pneumonia and she developed this similar symptoms. In ER CT head was done and it was negative for stroke or acute bleeding, no leukocytosis, INR 1.9. UA shows pyuria. EKG shows atrial fibrillation. When I saw the patient she was oriented in place but not in time. Problems (1) Altered mental status Status: Acute Problem Text: Metabolic encephalopathy. Multifactorial. Differential diagnosis includes CVA, given history of bilateral carotid stenosis and atrial fibrillation with PFO, polypharmacy and UTI Gabapentin, famotidin on hold Patient does not have any neurological focal deficiency Brain MRA, MRI Telemetry Neuro check every 4 hours (2) COPD (chronic obstructive pulmonary disease) Status: Chronic Problem Text: Not in acute exacerbation CPAP overnight Continue inhalers (3) UTI (urinary tract infection) Status: Acute Problem Text: Patient has a chronic urinary incontinence Urinalysis showed pyuria Ceftriaxone IV (4) GERD (gastroesophageal reflux disease) Status: Chronic Problem Text: Continue omeprazole by mouth (5) Hyperlipidemia Status: Chronic Problem Text: Continue statin (6) Essential hypertension Status: Chronic Problem Text: Continue home cardioprotective medications (7) HARLEY on CPAP Status: Chronic Problem Text: CPAP daily at bedtime (8) Depression Status: Chronic Problem Text: Continue home meds Plan / VTE VTE Prophylaxis Ordered?: Yes AGGIE EL DO May 12, 2020 18:22
--- NOTE | 2020-05-12 19:55 | ECGEPIP ---
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
[2020-05-12] MEDS: SYMBICORT 160/4.5MCG INHALER 6GM INH SCH (20:00)
[2020-05-12] MEDS: LOSARTAN 25 MG TAB PO SCH (20:42)
[2020-05-12] MEDS: levETIRAcetam 250MG TABLET (KEPPRA) PO SCH (20:42)
[2020-05-12] MEDS: ATORVASTATIN 20 MG TAB PO SCH (20:43)
[2020-05-12] MEDS: CLOTRIMAZOLE 10 MG TROCHE MT SCH (20:46)
[2020-05-12] MEDS: MAGNESIUM GLUCONATE 500 MG TAB PO SCH (20:46)
[2020-05-12] MEDS: WARFARIN SOD 3MG TAB PO SCH (20:46)
[2020-05-12] MEDS: AMITRIPTYLINE 25MG TABLET PO SCH (20:46)
[2020-05-12 22:00] VITALS: BP 148/70
[2020-05-12] MEDS: OMEPRAZOLE 20 MG CAP PO SCH (22:00)
[2020-05-13] VITALS (14 sets, daily range): BP systolic 116–151; BP diastolic 58–85; O2SAT 91–99
[2020-05-13] MEDS: ALBUTEROL SULFATE 2.5 MG/0.5 ML INH NEB SOLN INH PRN ×4 (00:23→14:44)
[2020-05-13] MEDS ORDERED: hydrOXYzine 25 MG TAB PO PRN (05:05)
[2020-05-13] MEDS: ACETAMINOPHEN TAB 650MG DOSE (2X325MG) PO PRN (05:43)
[2020-05-13 06:04] LABS: HEMATOCRIT 40.9 % (36.0-47.0); HEMOGLOBIN 13.6 g/dl (12.0-15.5); MEAN CORPUSCULAR HEMOGLOBIN 31.9 pg (27.0-33.0); MEAN CORPUSCULAR HGB CONC 33.3 g/dl (32.0-36.5); MEAN CORPUSCULAR VOLUME 95.8 fl (80.0-96.0); PLATELET COUNT, AUTOMATED 225 10^3/uL (150-450); RED BLOOD COUNT 4.27 10^6/uL (4.00-5.40); WHITE BLOOD COUNT 8.1 10^3/uL (4.0-10.0)
[2020-05-13 06:33] LABS: ALT/SGPT 18 U/L (12-78); BILIRUBIN,TOTAL 0.7 MG/DL (0.2-1.0); BLOOD UREA NITROGEN 20 MG/DL (7-18); CALCIUM LEVEL 8.7 MG/DL (8.8-10.2); CARBON DIOXIDE LEVEL 27 MEQ/L (21-32); CHLORIDE LEVEL 99 MEQ/L (98-107); CREATININE FOR GFR 0.57 MG/DL (0.55-1.30); GLOMERULAR FILTRATION RATE > 60.0 (>32); GLUCOSE, FASTING 114 MG/DL (70-100); MAGNESIUM LEVEL 1.6 MG/DL (1.8-2.4); SODIUM LEVEL 133 MEQ/L (136-145); TOTAL PROTEIN 7.1 GM/DL (6.4-8.2)
[2020-05-13] MEDS: SYMBICORT 160/4.5MCG INHALER 6GM INH SCH ×2 (07:24→20:20)
[2020-05-13] MEDS ORDERED: ENOXAPARIN 40MG/0.4ML SYRINGE (J1650 PER 10MG) SC SCH (09:00)
[2020-05-13] MEDS: DIGOXIN 0.125 MG TAB PO SCH (09:02)
[2020-05-13] MEDS: levETIRAcetam 250MG TABLET (KEPPRA) PO SCH ×2 (09:02→20:46)
[2020-05-13] MEDS: bisoproloL fumarate 5 MG TAB PO SCH (09:03)
[2020-05-13] MEDS: SPIRONOLACTONE 12.5MG PER 1/2 TABLET PO SCH (09:03)
[2020-05-13] MEDS ORDERED: cefTRIAXone SOD 1 GM in D5W MINI-BAG PLUS 50 ML IV SCH (10:35)
[2020-05-13] MEDS ORDERED: METOPROLOL 5 MG/5 ML VIAL IV PRN (10:35)
[2020-05-13] MEDS: AMITRIPTYLINE 25MG TABLET PO SCH ×2 (10:54→20:46)
[2020-05-13] MEDS: MAGNESIUM GLUCONATE 500 MG TAB PO SCH ×2 (10:55→20:47)
[2020-05-13] MEDS: CHLORTHALIDONE 12.5MG PER 1/2 TABLET PO SCH (10:55)
[2020-05-13] MEDS ORDERED: CIPROFLOXACIN 250MG TAB PO ONE (11:00)
[2020-05-13 11:28] LABS: INR 2.48; PROTHROMBIN TIME 27.4 SECONDS (12.5-14.3)
[2020-05-13] MEDS ORDERED: CALCIUM CARBONATE 500 MG CHEW U/D PO PRN (11:50)
[2020-05-13] MEDS ORDERED: CALCIUM CARBONATE 500 MG CHEW U/D PO ONE (11:50)
[2020-05-13] MEDS ORDERED: amLODIPine 5 MG TAB PO ONE (12:10)
--- NOTE | 2020-05-13 12:12 | IPNPDOC ---
Text Note Date of Service The patient was seen on 05/13/20. NOTE Subjective: Patient refused brain MRI and MRA, she complains of claustrophobia. Today patient more awake, alert, she oriented to place. It took her 2-3 Minutes to answer what year it is. Objective: GENERAL APPEARANCE: NAD HEENT: no scleral icterus, no JVD, EOMI CARDIOVASCULAR: Irregularly irregular LUNGS: CTA ABDOMEN: soft & not tender w palpitation MUSCULOSKELETAL: no cyanosis, no swelling INTEGUMENT: no generalized pallor NEUROLOGICAL: cranial nerve function from 2-12 intact intact, follows commands, speech not dysarthric Assessment/Plan Patient is 79 years old female with past medical history of advanced COPD on the 2 L of oxygen at home, carotid stenosis bilaterally, Atrial fibrillation with PFO on Coumadin, hypertension, hyperlipidemia, urinary incontinence presented to the hospital with altered mental status. According to her patient has been confused for past 3 days, she answered questions inappropriately, she was disoriented intermittently. Patient did not have fever, chills, nausea, vomiting. Also patient did not have cough or sputum production. Her stated that patient 3 years ago had pneumonia and she developed this similar symptoms. In ER CT head was done and it was negative for stroke or acute bleeding, no leukocytosis, INR 1.9. UA shows pyuria. EKG shows atrial fibrillation. When I saw the patient she was oriented in place but not in time. Problems (1) Altered mental status Metabolic encephalopathy. Multifactorial. Differential diagnosis includes CVA, given history of bilateral carotid stenosis and atrial fibrillation with PFO, polypharmacy and UTI Gabapentin, famotidin on hold Patient does not have any neurological focal deficiency Today patient doing better, she is more alert and oriented Patient refused Brain MRA, MRI due to claustrophobia I talked to Dr. West he recommended repeat CT head Telemetry Neuro check every 4 hours (2) COPD (chronic obstructive pulmonary disease) Not in acute exacerbation CPAP overnight Continue inhalers (3) UTI (urinary tract infection) Patient has a chronic urinary incontinence Urinalysis showed pyuria Ciprofloxacin by mouth (4) GERD (gastroesophageal reflux disease) Continue omeprazole by mouth (5) Hyperlipidemia Continue statin (6) Essential hypertension Continue home cardioprotective medications I added Norvasc 5 mg for better control (7) HARLEY on CPAP CPAP daily at bedtime (8) Depression Continue home meds VS,Fishbone, I+O VS, Fishbone, I+O Laboratory Tests 05/12/20 14:21 05/13/20 05:34 Vital Signs Date Time Temp Pulse Resp B/P (MAP) Pulse Ox O2 Delivery O2 Flow Rate FiO2 05/13/20 09:03 101 151/78 05/13/20 09:00 2.0 05/13/20 08:00 98.1 18 97 Nasal Cannula I&O- Last 24 Hours up to 6 AM 05/13/20 06:00 Intake Total 0 ml Balance 0 ml AGGIE EL DO May 13, 2020 12:12
--- NOTE | 2020-05-13 13:38 | REPVR ---
PROCEDURE INFORMATION: Exam: CT Head Without Contrast Exam date and time: 05/13/2020 1:27 PM Age: 79 years old Clinical indication: Other: TIA; Additional info: TIA , CVA TECHNIQUE: Imaging protocol: Computed tomography of the head without contrast. Radiation optimization: All CT scans at this facility use at least one of these dose optimization techniques: automated exposure control; mA and/or kV adjustment per patient size (includes targeted exams where dose is matched to clinical indication); or iterative reconstruction. COMPARISON: CT Head without contrast 05/12/2020 4:55 PM FINDINGS: Brain: There is no acute intracranial hemorrhage or mass effect. Mild diffuse volume loss is within the range of normal for patient age. There are small vessel ischemic changes within the periventricular and subcortical white matter, but the normal mauricio/white matter delineation is maintained. Cerebral ventricles: No ventriculomegaly. Bones/joints: Unremarkable. No acute fracture. Paranasal sinuses: Visualized sinuses are unremarkable. No fluid levels. Mastoid air cells: Visualized mastoid air cells are well aerated. Soft tissues: Unremarkable. IMPRESSION: No acute hemorrhage or edema. Electronically signed by: Shivani Garcia On 05/13/2020 13:37:48 PM
[2020-05-13] MEDS: OMEPRAZOLE 20 MG CAP PO SCH (17:23)
[2020-05-13] MEDS: WARFARIN SOD 3MG TAB PO SCH (17:24)
[2020-05-13] MEDS: CIPROFLOXACIN 250MG TAB PO SCH (17:24)
[2020-05-13] MEDS: ATORVASTATIN 20 MG TAB PO SCH (20:45)
[2020-05-13] MEDS: LOSARTAN 25 MG TAB PO SCH (20:46)
[2020-05-13] MEDS: CLOTRIMAZOLE 10 MG TROCHE MT SCH (20:46)
[2020-05-13] MEDS ORDERED: RAMELTEON 8 MG TAB (ROZEREM) PO PRN (21:00)
--- NOTE | 2020-05-13 22:05 | ECGEPIP ---
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 Decreased heart rate compared with 05/12/2020. Electronically Signed on 05-13-2020 22:05:00 EDT by Ernie Aponte
[2020-05-14] VITALS: BP 112/60
[2020-05-14 04:00] VITALS: BP 128/60
[2020-05-14] MEDS: ACETAMINOPHEN TAB 650MG DOSE (2X325MG) PO PRN (04:56)
[2020-05-14 06:00] VITALS: BP 126/62
[2020-05-14] MEDS ORDERED: CIPROFLOXACIN 250MG TAB PO SCH (06:00)
[2020-05-14 06:06] LABS: BASO # 0.1 10^3/uL (0.0-0.2); BASO % 0.9 % (0.0-1.0); EOS # 0.1 10^3/uL (0.0-0.5); EOS % 1.8 % (0.0-3.0); HEMOGLOBIN 13.2 g/dl (12.0-15.5); LYMPH % 14.6 % (24.0-44.0); MEAN CORPUSCULAR HEMOGLOBIN 31.1 pg (27.0-33.0); MEAN CORPUSCULAR VOLUME 94.1 fl (80.0-96.0); MONO # 0.6 10^3/uL (0.0-0.8); MONO % 8.2 % (2.0-8.0); NEUTROPHILS % 73.5 % (36.0-66.0); PLATELET COUNT, AUTOMATED 228 10^3/uL (150-450); RED BLOOD COUNT 4.25 10^6/uL (4.00-5.40); WHITE BLOOD COUNT 6.7 10^3/uL (4.0-10.0)
[2020-05-14 06:23] LABS: ALBUMIN 3.1 GM/DL (3.2-5.2); ALT/SGPT 23 U/L (12-78); BILIRUBIN,TOTAL 0.6 MG/DL (0.2-1.0); BLOOD UREA NITROGEN 21 MG/DL (7-18); CALCIUM LEVEL 8.6 MG/DL (8.8-10.2); CARBON DIOXIDE LEVEL 30 MEQ/L (21-32); CHLORIDE LEVEL 98 MEQ/L (98-107); CREATININE FOR GFR 0.62 MG/DL (0.55-1.30); GLOMERULAR FILTRATION RATE > 60.0 (>32); GLUCOSE, FASTING 102 MG/DL (70-100); MAGNESIUM LEVEL 1.5 MG/DL (1.8-2.4); POTASSIUM SERUM 3.8 MEQ/L (3.5-5.1); SODIUM LEVEL 136 MEQ/L (136-145); TOTAL PROTEIN 6.1 GM/DL (6.4-8.2)
[2020-05-14] MEDS: CIPROFLOXACIN 250MG TAB PO SCH (06:33)
[2020-05-14] MEDS: SYMBICORT 160/4.5MCG INHALER 6GM INH SCH (08:16)
[2020-05-14] MEDS ORDERED: amLODIPine 5 MG TAB PO SCH (09:00)
[2020-05-14 09:16] LABS: NT-PRO BNP 854 PG/ML (<450)
[2020-05-14] MEDS: SPIRONOLACTONE 12.5MG PER 1/2 TABLET PO SCH (09:23)
[2020-05-14] MEDS: AMITRIPTYLINE 25MG TABLET PO SCH (09:23)
[2020-05-14] MEDS: levETIRAcetam 250MG TABLET (KEPPRA) PO SCH (09:23)
[2020-05-14 09:25] VITALS: BP 130/60
[2020-05-14] MEDS: bisoproloL fumarate 5 MG TAB PO SCH (09:25)
[2020-05-14] MEDS: DIGOXIN 0.125 MG TAB PO SCH (09:26)
--- NOTE | 2020-05-14 10:10 | REP ---
INDICATION: swelling and pain COMPARISON: None. TECHNIQUE: Bansal scale and color Doppler evaluation using linear high frequency transducer. FINDINGS: Ultrasound examination of the right lower extremity deep venous structures from the common femoral vein to the popliteal vein demonstrates normal compressibility flow and wave patterns in response to respiration and augmentation. There is no evidence for deep venous thrombosis. 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 IMPRESSION: No evidence for deep venous thrombosis. <Electronically signed by Linwood Valverde > 05/14/20 1001
[2020-05-14] MEDS ORDERED: OMEP40CA97 PO (10:17)
[2020-05-14] MEDS ORDERED: GABA-282 PO (10:17)
[2020-05-14] MEDS ORDERED: LASI40TA9 PO (10:17)
[2020-05-14] MEDS: CHLORTHALIDONE 12.5MG PER 1/2 TABLET PO SCH (10:29)
[2020-05-14] MEDS: MAGNESIUM GLUCONATE 500 MG TAB PO SCH (10:29)
[2020-05-14 12:12] LABS: INR 2.97; PROTHROMBIN TIME 31.6 SECONDS (12.5-14.3)
[2020-05-14] MEDS ORDERED: CIPR250T3 PO (12:56)
--- NOTE | 2020-05-14 19:33 | DS.PDOC ---
Discharge Summary General Date of Admission May 12, 2020 at 19:30 Date of Discharge 05/14/20 Discharge Summary PROCEDURES PERFORMED DURING STAY: [None]. ADMITTING DIAGNOSES: Altered mental status/Metabolic encephalopathy COPD (chronic obstructive pulmonary disease) UTI (urinary tract infection) GERD (gastroesophageal reflux disease) Hyperlipidemia Essential hypertension HARLEY on CPAP Depression DISCHARGE DIAGNOSES: Altered mental status/Metabolic encephalopathy COPD (chronic obstructive pulmonary disease) UTI (urinary tract infection) GERD (gastroesophageal reflux disease) Hyperlipidemia Essential hypertension HARLEY on CPAP Depression COMPLICATIONS/CHIEF COMPLAINT: Encephalopathy. HISTORY OF PRESENT ILLNESS:Patient is 79 years old female with past medical history of advanced COPD on the 2 L of oxygen at home, carotid stenosis bilaterally, Atrial fibrillation with PFO on Coumadin, hypertension, hyperlipidemia, urinary incontinence presented to the hospital with altered mental status. According to her patient has been confused for past 3 days, she answered questions inappropriately, she was disoriented intermittently. Patient did not have fever, chills, nausea, vomiting. Also patient did not have cough or sputum production. Her stated that patient 3 years ago had pneumonia and she developed this similar symptoms. In ER CT head was done and it was negative for stroke or acute bleeding, no leukocytosis, INR 1.9. UA shows pyuria. EKG shows atrial fibrillation. When I saw the patient she was oriented in place but not in time. HOSPITAL COURSE: During the hospital stay with following issue addressed (1) Altered mental status Metabolic encephalopathy. Multifactorial. Differential diagnosis includes CVA, given history of bilateral carotid stenosis and atrial fibrillation with PFO, polypharmacy and UTI Gabapentin, famotidin on hold Patient does not have any neurological focal deficiency Today patient doing better, metabolic encephalopathy resolved Patient refused Brain MRA, MRI due to claustrophobia I talked to Dr. West he recommended repeat CT head. Repeated CT negative (2) COPD (chronic obstructive pulmonary disease) Not in acute exacerbation CPAP overnight Continue inhalers (3) UTI (urinary tract infection) Patient has a chronic urinary incontinence Urinalysis showed pyuria Ciprofloxacin by mouth (4) GERD (gastroesophageal reflux disease) Continue omeprazole by mouth (5) Hyperlipidemia Continue statin (6) Essential hypertension Continue home cardioprotective medications I added Norvasc 5 mg for better control DISCHARGE MEDICATIONS: Please see below. ALLERGIES: Please see below. PHYSICAL EXAMINATION ON DISCHARGE: VITAL SIGNS: Please see below. GENERAL APPEARANCE: NAD HEENT: no scleral icterus, no JVD, EOMI CARDIOVASCULAR: Irregularly irregular LUNGS: CTA ABDOMEN: soft & not tender w palpitation MUSCULOSKELETAL: no cyanosis, no swelling INTEGUMENT: no generalized pallor NEUROLOGICAL: cranial nerve function from 2-12 intact intact, follows commands, speech not dysarthric LABORATORY DATA: Please see below. IMAGING: See above PROGNOSIS: Fair ACTIVITY: [As tolerated]. DIET: Cardiac DISPOSITION: Home, Self-Care. ITEMS TO FOLLOWUP ON ON OUTPATIENT: Follow-up with PCP in 3-5 days DISCHARGE CONDITION: [Stable]. TIME SPENT ON DISCHARGE: 30minutes. Vital Signs/I&Os Vital Signs Date Time Temp Pulse Resp B/P (MAP) Pulse Ox O2 Delivery O2 Flow Rate FiO2 05/14/20 09:26 79 05/14/20 09:25 130/60 05/14/20 06:00 98.0 18 96 Nasal Cannula 2.0 I&O- Last 24 Hours up to 6 AM 05/14/20 05:59 Intake Total 1330 ml Output Total 800 ml Balance 530 ml Laboratory Data Labs 24H Laboratory Tests 2 05/14/20 05:37: Immature Granulocyte % (Auto) 1.0, Neutrophils (%) (Auto) 73.5H, Lymphocytes (%) (Auto) 14.6L, Monocytes (%) (Auto) 8.2H, Eosinophils (%) (Auto) 1.8, Basophils (%) (Auto) 0.9, Neutrophils # (Auto) 5.0, Lymphocytes # (Auto) 1.0L, Monocytes # (Auto) 0.6, Eosinophils # (Auto) 0.1, Basophils # (Auto) 0.1, Nucleated Red Blood Cells % (auto) 0.0, Anion Gap 8, Glomerular Filtration Rate > 60.0, Calcium Level 8.6L, Magnesium Level 1.5L, Total Bilirubin 0.6, Aspartate Amino Transf (AST/SGOT) 21, Alanine Aminotransferase (ALT/SGPT) 23, Alkaline Phosphatase 68, NI-Agp-V-Type Natriuretic Peptide 854H, Total Protein 6.1L, Albumin 3.1L, Albumin/Globulin Ratio 1.0L 05/14/20 11:47: Prothrombin Time 31.6H, Prothromb Time International Ratio 2.97 CBC/BMP Laboratory Tests 05/14/20 05:37 Microbiology Microbiology 05/12/20 Blood Culture - Preliminary, Resulted No growth after 24 hours . All specim... 05/12/20 Urine Culture - Final, Complete 05/12/20 Blood Culture - Preliminary, Resulted No Growth after 48 hours. All Specime... Discharge Medications Scheduled Amitriptyline HCl (Amitriptyline HCl) 25 Mg Tablet, 25 MG PO BID, (Reported) Atorvastatin Calcium (Atorvastatin Calcium) 80 Mg Tablet, 80 MG PO QHS, (Reported) Bisoprolol Fumarate (Bisoprolol Fumarate) 10 Mg Tablet, 15 MG PO DAILY, (Reported) Calcium Carbonate/Vitamin D3 (Calcium 500-Vit D3 400 Tablet) 1 Each Tablet, 1 TAB PO DAILY, (Reported) Chlorthalidone (Chlorthalidone) 25 Mg Tablet, 12.5 MG PO DAILY, (Reported) Ciprofloxacin HCl (Ciprofloxacin HCl) 250 Mg Tablet, 1 TAB PO BID Clotrimazole (Clotrimazole) 10 Mg [place], 10 MG MT QHS, (Reported) Digoxin (Digoxin) 125 Mcg Tablet, 125 MCG PO DAILY, (Reported) Erythromycin Base (Erythromycin) 1 Gm Oint...g., 1 DOSE OS BID, (Reported) Fluticasone/Vilanterol (Breo Ellipta 100-25 Mcg INH) 1 Each Blst.w.dev, 1 PUFF INH DAILY, (Reported) Furosemide (Lasix) 40 Mg Tablet, 1 TAB PO DAILY Gabapentin (Gabapentin) 300 Mg Capsule, 300 MG PO DAILY Latanoprost (Xalatan) 0.005% 2.5ML Drops, 1 DROP OU QHS, (Reported) Levetiracetam (Levetiracetam) 750 Mg Tablet, 750 MG PO BID, (Reported) Losartan Potassium (Losartan Potassium) 50 Mg Tablet, 25 MG PO QHS, (Reported) Magnesium Chloride (Magnesium Chloride) 64 Mg Tablet.dr, 64 MG PO BID, (Reported) Omeprazole (Omeprazole) 40 Mg Capsule.dr, 40 MG PO BID Spironolactone (Spironolactone) 25 Mg Tablet, 12.5 MG PO DAILY, (Reported) Umeclidinium [place] (Incruse Ellipta) 62.5 Mcg Blst.w.dev, 1 PUFF INH DAILY, (Reported) Warfarin Sodium (Warfarin Sodium) 3 Mg Tablet, 3 MG PO 6XWK, (Reported) SUN, MON, WED, THURS, FRI, SAT PM Scheduled PRN Acetaminophen with Codeine (Acetaminophen-Cod #3 Tablet) 1 Each Tablet, 1 TAB PO Q6H PRN for PAIN, (Reported) Albuterol Sulf (Albuterol Sulfate) 2.5 Mg/3 Ml Vial.neb, 2.5 MG INH QID PRN for SHORTNESS OF BREATH, (Reported) Albuterol Sulfate (Ventolin Hfa) 18 Gm Hfa.aer.ad, 2 PUFF INH Q4H PRN for SHORTNESS OF BREATH, (Reported) Butalb/Acetaminophen/Caffeine (Fioricet 50-300-40 mg Capsule) 1 Each Capsule, 1 CAP PO Q4H PRN for HEADACHE, (Reported) Diclofenac Sodium (Voltaren) 100 Gm Gel..gram., 1 DOSE TOP QID PRN for PAIN, (Reported) APPLY TO RIGHT KNEE Docusate Sodium (Colace) 100 Mg Capsule, 100 MG PO QHS PRN for CONSTIPATION, (Reported) Estradiol (Estrace) 42.5 Gm Cream.appl, 1 DOSE PV QHS PRN for DISCOMFORT, (Reported) Fluticasone Propionate (Flonase Allergy Relief) 9.9 Ml [place].susp, 2 SPRAY NARES DAILY PRN for CONGESTION, (Reported) Guaifenesin (Mucinex) 600 Mg Tab.er.12h, 600 MG PO BID PRN for CONGESTION, (Reported) Loratadine (Loratadine) 10 Mg Tablet, 10 MG PO DAILY PRN for ALLERGIES, (Reported) Nystatin (Nystatin Powder) 15 Gm Powder, 1 DOSE TOP BID PRN for REDNESS/IRRITATION, (Reported) APPLY TO GROIN Sodium Chloride (Saline Nasal [place]) 44 Ml [place], 1-2 SPRAY NARES Q2H PRN for NASAL DRYNESS, (Reported) Allergies Coded Allergies: Penicillins (Verified Allergy, Severe, tongue swells and rash, 05/13/20) AGGIE EL DO May 14, 2020 19:33
== END 2020-05-14 13:15 | disposition home or self-care (01) | DRG 689 ==
LOC: M ED 13:57 → M ED INP 19:30 → ENRESERV 20:22 → M PCU 21:55 → M MSPAV 05-13 23:04
PROVIDERS: ADMIT Internal Medicine; ATTEND Internal Medicine
DX: N39.0 Urinary tract infection, site not specified (principal); G93.41 Metabolic encephalopathy; J96.10 Chronic respiratory failure, unspecified whether with hypoxia or hypercapnia; J44.9 Chronic obstructive pulmonary disease, unspecified; K21.9 Gastro-esophageal reflux disease without esophagitis; E78.5 Hyperlipidemia, unspecified; I10 Essential (primary) hypertension; G47.33 Obstructive sleep apnea (adult) (pediatric); F32.9 Major depressive disorder, single episode, unspecified; I48.91 Unspecified atrial fibrillation; I65.23 Occlusion and stenosis of bilateral carotid arteries; Z96.651 Presence of right artificial knee joint; Z88.0 Allergy status to penicillin; Z79.01 Long term (current) use of anticoagulants; Z79.899 Other long term (current) drug therapy; Z99.81 Dependence on supplemental oxygen; Z98.41 Cataract extraction status, right eye; Z98.42 Cataract extraction status, left eye; Z86.010 Personal history of colon polyps

== ENCOUNTER → 2020-05-18 | Outpatient (REF) | payer MEDICARE ==
[~2020-05-18] MED LIST changes: +ACET1TAB16 PO; +AMIT-255 PO; +CIPR250T3 PO; +ERYT5OIN25 OS; +LASI40TA9 PO; +LEVE750T5 PO; +NYST1POW9 TOP; +OMEP40CA97 PO; +WARF-58 PO; +XALA0.007 OU
== END ==
LOC: M WUC 21:22
PROVIDERS: ATTEND Physician Assistant
DX: R10.30 Lower abdominal pain, unspecified (principal)

== ENCOUNTER → 2020-05-26 | Outpatient (REF) | payer MEDICARE ==
[2020-05-26 15:42] LABS: BASO # 0.1 10^3/uL (0.0-0.2); EOS # 0.2 10^3/uL (0.0-0.5); EOS % 2.7 % (0.0-3.0); HEMATOCRIT 47.9 % (36.0-47.0); HEMOGLOBIN 15.6 g/dl (12.0-15.5); LYMPH # 1.3 10^3/uL (1.5-5.0); LYMPH % 14.3 % (24.0-44.0); MEAN CORPUSCULAR HEMOGLOBIN 30.8 pg (27.0-33.0); MEAN CORPUSCULAR HGB CONC 32.6 g/dl (32.0-36.5); MEAN CORPUSCULAR VOLUME 94.5 fl (80.0-96.0); MONO # 0.8 10^3/uL (0.0-0.8); MONO % 9.2 % (2.0-8.0); NEUTROPHILS # 6.2 10^3/uL (1.5-8.5); NEUTROPHILS % 70.6 % (36.0-66.0); PLATELET COUNT, AUTOMATED 316 10^3/uL (150-450); RED BLOOD COUNT 5.07 10^6/uL (4.00-5.40); WHITE BLOOD COUNT 8.8 10^3/uL (4.0-10.0)
[2020-05-26 15:56] LABS: INR 3.4; PROTHROMBIN TIME 35.1 SECONDS (12.5-14.3)
[2020-05-26 16:21] LABS: ALBUMIN 3.8 GM/DL (3.2-5.2); BILIRUBIN,TOTAL 0.4 MG/DL (0.2-1.0); CALCIUM LEVEL 9.8 MG/DL (8.8-10.2); CREATININE FOR GFR 1.23 MG/DL (0.55-1.30); GLOMERULAR FILTRATION RATE 44.6 (>32); POTASSIUM SERUM 3.8 MEQ/L (3.5-5.1)
== END ==
LOC: M SFHCPLAZ 12:08
PROVIDERS: ATTEND Family Medicine
DX: R19.7 Diarrhea, unspecified (principal); I48.11 Longstanding persistent atrial fibrillation; Z79.01 Long term (current) use of anticoagulants

== ENCOUNTER 2020-05-28 17:14 | Emergency (ER) | payer MEDICARE ==
[~2020-05-28] VITALS: Ht 160 cm; Wt 82.7 kg
[2020-05-28 19:13] LABS: BASO # 0.1 10^3/uL (0.0-0.2); BASO % 0.7 % (0.0-1.0); EOS # 0.1 10^3/uL (0.0-0.5); EOS % 1.4 % (0.0-3.0); HEMATOCRIT 44.3 % (36.0-47.0); HEMOGLOBIN 15.4 g/dl (12.0-15.5); LYMPH # 1.1 10^3/uL (1.5-5.0); LYMPH % 11.7 % (24.0-44.0); MEAN CORPUSCULAR HEMOGLOBIN 31.5 pg (27.0-33.0); MEAN CORPUSCULAR HGB CONC 34.8 g/dl (32.0-36.5); MEAN CORPUSCULAR VOLUME 90.6 fl (80.0-96.0); MONO # 0.6 10^3/uL (0.0-0.8); MONO % 7.1 % (2.0-8.0); NEUTROPHILS % 77.8 % (36.0-66.0); PLATELET COUNT, AUTOMATED 226 10^3/uL (150-450); RED BLOOD COUNT 4.89 10^6/uL (4.00-5.40)
[2020-05-28] MEDS ORDERED: NS 1,000 ML IV ONE (19:40)
[2020-05-28] MEDS ORDERED: ONDANSETRON 4MG/2ML VIAL IV ONE (19:40)
[2020-05-28 19:41] LABS: ALBUMIN 3.5 GM/DL (3.2-5.2); ALT/SGPT 32 U/L (12-78); BILIRUBIN,DIRECT 0.1 MG/DL (0.0-0.2); BILIRUBIN,TOTAL 0.9 MG/DL (0.2-1.0); BLOOD UREA NITROGEN 28 MG/DL (7-18); CALCIUM LEVEL 9.9 MG/DL (8.8-10.2); CARBON DIOXIDE LEVEL 34 MEQ/L (21-32); CHLORIDE LEVEL 80 MEQ/L (98-107); CREATININE FOR GFR 0.88 MG/DL (0.55-1.30); GLOMERULAR FILTRATION RATE > 60.0 (>32); GLUCOSE, FASTING 114 MG/DL (70-100); LIPASE 92 U/L (73-393); POTASSIUM SERUM 3.7 MEQ/L (3.5-5.1); SODIUM LEVEL 121 MEQ/L (136-145); TOTAL PROTEIN 7.1 GM/DL (6.4-8.2)
[2020-05-28] MEDS ORDERED: ISOVUE-370 76% 100ML VIAL As Ordered ONE (19:43)
--- NOTE | 2020-05-28 20:43 | REPVR ---
PROCEDURE INFORMATION: Exam: CT Abdomen And Pelvis With Contrast Exam date and time: 05/28/2020 7:58 PM Age: 79 years old Clinical indication: Abdominal pain; Additional info: Llq abd pain, severe diarrhea TECHNIQUE: Imaging protocol: Computed tomography of the abdomen and pelvis with contrast. Radiation optimization: All CT scans at this facility use at least one of these dose optimization techniques: automated exposure control; mA and/or kV adjustment per patient size (includes targeted exams where dose is matched to clinical indication); or iterative reconstruction. Contrast material: ISOVUE 370; Contrast volume: 100 ml; Contrast route: INTRAVENOUS (IV); COMPARISON: BLADDER (LIMITED PELVIC) US 03/11/2015 12:43 PM FINDINGS: Lungs: Atelectasis and less likely small parenchymal infiltrate right lower lobe. Subpleural emphysematous changes demonstrated in the left lower lobe. Liver: There is a diffuse decrease in hepatic parenchymal density, consistent with steatosis. Gallbladder and bile ducts: The gallbladder is incompletely distended. This is most likely related to incomplete fasting. Clinical correlation to exclude gallbladder pathology suggested. Pancreas: There is diffuse pancreatic atrophy. Spleen: Normal. No splenomegaly. Adrenal glands: Normal. No mass. Kidneys and ureters: Bilateral simple renal cysts measure up to 3.2 cm in the right kidney. No follow-up suggested. Stomach and bowel: Mild diverticulosis is present in the left colon. No diverticulitis. Appendix: No evidence of appendicitis. Intraperitoneal space: Unremarkable. No free air. No significant fluid collection. Vasculature: The aortoiliac vessels demonstrate moderate atherosclerotic calcification. Lymph nodes: Unremarkable. No enlarged lymph nodes. Urinary bladder: Unremarkable as visualized. Reproductive: There has been a hysterectomy. Bones/joints: Unremarkable. No acute fracture. Soft tissues: Unremarkable. IMPRESSION: 1. There is a diffuse decrease in hepatic parenchymal density, consistent with steatosis. 2. The gallbladder is incompletely distended. This is most likely related to incomplete fasting. Clinical correlation to exclude gallbladder pathology suggested. 3. There is diffuse pancreatic atrophy. 4. Bilateral simple renal cysts measure up to 3.2 cm in the right kidney. No follow-up suggested. 5. There has been a hysterectomy. 6. Mild diverticulosis is present in the left colon. No diverticulitis. COMMENTS: Consistent with the [place] [employer] [employer]'s Incidental Findings Committee white paper (J Am Tamiko Radiol 2018): Any incidental renal lesion less than 1 cm or classified as too small to characterize, or any incidental cystic renal lesion characterized as simple-appearing, is likely benign. No follow-up imaging is recommended for these lesions per consensus recommendations based on imaging criteria. Electronically signed by: Neal Sams On 05/28/2020 20:43:37 PM
[2020-05-29 00:34] LABS: BLOOD UREA NITROGEN 23 MG/DL (7-18); CALCIUM LEVEL 9.8 MG/DL (8.8-10.2); CARBON DIOXIDE LEVEL 40 MEQ/L (21-32); CHLORIDE LEVEL 83 MEQ/L (98-107); CREATININE FOR GFR 0.81 MG/DL (0.55-1.30); GLOMERULAR FILTRATION RATE > 60.0 (>32); GLUCOSE, FASTING 109 MG/DL (70-100); POTASSIUM SERUM 3.5 MEQ/L (3.5-5.1); SODIUM LEVEL 126 MEQ/L (136-145)
[2020-05-29] MEDS ORDERED: LOPERAMIDE 2 MG CAPLET PO ONE (00:50)
[2020-05-29 01:12] VITALS: BP 141/77
--- NOTE | 2020-05-29 09:06 | ED PDOC ---
Post-Departure Follow-Up ct abd/p faxed to dr dueñas for follow up. Faisal Evans MD May 29, 2020 09:06
== END 2020-05-29 01:13 | disposition home or self-care (01) ==
LOC: M ED 17:14
DX: R19.7 Diarrhea, unspecified (principal); E87.1 Hypo-osmolality and hyponatremia; R10.9 Unspecified abdominal pain; I10 Essential (primary) hypertension; I48.91 Unspecified atrial fibrillation; E78.5 Hyperlipidemia, unspecified; K21.9 Gastro-esophageal reflux disease without esophagitis; J44.9 Chronic obstructive pulmonary disease, unspecified; Z99.81 Dependence on supplemental oxygen; G47.33 Obstructive sleep apnea (adult) (pediatric); Z88.0 Allergy status to penicillin; Z79.899 Other long term (current) drug therapy; Z79.51 Long term (current) use of inhaled steroids; Z79.01 Long term (current) use of anticoagulants
CPT/HCPCS: 36415; 74177; 80048; 80076; 81001; 83690; 85025; 87505; 96361; 96374; 99284; J2405; Q9967

== ENCOUNTER → 2020-05-28 | Outpatient (REF) | payer MEDICARE | LOC: M LAB REF 19:50 | PROVIDERS: ATTEND Physician Assistant Medical | DX: R19.7 Diarrhea, unspecified (principal) ==

== ENCOUNTER → 2020-05-30 | Outpatient (CLI) | payer MEDICARE ==
[2020-05-30 15:26] LABS: CALCIUM LEVEL 8.9 MG/DL (8.8-10.2); CREATININE FOR GFR 1.27 MG/DL (0.55-1.30); POTASSIUM SERUM 3.3 MEQ/L (3.5-5.1)
== END ==
LOC: M LAB 14:25
PROVIDERS: ATTEND Physician Assistant
DX: E87.1 Hypo-osmolality and hyponatremia (principal)

== ENCOUNTER → 2020-06-02 | Outpatient (REF) | payer MEDICARE ==
[2020-06-02 20:32] LABS: BLOOD UREA NITROGEN 22 MG/DL (7-18); CALCIUM LEVEL 8.9 MG/DL (8.8-10.2); CARBON DIOXIDE LEVEL 40 MEQ/L (21-32); CHLORIDE LEVEL 89 MEQ/L (98-107); CREATININE FOR GFR 0.86 MG/DL (0.55-1.30); GLOMERULAR FILTRATION RATE > 60.0 (>32); GLUCOSE, FASTING 109 MG/DL (70-100); POTASSIUM SERUM 3.6 MEQ/L (3.5-5.1); SODIUM LEVEL 133 MEQ/L (136-145)
[2020-06-02 20:39] LABS: INR 2.26; PROTHROMBIN TIME 25.5 SECONDS (12.5-14.3)
== END ==
LOC: M LAB REF 20:07
PROVIDERS: ATTEND Family Medicine
DX: Z51.81 Encounter for therapeutic drug level monitoring (principal); Z79.01 Long term (current) use of anticoagulants

== ENCOUNTER → 2020-06-05 | Outpatient (CLI) | payer MEDICARE ==
--- NOTE | 2020-06-05 10:33 | REPPI ---
INDICATION: SOB. COMPARISON: PA and lateral chest dated 09/12/2018 and PA and lateral chest dated 05/12/2020. TECHNIQUE: Upright PA and lateral chest. FINDINGS: There is a small focal density left costophrenic angle as an interval change. This could be a small subsegmental infiltrate or could be rib artifact. The remainder of the lung bass are clear. Cardiac size is normal. The demetrio, mediastinum, and skeletal structures are unremarkable. IMPRESSION: Small subsegmental infiltrate in the left costophrenic angle versus rib artifact. <Electronically signed by Vel Gold > 06/05/20 [id number]
== END ==
LOC: M PLAIMG 10:05
PROVIDERS: ATTEND Family Medicine
DX: R91.8 Other nonspecific abnormal finding of lung field (principal); R06.02 Shortness of breath

== ENCOUNTER → 2020-06-05 | Outpatient (REF) | payer MEDICARE ==
[2020-06-05 13:08] LABS: BASO # 0.1 10^3/uL (0.0-0.2); BASO % 0.9 % (0.0-1.0); EOS # 0.3 10^3/uL (0.0-0.5); EOS % 3.6 % (0.0-3.0); HEMATOCRIT 42.6 % (36.0-47.0); HEMOGLOBIN 13.8 g/dl (12.0-15.5); LYMPH # 1.3 10^3/uL (1.5-5.0); LYMPH % 16.6 % (24.0-44.0); MEAN CORPUSCULAR HEMOGLOBIN 31.5 pg (27.0-33.0); MEAN CORPUSCULAR HGB CONC 32.4 g/dl (32.0-36.5); MEAN CORPUSCULAR VOLUME 97.3 fl (80.0-96.0); MONO # 0.7 10^3/uL (0.0-0.8); MONO % 8.2 % (2.0-8.0); NEUTROPHILS # 5.5 10^3/uL (1.5-8.5); NEUTROPHILS % 68.6 % (36.0-66.0); PLATELET COUNT, AUTOMATED 238 10^3/uL (150-450); RED BLOOD COUNT 4.38 10^6/uL (4.00-5.40); WHITE BLOOD COUNT 8.1 10^3/uL (4.0-10.0)
[2020-06-05 13:44] LABS: ALBUMIN 3.6 GM/DL (3.2-5.2); ALT/SGPT 32 U/L (12-78); BILIRUBIN,TOTAL 0.7 MG/DL (0.2-1.0); BLOOD UREA NITROGEN 29 MG/DL (7-18); CARBON DIOXIDE LEVEL 39 MEQ/L (21-32); CHLORIDE LEVEL 89 MEQ/L (98-107); CREATININE FOR GFR 1.07 MG/DL (0.55-1.30); DIGOXIN LEVEL 1.6 NG/ML (0.5-2.0); GLOMERULAR FILTRATION RATE 52.4 (>32); GLUCOSE, FASTING 120 MG/DL (70-100); NT-PRO BNP 2227 PG/ML (<450); POTASSIUM SERUM 4.1 MEQ/L (3.5-5.1); SODIUM LEVEL 134 MEQ/L (136-145); TOTAL PROTEIN 6.7 GM/DL (6.4-8.2); TROPONIN I < 0.02 NG/ML (< 0.10)
== END ==
LOC: M SFHCPLAZ 10:04
PROVIDERS: ATTEND Family Medicine
DX: R06.02 Shortness of breath (principal); R79.81 Abnormal blood-gas level; R60.9 Edema, unspecified; E87.1 Hypo-osmolality and hyponatremia; Z51.81 Encounter for therapeutic drug level monitoring

== ENCOUNTER → 2020-06-30 | Outpatient (CLI) | payer MEDICARE ==
--- NOTE | 2020-06-30 15:24 | REP ---
INDICATION: VENOUS INSUFFICIENCY COMPARISON: 05/14/2020. TECHNIQUE: Real time compression and duplex Doppler interrogation of the bilateral lower extremity deep venous system is performed. FINDINGS: Bilaterally, the common femoral, superficial femoral and popliteal veins are fully compressible with transducer pressure and demonstrate normal spontaneous and phasic flow, without evidence of deep venous thrombosis. Evaluation for venous reflux is performed. On the right there is mild reflux in the common femoral vein. There is no reflux in the more distal deep vein system including the superficial femoral or popliteal veins. There is no reflux in the greater saphenous vein or lesser saphenous vein. The greater saphenous vein measures 5 mm at the saphenofemoral junction and 3 mm at the midthigh and knee levels. The lesser saphenous vein measures 3 mm. On the left there is mild reflux in the common femoral and superficial femoral vein. There is no reflux in the popliteal vein. There is reflux in the greater saphenous vein at the saphenofemoral junction with a duration of 1.0 seconds, AP diameter 4 mm. There is no reflux in the more distal greater saphenous vein which measures 3 mm at the thigh and knee levels. There is no reflux in the lesser saphenous vein which measures 3 mm. IMPRESSION: No evidence of deep venous thrombosis of the bilateral lower extremity femoral popliteal venous system. Venous reflux as discussed above. <Electronically signed by Vel Bansal > 06/30/20 [id number]
== END ==
LOC: M RAD 13:16
PROVIDERS: ATTEND Physician Assistant
DX: I87.2 Venous insufficiency (chronic) (peripheral) (principal)

== ENCOUNTER → 2020-06-30 | Outpatient (CLI) | payer MEDICARE ==
[2020-06-30 20:22] LABS: INR 3.76
[2020-06-30 20:26] LABS: CALCIUM LEVEL 10.3 MG/DL (8.8-10.2); CREATININE FOR GFR 1.36 MG/DL (0.55-1.30); GLOMERULAR FILTRATION RATE 39.7 (>32); POTASSIUM SERUM 4.5 MEQ/L (3.5-5.1)
[2020-06-30 20:38] LABS: PTH INTACT 9.9 PG/ML (18.5-88.0)
== END ==
LOC: M WUC 15:11
PROVIDERS: ATTEND Family Medicine
DX: Z51.81 Encounter for therapeutic drug level monitoring (principal); R94.4 Abnormal results of kidney function studies; E83.52 Hypercalcemia

== ENCOUNTER → 2020-07-03 | Outpatient (CLI) | payer MEDICARE ==
--- NOTE | 2020-07-03 15:36 | REP ---
INDICATION: LUMP OFF RIGHT EYE. COMPARISON: CT brain 05/13/2020. TECHNIQUE: Real-time sonographic evaluation of right periorbital soft tissues performed in the region of swelling. FINDINGS: No mass or fluid collection is seen. IMPRESSION: No evidence of mass or fluid collection sonographically in the region of right periorbital swelling. <Electronically signed by Vel Bansal > 07/03/20 [id number]
== END ==
LOC: M RAD 13:33
PROVIDERS: ATTEND Obstetrics & Gynecology
DX: R22.0 Localized swelling, mass and lump, head (principal)

== ENCOUNTER → 2020-07-08 | Outpatient (REF) | payer MEDICARE ==
[2020-07-08 17:15] LABS: PROTHROMBIN TIME 54.7 SECONDS (12.5-14.3)
[2020-07-08 17:17] LABS: INR 5.97
[2020-07-08 17:30] LABS: ALBUMIN 3.4 GM/DL (3.2-5.2); BILIRUBIN,TOTAL 0.5 MG/DL (0.2-1.0); CALCIUM LEVEL 9.8 MG/DL (8.8-10.2); CREATININE FOR GFR 1.41 MG/DL (0.55-1.30); GLOMERULAR FILTRATION RATE 38.1 (>32); POTASSIUM SERUM 4.8 MEQ/L (3.5-5.1); TOTAL PROTEIN 6.8 GM/DL (6.4-8.2)
== END ==
LOC: M SFHCPLAZ 15:26
PROVIDERS: ATTEND Family Medicine
DX: E83.52 Hypercalcemia (principal); Z51.81 Encounter for therapeutic drug level monitoring

== ENCOUNTER → 2020-07-10 | Outpatient (CLI) | payer MEDICARE ==
[2020-07-10 16:29] LABS: INR 2.98; PROTHROMBIN TIME 31.7 SECONDS (12.5-14.3)
== END ==
LOC: M WUC 15:08
PROVIDERS: ATTEND Family Medicine
DX: Z51.81 Encounter for therapeutic drug level monitoring (principal)

== ENCOUNTER → 2020-07-14 | Outpatient (REF) | payer MEDICARE ==
[2020-07-14 18:19] LABS: APPEARANCE, URINE HAZY (CLEAR); BACTERIA, URINE AUTO NEGATIVE (NEGATIVE); BILIRUBIN, URINE AUTO NEGATIVE (NEGATIVE); BLOOD, URINE BLOOD NEGATIVE (NEGATIVE); COLOR, URINE YELLOW (YELLOW); GLUCOSE, URINE (UA) AUTO NEGATIVE (NEGATIVE); KETONE, URINE AUTO NEGATIVE (NEGATIVE); LEUKOCYTE ESTERASE, URINE AUTO 1+ (NEGATIVE); NITRITE, URINE AUTO NEGATIVE (NEGATIVE); PROTEIN, URINE AUTO NEGATIVE (NEGATIVE); RBC, URINE AUTO 1 /HPF (0-3); SPECIFIC GRAVITY URINE AUTO 1.017 (1.002-1.035); SQUAMOUS EPITHELIAL CELL UR AU 1 /HPF (0-6); UROBILINOGEN, URINE AUTO 0.2 mg/dL (0.0-2.0); WBC, URINE AUTO 14 /HPF (0-3)
== END ==
LOC: M SFHCPLAZ 16:57
PROVIDERS: ATTEND Family Medicine
DX: R30.0 Dysuria (principal)

== ENCOUNTER → 2020-07-22 | Outpatient (REF) | payer MEDICARE ==
[2020-07-22 17:41] LABS: INR 2.53; PROTHROMBIN TIME 27.8 SECONDS (12.5-14.3)
[2020-07-22 17:55] LABS: CALCIUM LEVEL 9.2 MG/DL (8.8-10.2); CREATININE FOR GFR 1.02 MG/DL (0.55-1.30); GLOMERULAR FILTRATION RATE 55.2 (>32); POTASSIUM SERUM 4.4 MEQ/L (3.5-5.1)
== END ==
LOC: M SFHCPLAZ 15:38
PROVIDERS: ATTEND Family Medicine
DX: Z51.81 Encounter for therapeutic drug level monitoring (principal); N18.31 Chronic kidney disease, stage 3a; Z79.01 Long term (current) use of anticoagulants

== ENCOUNTER → 2020-07-23 | Outpatient (CLI) | payer MEDICARE ==
[~2020-07-23] MED LIST changes: +ISOVUE-300 61% 50ML VIAL As Ordered ONE
--- NOTE | 2020-07-23 17:09 | REP ---
INDICATION: RASHI OA. COMPARISON: None TECHNIQUE: The procedure was performed by VICENTA Pinto, under the direct supervision of Dr. Mathis. The benefits and risks of the procedure were explained to the patient, and an informed consent was obtained. Directly prior to the start of the procedure, a formal time-out was completed in the procedure room. The right glenohumeral joint space was localized using fluoroscopic guidance. The skin was prepped and draped in a sterile fashion. Approximately 5 mL of 1% Lidocaine 10 mg/ml was used as a local anesthetic. Using fluoroscopic guidance, a #22 gauge spinal needle was inserted and advanced into the right glenohumeral joint space. Approximately 1 mL of Isovue 300 was injected to verify placement. Six mL of a solution containing 5 mL 1% lidocaine 10 mg/ml and 1 mL Kenalog 40 milligrams/milliliter was injected into the joint space. The needle was removed and hemostasis was achieved. The left glenohumeral joint space was localized using fluoroscopic guidance. The skin was prepped and draped in a sterile fashion. Approximately 5 mL of 1% Lidocaine 10 mg/ml was used as a local anesthetic. Using fluoroscopic guidance, a #22 gauge spinal needle was inserted and advanced into the left glenohumeral joint space. Approximately 1 mL of Isovue 300 was injected to verify placement. Six mL of a solution containing 5 mL 1% lidocaine 10 mg/ml and 1 mg Kenalog 40 milligrams/milliliter was injected into the joint space. The needle was removed and hemostasis was achieved. FINDINGS: The patient tolerated the procedure well and there were no immediate complications. IMPRESSION: 1. Fluoroscopic guided intra-articular bilateral shoulder injections. 0.3 minutes of fluoroscopy time was utilized for this procedure. Some fluoroscopic images are performed with last image hold technology. These images require no additional radiation. <Electronically signed by Autumn Wilson > 07/23/20 [id number] <Electronically signed by Mark Mathis > 07/23/20 1045
== END ==
LOC: M RADPRO 12:59
PROVIDERS: ATTEND Physician Assistant Surgical
DX: M19.011 Primary osteoarthritis, right shoulder (principal)
CPT/HCPCS: 20610; 77002; Q9967

== ENCOUNTER → 2020-07-29 | Outpatient (CLI) | payer MEDICARE ==
[~2020-07-29] MED LIST changes: -ISOVUE-300 61% 50ML VIAL As Ordered ONE
[2020-07-29 17:22] LABS: INR 2.74; PROTHROMBIN TIME 29.6 SECONDS (12.5-14.3)
== END ==
LOC: M WUC 14:47
PROVIDERS: ATTEND Nurse Practitioner Family
DX: Z79.01 Long term (current) use of anticoagulants (principal)

== ENCOUNTER → 2020-08-12 | Outpatient (CLI) | payer MEDICARE | LOC: M WUC 15:42 | PROVIDERS: ATTEND Physician Assistant | DX: I27.81 Cor pulmonale (chronic) (principal); I48.21 Permanent atrial fibrillation ==

== ENCOUNTER → 2020-08-12 | Outpatient (CLI) | payer MEDICARE ==
[2020-08-12 20:34] LABS: INR 2.99; PROTHROMBIN TIME 31.7 SECONDS (12.5-14.3)
== END ==
LOC: M WUC 15:39
PROVIDERS: ATTEND Family Medicine
DX: Z79.01 Long term (current) use of anticoagulants (principal)

== ENCOUNTER → 2020-09-02 | Outpatient (CLI) | payer MEDICARE ==
[~2020-09-02] MED LIST changes: +OMEP40CA4 PO; -OMEP40CA97 PO
[2020-09-02 16:01] LABS: BLOOD UREA NITROGEN 27 MG/DL (7-18); CALCIUM LEVEL 9.2 MG/DL (8.8-10.2); CARBON DIOXIDE LEVEL 31 MEQ/L (21-32); CHLORIDE LEVEL 103 MEQ/L (98-107); CREATININE FOR GFR 0.93 MG/DL (0.55-1.30); GLOMERULAR FILTRATION RATE > 60.0 (>32); GLUCOSE, FASTING 114 MG/DL (70-100); MAGNESIUM LEVEL 2.1 MG/DL (1.8-2.4); POTASSIUM SERUM 4.7 MEQ/L (3.5-5.1); SODIUM LEVEL 141 MEQ/L (136-145)
== END ==
LOC: M WUC 11:06
PROVIDERS: ATTEND Physician Assistant
DX: I27.81 Cor pulmonale (chronic) (principal); I48.3 Typical atrial flutter; I48.21 Permanent atrial fibrillation

== ENCOUNTER → 2020-09-02 | Outpatient (CLI) | payer MEDICARE ==
[2020-09-02 15:44] LABS: INR 2.77; PROTHROMBIN TIME 29.9 SECONDS (12.5-14.3)
== END ==
LOC: M WUC 11:11
PROVIDERS: ATTEND Family Medicine
DX: Z79.01 Long term (current) use of anticoagulants (principal)

== ENCOUNTER 2020-09-21 00:17 | Emergency (ER) | payer MEDICARE ==
[~2020-09-21] VITALS: Ht 157.5 cm; Wt 80.9 kg
[2020-09-21 01:19] LABS: BASO # 0.1 10^3/uL (0.0-0.2); BASO % 0.7 % (0.0-1.0); EOS # 0.2 10^3/uL (0.0-0.5); EOS % 2.4 % (0.0-3.0); HEMATOCRIT 35.1 % (36.0-47.0); HEMOGLOBIN 11.4 g/dl (12.0-15.5); LYMPH # 1.1 10^3/uL (1.5-5.0); LYMPH % 12.6 % (24.0-44.0); MEAN CORPUSCULAR HEMOGLOBIN 31.9 pg (27.0-33.0); MEAN CORPUSCULAR HGB CONC 32.5 g/dl (32.0-36.5); MEAN CORPUSCULAR VOLUME 98.3 fl (80.0-96.0); MONO # 0.6 10^3/uL (0.0-0.8); MONO % 7.3 % (2.0-8.0); NEUTROPHILS # 6.6 10^3/uL (1.5-8.5); NEUTROPHILS % 75.5 % (36.0-66.0); PLATELET COUNT, AUTOMATED 216 10^3/uL (150-450); RED BLOOD COUNT 3.57 10^6/uL (4.00-5.40); WHITE BLOOD COUNT 8.7 10^3/uL (4.0-10.0)
[2020-09-21 01:57] LABS: ALBUMIN 3.7 GM/DL (3.2-5.2); ALT/SGPT 33 U/L (12-78); BILIRUBIN,DIRECT 0.1 MG/DL (0.0-0.2); BILIRUBIN,TOTAL 0.7 MG/DL (0.2-1.0); BLOOD UREA NITROGEN 35 MG/DL (7-18); CALCIUM LEVEL 9.5 MG/DL (8.8-10.2); CARBON DIOXIDE LEVEL 31 MEQ/L (21-32); CHLORIDE LEVEL 97 MEQ/L (98-107); CK-MB VALUE MASS < 1.0 NG/ML (<3.6); CPK CREATINE PHOSPHOKINASE 76 U/L (26-192); CREATININE FOR GFR 1.15 MG/DL (0.55-1.30); FREE T4 0.93 NG/DL (0.76-1.46); GLOMERULAR FILTRATION RATE 48.1 (>32); GLUCOSE, FASTING 122 MG/DL (70-100); LIPASE 84 U/L (73-393); MB/CK RELATIVE INDEX 1.32 (< OR =4); POTASSIUM SERUM 4.6 MEQ/L (3.5-5.1); SODIUM LEVEL 134 MEQ/L (136-145); TOTAL PROTEIN 6.7 GM/DL (6.4-8.2); TROPONIN I < 0.02 NG/ML (< 0.10)
[2020-09-21] MEDS ORDERED: ISOVUE-370 76% 100ML VIAL As Ordered ONE (02:21)
--- NOTE | 2020-09-21 02:30 | REPVR ---
PROCEDURE INFORMATION: Exam: XR Chest Exam date and time: 09/21/2020 1:47 AM Age: 80 years old Clinical indication: Pain; Other: Not specified; Additional info: Chest pain TECHNIQUE: Imaging protocol: XR of the chest. Views: 2 views. COMPARISON: 1. CR Chest, 2 view PA, Lat 2020-05-12 15:19 2. DE CHEST 2 VIEWS 2020-06-05 10:27 3. DE CHEST 2 VIEW 2018-09-12 11:49 FINDINGS: Lungs: Unremarkable. No consolidation. Pleural spaces: Unremarkable. No pleural effusion. No pneumothorax. Heart/Mediastinum: Unremarkable. No cardiomegaly. Bones/joints: Thoracic spondylosis. IMPRESSION: No acute findings. Electronically signed by: Ernie Lopez On 09/21/2020 02:29:47 AM
--- NOTE | 2020-09-21 03:13 | REPVR ---
PROCEDURE INFORMATION: Exam: CT Abdomen And Pelvis With Contrast Exam date and time: 09/21/2020 3:01 AM Age: 80 years old Clinical indication: Abdominal pain; Localized; Upper; Additional info: ? Soft tissue mass low sternum/epigastrium TECHNIQUE: Imaging protocol: Computed tomography of the abdomen and pelvis with contrast. Radiation optimization: All CT scans at this facility use at least one of these dose optimization techniques: automated exposure control; mA and/or kV adjustment per patient size (includes targeted exams where dose is matched to clinical indication); or iterative reconstruction. Contrast material: ISOVUE 370; Contrast volume: 100 ml; Contrast route: INTRAVENOUS (IV); COMPARISON: 1. CT ABD/PEL W/IV CONTRAST ONLY 2020-05-28 19:[address] Chest without contrast 2016-03-24 18:00 FINDINGS: Lungs: Left lower lobe pneumatoceles. Mild bronchial wall thickening. Right basilar subsegmental atelectasis. Mediastinal space: Small gastroesophageal sliding type hiatal hernia. Liver: Normal. No mass. Gallbladder and bile ducts: Normal. No calcified stones. No ductal dilation. Pancreas: Normal. No ductal dilation. Spleen: Normal. No splenomegaly. Adrenal glands: Normal. No mass. Kidneys and ureters: Benign 3 cm right renal cyst. Stomach and bowel: Gastric wall thickening, correlate for gastritis. Mild colonic diverticulosis without evidence for acute diverticulitis. Appendix: No evidence of appendicitis. Intraperitoneal space: Unremarkable. No free air. No significant fluid collection. Vasculature: Mild coronary artery calcification. Mild to moderate aortic and iliac artery atherosclerotic calcification. 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 Lymph nodes: Unremarkable. No enlarged lymph nodes. Urinary bladder: Unremarkable as visualized. Reproductive: Hysterectomy. Bones/joints: Mild moderate lumbar spondylosis. Costochondral calcification. Moderate lumbar spondylosis with small disc bulge and protrusions. L2-L3 caudal migrating disc extrusion causes moderate stenosis. Soft tissues: Unremarkable. IMPRESSION: 1. Gastric wall thickening, correlate for gastritis. 2. No masses. COMMENTS: Consistent with the [place] [employer]'s Incidental Findings Committee white paper (J Am Tamiko Radiol 2018): Any incidental renal lesion less than 1 cm or classified as too small to characterize, or any incidental cystic renal lesion characterized as simple-appearing, is likely benign. No follow-up imaging is recommended for these lesions per consensus recommendations based on imaging criteria. Electronically signed by: Ernie Lopez On 09/21/2020 03:12:44 AM
--- NOTE | 2020-09-21 03:15 | REPVR ---
PROCEDURE INFORMATION: Exam: CT Chest With Contrast; Diagnostic Exam date and time: 09/21/2020 3:01 AM Age: 80 years old Clinical indication: Sternal or substernal pain; Additional info: ? Soft tissue mass low sternum/epigastrium TECHNIQUE: Imaging protocol: Diagnostic computed tomography of the chest with contrast. Radiation optimization: All CT scans at this facility use at least one of these dose optimization techniques: automated exposure control; mA and/or kV adjustment per patient size (includes targeted exams where dose is matched to clinical indication); or iterative reconstruction. Contrast material: ISOVUE 370; Contrast volume: 100 ml; Contrast route: INTRAVENOUS (IV); COMPARISON: 1. CT Chest without contrast 2016-03-24 18:00 2. CR Chest, 2 view PA, Lat 2020-09-21 01:17 FINDINGS: Lungs: Small pneumatoceles in the left lower lobe. Minimal infectious/inflammatory micro nodularity in the right posterior basilar lower lobe. Mild bronchial wall thickening. Moderate upper lung centrilobular emphysema. Pleural spaces: Unremarkable. No pneumothorax. No pleural effusion. Heart: Unremarkable. No cardiomegaly. No pericardial effusion. Aorta: Mild aortic atherosclerosis. Great vessels off aortic arch: Mild left subclavian artery origin stenosis. Lymph nodes: Unremarkable. No enlarged lymph nodes. Bones/joints: Extensive costochondral calcification. Soft tissues: Unremarkable. IMPRESSION: 1. Small pneumatoceles in the left lower lobe. Minimal infectious/inflammatory micro nodularity in the right posterior basilar lower lobe. Mild bronchial wall thickening. Moderate upper lung centrilobular emphysema. 2. Extensive costochondral calcification. Electronically signed by: Ernie Lopez On 09/21/2020 03:14:38 AM
[2020-09-21 04:14] VITALS: BP 128/63
--- NOTE | 2020-09-21 20:33 | ECGEPIP ---
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
== END 2020-09-21 04:40 | disposition home or self-care (01) ==
LOC: M ED 00:17
DX: R42 Dizziness and giddiness (principal); J44.9 Chronic obstructive pulmonary disease, unspecified; K21.9 Gastro-esophageal reflux disease without esophagitis; F41.9 Anxiety disorder, unspecified; I10 Essential (primary) hypertension; E78.5 Hyperlipidemia, unspecified; I48.91 Unspecified atrial fibrillation; Z79.51 Long term (current) use of inhaled steroids; Z79.01 Long term (current) use of anticoagulants; Z79.899 Other long term (current) drug therapy; Z87.891 Personal history of nicotine dependence; Z88.0 Allergy status to penicillin
CPT/HCPCS: 36415; 71046; 71260; 74177; 80048; 80076; 82550; 82553; 83690; 84439; 84443; 84484; 85025; 93005; 93041; 94760; 99285; Q9967

== ENCOUNTER → 2020-09-25 | Outpatient (REF) | payer MEDICARE ==
[2020-09-25 20:49] LABS: HEMATOCRIT 36.9 % (36.0-47.0); MEAN CORPUSCULAR HEMOGLOBIN 32.7 pg (27.0-33.0); MEAN CORPUSCULAR HGB CONC 32.5 g/dl (32.0-36.5); MEAN CORPUSCULAR VOLUME 100.5 fl (80.0-96.0); PLATELET COUNT, AUTOMATED 273 10^3/uL (150-450); RED BLOOD COUNT 3.67 10^6/uL (4.00-5.40); WHITE BLOOD COUNT 7.5 10^3/uL (4.0-10.0)
[2020-09-25 21:12] LABS: CALCIUM LEVEL 9.2 MG/DL (8.8-10.2); CREATININE FOR GFR 1.23 MG/DL (0.55-1.30); GLOMERULAR FILTRATION RATE 44.5 (>32); POTASSIUM SERUM 4.4 MEQ/L (3.5-5.1)
== END ==
LOC: M LAB REF 20:23
PROVIDERS: ATTEND Family Medicine
DX: E87.1 Hypo-osmolality and hyponatremia (principal); D64.9 Anemia, unspecified

== ENCOUNTER → 2020-10-14 | Outpatient (REF) | payer MEDICARE ==
[2020-10-14 22:53] LABS: APPEARANCE, URINE CLEAR (CLEAR); BACTERIA, URINE AUTO NEGATIVE (NEGATIVE); BILIRUBIN, URINE AUTO NEGATIVE (NEGATIVE); BLOOD, URINE BLOOD NEGATIVE (NEGATIVE); COLOR, URINE STRAW (YELLOW); GLUCOSE, URINE (UA) AUTO NEGATIVE (NEGATIVE); KETONE, URINE AUTO NEGATIVE (NEGATIVE); LEUKOCYTE ESTERASE, URINE AUTO NEGATIVE (NEGATIVE); NITRITE, URINE AUTO NEGATIVE (NEGATIVE); PROTEIN, URINE AUTO NEGATIVE (NEGATIVE); RBC, URINE AUTO 0 /HPF (0-3); SPECIFIC GRAVITY URINE AUTO 1.008 (1.002-1.035); SQUAMOUS EPITHELIAL CELL UR AU 2 /HPF (0-6); UROBILINOGEN, URINE AUTO 0.2 mg/dL (0.0-2.0); WBC, URINE AUTO 1 /HPF (0-3)
== END ==
LOC: M LAB REF 22:25
PROVIDERS: ATTEND Physician Assistant
DX: N39.0 Urinary tract infection, site not specified (principal)

== ENCOUNTER → 2020-10-21 | Outpatient (REF) | payer MEDICARE | LOC: M SFHCPLAZ 12:53 | PROVIDERS: ATTEND Nurse Practitioner Adult Health | DX: R30.0 Dysuria (principal) ==

== ENCOUNTER → 2020-10-26 | Outpatient (CLI) | payer MEDICARE ==
[2020-10-26 15:17] LABS: PROTHROMBIN TIME 85.3 SECONDS (12.7-14.5)
[2020-10-26 15:29] LABS: INR 11.09
== END ==
LOC: M PLALAB 14:03
PROVIDERS: ATTEND Family Medicine
DX: Z51.81 Encounter for therapeutic drug level monitoring (principal)

== ENCOUNTER → 2020-10-27 | Outpatient (CLI) | payer MEDICARE ==
[~2020-10-27] MED LIST changes: +LOSA50TA28 PO; -LOSA50TA88 PO
[2020-10-27 17:18] LABS: CREATININE FOR GFR 1.12 MG/DL (0.55-1.30); GLOMERULAR FILTRATION RATE 49.6 (>32)
== END ==
LOC: M LAB 15:29
PROVIDERS: ATTEND Physician Assistant Medical
DX: R07.0 Pain in throat (principal)

== ENCOUNTER → 2020-10-27 | Outpatient (CLI) | payer MEDICARE ==
[~2020-10-27] MED LIST changes: -LOSA50TA28 PO; +LOSA50TA88 PO
[2020-10-27 13:02] LABS: HEMOGLOBIN 11.4 g/dl (12.0-15.5); MEAN CORPUSCULAR HEMOGLOBIN 32.9 pg (27.0-33.0); MEAN CORPUSCULAR HGB CONC 31.7 g/dl (32.0-36.5); PLATELET COUNT, AUTOMATED 249 10^3/uL (150-450); RED BLOOD COUNT 3.46 10^6/uL (4.00-5.40); WHITE BLOOD COUNT 7.7 10^3/uL (4.0-10.0)
[2020-10-27 13:24] LABS: INR 10.75
[2020-10-27 13:44] LABS: PROTHROMBIN TIME 83.3 SECONDS (12.7-14.5)
== END ==
LOC: M WUC 08:32
PROVIDERS: ATTEND Family Medicine
DX: Z51.81 Encounter for therapeutic drug level monitoring (principal)

== ENCOUNTER → 2020-10-28 | Outpatient (CLI) | payer MEDICARE ==
[2020-10-28 11:42] LABS: PROTHROMBIN TIME 69.6 SECONDS (12.7-14.5)
[2020-10-28 14:27] LABS: INR 8.49
== END ==
LOC: M WUC 09:32
PROVIDERS: ATTEND Family Medicine
DX: R79.1 Abnormal coagulation profile (principal)

== ENCOUNTER → 2020-10-30 | Outpatient (CLI) | payer MEDICARE ==
[2020-10-30 11:31] LABS: INR 2.99; PROTHROMBIN TIME 31.4 SECONDS (12.7-14.5)
== END ==
LOC: M WUC 09:09
PROVIDERS: ATTEND Family Medicine
DX: Z51.81 Encounter for therapeutic drug level monitoring (principal)

== ENCOUNTER → 2020-11-03 | Outpatient (CLI) | payer MEDICARE ==
[2020-11-03 12:35] LABS: PROTHROMBIN TIME 49.4 SECONDS (12.7-14.5)
[2020-11-03 12:58] LABS: INR 5.42
== END ==
LOC: M WUC 10:09
PROVIDERS: ATTEND Family Medicine
DX: Z51.81 Encounter for therapeutic drug level monitoring (principal)

== ENCOUNTER → 2020-11-06 | Outpatient (CLI) | payer MEDICARE ==
[~2020-11-06] MED LIST changes: +ISOVUE-370 76% 100ML VIAL As Ordered ONE
--- NOTE | 2020-11-06 18:36 | REPVR ---
PROCEDURE INFORMATION: Exam: CT Neck Without Contrast Exam date and time: 11/06/2020 5:47 PM Age: 80 years old Clinical indication: Throat pain; Additional info: Pain in throat TECHNIQUE: Imaging protocol: Computed tomography images of the neck without contrast. Radiation optimization: All CT scans at this facility use at least one of these dose optimization techniques: automated exposure control; mA and/or kV adjustment per patient size (includes targeted exams where dose is matched to clinical indication); or iterative reconstruction. COMPARISON: CT Neck with contrast 05/23/2018 9:05 AM The report from the previous exam was not immediately available. FINDINGS: Limitations: Evaluation of the neck is limited without IV contrast Nasopharynx: Unremarkable. Oropharynx: Unremarkable. No significant tonsillar enlargement. Hypopharynx: Unremarkable. Larynx: Unremarkable. Normal epiglottis. Retropharyngeal space: Unremarkable. Submandibular/Parotid glands: Normal. Glands are normal in size. Thyroid: Normal. No enlarged or calcified nodules. Lymph nodes: Unremarkable. No lymphadenopathy. Trachea: Visualized trachea is unremarkable. Lungs: Mild centrilobular emphysema is present in the lung apices. Bones/joints: Unremarkable. No acute fracture. Vasculature: Atherosclerotic calcifications are present at the carotid bifurcations. Soft tissues: Unremarkable. No significant soft tissue swelling. IMPRESSION: 1. Evaluation of the neck is limited without IV contrast 2. No acute abnormality Electronically signed by: Vladimir Dey On 11/06/2020 18:36:20 PM
== END ==
LOC: M RAD 16:36
PROVIDERS: ATTEND Physician Assistant Medical
DX: R07.0 Pain in throat (principal)

== ENCOUNTER → 2020-11-06 | Outpatient (CLI) | payer MEDICARE ==
[~2020-11-06] MED LIST changes: -ISOVUE-370 76% 100ML VIAL As Ordered ONE
[2020-11-06 13:34] LABS: HEMATOCRIT 34.4 % (36.0-47.0); HEMOGLOBIN 10.8 g/dl (12.0-15.5); MEAN CORPUSCULAR HEMOGLOBIN 32.6 pg (27.0-33.0); MEAN CORPUSCULAR HGB CONC 31.4 g/dl (32.0-36.5); MEAN CORPUSCULAR VOLUME 103.9 fl (80.0-96.0); PLATELET COUNT, AUTOMATED 275 10^3/uL (150-450); RED BLOOD COUNT 3.31 10^6/uL (4.00-5.40); WHITE BLOOD COUNT 5.7 10^3/uL (4.0-10.0)
[2020-11-06 13:48] LABS: INR 4.2; PROTHROMBIN TIME 40.7 SECONDS (12.7-14.5)
[2020-11-06 13:49] LABS: BLOOD UREA NITROGEN 20 MG/DL (7-18); CALCIUM LEVEL 9.1 MG/DL (8.8-10.2); CARBON DIOXIDE LEVEL 30 MEQ/L (21-32); CHLORIDE LEVEL 108 MEQ/L (98-107); CREATININE FOR GFR 0.87 MG/DL (0.55-1.30); GLOMERULAR FILTRATION RATE > 60.0 (>32); GLUCOSE, FASTING 145 MG/DL (70-100); POTASSIUM SERUM 4.7 MEQ/L (3.5-5.1); SODIUM LEVEL 140 MEQ/L (136-145)
[2020-11-06 14:09] LABS: H PYLORI QUALITATIVE IgG NEGATIVE (NEGATIVE)
== END ==
LOC: M LAB 12:26
PROVIDERS: ATTEND Family Medicine
DX: K21.9 Gastro-esophageal reflux disease without esophagitis (principal); Z51.81 Encounter for therapeutic drug level monitoring; N18.31 Chronic kidney disease, stage 3a; K29.50 Unspecified chronic gastritis without bleeding

== ENCOUNTER → 2020-11-09 | Outpatient (CLI) | payer MEDICARE ==
[2020-11-09 12:03] LABS: HEMATOCRIT 32.8 % (36.0-47.0); HEMOGLOBIN 10.2 g/dl (12.0-15.5); MEAN CORPUSCULAR HEMOGLOBIN 32.6 pg (27.0-33.0); MEAN CORPUSCULAR HGB CONC 31.1 g/dl (32.0-36.5); MEAN CORPUSCULAR VOLUME 104.8 fl (80.0-96.0); PLATELET COUNT, AUTOMATED 230 10^3/uL (150-450); RED BLOOD COUNT 3.13 10^6/uL (4.00-5.40); WHITE BLOOD COUNT 5.7 10^3/uL (4.0-10.0)
[2020-11-09 12:13] LABS: INR 1.89; PROTHROMBIN TIME 22.1 SECONDS (12.7-14.5)
== END ==
LOC: M WUC 09:56
PROVIDERS: ATTEND Family Medicine
DX: Z51.81 Encounter for therapeutic drug level monitoring (principal); K29.50 Unspecified chronic gastritis without bleeding

== ENCOUNTER → 2020-11-10 | Outpatient (REF) | payer MEDICARE | LOC: M LAB REF 10:00 | PROVIDERS: ATTEND Family Medicine | DX: Z51.81 Encounter for therapeutic drug level monitoring (principal); Z79.899 Other long term (current) drug therapy ==

== ENCOUNTER → 2020-11-12 | Outpatient (CLI) | payer MEDICARE ==
[2020-11-12 16:02] LABS: HEMATOCRIT 34.2 % (36.0-47.0); HEMOGLOBIN 10.8 g/dl (12.0-15.5); MEAN CORPUSCULAR HEMOGLOBIN 32.4 pg (27.0-33.0); MEAN CORPUSCULAR HGB CONC 31.6 g/dl (32.0-36.5); MEAN CORPUSCULAR VOLUME 102.7 fl (80.0-96.0); PLATELET COUNT, AUTOMATED 227 10^3/uL (150-450); RED BLOOD COUNT 3.33 10^6/uL (4.00-5.40); WHITE BLOOD COUNT 6.1 10^3/uL (4.0-10.0)
[2020-11-12 16:21] LABS: INR 1.9; PROTHROMBIN TIME 22.2 SECONDS (12.7-14.5)
== END ==
LOC: M WUC 13:07
PROVIDERS: ATTEND Family Medicine
DX: Z51.81 Encounter for therapeutic drug level monitoring (principal)

== ENCOUNTER → 2020-11-19 | Outpatient (CLI) | payer MEDICARE ==
[2020-11-19 20:19] LABS: INR 3.71
== END ==
LOC: M WUC 15:35
PROVIDERS: ATTEND Family Medicine
DX: Z51.81 Encounter for therapeutic drug level monitoring (principal)

== ENCOUNTER → 2020-11-26 | Outpatient (CLI) | payer MEDICARE ==
[2020-11-26 20:41] LABS: INR 2.54; PROTHROMBIN TIME 27.7 SECONDS (12.7-14.5)
== END ==
LOC: M WUC 15:45
PROVIDERS: ATTEND Family Medicine
DX: Z51.81 Encounter for therapeutic drug level monitoring (principal)

== ENCOUNTER → 2020-12-03 | Outpatient (CLI) | payer MEDICARE ==
[2020-12-03 16:38] LABS: INR 3.15; PROTHROMBIN TIME 32.7 SECONDS (12.7-14.5)
== END ==
LOC: M WUC 14:34
PROVIDERS: ATTEND Family Medicine
DX: Z51.81 Encounter for therapeutic drug level monitoring (principal)

== ENCOUNTER → 2020-12-14 | Outpatient (CLI) | payer MEDICARE ==
[2020-12-14 20:11] LABS: INR 2.02; PROTHROMBIN TIME 23.2 SECONDS (12.7-14.5)
== END ==
LOC: M WUC 15:36
PROVIDERS: ATTEND Family Medicine
DX: Z79.01 Long term (current) use of anticoagulants (principal)

== ENCOUNTER → 2020-12-25 | Outpatient (CLI) | payer MEDICARE ==
[2020-12-25 20:06] LABS: CALCIUM LEVEL 9.2 MG/DL (8.8-10.2); CREATININE FOR GFR 0.96 MG/DL (0.55-1.30); GLOMERULAR FILTRATION RATE 59.2 (>32); MAGNESIUM LEVEL 1.6 MG/DL (1.8-2.4); POTASSIUM SERUM 4.8 MEQ/L (3.5-5.1)
== END ==
LOC: M WUC 15:38
PROVIDERS: ATTEND Physician Assistant
DX: I48.21 Permanent atrial fibrillation (principal); I27.81 Cor pulmonale (chronic)

== ENCOUNTER → 2020-12-25 | Outpatient (CLI) | payer MEDICARE ==
[2020-12-25 20:07] LABS: INR 2.73; PROTHROMBIN TIME 29.3 SECONDS (12.7-14.5)
== END ==
LOC: M WUC 15:33
PROVIDERS: ATTEND Family Medicine
DX: Z51.81 Encounter for therapeutic drug level monitoring (principal); Z79.899 Other long term (current) drug therapy

== ENCOUNTER → 2021-01-26 | Outpatient (CLI) | payer MEDICARE ==
[~2021-01-26] MED LIST changes: +LOSA50TA28 PO; -LOSA50TA88 PO
[2021-01-26 19:48] LABS: BASO # 0.1 10^3/uL (0.0-0.2); BASO % 0.7 % (0.0-1.0); EOS # 0.2 10^3/uL (0.0-0.5); EOS % 2.5 % (0.0-3.0); HEMATOCRIT 40.5 % (36.0-47.0); HEMOGLOBIN 12.3 g/dl (12.0-15.5); LYMPH # 1.1 10^3/uL (1.5-5.0); LYMPH % 12.9 % (24.0-44.0); MEAN CORPUSCULAR HEMOGLOBIN 30.6 pg (27.0-33.0); MEAN CORPUSCULAR HGB CONC 30.4 g/dl (32.0-36.5); MEAN CORPUSCULAR VOLUME 100.7 fl (80.0-96.0); MONO # 0.5 10^3/uL (0.0-0.8); MONO % 6.2 % (2.0-8.0); NEUTROPHILS # 6.7 10^3/uL (1.5-8.5); NEUTROPHILS % 76.7 % (36.0-66.0); PLATELET COUNT, AUTOMATED 278 10^3/uL (150-450); RED BLOOD COUNT 4.02 10^6/uL (4.00-5.40); WHITE BLOOD COUNT 8.7 10^3/uL (4.0-10.0)
[2021-01-26 19:58] LABS: INR 1.49; PROTHROMBIN TIME 18.4 SECONDS (12.7-14.5)
[2021-01-26 20:00] LABS: CALCIUM LEVEL 9.1 MG/DL (8.8-10.2); CREATININE FOR GFR 0.96 MG/DL (0.55-1.30); GLOMERULAR FILTRATION RATE 59.2 (>32); PERCENT SATURATION 17.6 % (13.2-45.0); POTASSIUM SERUM 4.2 MEQ/L (3.5-5.1)
[2021-01-26 20:03] LABS: FOLATE 5.3 NG/ML
[2021-01-26 20:13] LABS: HEMOGLOBIN A1c 5.8 %
== END ==
LOC: M WUC 15:06
PROVIDERS: ATTEND Family Medicine
DX: Z79.01 Long term (current) use of anticoagulants (principal); D64.9 Anemia, unspecified; R73.03 Prediabetes; I10 Essential (primary) hypertension

== ENCOUNTER → 2021-01-26 | Outpatient (CLI) | payer MEDICARE ==
[2021-01-26 20:08] LABS: FREE T4 0.79 NG/DL (0.76-1.46); THYROID STIMULATING HORMONE 2.99 uIU/ML (0.358-3.740)
== END ==
LOC: M WUC 15:11
PROVIDERS: ATTEND Obstetrics & Gynecology
DX: E07.9 Disorder of thyroid, unspecified (principal)

== ENCOUNTER → 2021-02-08 | Outpatient (CLI) | payer MEDICARE ==
[~2021-02-08] MED LIST changes: -LOSA50TA28 PO; +LOSA50TA88 PO
[2021-02-08 16:35] LABS: INR 2.35; PROTHROMBIN TIME 26.1 SECONDS (12.7-14.5)
== END ==
LOC: M WUC 14:17
PROVIDERS: ATTEND Physician Assistant Medical
DX: Z79.01 Long term (current) use of anticoagulants (principal)

== ENCOUNTER → 2021-02-12 | Outpatient (CLI) | payer MEDICARE ==
[~2021-02-12] MED LIST changes: +LOSA50TA28 PO; -LOSA50TA88 PO
== END ==
LOC: M RAD 12:21
PROVIDERS: ATTEND Orthopaedic Surgery
DX: M19.011 Primary osteoarthritis, right shoulder (principal); R39.89 Other symptoms and signs involving the genitourinary system

== ENCOUNTER → 2021-02-12 | Outpatient (REF) | payer MEDICARE ==
[2021-02-12 14:45] LABS: APPEARANCE, URINE CLEAR (CLEAR); BACTERIA, URINE AUTO NEGATIVE (NEGATIVE); BILIRUBIN, URINE AUTO NEGATIVE (NEGATIVE); BLOOD, URINE BLOOD NEGATIVE (NEGATIVE); COLOR, URINE YELLOW (YELLOW); GLUCOSE, URINE (UA) AUTO NEGATIVE (NEGATIVE); KETONE, URINE AUTO NEGATIVE (NEGATIVE); LEUKOCYTE ESTERASE, URINE AUTO NEGATIVE (NEGATIVE); MUCUS, URINE SMALL (NEGATIVE); NITRITE, URINE AUTO NEGATIVE (NEGATIVE); PROTEIN, URINE AUTO NEGATIVE (NEGATIVE); RBC, URINE AUTO 1 /HPF (0-3); SPECIFIC GRAVITY URINE AUTO 1.018 (1.002-1.035); SQUAMOUS EPITHELIAL CELL UR AU 2 /HPF (0-6); UROBILINOGEN, URINE AUTO 0.2 mg/dL (0.0-2.0); WBC, URINE AUTO 1 /HPF (0-3)
== END ==
LOC: M LAB REF 14:10
PROVIDERS: ATTEND Obstetrics & Gynecology
DX: R39.89 Other symptoms and signs involving the genitourinary system (principal)

== ENCOUNTER → 2021-03-05 | Outpatient (CLI) | payer MEDICARE ==
[2021-03-05 19:57] LABS: INR 2.24; PROTHROMBIN TIME 25.1 SECONDS (12.7-14.5)
== END ==
LOC: M WUC 16:04
PROVIDERS: ATTEND Physician Assistant Medical
DX: Z79.01 Long term (current) use of anticoagulants (principal)

== ENCOUNTER → 2021-04-05 | Outpatient (CLI) | payer MEDICARE ==
[2021-04-05 16:37] LABS: BASO # 0.1 10^3/uL (0.0-0.2); BASO % 1.2 % (0.0-1.0); EOS # 0.2 10^3/uL (0.0-0.5); EOS % 3.8 % (0.0-3.0); HEMATOCRIT 35.9 % (36.0-47.0); HEMOGLOBIN 11.1 g/dl (12.0-15.5); LYMPH # 1.2 10^3/uL (1.5-5.0); LYMPH % 20.4 % (24.0-44.0); MEAN CORPUSCULAR HEMOGLOBIN 30.4 pg (27.0-33.0); MEAN CORPUSCULAR HGB CONC 30.9 g/dl (32.0-36.5); MEAN CORPUSCULAR VOLUME 98.4 fl (80.0-96.0); MONO # 0.5 10^3/uL (0.0-0.8); MONO % 9.4 % (2.0-8.0); NEUTROPHILS # 3.7 10^3/uL (1.5-8.5); PLATELET COUNT, AUTOMATED 234 10^3/uL (150-450); RED BLOOD COUNT 3.65 10^6/uL (4.00-5.40); WHITE BLOOD COUNT 5.7 10^3/uL (4.0-10.0)
[2021-04-05 16:54] LABS: INR 1.7; PROTHROMBIN TIME 20.4 SECONDS (12.7-14.5)
[2021-04-05 17:13] LABS: BLOOD UREA NITROGEN 26 MG/DL (7-18); CALCIUM LEVEL 9.1 MG/DL (8.8-10.2); CARBON DIOXIDE LEVEL 33 MEQ/L (21-32); CHLORIDE LEVEL 103 MEQ/L (98-107); CREATININE FOR GFR 0.93 MG/DL (0.55-1.30); FERRITIN 59 NG/ML (8-252); GLOMERULAR FILTRATION RATE > 60.0 (>32); GLUCOSE, FASTING 65 MG/DL (70-100); IRON (FE) 60 UG/DL (50-170); PERCENT SATURATION 16.1 % (13.2-45.0); SODIUM LEVEL 141 MEQ/L (136-145); TOTAL IRON BINDING CAPACITY 373 UG/DL (250-450)
[2021-04-05 17:17] LABS: VITAMIN B12 LEVEL 361 PG/ML (247-911)
[2021-04-05 17:18] LABS: FOLATE 6.9 NG/ML (>5.4)
== END ==
LOC: M WUC 14:35
PROVIDERS: ATTEND Family Medicine
DX: R73.03 Prediabetes (principal); I10 Essential (primary) hypertension; K21.9 Gastro-esophageal reflux disease without esophagitis; D64.9 Anemia, unspecified; R20.2 Paresthesia of skin; E65 Localized adiposity; Z51.81 Encounter for therapeutic drug level monitoring

== ENCOUNTER → 2021-04-14 | Outpatient (CLI) | payer MEDICARE ==
[2021-04-14 20:01] LABS: INR 1.87; PROTHROMBIN TIME 21.9 SECONDS (12.7-14.5)
== END ==
LOC: M WUC 15:25
PROVIDERS: ATTEND Family Medicine
DX: Z79.01 Long term (current) use of anticoagulants (principal)

== ENCOUNTER → 2021-04-29 | Outpatient (CLI) | payer MEDICARE ==
[2021-04-29 20:01] LABS: INR 1.46; PROTHROMBIN TIME 18.2 SECONDS (12.7-14.5)
== END ==
LOC: M WUC 15:47
PROVIDERS: ATTEND Family Medicine
DX: Z51.81 Encounter for therapeutic drug level monitoring (principal); Z79.01 Long term (current) use of anticoagulants

== ENCOUNTER → 2021-05-05 | Outpatient (CLI) | payer MEDICARE ==
[~2021-05-05] MED LIST changes: +ISOVUE-300 61% 50ML VIAL As Ordered ONE; +LIDOCAINE 1% MDV 20ML VIAL As Ordered ONE; +methylPREDNISolone SUSP 40MG/ML 1ML VIAL (DEPO MEDROL) As Ordered ONE
== END ==
LOC: M RADPRO 13:11
PROVIDERS: ATTEND Physician Assistant Surgical
DX: M19.011 Primary osteoarthritis, right shoulder (principal)
CPT/HCPCS: 20610; 77002; J1030; Q9967

== ENCOUNTER 2021-05-06 20:35 | Emergency (ER) | payer MEDICARE ==
[~2021-05-06] VITALS: Ht 157.5 cm; Wt 78.2 kg
[2021-05-06 20:37] VITALS: BP 193/78
== END 2021-05-06 22:59 | disposition left against medical advice (07) ==
LOC: M ED 20:35
DX: Z53.21 Procedure and treatment not carried out due to patient leaving prior to being seen by health care provider (principal)

== ENCOUNTER → 2021-05-06 | Outpatient (CLI) | payer MEDICARE ==
[~2021-05-06] MED LIST changes: -ISOVUE-300 61% 50ML VIAL As Ordered ONE; -LIDOCAINE 1% MDV 20ML VIAL As Ordered ONE; -methylPREDNISolone SUSP 40MG/ML 1ML VIAL (DEPO MEDROL) As Ordered ONE
[2021-05-06 20:05] LABS: INR 1.96; PROTHROMBIN TIME 22.7 SECONDS (12.7-14.5)
== END ==
LOC: M WUC 15:31
PROVIDERS: ATTEND Family Medicine
DX: Z79.01 Long term (current) use of anticoagulants (principal)

== ENCOUNTER → 2021-05-13 | Outpatient (CLI) | payer MEDICARE ==
[2021-05-13 20:20] LABS: INR 3.07
== END ==
LOC: M WUC 15:06
PROVIDERS: ATTEND Family Medicine
DX: Z79.01 Long term (current) use of anticoagulants (principal)

== ENCOUNTER → 2021-05-14 | Outpatient (REF) | payer MEDICARE | LOC: M SFHCPLAZ 16:58 | PROVIDERS: ATTEND Physician Assistant | DX: R05.9 Cough, unspecified (principal) ==

== ENCOUNTER → 2021-05-17 | Outpatient (CLI) | payer MEDICARE | LOC: M RAD 16:41 | PROVIDERS: ATTEND Physician Assistant | DX: R05.9 Cough, unspecified (principal) ==

== ENCOUNTER → 2021-05-17 | Outpatient (REF) | payer MEDICARE ==
[~2021-05-17] MED LIST changes: +ACET500T15 PO; +BENZ-18 PO; +BREO1INH3 INH; +CLOB5CR PV; +DOXY100C3 PO; +HYDR12.55 PO; +LEVO750T13 PO; +MUPI2OI; +PANT40TA29 PO; +PRED10TA2 PO; +WARF4TAB51 PO; +XALA0.007 OS; -XALA0.007 OU
== END ==
LOC: M SFHCPLAZ 16:46
PROVIDERS: ATTEND Physician Assistant
DX: R05.9 Cough, unspecified (principal)

== ENCOUNTER 2021-05-20 16:36 | Inpatient (IN) | payer MEDICARE ==
[~2021-05-20] VITALS: Ht 162.6 cm; Wt 78.6 kg
[~2021-05-20 16:36] MED LIST changes: -ACET500T15 PO; -BREO1INH3 INH; -CLOB5CR PV; -DOXY100C3 PO; -MUPI2OI; -PANT40TA29 PO; -WARF4TAB51 PO
[2021-05-20 17:39] LABS: BASO # 0.1 10^3/uL (0.0-0.2); BASO % 0.5 % (0.0-1.0); EOS # 0.1 10^3/uL (0.0-0.5); EOS % 0.7 % (0.0-3.0); HEMATOCRIT 33.2 % (36.0-47.0); HEMOGLOBIN 10.3 g/dl (12.0-15.5); LYMPH # 1.1 10^3/uL (1.5-5.0); LYMPH % 8.1 % (24.0-44.0); MEAN CORPUSCULAR HEMOGLOBIN 30.7 pg (27.0-33.0); MEAN CORPUSCULAR VOLUME 98.8 fl (80.0-96.0); MONO # 1.1 10^3/uL (0.0-0.8); MONO % 8.5 % (2.0-8.0); NEUTROPHILS # 10.6 10^3/uL (1.5-8.5); NEUTROPHILS % 79.9 % (36.0-66.0); PLATELET COUNT, AUTOMATED 306 10^3/uL (150-450); RED BLOOD COUNT 3.36 10^6/uL (4.00-5.40); WHITE BLOOD COUNT 13.2 10^3/uL (4.0-10.0)
[2021-05-20 17:51] LABS: INR 2.04; PROTHROMBIN TIME 23.4 SECONDS (12.7-14.5)
[2021-05-20 17:59] LABS: ALBUMIN 2.6 GM/DL (3.2-5.2); BILIRUBIN,DIRECT 0.1 MG/DL (0.0-0.2); BILIRUBIN,TOTAL 0.3 MG/DL (0.2-1.0); CALCIUM LEVEL 8.9 MG/DL (8.8-10.2); CREATININE FOR GFR 0.95 MG/DL (0.55-1.30); POTASSIUM SERUM 4.8 MEQ/L (3.5-5.1); TOTAL PROTEIN 6.5 GM/DL (6.4-8.2)
[2021-05-20 18:03] LABS: RSV AMPLIFICATION POSITIVE (NEGATIVE)
[2021-05-20] MEDS ORDERED: LevoFLOXacin IV 750 MG in IV 1 EA IV ONE (18:50)
[2021-05-20] MEDS ORDERED: DOXY100C3 PO (20:46)
[2021-05-20] MEDS ORDERED: GABA-282 PO (20:46)
[2021-05-20] MEDS ORDERED: CLOB5CR PV (20:46)
[2021-05-20] MEDS ORDERED: PRED20TA PO (20:46)
[2021-05-20] MEDS ORDERED: WARF4TAB51 PO ×2 (20:46)
[2021-05-20] MEDS ORDERED: FAMO40TA3 PO (20:46)
[2021-05-20] MEDS ORDERED: MUPI2OI (20:46)
[2021-05-20] MEDS ORDERED: ACET500T15 PO (20:46)
[2021-05-20] MEDS ORDERED: PANT40TA29 PO (20:46)
[2021-05-20] MEDS ORDERED: BREO1INH3 INH (20:46)
[2021-05-20] MEDS ORDERED: HOME MED LIST COMPLETE! XX SCH (20:50)
[2021-05-20] MEDS: NS 1,000 ML IV SCH (21:00)
[2021-05-20] MEDS ORDERED: ALBUTEROL SULFATE 2.5 MG/0.5 ML INH NEB SOLN INH PRN (21:00)
[2021-05-20] MEDS: methylPREDNISolone 40MG 1ML VIAL IV SCH (23:28)
[2021-05-20] MEDS: ACETAMINOPHEN TAB 650MG DOSE (2X325MG) PO PRN (23:53)
[2021-05-21 02:00] VITALS: BP 146/89
[2021-05-21] MEDS: IPRATROPIUM 0.5MG/ALBUTEROL 2.5MG INH SOL UD 3ML (DUONEB) INH SCH ×4 (02:02→19:39)
[2021-05-21 04:00] VITALS: BP 163/72
[2021-05-21] MEDS: ACETAMINOPHEN TAB 650MG DOSE (2X325MG) PO PRN ×2 (05:40→20:32)
[2021-05-21] MEDS: methylPREDNISolone 40MG 1ML VIAL IV SCH ×3 (05:40→17:50)
[2021-05-21 08:42] VITALS: BP 178/80
[2021-05-21 09:15] LABS: CALCIUM LEVEL 9.7 MG/DL (8.8-10.2); CREATININE FOR GFR 0.95 MG/DL (0.55-1.30); POTASSIUM SERUM 5.2 MEQ/L (3.5-5.1)
[2021-05-21 09:20] LABS: INR 2.4; PROTHROMBIN TIME 26.5 SECONDS (12.7-14.5)
[2021-05-21] MEDS ORDERED: **hydrALAZINE HCL** 25 MG TAB PO PRN (09:55)
[2021-05-21] MEDS: PANTOPRAZOLE 40MG TAB (PROTONIX) PO SCH ×2 (10:37→20:31)
[2021-05-21] MEDS: bisoproloL fumarate 5 MG TAB PO SCH (10:40)
[2021-05-21] MEDS: GABAPENTIN 300 MG CAP PO SCH (10:40)
[2021-05-21] MEDS: guaiFENesin ER 600 MG TAB PO SCH ×2 (10:59→20:31)
[2021-05-21 11:01] LABS: DIGOXIN LEVEL 1.4 NG/ML (0.5-2.0)
[2021-05-21] MEDS: ADVAIR HFA 230/21MCG INHALER INH SCH ×2 (11:23→19:39)
[2021-05-21 12:17] VITALS: BP 148/84
[2021-05-21 14:34] VITALS: BP 115/57
[2021-05-21 14:59] LABS: BLOOD UREA NITROGEN 37 MG/DL (7-18); CALCIUM LEVEL 8.8 MG/DL (8.8-10.2); CARBON DIOXIDE LEVEL 31 MEQ/L (21-32); CHLORIDE LEVEL 107 MEQ/L (98-107); CREATININE FOR GFR 0.87 MG/DL (0.55-1.30); GLOMERULAR FILTRATION RATE > 60.0 (>32); GLUCOSE, FASTING 155 MG/DL (70-100); POTASSIUM SERUM 5.1 MEQ/L (3.5-5.1); SODIUM LEVEL 138 MEQ/L (136-145)
[2021-05-21] MEDS ORDERED: WARFARIN SOD 1MG TAB PO ONE (17:00)
[2021-05-21] MEDS: NS 1,000 ML IV SCH (17:50)
[2021-05-21] MEDS: LevoFLOXacin IV 750 MG in IV 1 EA IV SCH (17:50)
[2021-05-21 20:27] VITALS: BP 145/63
[2021-05-21] MEDS: RAMELTEON 8 MG TAB (ROZEREM) PO SCH (20:31)
[2021-05-21] MEDS: LATANOPROST 0.005% OPHTH SOLN 2.5 ML OS SCH (20:32)
[2021-05-22] MEDS: methylPREDNISolone 40MG 1ML VIAL IV SCH ×4 (00:16→17:18)
[2021-05-22] MEDS: IPRATROPIUM 0.5MG/ALBUTEROL 2.5MG INH SOL UD 3ML (DUONEB) INH SCH ×4 (01:59→20:17)
[2021-05-22 06:00] VITALS: BP 182/76
[2021-05-22 06:21] LABS: HEMATOCRIT 29.5 % (36.0-47.0); HEMOGLOBIN 9.4 g/dl (12.0-15.5); MEAN CORPUSCULAR HGB CONC 31.9 g/dl (32.0-36.5); MEAN CORPUSCULAR VOLUME 97.4 fl (80.0-96.0); PLATELET COUNT, AUTOMATED 276 10^3/uL (150-450); RED BLOOD COUNT 3.03 10^6/uL (4.00-5.40)
[2021-05-22 06:29] LABS: INR 2.88; PROTHROMBIN TIME 30.5 SECONDS (12.7-14.5)
[2021-05-22 06:52] LABS: BLOOD UREA NITROGEN 40 MG/DL (7-18); CALCIUM LEVEL 8.3 MG/DL (8.8-10.2); CARBON DIOXIDE LEVEL 27 MEQ/L (21-32); CHLORIDE LEVEL 106 MEQ/L (98-107); CREATININE FOR GFR 0.88 MG/DL (0.55-1.30); GLOMERULAR FILTRATION RATE > 60.0 (>32); GLUCOSE, FASTING 173 MG/DL (70-100); SODIUM LEVEL 137 MEQ/L (136-145)
[2021-05-22] MEDS: ADVAIR HFA 230/21MCG INHALER INH SCH ×2 (07:18→20:00)
[2021-05-22 08:00] VITALS: BP 164/62
[2021-05-22] MEDS: guaiFENesin ER 600 MG TAB PO SCH ×2 (09:00→20:32)
[2021-05-22 09:26] VITALS: BP 176/113
[2021-05-22] MEDS: PANTOPRAZOLE 40MG TAB (PROTONIX) PO SCH ×2 (09:26→20:31)
[2021-05-22] MEDS: GABAPENTIN 300 MG CAP PO SCH (09:26)
[2021-05-22] MEDS: bisoproloL fumarate 5 MG TAB PO SCH (09:26)
[2021-05-22] MEDS: DIGOXIN 0.125 MG TAB PO SCH (09:27)
[2021-05-22 10:36] VITALS: BP 112/63
[2021-05-22] MEDS: CEPACOL LOZENGE PO PRN ×2 (11:56→18:27)
[2021-05-22 14:00] VITALS: BP 129/56
[2021-05-22] MEDS ORDERED: SALIVA SUBSTITUTE(MOUTHKOTE) BTL MT PRN (16:40)
[2021-05-22] MEDS ORDERED: WARFARIN SOD 1MG TAB PO ONE (17:00)
[2021-05-22] MEDS: LevoFLOXacin IV 750 MG in IV 1 EA IV SCH (17:18)
[2021-05-22] MEDS: RAMELTEON 8 MG TAB (ROZEREM) PO SCH (20:31)
[2021-05-22] MEDS: LATANOPROST 0.005% OPHTH SOLN 2.5 ML OS SCH (20:32)
[2021-05-22] MEDS: MUPIROCIN 2% OINT 22 GM TUBE TOP SCH (20:32)
[2021-05-22] MEDS: BENZONATATE 100MG CAPSULE PO SCH (20:33)
[2021-05-22] MEDS: ACETAMINOPHEN TAB 650MG DOSE (2X325MG) PO PRN (20:45)
[2021-05-22] MEDS ORDERED: SODIUM CHLORIDE NASAL 0.65% SPRAY BTL (OCEAN) PRN (20:50)
[2021-05-22] MEDS ORDERED: CLOTRIMAZOLE 10 MG TROCHE MT SCH (21:00)
[2021-05-22 22:00] VITALS: BP 156/65
[2021-05-23] MEDS: methylPREDNISolone 40MG 1ML VIAL IV SCH ×3 (00:06→12:00)
[2021-05-23] MEDS: ACETAMINOPHEN TAB 650MG DOSE (2X325MG) PO PRN (01:11)
[2021-05-23] MEDS: IPRATROPIUM 0.5MG/ALBUTEROL 2.5MG INH SOL UD 3ML (DUONEB) INH SCH ×2 (02:00→07:36)
[2021-05-23 06:00] VITALS: BP 155/65
[2021-05-23] MEDS: CEPACOL LOZENGE PO PRN (06:37)
[2021-05-23] MEDS: ADVAIR HFA 230/21MCG INHALER INH SCH (07:36)
[2021-05-23 07:51] LABS: HEMATOCRIT 30.1 % (36.0-47.0); HEMOGLOBIN 9.6 g/dl (12.0-15.5); MEAN CORPUSCULAR HEMOGLOBIN 31.3 pg (27.0-33.0); MEAN CORPUSCULAR HGB CONC 31.9 g/dl (32.0-36.5); PLATELET COUNT, AUTOMATED 319 10^3/uL (150-450); RED BLOOD COUNT 3.07 10^6/uL (4.00-5.40); WHITE BLOOD COUNT 10.7 10^3/uL (4.0-10.0)
[2021-05-23 08:03] LABS: INR 3.14; PROTHROMBIN TIME 32.6 SECONDS (12.7-14.5)
[2021-05-23 08:19] LABS: CALCIUM LEVEL 8.6 MG/DL (8.8-10.2); CREATININE FOR GFR 0.99 MG/DL (0.55-1.30); GLOMERULAR FILTRATION RATE 57.2 (>32); POTASSIUM SERUM 5.4 MEQ/L (3.5-5.1)
[2021-05-23] MEDS: BENZONATATE 100MG CAPSULE PO SCH (09:00)
[2021-05-23] MEDS: bisoproloL fumarate 5 MG TAB PO SCH (09:00)
[2021-05-23] MEDS: GABAPENTIN 300 MG CAP PO SCH (09:00)
[2021-05-23] MEDS: guaiFENesin ER 600 MG TAB PO SCH (09:00)
[2021-05-23] MEDS: DIGOXIN 0.125 MG TAB PO SCH (09:01)
[2021-05-23] MEDS: PANTOPRAZOLE 40MG TAB (PROTONIX) PO SCH (09:01)
[2021-05-23] MEDS: MUPIROCIN 2% OINT 22 GM TUBE TOP SCH (09:01)
[2021-05-23] MEDS ORDERED: LEVO750T13 PO ×2 (10:40→10:48)
[2021-05-23] MEDS ORDERED: BENZ-18 PO (10:40)
[2021-05-23] MEDS ORDERED: MUCI600T31 PO (10:40)
[2021-05-23] MEDS ORDERED: PRED10TA2 PO (10:40)
[2021-05-23] MEDS ORDERED: HYDR12.55 PO (10:40)
[2021-05-23] MEDS ORDERED: SOD POLYSTYRENE SULFONATE SUSP 15 GM/60 ML UD PO ONE (12:00)
== END 2021-05-23 12:15 | disposition home or self-care (01) | DRG 871 ==
LOC: M ED 16:36 → M ED INP 21:00 → M PCU 23:24 → M MS5PR 05-22 10:21
PROVIDERS: ADMIT Internal Medicine; ATTEND Internal Medicine
DX: A41.9 Sepsis, unspecified organism (principal); J12.1 Respiratory syncytial virus pneumonia; J96.20 Acute and chronic respiratory failure, unspecified whether with hypoxia or hypercapnia; J44.0 Chronic obstructive pulmonary disease with (acute) lower respiratory infection; J44.1 Chronic obstructive pulmonary disease with (acute) exacerbation; I48.91 Unspecified atrial fibrillation; I10 Essential (primary) hypertension; E78.5 Hyperlipidemia, unspecified; K21.9 Gastro-esophageal reflux disease without esophagitis; M19.90 Unspecified osteoarthritis, unspecified site; Z87.891 Personal history of nicotine dependence; Z79.01 Long term (current) use of anticoagulants; Z79.899 Other long term (current) drug therapy; Z99.81 Dependence on supplemental oxygen; E87.5 Hyperkalemia; Z88.0 Allergy status to penicillin

== ENCOUNTER → 2021-05-20 | Outpatient (CLI) | payer MEDICARE ==
[~2021-05-20] MED LIST changes: -BENZ-18 PO; -HYDR12.55 PO; -LEVO750T13 PO; -PRED10TA2 PO
[2021-05-20 16:22] LABS: INR 1.98; PROTHROMBIN TIME 22.9 SECONDS (12.7-14.5)
== END ==
LOC: M WUC 13:47
PROVIDERS: ATTEND Family Medicine
DX: Z79.01 Long term (current) use of anticoagulants (principal)

== ENCOUNTER → 2021-05-26 | Outpatient (CLI) | payer MEDICARE ==
[~2021-05-26] MED LIST changes: +ACET500T15 PO; +BENZ-18 PO; +BREO1INH3 INH; +CLOB5CR PV; +DOXY100C3 PO; +HYDR12.55 PO; +LEVO750T13 PO; +MUPI2OI; +PANT40TA29 PO; +PRED10TA2 PO; +WARF4TAB51 PO
[2021-05-26 16:39] LABS: BASO # 0.2 10^3/uL (0.0-0.2); BASO % 0.8 % (0.0-1.0); EOS % 0.2 % (0.0-3.0); HEMOGLOBIN 13.3 g/dl (12.0-15.5); LYMPH # 0.6 10^3/uL (1.5-5.0); MEAN CORPUSCULAR HEMOGLOBIN 31.3 pg (27.0-33.0); MEAN CORPUSCULAR HGB CONC 32.4 g/dl (32.0-36.5); MEAN CORPUSCULAR VOLUME 96.5 fl (80.0-96.0); MONO # 1.1 10^3/uL (0.0-0.8); MONO % 5.8 % (2.0-8.0); NEUTROPHILS # 16.6 10^3/uL (1.5-8.5); NEUTROPHILS % 84.8 % (36.0-66.0); PLATELET COUNT, AUTOMATED 480 10^3/uL (150-450); RED BLOOD COUNT 4.25 10^6/uL (4.00-5.40); WHITE BLOOD COUNT 19.5 10^3/uL (4.0-10.0)
[2021-05-26 17:16] LABS: ALBUMIN 3.3 GM/DL (3.2-5.2); BILIRUBIN,TOTAL 0.6 MG/DL (0.2-1.0); C REACTIVE PROTEIN QUANTITATIV 0.91 MG/DL (0.00-0.30); CALCIUM LEVEL 9.5 MG/DL (8.8-10.2); CREATININE FOR GFR 1.57 MG/DL (0.55-1.30); FREE T4 0.95 NG/DL (0.76-1.46); GLOMERULAR FILTRATION RATE 33.6 (>32); POTASSIUM SERUM 4.5 MEQ/L (3.5-5.1); THYROID STIMULATING HORMONE 0.73 uIU/ML (0.358-3.740); TOTAL PROTEIN 7.3 GM/DL (6.4-8.2)
[2021-05-26 18:24] LABS: TOTAL 25(OH) VITAMIN D 33.2 NG/ML (30.0-100.0)
== END ==
LOC: M PLALAB 16:10
PROVIDERS: ATTEND Internal Medicine Hematology
DX: I48.11 Longstanding persistent atrial fibrillation (principal); Z79.01 Long term (current) use of anticoagulants; Z79.51 Long term (current) use of inhaled steroids; Z79.899 Other long term (current) drug therapy

== ENCOUNTER → 2021-06-01 | Outpatient (CLI) | payer MEDICARE ==
[~2021-06-01] MED LIST changes: -ACET1TAB16 PO; +ACET300T48 PO
[2021-06-01 16:27] LABS: INR 1.74; PROTHROMBIN TIME 20.8 SECONDS (12.7-14.5)
== END ==
LOC: M WUC 14:22
PROVIDERS: ATTEND Family Medicine
DX: Z79.01 Long term (current) use of anticoagulants (principal)

== ENCOUNTER → 2021-06-08 | Outpatient (REF) | payer MEDICARE | LOC: M SFHCPLAZ 19:04 | PROVIDERS: ATTEND Internal Medicine Hematology | DX: J44.9 Chronic obstructive pulmonary disease, unspecified (principal) ==

== ENCOUNTER → 2021-06-18 | Outpatient (REF) | payer MEDICARE ==
[~2021-06-18] MED LIST changes: +LEVO750T14 PO
[2021-06-18 19:56] LABS: INR 2.62; PROTHROMBIN TIME 28.4 SECONDS (12.7-14.5)
== END ==
LOC: M WUC 19:09
PROVIDERS: ATTEND Family Medicine
DX: Z79.01 Long term (current) use of anticoagulants (principal)

== ENCOUNTER 2021-06-22 09:07 | Emergency (ER) | payer MEDICARE ==
[~2021-06-22 09:07] MED LIST changes: +CLOB5CR PA; -CLOB5CR PV; -XALA0.007 OS; +XALA0.007 OU
[2021-06-22] MEDS ORDERED: LEVO750T13 PO (14:39)
[2021-06-22] MEDS ORDERED: ERGO500029 PO (14:39)
[2021-06-22] MEDS ORDERED: HYDR12.55 PO (14:39)
[2021-06-22] MEDS ORDERED: SPIR-10 PO (14:39)
[2021-06-22] MEDS ORDERED: MONT10TA97 PO (14:39)
== END 2021-06-22 09:30 | disposition left against medical advice (07) ==
LOC: EDBD 09:07 → M ED 09:28
DX: Z53.21 Procedure and treatment not carried out due to patient leaving prior to being seen by health care provider (principal)

== ENCOUNTER 2021-06-22 11:20 | Inpatient (IN) | payer MEDICARE ==
[~2021-06-22] VITALS: Ht 165.1 cm; Wt 82.3 kg
[2021-06-22 12:24] LABS: VENOUS BASE EXCESS 1.9 (-2.0-2.0); VENOUS HCO3 24.5 MEQ/L (23.0-27.0); VENOUS O2 SATURATION 99.5 % (60.0-80.0); VENOUS PARTIAL PRESSURE CO2 31.9 mmHg (38.0-50.0); VENOUS PARTIAL PRESSURE O2 128.3 mmHg (30.0-50.0); VENOUS PH 7.504 UNITS (7.330-7.430); VENOUS STANDARD HCO3 26.2 MEQ/L; VENOUS TOTAL CO2 25.5 MEQ/L (24.0-28.0)
[2021-06-22 12:26] LABS: HEMATOCRIT 34.3 % (36.0-47.0); HEMOGLOBIN 11.4 g/dl (12.0-15.5); MEAN CORPUSCULAR HGB CONC 33.2 g/dl (32.0-36.5); MEAN CORPUSCULAR VOLUME 96.3 fl (80.0-96.0); PLATELET COUNT, AUTOMATED 325 10^3/uL (150-450); RED BLOOD COUNT 3.56 10^6/uL (4.00-5.40); WHITE BLOOD COUNT 14.8 10^3/uL (4.0-10.0)
[2021-06-22 12:57] LABS: HYPERSEGMENTED POLYS 2+; LYMPHOCYTES 5 % (16-44); METAMYELOCYTES 3 % (0-0); MONOCYTES 5 % (0-5); MYELOCYTES 2 % (0-0); NEUTROPHILS 84 % (28-66)
[2021-06-22 12:58] LABS: OVALOCYTES 2+; PLATELET ESTIMATE NORMAL (NORMAL)
[2021-06-22 13:03] LABS: OSMOLALITY SERUM 285 MOSM/KG (280-301)
[2021-06-22 13:05] LABS: ALBUMIN 3.2 GM/DL (3.2-5.2); ALT/SGPT 32 U/L (12-78); BILIRUBIN,DIRECT 0.1 MG/DL (0.0-0.2); BILIRUBIN,TOTAL 0.7 MG/DL (0.2-1.0); BLOOD UREA NITROGEN 33 MG/DL (7-18); CALCIUM LEVEL 9.9 MG/DL (8.8-10.2); CARBON DIOXIDE LEVEL 25 MEQ/L (21-32); CHLORIDE LEVEL 100 MEQ/L (98-107); CREATININE FOR GFR 1.05 MG/DL (0.55-1.30); ETHYL ALCOHOL (ETHANOL) < 0.003 % (0.000-0.010); GLOMERULAR FILTRATION RATE 53.4 (>32); GLUCOSE, FASTING 152 MG/DL (70-100); POTASSIUM SERUM 5.9 MEQ/L (3.5-5.1); SALICYLATE LEVEL < 1.7 MG/DL (5.0-30.0); SODIUM LEVEL 132 MEQ/L (136-145); THYROID STIMULATING HORMONE 0.997 uIU/ML (0.358-3.740); TOTAL PROTEIN 6.7 GM/DL (6.4-8.2)
[2021-06-22 13:12] LABS: CK-MB VALUE MASS 1.2 NG/ML (<3.6); MB/CK RELATIVE INDEX 1.6 (< OR =4)
[2021-06-22] MEDS ORDERED: LEVO750T13 PO (14:39)
[2021-06-22] MEDS ORDERED: SPIR-10 PO (14:39)
[2021-06-22] MEDS ORDERED: MONT10TA97 PO (14:39)
[2021-06-22] MEDS ORDERED: ERGO500029 PO (14:39)
[2021-06-22] MEDS ORDERED: HYDR12.55 PO (14:39)
[2021-06-22 14:42] LABS: INR 2.56; PROTHROMBIN TIME 27.9 SECONDS (12.7-14.5)
[2021-06-22 14:43] LABS: PARTIAL THROMBOPLASTIN TIME 40.6 SECONDS (25.9-37.0)
[2021-06-22] MEDS ORDERED: HOME MED LIST COMPLETE! XX SCH (14:45)
[2021-06-22 14:59] LABS: AMPHETAMINES LEVEL URINE NEGATIVE (NEGATIVE); BARBITURATES URINE POSITIVE (NEGATIVE); BENZODIAZEPINES URINE NEGATIVE (NEGATIVE); CANNABINOIDS URINE NEGATIVE (NEGATIVE); COCAINE METABOLITE URINE NEGATIVE (NEGATIVE); METHADONE URINE NEGATIVE (NEGATIVE); OPIATES URINE POSITIVE (NEGATIVE); PHENCYCLIDINE URINE NEGATIVE (NEGATIVE)
[2021-06-22 15:09] LABS: DIGOXIN LEVEL 1.1 NG/ML (0.5-2.0)
[2021-06-22] MEDS ORDERED: WARFARIN SOD 2MG TAB PO SCH (17:00)
[2021-06-22] MEDS ORDERED: MAALOX 30 ML SUSP *UDC PO PRN (17:25)
[2021-06-22] MEDS ORDERED: MOM 30ML SUSPENSION UDC PO PRN (17:25)
[2021-06-22] MEDS ORDERED: LABETALOL 100MG/20ML VIAL IV STA (17:42)
[2021-06-22] MEDS ORDERED: cefTRIAXone SOD 1 GM in D5W MINI-BAG PLUS 50 ML IV SCH (17:55)
[2021-06-22] MEDS ORDERED: FUROSEMIDE 40MG/4ML VIAL (J1940) IV ONE (17:55)
[2021-06-22] MEDS ORDERED: LevoFLOXacin 750 MG TABLET PO SCH (18:00)
[2021-06-22] MEDS ORDERED: ALBUTEROL 90 MCG/ACT 8GM HFA INHALER INH PRN (18:05)
[2021-06-22] MEDS: SYMBICORT 160/4.5MCG INHALER 6GM INH SCH (20:00)
[2021-06-22 20:15] VITALS: BP 140/70
[2021-06-22] MEDS: ATORVASTATIN 20 MG TAB PO SCH (21:11)
[2021-06-22] MEDS: PANTOPRAZOLE 40MG TAB (PROTONIX) PO SCH (21:11)
[2021-06-22] MEDS: hydroCHLOROthiazide 12.5 MG CAPSULE PO SCH (21:12)
[2021-06-22] MEDS: AMITRIPTYLINE 25MG TABLET PO SCH (21:12)
[2021-06-22] MEDS: DOXYCYCLINE HYCLATE 100 MG in D5W MINI-BAG PLUS 100 ML IV SCH (21:13)
[2021-06-22] MEDS: LATANOPROST 0.005% OPHTH SOLN 2.5 ML OU SCH (23:30)
[2021-06-22] MEDS: CLOBETASOL PROPIONATE EMOLLIENT 0.05% CR 60 GM TOP SCH (23:31)
[2021-06-22] MEDS ORDERED: BISACODYL 5 MG TAB PO PRN (23:55)
[2021-06-23] MEDS ORDERED: DOCUSATE SODIUM 100MG CAPSULE PO PRN (03:05)
[2021-06-23] MEDS ORDERED: HYOSCYAMINE SULFATE 0.125 MG SUBL TABLET PO ONE (03:05)
[2021-06-23] MEDS ORDERED: NS 1,000 ML IV SCH (03:25)
[2021-06-23 03:36] VITALS: BP 99/61
[2021-06-23] MEDS ORDERED: NS 500 ML IV ONE (05:15)
[2021-06-23] MEDS ORDERED: MORPHINE 2 MG/ML 1ML VIAL IV ONE (05:15)
[2021-06-23 06:07] LABS: HEMATOCRIT 35.3 % (36.0-47.0); HEMOGLOBIN 11.3 g/dl (12.0-15.5); MEAN CORPUSCULAR HEMOGLOBIN 31.3 pg (27.0-33.0); MEAN CORPUSCULAR VOLUME 97.8 fl (80.0-96.0); PLATELET COUNT, AUTOMATED 318 10^3/uL (150-450); RED BLOOD COUNT 3.61 10^6/uL (4.00-5.40); WHITE BLOOD COUNT 14.6 10^3/uL (4.0-10.0)
[2021-06-23 06:18] LABS: INR 2.37; PROTHROMBIN TIME 26.3 SECONDS (12.7-14.5)
[2021-06-23 06:38] LABS: ALBUMIN 3.2 GM/DL (3.2-5.2); BILIRUBIN,TOTAL 0.9 MG/DL (0.2-1.0); CALCIUM LEVEL 9.2 MG/DL (8.8-10.2); CREATININE FOR GFR 1.28 MG/DL (0.55-1.30); GLOMERULAR FILTRATION RATE 42.5 (>32); POTASSIUM SERUM 3.9 MEQ/L (3.5-5.1); TOTAL PROTEIN 6.8 GM/DL (6.4-8.2)
[2021-06-23 06:39] LABS: C REACTIVE PROTEIN QUANTITATIV 2.95 MG/DL (0.00-0.30); MAGNESIUM LEVEL 1.9 MG/DL (1.8-2.4)
[2021-06-23 06:48] LABS: ATYPICAL LYMPH 1 % (0-5); LYMPHOCYTES 17 % (16-44); MONOCYTES 4 % (0-5); NEUTROPHILS 78 % (28-66)
[2021-06-23 06:49] LABS: ANISOCYTOSIS 2+; OVALOCYTES 1+; PLATELET ESTIMATE NORMAL (NORMAL)
[2021-06-23] MEDS: TIOTROPIUM INHALER/CAPSULE (SPIRIVA) INH SCH (07:20)
[2021-06-23] MEDS: SYMBICORT 160/4.5MCG INHALER 6GM INH SCH ×2 (07:20→20:12)
[2021-06-23] MEDS: predniSONE 20 MG TAB PO SCH (08:25)
[2021-06-23] MEDS: MONTELUKAST 10 MG TAB PO SCH (08:25)
[2021-06-23] MEDS: LACTOBACILLUS ACIDOPHILUS CAP (BACID) PO SCH (08:25)
[2021-06-23] MEDS: PANTOPRAZOLE 40MG TAB (PROTONIX) PO SCH ×2 (08:25→20:09)
[2021-06-23] MEDS: DIGOXIN 0.125 MG TAB PO SCH (08:26)
[2021-06-23] MEDS: ACETAMINOPHEN TAB 650MG DOSE (2X325MG) PO PRN (08:26)
[2021-06-23] MEDS: CLOBETASOL PROPIONATE EMOLLIENT 0.05% CR 60 GM TOP SCH ×2 (08:28→20:10)
[2021-06-23] MEDS: SPIRONOLACTONE 12.5MG PER 1/2 TABLET PO SCH (08:49)
[2021-06-23] MEDS: DOXYCYCLINE HYCLATE 100 MG in D5W MINI-BAG PLUS 100 ML IV SCH ×2 (08:50→20:09)
[2021-06-23 09:00] VITALS: BP 146/78
[2021-06-23] MEDS ORDERED: DOCUSATE SODIUM 100MG CAPSULE PO SCH (09:00)
[2021-06-23] MEDS: bisoproloL fumarate 5 MG TAB PO SCH (09:03)
[2021-06-23] MEDS: ONDANSETRON 4MG/2ML VIAL IV PRN (10:49)
[2021-06-23] MEDS ORDERED: GI COCKTAIL 50ML BTL(HYOSCYAMINE/MAALOX/LIDOCAINE VISCOUS)(1:3:1) PO PRN (13:45)
[2021-06-23 14:00] VITALS: BP 120/70
[2021-06-23] MEDS: MAALOX 30 ML SUSP *UDC PO PRN (14:37)
[2021-06-23] MEDS ORDERED: WARFARIN SOD 1MG TAB PO SCH (17:00)
[2021-06-23 19:43] VITALS: BP 119/71
[2021-06-23] MEDS: AMITRIPTYLINE 25MG TABLET PO SCH (20:09)
[2021-06-23] MEDS: hydroCHLOROthiazide 12.5 MG CAPSULE PO SCH (20:09)
[2021-06-23] MEDS: ATORVASTATIN 20 MG TAB PO SCH (20:09)
[2021-06-23] MEDS: LATANOPROST 0.005% OPHTH SOLN 2.5 ML OU SCH (20:10)
[2021-06-24] MEDS ORDERED: hydrOXYzine 25 MG TAB PO ONE (03:30)
[2021-06-24] MEDS: MAALOX 30 ML SUSP *UDC PO PRN (03:42)
[2021-06-24] MEDS: ACETAMINOPHEN TAB 650MG DOSE (2X325MG) PO PRN (03:43)
[2021-06-24 05:16] VITALS: BP 123/70
[2021-06-24 06:27] LABS: HEMATOCRIT 35.3 % (36.0-47.0); HEMOGLOBIN 11.7 g/dl (12.0-15.5); MEAN CORPUSCULAR HEMOGLOBIN 32.6 pg (27.0-33.0); MEAN CORPUSCULAR HGB CONC 33.1 g/dl (32.0-36.5); MEAN CORPUSCULAR VOLUME 98.3 fl (80.0-96.0); PLATELET COUNT, AUTOMATED 243 10^3/uL (150-450); RED BLOOD COUNT 3.59 10^6/uL (4.00-5.40); WHITE BLOOD COUNT 12.9 10^3/uL (4.0-10.0)
[2021-06-24 06:59] LABS: ALBUMIN 3.2 GM/DL (3.2-5.2); ALT/SGPT 40 U/L (12-78); BILIRUBIN,TOTAL 0.9 MG/DL (0.2-1.0); BLOOD UREA NITROGEN 20 MG/DL (7-18); CARBON DIOXIDE LEVEL 30 MEQ/L (21-32); CHLORIDE LEVEL 98 MEQ/L (98-107); CREATININE FOR GFR 0.92 MG/DL (0.55-1.30); EOSINOPHILS 1 % (0-3); GLOMERULAR FILTRATION RATE > 60.0 (>32); GLUCOSE, FASTING 103 MG/DL (70-100); LYMPHOCYTES 6 % (16-44); MONOCYTES 8 % (0-5); NEUTROPHILS 83 % (28-66); PLATELET ESTIMATE NORMAL (NORMAL); POTASSIUM SERUM 4.2 MEQ/L (3.5-5.1); SODIUM LEVEL 135 MEQ/L (136-145); TOTAL PROTEIN 6.1 GM/DL (6.4-8.2)
[2021-06-24] MEDS: TIOTROPIUM INHALER/CAPSULE (SPIRIVA) INH SCH (07:06)
[2021-06-24] MEDS: SYMBICORT 160/4.5MCG INHALER 6GM INH SCH (07:06)
[2021-06-24] MEDS: DOXYCYCLINE HYCLATE 100 MG in D5W MINI-BAG PLUS 100 ML IV SCH (08:55)
[2021-06-24] MEDS: ONDANSETRON 4MG/2ML VIAL IV PRN (08:57)
[2021-06-24] MEDS ORDERED: DOXYCYCLINE HYCLATE 100MG TABLET PO SCH (09:40)
[2021-06-24] MEDS: LACTOBACILLUS ACIDOPHILUS CAP (BACID) PO SCH (10:05)
[2021-06-24] MEDS: MONTELUKAST 10 MG TAB PO SCH (10:05)
[2021-06-24] MEDS: predniSONE 20 MG TAB PO SCH (10:05)
[2021-06-24] MEDS: PANTOPRAZOLE 40MG TAB (PROTONIX) PO SCH (10:05)
[2021-06-24] MEDS: DIGOXIN 0.125 MG TAB PO SCH (10:05)
[2021-06-24 10:06] VITALS: BP 139/99
[2021-06-24] MEDS: CLOBETASOL PROPIONATE EMOLLIENT 0.05% CR 60 GM TOP SCH (10:06)
[2021-06-24] MEDS: SPIRONOLACTONE 12.5MG PER 1/2 TABLET PO SCH (10:06)
[2021-06-24] MEDS: bisoproloL fumarate 5 MG TAB PO SCH (10:06)
[2021-06-24 10:31] LABS: INR 3.21; PROTHROMBIN TIME 33.1 SECONDS (12.7-14.5)
[2021-06-24 14:00] VITALS: BP 129/56
[2021-06-24] MEDS ORDERED: ACET1TAB55 PO (14:31)
[2021-06-24] MEDS ORDERED: LEVO750T13 PO (14:31)
[2021-06-24] MEDS ORDERED: DICY10CA13 PO (14:31)
[2021-06-24] MEDS ORDERED: DOXY100T PO (14:31)
[2021-06-24] MEDS ORDERED: RISATAB3 PO (14:31)
[2021-06-24] MEDS ORDERED: PRED10TA2 PO (15:05)
[2021-06-24] MEDS ORDERED: LevoFLOXacin 750 MG TABLET PO SCH (18:00)
[2021-06-26 17:07] LABS: BODY FLUID CULTURE Not indicated. (.); LEGIONELLA ANTIGEN URINE Negative (Negative); ORGANISM ID Not indicated. (.); SPECIMEN SOURCE Urine (.); URINE STREP PNEUMONIAE ANTIGEN Negative (Negative)
== END 2021-06-24 15:51 | disposition home health service (06) | DRG 193 ==
LOC: M ED 11:20 → M ED INP 17:23 → M MSPAV 20:05
PROVIDERS: ADMIT Family Medicine; ATTEND Family Medicine
DX: J18.9 Pneumonia, unspecified organism (principal); G93.41 Metabolic encephalopathy; I67.4 Hypertensive encephalopathy; I48.20 Chronic atrial fibrillation, unspecified; J96.10 Chronic respiratory failure, unspecified whether with hypoxia or hypercapnia; J44.0 Chronic obstructive pulmonary disease with (acute) lower respiratory infection; I10 Essential (primary) hypertension; E78.5 Hyperlipidemia, unspecified; M19.90 Unspecified osteoarthritis, unspecified site; K21.9 Gastro-esophageal reflux disease without esophagitis; F32.A Depression, unspecified; F41.9 Anxiety disorder, unspecified; M85.80 Other specified disorders of bone density and structure, unspecified site; G25.3 Myoclonus; E87.5 Hyperkalemia; I16.0 Hypertensive urgency; R19.7 Diarrhea, unspecified; G44.209 Tension-type headache, unspecified, not intractable; Z99.81 Dependence on supplemental oxygen; Z98.41 Cataract extraction status, right eye; Z98.42 Cataract extraction status, left eye; Z96.651 Presence of right artificial knee joint; Z86.010 Personal history of colon polyps; Z79.01 Long term (current) use of anticoagulants; Z79.899 Other long term (current) drug therapy; Z88.0 Allergy status to penicillin

== ENCOUNTER → 2021-06-28 | Outpatient (CLI) | payer MEDICARE ==
[~2021-06-28] MED LIST changes: +ACET1TAB55 PO; +DICY10CA13 PO; +DOXY100T PO; +ERGO500029 PO; +MONT10TA97 PO; +RISATAB3 PO
[2021-06-28 17:11] LABS: ALBUMIN 3.4 GM/DL (3.2-5.2); BILIRUBIN,TOTAL 0.7 MG/DL (0.2-1.0); CALCIUM LEVEL 9.2 MG/DL (8.8-10.2); CHOLESTEROL RISK RATIO 2.571 (<5); CREATININE FOR GFR 1.25 MG/DL (0.55-1.30); GLOMERULAR FILTRATION RATE 43.7 (>32); MAGNESIUM LEVEL 2.2 MG/DL (1.8-2.4); POTASSIUM SERUM 4.1 MEQ/L (3.5-5.1); TOTAL PROTEIN 6.5 GM/DL (6.4-8.2)
[2021-06-28 17:17] LABS: HEMOGLOBIN 11.7 g/dl (12.0-15.5); MEAN CORPUSCULAR HEMOGLOBIN 30.8 pg (27.0-33.0); MEAN CORPUSCULAR HGB CONC 30.8 g/dl (32.0-36.5); PLATELET COUNT, AUTOMATED 370 10^3/uL (150-450); WHITE BLOOD COUNT 17.5 10^3/uL (4.0-10.0)
== END ==
LOC: M WUC 15:20
PROVIDERS: ATTEND Physician Assistant
DX: I27.81 Cor pulmonale (chronic) (principal); I48.21 Permanent atrial fibrillation; E78.00 Pure hypercholesterolemia, unspecified

== ENCOUNTER → 2021-06-28 | Outpatient (CLI) | payer MEDICARE ==
[2021-06-28 17:42] LABS: INR 1.74; PROTHROMBIN TIME 20.8 SECONDS (12.7-14.5)
== END ==
LOC: M WUC 15:27
PROVIDERS: ATTEND Family Medicine
DX: Z79.01 Long term (current) use of anticoagulants (principal)

== ENCOUNTER → 2021-07-05 | Outpatient (CLI) | payer MEDICARE ==
[2021-07-05 20:24] LABS: INR 1.55
[2021-07-05 20:50] LABS: CALCIUM LEVEL 9.9 MG/DL (8.8-10.2); CREATININE FOR GFR 1.34 MG/DL (0.55-1.30); GLOMERULAR FILTRATION RATE 40.3 (>32); POTASSIUM SERUM 4.2 MEQ/L (3.5-5.1)
== END ==
LOC: M WUC 15:26
PROVIDERS: ATTEND Internal Medicine Hematology
DX: J44.9 Chronic obstructive pulmonary disease, unspecified (principal)

== ENCOUNTER → 2021-07-23 | Outpatient (CLI) | payer MEDICARE ==
[2021-07-23 22:19] LABS: CALCIUM LEVEL 9.1 MG/DL (8.8-10.2); CREATININE FOR GFR 1.42 MG/DL (0.55-1.30); DIGOXIN LEVEL 1.1 NG/ML (0.5-2.0); GLOMERULAR FILTRATION RATE 37.6 (>32); POTASSIUM SERUM 4.2 MEQ/L (3.5-5.1)
== END ==
LOC: M WUC 15:13
PROVIDERS: ATTEND Internal Medicine Hematology
DX: I50.42 Chronic combined systolic (congestive) and diastolic (congestive) heart failure (principal)

== ENCOUNTER → 2021-08-02 | Outpatient (CLI) | payer MEDICARE ==
[~2021-08-02] MED LIST changes: +ALBU2.5V10 INH; -ALBU83IN INH
[2021-08-02 15:41] LABS: BASO # 0.1 10^3/uL (0.0-0.2); BASO % 0.9 % (0.0-1.0); EOS # 0.3 10^3/uL (0.0-0.5); EOS % 3.3 % (0.0-3.0); HEMATOCRIT 33.8 % (36.0-47.0); HEMOGLOBIN 10.6 g/dl (12.0-15.5); LYMPH # 1.2 10^3/uL (1.5-5.0); LYMPH % 13.7 % (24.0-44.0); MEAN CORPUSCULAR HEMOGLOBIN 31.3 pg (27.0-33.0); MEAN CORPUSCULAR HGB CONC 31.4 g/dl (32.0-36.5); MEAN CORPUSCULAR VOLUME 99.7 fl (80.0-96.0); MONO # 0.6 10^3/uL (0.0-0.8); MONO % 7.1 % (2.0-8.0); NEUTROPHILS # 6.4 10^3/uL (1.5-8.5); NEUTROPHILS % 71.1 % (36.0-66.0); PLATELET COUNT, AUTOMATED 282 10^3/uL (150-450); RED BLOOD COUNT 3.39 10^6/uL (4.00-5.40); WHITE BLOOD COUNT 8.9 10^3/uL (4.0-10.0)
[2021-08-02 16:14] LABS: INR 1.54; PROTHROMBIN TIME 18.9 SECONDS (12.7-14.5)
[2021-08-02 16:21] LABS: BLOOD UREA NITROGEN 17 MG/DL (7-18); CALCIUM LEVEL 9.3 MG/DL (8.8-10.2); CARBON DIOXIDE LEVEL 31 MEQ/L (21-32); CHLORIDE LEVEL 108 MEQ/L (98-107); CREATININE FOR GFR 0.88 MG/DL (0.55-1.30); FREE T4 0.78 NG/DL (0.76-1.46); GLOMERULAR FILTRATION RATE > 60.0 (>32); GLUCOSE, FASTING 101 MG/DL (70-100); POTASSIUM SERUM 4.5 MEQ/L (3.5-5.1); SODIUM LEVEL 143 MEQ/L (136-145)
== END ==
LOC: M PLALAB 13:43
PROVIDERS: ATTEND Internal Medicine Hematology
DX: N18.32 Chronic kidney disease, stage 3b (principal); I48.11 Longstanding persistent atrial fibrillation; Z79.01 Long term (current) use of anticoagulants

== ENCOUNTER → 2021-08-06 | Outpatient (CLI) | payer MEDICARE | LOC: M RAD 14:58 | PROVIDERS: ATTEND Internal Medicine Hematology | DX: M79.89 Other specified soft tissue disorders (principal) ==

== ENCOUNTER → 2021-08-06 | Outpatient (REF) | payer MEDICARE | LOC: M LAB REF 14:13 | PROVIDERS: ATTEND Physician Assistant | DX: R19.7 Diarrhea, unspecified (principal) ==

== ENCOUNTER → 2021-08-06 | Outpatient (REF) | payer MEDICARE ==
[2021-08-06 14:58] LABS: APPEARANCE, URINE CLOUDY (CLEAR); BACTERIA, URINE AUTO 3+ (NEGATIVE); BILIRUBIN, URINE AUTO NEGATIVE (NEGATIVE); BLOOD, URINE BLOOD NEGATIVE (NEGATIVE); COLOR, URINE YELLOW (YELLOW); GLUCOSE, URINE (UA) AUTO NEGATIVE (NEGATIVE); KETONE, URINE AUTO NEGATIVE (NEGATIVE); LEUKOCYTE ESTERASE, URINE AUTO 1+ (NEGATIVE); NITRITE, URINE AUTO NEGATIVE (NEGATIVE); PROTEIN, URINE AUTO NEGATIVE (NEGATIVE); RBC, URINE AUTO 2 /HPF (0-3); SPECIFIC GRAVITY URINE AUTO 1.021 (1.002-1.035); SQUAMOUS EPITHELIAL CELL UR AU 0 /HPF (0-6); UROBILINOGEN, URINE AUTO 0.2 mg/dL (0.0-2.0); WBC, URINE AUTO 1 /HPF (0-3)
[2021-08-06 15:31] LABS: MALB URINE SIEMENS 25.6 MG/L; MAU/CREAT RATIO 19.3 MCG/MG (0.0-30.0)
== END ==
LOC: M SFHCPLAZ 14:08
PROVIDERS: ATTEND Internal Medicine Hematology
DX: N18.32 Chronic kidney disease, stage 3b (principal); I48.11 Longstanding persistent atrial fibrillation

== ENCOUNTER 2021-08-08 11:33 | Emergency (ER) | payer MEDICARE ==
[~2021-08-08] VITALS: Ht 157.5 cm; Wt 73.6 kg
[2021-08-08] MEDS ORDERED: PROMETHAZINE 25 MG TAB PO ONE (12:25)
[2021-08-08] MEDS ORDERED: MORPHINE 2 MG/ML 1ML VIAL IV ONE (12:25)
[2021-08-08 13:23] LABS: BASO # 0.1 10^3/uL (0.0-0.2); BASO % 0.7 % (0.0-1.0); EOS # 0.3 10^3/uL (0.0-0.5); EOS % 3.6 % (0.0-3.0); HEMATOCRIT 34.6 % (36.0-47.0); HEMOGLOBIN 10.8 g/dl (12.0-15.5); LYMPH # 1.1 10^3/uL (1.5-5.0); LYMPH % 12.5 % (24.0-44.0); MEAN CORPUSCULAR HEMOGLOBIN 31.1 pg (27.0-33.0); MEAN CORPUSCULAR HGB CONC 31.2 g/dl (32.0-36.5); MEAN CORPUSCULAR VOLUME 99.7 fl (80.0-96.0); MONO # 0.5 10^3/uL (0.0-0.8); MONO % 5.8 % (2.0-8.0); NEUTROPHILS # 6.8 10^3/uL (1.5-8.5); NEUTROPHILS % 75.7 % (36.0-66.0); PLATELET COUNT, AUTOMATED 254 10^3/uL (150-450); RED BLOOD COUNT 3.47 10^6/uL (4.00-5.40); WHITE BLOOD COUNT 8.9 10^3/uL (4.0-10.0)
[2021-08-08] MEDS ORDERED: ISOVUE-370 76% 100ML VIAL As Ordered ONE (13:30)
[2021-08-08 13:49] LABS: BILIRUBIN,DIRECT 0.1 MG/DL (0.0-0.2); BILIRUBIN,TOTAL 0.8 MG/DL (0.2-1.0); TOTAL PROTEIN 6.5 GM/DL (6.4-8.2)
[2021-08-08 14:59] VITALS: BP 160/70
== END 2021-08-08 15:00 | disposition home or self-care (01) ==
LOC: M ED 11:33
DX: R10.9 Unspecified abdominal pain (principal); R19.7 Diarrhea, unspecified; I11.0 Hypertensive heart disease with heart failure; I50.9 Heart failure, unspecified; I48.91 Unspecified atrial fibrillation; E78.5 Hyperlipidemia, unspecified; J44.9 Chronic obstructive pulmonary disease, unspecified; Z99.81 Dependence on supplemental oxygen; G93.40 Encephalopathy, unspecified; Z88.0 Allergy status to penicillin; Z79.01 Long term (current) use of anticoagulants; Z79.899 Other long term (current) drug therapy
CPT/HCPCS: 74177; 80047; 80076; 83690; 85025; 87507; 96374; 99284; J2270; Q9967

== ENCOUNTER → 2021-08-10 | Outpatient (CLI) | payer MEDICARE ==
[2021-08-10 16:11] LABS: BASO # 0.1 10^3/uL (0.0-0.2); EOS # 0.4 10^3/uL (0.0-0.5); EOS % 4.8 % (0.0-3.0); HEMATOCRIT 36.1 % (36.0-47.0); HEMOGLOBIN 11.1 g/dl (12.0-15.5); LYMPH # 1.1 10^3/uL (1.5-5.0); LYMPH % 11.3 % (24.0-44.0); MEAN CORPUSCULAR HEMOGLOBIN 30.3 pg (27.0-33.0); MEAN CORPUSCULAR HGB CONC 30.7 g/dl (32.0-36.5); MEAN CORPUSCULAR VOLUME 98.6 fl (80.0-96.0); MONO # 0.7 10^3/uL (0.0-0.8); MONO % 7.5 % (2.0-8.0); NEUTROPHILS # 6.8 10^3/uL (1.5-8.5); PLATELET COUNT, AUTOMATED 309 10^3/uL (150-450); RED BLOOD COUNT 3.66 10^6/uL (4.00-5.40); WHITE BLOOD COUNT 9.3 10^3/uL (4.0-10.0)
[2021-08-10 17:38] LABS: ALBUMIN 3.3 GM/DL (3.2-5.2); ALT/SGPT 13 U/L (12-78); AMYLASE 16 U/L (25-115); BILIRUBIN,TOTAL 0.8 MG/DL (0.2-1.0); BLOOD UREA NITROGEN 11 MG/DL (7-18); CALCIUM LEVEL 8.7 MG/DL (8.8-10.2); CARBON DIOXIDE LEVEL 28 MEQ/L (21-32); CHLORIDE LEVEL 105 MEQ/L (98-107); CREATININE FOR GFR 0.92 MG/DL (0.55-1.30); GLOMERULAR FILTRATION RATE > 60.0 (>32); GLUCOSE, FASTING 92 MG/DL (70-100); LDH LACTATE DEHYDROGENASE 220 U/L (84-246); LIPASE 70 U/L (73-393); POTASSIUM SERUM 4.2 MEQ/L (3.5-5.1); SODIUM LEVEL 139 MEQ/L (136-145)
== END ==
LOC: M WUC 13:31
PROVIDERS: ATTEND Internal Medicine Hematology
DX: M51.36 Other intervertebral disc degeneration, lumbar region (principal); M54.50 Low back pain, unspecified; N30.00 Acute cystitis without hematuria; G89.29 Other chronic pain

== ENCOUNTER → 2021-08-11 | Outpatient (REF) | payer MEDICARE ==
[2021-08-11 17:42] LABS: APPEARANCE, URINE HAZY (CLEAR); BACTERIA, URINE AUTO NEGATIVE (NEGATIVE); BILIRUBIN, URINE AUTO NEGATIVE (NEGATIVE); BLOOD, URINE BLOOD NEGATIVE (NEGATIVE); COLOR, URINE YELLOW (YELLOW); GLUCOSE, URINE (UA) AUTO NEGATIVE (NEGATIVE); KETONE, URINE AUTO NEGATIVE (NEGATIVE); LEUKOCYTE ESTERASE, URINE AUTO TRACE (NEGATIVE); MUCUS, URINE SMALL (NEGATIVE); NITRITE, URINE AUTO NEGATIVE (NEGATIVE); PROTEIN, URINE AUTO NEGATIVE (NEGATIVE); RBC, URINE AUTO 1 /HPF (0-3); SPECIFIC GRAVITY URINE AUTO 1.017 (1.002-1.035); SQUAMOUS EPITHELIAL CELL UR AU 0 /HPF (0-6); UROBILINOGEN, URINE AUTO 0.2 mg/dL (0.0-2.0); WBC, URINE AUTO 1 /HPF (0-3)
== END ==
LOC: M LAB REF 17:10
PROVIDERS: ATTEND Internal Medicine Hematology
DX: N30.00 Acute cystitis without hematuria (principal)

== ENCOUNTER → 2021-08-23 | Outpatient (CLI) | payer MEDICARE ==
[2021-08-23 19:54] LABS: INR 2.16; PROTHROMBIN TIME 24.5 SECONDS (12.7-14.5)
== END ==
LOC: M WUC 15:31
PROVIDERS: ATTEND Internal Medicine Hematology
DX: Z79.01 Long term (current) use of anticoagulants (principal)

== ENCOUNTER → 2021-09-12 | Outpatient (REF) | payer MEDICARE ==
[2021-09-12 16:06] LABS: APPEARANCE, URINE CLEAR (CLEAR); BACTERIA, URINE AUTO NEGATIVE (NEGATIVE); BILIRUBIN, URINE AUTO NEGATIVE (NEGATIVE); BLOOD, URINE BLOOD NEGATIVE (NEGATIVE); COLOR, URINE YELLOW (YELLOW); GLUCOSE, URINE (UA) AUTO NEGATIVE (NEGATIVE); KETONE, URINE AUTO NEGATIVE (NEGATIVE); LEUKOCYTE ESTERASE, URINE AUTO TRACE (NEGATIVE); MUCUS, URINE SMALL (NEGATIVE); NITRITE, URINE AUTO NEGATIVE (NEGATIVE); PROTEIN, URINE AUTO NEGATIVE (NEGATIVE); RBC, URINE AUTO 1 /HPF (0-3); SPECIFIC GRAVITY URINE AUTO 1.019 (1.002-1.035); SQUAMOUS EPITHELIAL CELL UR AU 1 /HPF (0-6); UROBILINOGEN, URINE AUTO 0.2 mg/dL (0.0-2.0); WBC, URINE AUTO 2 /HPF (0-3)
== END ==
LOC: M LAB REF 15:52
PROVIDERS: ATTEND Internal Medicine Hematology
DX: N30.00 Acute cystitis without hematuria (principal)

== ENCOUNTER → 2021-09-29 | Outpatient (CLI) | payer MEDICARE ==
[~2021-09-29] MED LIST changes: +LEVO1TAB40 PO; -LEVO750T13 PO
== END ==
LOC: M SOG 15:29
PROVIDERS: ATTEND Orthopaedic Surgery Adult Reconstructive Orthopaedic Surgery
DX: M25.50 Pain in unspecified joint (principal)

== ENCOUNTER → 2021-10-01 | Outpatient (CLI) | payer MEDICARE ==
[2021-10-02 15:20] LABS: INR 1.33
== END ==
LOC: M WUC 10:54
PROVIDERS: ATTEND Internal Medicine Hematology
DX: I50.42 Chronic combined systolic (congestive) and diastolic (congestive) heart failure (principal)

== ENCOUNTER → 2021-10-14 | Outpatient (REF) | payer MEDICARE ==
[2021-10-14 20:51] LABS: INR 1.78; PROTHROMBIN TIME 21.2 SECONDS (12.7-14.5)
== END ==
LOC: M LAB REF 19:50
PROVIDERS: ATTEND Internal Medicine Hematology
DX: Z79.01 Long term (current) use of anticoagulants (principal)

== ENCOUNTER → 2021-10-25 | Outpatient (CLI) | payer MEDICARE | LOC: M RAD 12:56 | PROVIDERS: ATTEND Surgery Vascular Surgery | DX: I70.213 Atherosclerosis of native arteries of extremities with intermittent claudication, bilateral legs (principal) ==

== ENCOUNTER → 2021-10-28 | Outpatient (CLI) | payer MEDICARE ==
[2021-10-28 16:49] LABS: INR 2.35; PROTHROMBIN TIME 26.1 SECONDS (12.7-14.5)
== END ==
LOC: M WUC 14:18
PROVIDERS: ATTEND Internal Medicine Hematology
DX: Z51.81 Encounter for therapeutic drug level monitoring (principal); Z79.01 Long term (current) use of anticoagulants

== ENCOUNTER → 2021-11-08 | Outpatient (CLI) | payer MEDICARE ==
[2021-11-08 20:17] LABS: INR 2.25; PROTHROMBIN TIME 25.3 SECONDS (12.7-14.5)
== END ==
LOC: M WUC 15:33
PROVIDERS: ATTEND Internal Medicine Hematology
DX: Z79.01 Long term (current) use of anticoagulants (principal)

== ENCOUNTER → 2021-11-08 | Outpatient (CLI) | payer MEDICARE ==
[2021-11-08 20:42] LABS: BLOOD UREA NITROGEN 23 MG/DL (7-18); CREATININE FOR GFR 0.85 MG/DL (0.55-1.30); GLOMERULAR FILTRATION RATE > 60.0 (>32)
== END ==
LOC: M WUC 15:27
PROVIDERS: ATTEND Otolaryngology
DX: K13.79 Other lesions of oral mucosa (principal)

== ENCOUNTER → 2021-11-16 | Outpatient (CLI) | payer MEDICARE ==
[~2021-11-16] MED LIST changes: +ISOVUE-370 76% 100ML VIAL As Ordered ONE
== END ==
LOC: M RAD 16:51
PROVIDERS: ATTEND Otolaryngology
DX: R07.0 Pain in throat (principal)
CPT/HCPCS: 70491; Q9967

== ENCOUNTER → 2021-11-26 | Outpatient (CLI) | payer MEDICARE ==
[~2021-11-26] MED LIST changes: -ISOVUE-370 76% 100ML VIAL As Ordered ONE
== END ==
LOC: M RAD 14:30
PROVIDERS: ATTEND Physician Assistant Surgical
DX: Z53.9 Procedure and treatment not carried out, unspecified reason (principal)

== ENCOUNTER → 2021-12-10 | Outpatient (CLI) | payer MEDICARE ==
[2021-12-10 18:33] LABS: INR 1.55; PROTHROMBIN TIME 18.9 SECONDS (12.5-14.5)
== END ==
LOC: M LAB 16:39
PROVIDERS: ATTEND Family Medicine
DX: Z79.01 Long term (current) use of anticoagulants (principal)

== ENCOUNTER → 2021-12-15 | Outpatient (CLI) | payer MEDICARE | LOC: M RAD 16:01 | PROVIDERS: ATTEND Otolaryngology | DX: E04.1 Nontoxic single thyroid nodule (principal) ==

== ENCOUNTER → 2021-12-23 | Outpatient (CLI) | payer MEDICARE ==
[~2021-12-23] MED LIST changes: -DOXY-350 PO; +DOXY-444 PO
[2021-12-23 17:47] LABS: INR 2.46; PROTHROMBIN TIME 27.1 SECONDS (12.5-14.5)
== END ==
LOC: M WUC 15:20
PROVIDERS: ATTEND Family Medicine
DX: Z79.01 Long term (current) use of anticoagulants (principal)

== ENCOUNTER → 2021-12-24 | Outpatient (CLI) | payer MEDICARE ==
[~2021-12-24] MED LIST changes: +**SFHN** LIDOCAINE 1% MDV 20ML VIAL ONE; +**SFHN** methylPREDNISolone 40MG 1ML VIAL ONE; +ISOVUE-300 61% 50ML VIAL ONE
== END ==
LOC: M PLAIMG 08:27
PROVIDERS: ATTEND Physician Assistant Surgical
DX: M19.011 Primary osteoarthritis, right shoulder (principal)
CPT/HCPCS: 76000; J2920; Q9967

== ENCOUNTER → 2021-12-24 | Outpatient (REF) | payer MEDICARE ==
[~2021-12-24] MED LIST changes: -**SFHN** LIDOCAINE 1% MDV 20ML VIAL ONE; -**SFHN** methylPREDNISolone 40MG 1ML VIAL ONE; +DOXY-350 PO; -DOXY-444 PO; -ISOVUE-300 61% 50ML VIAL ONE
== END ==
LOC: M PLALAB 16:26
PROVIDERS: ATTEND Advanced Practice Midwife
DX: R30.0 Dysuria (principal)

== ENCOUNTER → 2022-01-03 | Outpatient (CLI) | payer MEDICARE ==
[~2022-01-03] MED LIST changes: -DOXY-350 PO; +DOXY-444 PO
[2022-01-03 17:42] LABS: INR 2.62; PROTHROMBIN TIME 28.5 SECONDS (12.5-14.5)
== END ==
LOC: M WUC 14:42
PROVIDERS: ATTEND Family Medicine
DX: Z79.01 Long term (current) use of anticoagulants (principal)

== ENCOUNTER → 2022-01-05 | Outpatient (CLI) | payer MEDICARE | LOC: M SOG 08:18 | PROVIDERS: ATTEND Orthopaedic Surgery Adult Reconstructive Orthopaedic Surgery | DX: M25.552 Pain in left hip (principal) ==

== ENCOUNTER → 2022-01-10 | Outpatient (CLI) | payer MEDICARE | LOC: M CARPUL 07:37 | PROVIDERS: ATTEND Internal Medicine Critical Care Medicine | DX: I27.20 Pulmonary hypertension, unspecified (principal) ==

== ENCOUNTER → 2022-01-31 | Outpatient (CLI) | payer MEDICARE ==
[2022-01-31 17:31] LABS: INR 3.67
== END ==
LOC: M WUC 14:26
PROVIDERS: ATTEND Family Medicine
DX: Z79.01 Long term (current) use of anticoagulants (principal); Z51.81 Encounter for therapeutic drug level monitoring

== ENCOUNTER → 2022-02-09 | Outpatient (REF) | payer MEDICARE ==
[2022-02-09 19:28] LABS: APPEARANCE, URINE MANUAL CLEAR (CLEAR); BILIRUBIN, URINE MANUAL NEGATIVE (NEGATIVE); BLOOD URINE MANUAL NEGATIVE (NEGATIVE); COLOR, URINE MANUAL YELLOW (YELLOW); GLUCOSE, URINE (UA) MANUAL NEGATIVE (NEGATIVE); KETONE, URINE MANUAL NEGATIVE (NEGATIVE); LEUKOCYTE ESTERASE, URINE MAN POSITIVE (NEGATIVE); NITRITE, URINE MANUAL NEGATIVE (NEGATIVE); PROTEIN, URINE MANUAL NEGATIVE (NEGATIVE); UROBILINOGEN, URINE MANUAL NORMAL (NORMAL)
[2022-02-09 19:42] LABS: BACTERIA, URINE NONE SEEN; HYALINE CAST, URINE NONE SEEN /lpf (0-1); RBC, URINE NONE SEEN /hpf (0-3); SQUAMOUS EPITHELIAL CELL URINE NONE SEEN /hpf (SMALL AMT); WBC, URINE NONE SEEN /hpf (0-3)
== END ==
LOC: M SFHCPLAZ 17:18
PROVIDERS: ATTEND Family Medicine
DX: R30.0 Dysuria (principal)

== ENCOUNTER → 2022-02-15 | Outpatient (CLI) | payer MEDICARE ==
[2022-02-15 17:22] LABS: INR 1.91; PROTHROMBIN TIME 22.2 SECONDS (12.5-14.5)
== END ==
LOC: M WUC 14:41
PROVIDERS: ATTEND Family Medicine
DX: I48.11 Longstanding persistent atrial fibrillation (principal)

== ENCOUNTER → 2022-03-10 | Outpatient (CLI) | payer MEDICARE ==
[2022-03-10 17:08] LABS: INR 4.42; PROTHROMBIN TIME 42.8 SECONDS (12.5-14.5)
== END ==
LOC: M WUC 14:45
PROVIDERS: ATTEND Family Medicine
DX: Z79.01 Long term (current) use of anticoagulants (principal); I48.11 Longstanding persistent atrial fibrillation

== ENCOUNTER → 2022-03-18 | Outpatient (CLI) | payer MEDICARE ==
[2022-03-18 13:10] LABS: INR 4.5; PROTHROMBIN TIME 43.4 SECONDS (12.5-14.5)
== END ==
LOC: M WUC 10:07
PROVIDERS: ATTEND Family Medicine
DX: I48.11 Longstanding persistent atrial fibrillation (principal)

== ENCOUNTER → 2022-03-22 | Outpatient (CLI) | payer MEDICARE ==
[2022-03-22 17:45] LABS: INR 1.52; PROTHROMBIN TIME 18.6 SECONDS (12.5-14.5)
== END ==
LOC: M WUC 14:33
PROVIDERS: ATTEND Family Medicine
DX: I48.11 Longstanding persistent atrial fibrillation (principal)

== ENCOUNTER → 2022-04-03 | Outpatient (CLI) | payer MEDICARE ==
[2022-04-03 14:23] LABS: INR 3.01; PROTHROMBIN TIME 31.7 SECONDS (12.5-14.5)
== END ==
LOC: M LAB 13:41
PROVIDERS: ATTEND Family Medicine
DX: I48.11 Longstanding persistent atrial fibrillation (principal); Z79.01 Long term (current) use of anticoagulants

== ENCOUNTER → 2022-04-12 | Outpatient (CLI) | payer MEDICARE ==
[2022-04-12 17:07] LABS: INR 2.76; PROTHROMBIN TIME 29.6 SECONDS (12.5-14.5)
== END ==
LOC: M WUC 14:44
PROVIDERS: ATTEND Family Medicine
DX: I48.11 Longstanding persistent atrial fibrillation (principal); Z79.01 Long term (current) use of anticoagulants

== ENCOUNTER → 2022-04-22 | Outpatient (CLI) | payer MEDICARE ==
[~2022-04-22] MED LIST changes: +BUPIVACAINE HCL 0.5% 10ML VIAL ONE; +ISOVUE-300 61% 100ML VIAL ONE; +LIDOCAINE 1% MDV 20ML VIAL ONE; +methylPREDNISolone 80MG/ML SUSP 1ML VIAL ONE
== END ==
LOC: M PLAIMG 15:35
PROVIDERS: ATTEND Orthopaedic Surgery Adult Reconstructive Orthopaedic Surgery
DX: M16.12 Unilateral primary osteoarthritis, left hip (principal)
CPT/HCPCS: 20610; 76000; J1040; Q9967

== ENCOUNTER → 2022-05-04 | Outpatient (REF) | payer MEDICARE ==
[~2022-05-04] MED LIST changes: -BUPIVACAINE HCL 0.5% 10ML VIAL ONE; -ISOVUE-300 61% 100ML VIAL ONE; -LIDOCAINE 1% MDV 20ML VIAL ONE; -methylPREDNISolone 80MG/ML SUSP 1ML VIAL ONE
[2022-05-04 18:18] LABS: APPEARANCE, URINE CLEAR (CLEAR); BACTERIA, URINE AUTO NEGATIVE (NEGATIVE); BILIRUBIN, URINE AUTO NEGATIVE (NEGATIVE); BLOOD, URINE BLOOD NEGATIVE (NEGATIVE); COLOR, URINE YELLOW (YELLOW); GLUCOSE, URINE (UA) AUTO NEGATIVE (NEGATIVE); KETONE, URINE AUTO NEGATIVE (NEGATIVE); LEUKOCYTE ESTERASE, URINE AUTO NEGATIVE (NEGATIVE); NITRITE, URINE AUTO NEGATIVE (NEGATIVE); PROTEIN, URINE AUTO NEGATIVE (NEGATIVE); RBC, URINE AUTO 0 /HPF (0-3); SQUAMOUS EPITHELIAL CELL UR AU 1 /HPF (0-6); UROBILINOGEN, URINE AUTO 0.2 mg/dL (0.0-2.0); WBC, URINE AUTO 1 /HPF (0-3)
== END ==
LOC: M LAB REF 17:27
PROVIDERS: ATTEND Nurse Practitioner Women's Health
DX: R39.89 Other symptoms and signs involving the genitourinary system (principal); R39.198 Other difficulties with micturition

== ENCOUNTER → 2022-05-10 | Outpatient (CLI) | payer MEDICARE | LOC: M WHC 15:13 | PROVIDERS: ATTEND Physician Assistant | DX: Z12.31 Encounter for screening mammogram for malignant neoplasm of breast (principal) ==

== ENCOUNTER → 2022-05-10 | Outpatient (REF) | payer MEDICARE ==
[2022-05-10 18:26] LABS: INR 1.43; PROTHROMBIN TIME 17.7 SECONDS (12.5-14.5)
== END ==
LOC: M PLALAB 16:50
PROVIDERS: ATTEND Family Medicine
DX: I48.11 Longstanding persistent atrial fibrillation (principal); Z79.01 Long term (current) use of anticoagulants

== ENCOUNTER → 2022-05-10 | Outpatient (REF) | payer MEDICARE ==
[2022-05-10 17:55] LABS: HEMATOCRIT 42.8 % (36.0-47.0); HEMOGLOBIN 13.5 g/dl (12.0-15.5); MEAN CORPUSCULAR HEMOGLOBIN 31.7 pg (27.0-33.0); MEAN CORPUSCULAR HGB CONC 31.5 g/dl (32.0-36.5); MEAN CORPUSCULAR VOLUME 100.5 fl (80.0-96.0); PLATELET COUNT, AUTOMATED 244 10^3/uL (150-450); RED BLOOD COUNT 4.26 10^6/uL (4.00-5.40); WHITE BLOOD COUNT 7.8 10^3/uL (4.0-10.0)
[2022-05-10 18:35] LABS: ALBUMIN 3.9 G/DL (3.2-5.2); ALKALINE PHOSPHATASE 62 U/L (46-116); ALT/SGPT 16 U/L (7.0-40); AST/SGOT 24 U/L (<34); BILIRUBIN,TOTAL 0.8 MG/DL (0.3-1.2); BLOOD UREA NITROGEN 34 MG/DL (9-23); CALCIUM LEVEL 9.9 MG/DL (8.3-10.6); CARBON DIOXIDE LEVEL 32 MMOL/L (20-31); CHLORIDE LEVEL 101 MMOL/L (98-107); CHOLESTEROL LEVEL 168 MG/DL (<200); CHOLESTEROL RISK RATIO 3.78 (<5); CREATININE FOR GFR 1.27 MG/DL (0.55-1.30); GLOMERULAR FILTRATION RATE 42.8 (>32); GLUCOSE, FASTING 82 MG/DL (74-106); HDL CHOLESTEROL 44.4 MG/DL (>40); NON-HDL-C 123.6 MG/DL; SODIUM LEVEL 137 MMOL/L (136-145); TOTAL PROTEIN 6.8 G/DL (5.7-8.2); TRIGLYCERIDES LEVEL 423 MG/DL (<150)
== END ==
LOC: M PLALAB 16:48
PROVIDERS: ATTEND Physician Assistant
DX: I48.3 Typical atrial flutter (principal); I27.81 Cor pulmonale (chronic); I48.21 Permanent atrial fibrillation; E78.00 Pure hypercholesterolemia, unspecified

== ENCOUNTER → 2022-05-26 | Outpatient (CLI) | payer MEDICARE | LOC: M RAD 12:49 | PROVIDERS: ATTEND Physician Assistant | DX: I65.23 Occlusion and stenosis of bilateral carotid arteries (principal) ==

== ENCOUNTER → 2022-06-01 | Outpatient (CLI) | payer MEDICARE ==
[2022-06-01 19:26] LABS: INR 1.94; PROTHROMBIN TIME 22.5 SECONDS (12.5-14.5)
== END ==
LOC: M WUC 15:13
PROVIDERS: ATTEND Family Medicine
DX: I48.11 Longstanding persistent atrial fibrillation (principal); Z79.01 Long term (current) use of anticoagulants

== ENCOUNTER → 2022-06-09 | Outpatient (CLI) | payer MEDICARE | LOC: M PLAIMG 14:56 | PROVIDERS: ATTEND Family Medicine | DX: Q75.9 Congenital malformation of skull and face bones, unspecified (principal) ==

== ENCOUNTER → 2022-06-10 | Outpatient (CLI) | payer MEDICARE | LOC: M WHC 12:06 | PROVIDERS: ATTEND Physician Assistant | DX: N18.31 Chronic kidney disease, stage 3a (principal) ==

== ENCOUNTER → 2022-06-14 | Outpatient (CLI) | payer MEDICARE ==
[2022-06-14 20:32] LABS: INR 1.29; PROTHROMBIN TIME 16.3 SECONDS (12.5-14.5)
== END ==
LOC: M WUC 15:32
PROVIDERS: ATTEND Family Medicine
DX: Z79.01 Long term (current) use of anticoagulants (principal); I48.11 Longstanding persistent atrial fibrillation

== ENCOUNTER → 2022-06-22 | Outpatient (CLI) | payer MEDICARE ==
[2022-06-22 17:04] LABS: INR 2.18; PROTHROMBIN TIME 24.6 SECONDS (12.5-14.5)
== END ==
LOC: M WUC 14:58
PROVIDERS: ATTEND Family Medicine
DX: I48.11 Longstanding persistent atrial fibrillation (principal); Z79.01 Long term (current) use of anticoagulants

== ENCOUNTER → 2022-06-29 | Outpatient (CLI) | payer MEDICARE ==
[2022-06-29 17:33] LABS: INR 1.81; PROTHROMBIN TIME 21.3 SECONDS (12.5-14.5)
== END ==
LOC: M PLALAB 15:22
PROVIDERS: ATTEND Family Medicine
DX: Z79.899 Other long term (current) drug therapy (principal); Z79.01 Long term (current) use of anticoagulants

== ENCOUNTER → 2022-07-07 | Outpatient (REF) | payer MEDICARE ==
[2022-07-07 18:27] LABS: INR 1.83; PROTHROMBIN TIME 21.5 SECONDS (12.5-14.5)
== END ==
LOC: M SFHCPLAZ 17:40
PROVIDERS: ATTEND Family Medicine
DX: Z79.01 Long term (current) use of anticoagulants (principal); I48.11 Longstanding persistent atrial fibrillation

== ENCOUNTER → 2022-07-14 | Outpatient (REF) | payer MEDICARE ==
[2022-07-14 17:55] LABS: INR 2.24; PROTHROMBIN TIME 25.2 SECONDS (12.5-14.5)
== END ==
LOC: M SFHCPLAZ 16:37
PROVIDERS: ATTEND Family Medicine
DX: Z79.01 Long term (current) use of anticoagulants (principal); I48.11 Longstanding persistent atrial fibrillation

== ENCOUNTER → 2022-07-25 | Outpatient (CLI) | payer MEDICARE ==
[2022-07-25 15:32] LABS: INR 2.88; PROTHROMBIN TIME 30.6 SECONDS (12.5-14.5)
[2022-07-25 15:37] LABS: BLOOD UREA NITROGEN 27 MG/DL (9-23); CALCIUM LEVEL 8.9 MG/DL (8.3-10.6); CARBON DIOXIDE LEVEL 26 MMOL/L (20-31); CHLORIDE LEVEL 108 MMOL/L (98-107); CREATININE FOR GFR 0.94 MG/DL (0.55-1.30); GLOMERULAR FILTRATION RATE > 60.0 (>32); GLUCOSE, FASTING 72 MG/DL (74-106); POTASSIUM SERUM 4.6 MMOL/L (3.5-5.1); SODIUM LEVEL 142 MMOL/L (136-145)
== END ==
LOC: M LAB 14:30
PROVIDERS: ATTEND Family Medicine
DX: N18.32 Chronic kidney disease, stage 3b (principal)

== ENCOUNTER → 2022-07-27 | Outpatient (CLI) | payer MEDICARE ==
[~2022-07-27] MED LIST changes: +GASTROGRAFIN SOLUTION 30ML As Ordered ONE; +ISOVUE-370 76% 100ML VIAL As Ordered ONE
== END ==
LOC: M RAD 08:25
PROVIDERS: ATTEND Family Medicine
DX: J90 Pleural effusion, not elsewhere classified (principal); K57.30 Diverticulosis of large intestine without perforation or abscess without bleeding
CPT/HCPCS: 74177; Q9963; Q9967

== ENCOUNTER → 2022-08-17 | Outpatient (CLI) | payer MEDICARE ==
[~2022-08-17] MED LIST changes: -GASTROGRAFIN SOLUTION 30ML As Ordered ONE; -ISOVUE-370 76% 100ML VIAL As Ordered ONE
[2022-08-17 19:30] LABS: INR 3.57; PROTHROMBIN TIME 36.2 SECONDS (12.5-14.5)
== END ==
LOC: M WUC 15:14
PROVIDERS: ATTEND Family Medicine
DX: I48.11 Longstanding persistent atrial fibrillation (principal)

== ENCOUNTER → 2022-08-31 | Outpatient (CLI) | payer MEDICARE ==
[2022-08-31 22:06] LABS: INR 3.03; PROTHROMBIN TIME 31.9 SECONDS (12.5-14.5)
== END ==
LOC: M WUC 15:06
PROVIDERS: ATTEND Family Medicine
DX: I48.11 Longstanding persistent atrial fibrillation (principal); Z79.01 Long term (current) use of anticoagulants

== ENCOUNTER → 2022-09-02 | Outpatient (REF) | payer MEDICARE | LOC: M SFHCWAGY 16:47 | PROVIDERS: ATTEND Nurse Practitioner Family | DX: N39.0 Urinary tract infection, site not specified (principal) ==

== ENCOUNTER → 2022-10-06 | Outpatient (CLI) | payer MEDICARE ==
[~2022-10-06] MED LIST changes: +DICY-61 PO; -DICY10CA13 PO; -HM S0.65 NARES; +SALI0.6531 NARES
[2022-10-06 17:33] LABS: INR 3.06; PROTHROMBIN TIME 30.9 SECONDS (12.5-14.5)
== END ==
LOC: M PLALAB 15:50
PROVIDERS: ATTEND Family Medicine
DX: Z79.01 Long term (current) use of anticoagulants (principal)

== ENCOUNTER → 2022-10-07 | Outpatient (CLI) | payer MEDICARE | LOC: M SOG 13:37 | PROVIDERS: ATTEND Orthopaedic Surgery | DX: M16.0 Bilateral primary osteoarthritis of hip (principal); M51.37 Other intervertebral disc degeneration, lumbosacral region ==

== ENCOUNTER 2022-10-17 12:27 | Outpatient (RCR) | payer MEDICARE | END 2022-10-27 | LOC: M PT 12:27 | PROVIDERS: ATTEND Orthopaedic Surgery | DX: M47.816 Spondylosis without myelopathy or radiculopathy, lumbar region (principal) ==

== ENCOUNTER → 2022-10-20 | Outpatient (CLI) | payer MEDICARE ==
[2022-10-20 15:58] LABS: INR 2.05; PROTHROMBIN TIME 22.6 SECONDS (12.5-14.5)
== END ==
LOC: M PLALAB 14:26
PROVIDERS: ATTEND Family Medicine
DX: Z79.01 Long term (current) use of anticoagulants (principal)

== ENCOUNTER → 2022-11-11 | Outpatient (CLI) | payer MEDICARE | LOC: M PLALAB 13:59 | PROVIDERS: ATTEND Physician Assistant | DX: I27.81 Cor pulmonale (chronic) (principal) ==

== ENCOUNTER → 2022-11-11 | Outpatient (CLI) | payer MEDICARE ==
[2022-11-11 15:50] LABS: INR 2.56; PROTHROMBIN TIME 26.9 SECONDS (12.5-14.5)
[2022-11-11 16:00] LABS: ALBUMIN 3.3 G/DL (3.2-5.2); BILIRUBIN,TOTAL 1.1 MG/DL (0.3-1.2); CALCIUM LEVEL 8.8 MG/DL (8.3-10.6); CREATININE FOR GFR 0.98 MG/DL (0.55-1.30); GLOMERULAR FILTRATION RATE 57.6 (>32); POTASSIUM SERUM 4.9 MMOL/L (3.5-5.1); TOTAL PROTEIN 6.1 G/DL (5.7-8.2)
== END ==
LOC: M PLALAB 13:55
PROVIDERS: ATTEND Family Medicine
DX: I50.42 Chronic combined systolic (congestive) and diastolic (congestive) heart failure (principal); R60.0 Localized edema; Z79.01 Long term (current) use of anticoagulants

== ENCOUNTER → 2022-12-13 | Outpatient (CLI) | payer MEDICARE ==
[2022-12-13 17:36] LABS: INR 2.99; PROTHROMBIN TIME 30.4 SECONDS (12.5-14.5)
== END ==
LOC: M LAB 16:32
PROVIDERS: ATTEND Family Medicine
DX: Z79.01 Long term (current) use of anticoagulants (principal)

== ENCOUNTER 2022-12-20 15:45 | Outpatient (RCR) | payer MEDICARE | END 2022-12-27 | LOC: M PT 15:45 | PROVIDERS: ATTEND Orthopaedic Surgery | DX: M47.816 Spondylosis without myelopathy or radiculopathy, lumbar region (principal) | CPT/HCPCS: 97110; 97140; G0283 ==

== ENCOUNTER → 2023-02-15 | Outpatient (REF) | payer MEDICARE | LOC: M SFHCPLAZ 09:53 | PROVIDERS: ATTEND Family Medicine | DX: Z79.01 Long term (current) use of anticoagulants (principal) ==

== ENCOUNTER → 2023-03-14 | Outpatient (CLI) | payer MEDICARE ==
[2023-03-14 13:47] LABS: BASO % 0.3 % (0.0-1.0); EOS # 0.2 10^3/uL (0.0-0.5); EOS % 1.8 % (0.0-3.0); HEMATOCRIT 41.4 % (36.0-47.0); HEMOGLOBIN 13.2 g/dl (12.0-15.5); LYMPH # 1.2 10^3/uL (1.5-5.0); LYMPH % 11.9 % (24.0-44.0); MEAN CORPUSCULAR HEMOGLOBIN 30.3 pg (27.0-33.0); MEAN CORPUSCULAR HGB CONC 31.9 g/dl (32.0-36.5); MONO # 0.6 10^3/uL (0.0-0.8); MONO % 5.7 % (2.0-8.0); NEUTROPHILS # 7.9 10^3/uL (1.5-8.5); PLATELET COUNT, AUTOMATED 339 10^3/uL (150-450); RED BLOOD COUNT 4.36 10^6/uL (4.00-5.40); WHITE BLOOD COUNT 9.9 10^3/uL (4.0-10.0)
[2023-03-14 13:58] LABS: HEMOGLOBIN A1c 5.9 % (4.0-6.0)
[2023-03-14 14:04] LABS: INR 2.69; PROTHROMBIN TIME 27.6 SECONDS (12.5-14.5)
[2023-03-14 14:13] LABS: ALBUMIN 3.6 G/DL (3.2-5.2); BILIRUBIN,TOTAL 0.5 MG/DL (0.3-1.2); CALCIUM LEVEL 9.2 MG/DL (8.3-10.6); CHOLESTEROL RISK RATIO 3.7 (<5); CREATININE FOR GFR 1.22 MG/DL (0.55-1.30); GLOMERULAR FILTRATION RATE 44.7 (>32); HDL CHOLESTEROL 43.4 MG/DL (>40); LDL CHOLESTEROL 71.6 MG/DL (<100); NON-HDL-C 117.6 MG/DL; POTASSIUM SERUM 4.6 MMOL/L (3.5-5.1); TOTAL PROTEIN 7.2 G/DL (5.7-8.2)
[2023-03-14 14:14] LABS: FERRITIN 80.8 NG/ML (7.3-270.7); THYROID STIMULATING HORMONE 2.779 uIU/ML (0.55-4.78)
== END ==
LOC: M PLAIMG 11:23
PROVIDERS: ATTEND Family Medicine
DX: M47.814 Spondylosis without myelopathy or radiculopathy, thoracic region (principal); M41.34 Thoracogenic scoliosis, thoracic region; R63.4 Abnormal weight loss; R73.03 Prediabetes; E78.2 Mixed hyperlipidemia; Z79.01 Long term (current) use of anticoagulants; Z86.39 Personal history of other endocrine, nutritional and metabolic disease

== ENCOUNTER → 2023-04-12 | Outpatient (CLI) | payer MEDICARE ==
[~2023-04-12] MED LIST changes: +ACET650T61 PO; +AMMO12LO TOP; -CLOB5CR PA; +CLOB5CR PV; +KETO2CR EXT; +KETO2SHA8 TOP; +LEVOTAB10 PO; +TORS20TA2 PO
[2023-04-12 17:34] LABS: INR 2.7; PROTHROMBIN TIME 27.7 SECONDS (12.5-14.5)
[2023-04-12 17:45] LABS: BLOOD UREA NITROGEN 25 MG/DL (9-23); CALCIUM LEVEL 8.6 MG/DL (8.3-10.6); CARBON DIOXIDE LEVEL 32 MMOL/L (20-31); CHLORIDE LEVEL 105 MMOL/L (98-107); CREATININE FOR GFR 0.94 MG/DL (0.55-1.30); DIGOXIN LEVEL 1.1 NG/ML (0.8-2.0); GLOMERULAR FILTRATION RATE > 60.0 (>32); GLUCOSE, FASTING 94 MG/DL (74-106); POTASSIUM SERUM 4.3 MMOL/L (3.5-5.1); SODIUM LEVEL 140 MMOL/L (136-145)
== END ==
LOC: M PLALAB 15:26
PROVIDERS: ATTEND Family Medicine
DX: I50.42 Chronic combined systolic (congestive) and diastolic (congestive) heart failure (principal); N18.32 Chronic kidney disease, stage 3b; Z79.01 Long term (current) use of anticoagulants

== ENCOUNTER 2023-04-13 21:36 | Inpatient (IN) | payer MEDICARE ==
[~2023-04-13] VITALS: Ht 160 cm; Wt 64.2 kg
[~2023-04-13 21:36] MED LIST changes: -ACET650T61 PO; -AMMO12LO TOP; -KETO2CR EXT; -KETO2SHA8 TOP; -LEVOTAB10 PO; -TORS20TA2 PO
[2023-04-13] MEDS: NS 500 ML IV ONE (21:55)
[2023-04-13 22:22] LABS: BASO % 0.3 % (0.0-1.0); EOS # 0.1 10^3/uL (0.0-0.5); EOS % 0.8 % (0.0-3.0); HEMATOCRIT 35.3 % (36.0-47.0); HEMOGLOBIN 11.5 g/dl (12.0-15.5); LYMPH # 0.7 10^3/uL (1.5-5.0); LYMPH % 5.6 % (24.0-44.0); MEAN CORPUSCULAR HEMOGLOBIN 31.1 pg (27.0-33.0); MEAN CORPUSCULAR HGB CONC 32.6 g/dl (32.0-36.5); MEAN CORPUSCULAR VOLUME 95.4 fl (80.0-96.0); MONO # 1.1 10^3/uL (0.0-0.8); MONO % 8.4 % (2.0-8.0); NEUTROPHILS # 11.1 10^3/uL (1.5-8.5); NEUTROPHILS % 84.3 % (36.0-66.0); PLATELET COUNT, AUTOMATED 211 10^3/uL (150-450); WHITE BLOOD COUNT 13.2 10^3/uL (4.0-10.0)
[2023-04-13 22:34] LABS: INR 2.83; PROTHROMBIN TIME 28.7 SECONDS (12.5-14.5)
[2023-04-13 22:35] LABS: PARTIAL THROMBOPLASTIN TIME 60.2 SECONDS (24.8-34.2)
[2023-04-13 22:49] LABS: DIGOXIN LEVEL 0.5 NG/ML (0.8-2.0); SALICYLATE LEVEL < 3.0 MG/DL (<30)
[2023-04-13 22:56] LABS: THYROID STIMULATING HORMONE 2.645 uIU/ML (0.55-4.78)
[2023-04-13 23:01] LABS: PROCALCITONIN 0.25 ng/ml
[2023-04-13 23:02] LABS: RSV AMPLIFICATION NEGATIVE (NEGATIVE)
[2023-04-13 23:03] LABS: ALKALINE PHOSPHATASE 78 U/L (46-116); ALT/SGPT 14 U/L (7.0-40); AST/SGOT 50 U/L (<34); BILIRUBIN,DIRECT 0.6 MG/DL (<0.4); BILIRUBIN,TOTAL 1.7 MG/DL (0.3-1.2); BLOOD UREA NITROGEN 20 MG/DL (9-23); CALCIUM LEVEL 7.8 MG/DL (8.3-10.6); CARBON DIOXIDE LEVEL 26 MMOL/L (20-31); CHLORIDE LEVEL 102 MMOL/L (98-107); CK-MB VALUE MASS < 1.0 NG/ML (<3.6); CPK CREATINE PHOSPHOKINASE 86 U/L (34-145); CREATININE FOR GFR 0.79 MG/DL (0.55-1.30); GLOMERULAR FILTRATION RATE > 60.0 (>32); GLUCOSE, FASTING 118 MG/DL (74-106); MB/CK RELATIVE INDEX 1.16 (< OR =4); POTASSIUM SERUM 5.6 MMOL/L (3.5-5.1); SODIUM LEVEL 134 MMOL/L (136-145); TOTAL PROTEIN 6.4 G/DL (5.7-8.2)
[2023-04-13] MEDS: LevoFLOXacin IV 500 MG in IV 1 EA IV ONE (23:10)
[2023-04-13] MEDS ORDERED: ISOVUE-370 76% 100ML VIAL As Ordered ONE (23:14)
[2023-04-14] VITALS (14 sets, daily range): BP systolic 108–162; BP diastolic 56–74; TEMP 97.6–97.8; O2SAT 82–98
[2023-04-14 00:01] LABS: ABG BASE EXCESS -0.2 (-2.0-2.0); ABG HCO3 24.2 MMOL/L (22.0-26.0); ABG O2 SATURATION 98.9 % (95.0-99.0); ABG PARTIAL PRESSURE CO2 38.3 mmHg (35.0-45.0); ABG STANDARD HCO3 24.4 MMOL/L. (22.0-26.0); ABG TOTAL CO2 25.3 MMOL/L (23.0-31.0); ABG pH (ARTERIAL) 7.418 UNITS (7.350-7.450)
[2023-04-14] MEDS: metroNIDAZOLE 500 MG in IV 1 EA IV ONE (00:33)
[2023-04-14] MEDS: LACTULOSE 20GM/30ML SYRUP UDC PO ONE (00:33)
[2023-04-14] MEDS: amLODIPine 5 MG TAB PO ONE (00:33)
[2023-04-14] MEDS ORDERED: DOXYCYCLINE HYCLATE 100MG TABLET PO SCH (02:15)
[2023-04-14] MEDS ORDERED: cefTRIAXone SOD 1 GM in D5W MINI-BAG PLUS 50 ML IV SCH (02:15)
[2023-04-14 02:18] LABS: AMPHETAMINES LEVEL URINE NEGATIVE (NEGATIVE); BARBITURATES URINE NEGATIVE (NEGATIVE); CANNABINOIDS URINE NEGATIVE (NEGATIVE); COCAINE METABOLITE URINE NEGATIVE (NEGATIVE); METHADONE URINE NEGATIVE (NEGATIVE); OPIATES URINE NEGATIVE (NEGATIVE); PHENCYCLIDINE URINE NEGATIVE (NEGATIVE)
[2023-04-14 02:19] LABS: BENZODIAZEPINES URINE NEGATIVE (NEGATIVE)
[2023-04-14] MEDS ORDERED: ACET650T61 PO (06:24)
[2023-04-14] MEDS ORDERED: TORS20TA2 PO (06:24)
[2023-04-14] MEDS ORDERED: KETO2SHA8 TOP (06:24)
[2023-04-14] MEDS ORDERED: AMMO12LO TOP (06:24)
[2023-04-14] MEDS ORDERED: KETO2CR EXT (06:24)
[2023-04-14] MEDS ORDERED: LEVOTAB10 PO (06:24)
[2023-04-14] MEDS ORDERED: HOME MED LIST COMPLETE! XX SCH (06:30)
[2023-04-14] MEDS: IPRATROPIUM 0.5MG/ALBUTEROL 2.5MG INH SOL UD 3ML (DUONEB) INH SCH (08:48)
[2023-04-14 09:20] LABS: BASO # 0.1 10^3/uL (0.0-0.2); BASO % 0.3 % (0.0-1.0); EOS % 0.1 % (0.0-3.0); HEMATOCRIT 36.3 % (36.0-47.0); HEMOGLOBIN 11.9 g/dl (12.0-15.5); LYMPH # 1.2 10^3/uL (1.5-5.0); LYMPH % 7.9 % (24.0-44.0); MEAN CORPUSCULAR HEMOGLOBIN 31.3 pg (27.0-33.0); MEAN CORPUSCULAR HGB CONC 32.8 g/dl (32.0-36.5); MEAN CORPUSCULAR VOLUME 95.5 fl (80.0-96.0); MONO # 1.6 10^3/uL (0.0-0.8); MONO % 10.1 % (2.0-8.0); NEUTROPHILS # 12.6 10^3/uL (1.5-8.5); PLATELET COUNT, AUTOMATED 238 10^3/uL (150-450); WHITE BLOOD COUNT 15.5 10^3/uL (4.0-10.0)
[2023-04-14 09:42] LABS: CK-MB VALUE MASS < 1.0 NG/ML (<3.6)
[2023-04-14 09:47] LABS: CPK CREATINE PHOSPHOKINASE 83 U/L (34-145)
[2023-04-14] MEDS ORDERED: ACETAMINOPHEN 650MG ER TAB (TYLENOL ARTHRITIS) PO PRN (09:55)
[2023-04-14] MEDS: NS 1,000 ML IV SCH (11:17)
[2023-04-14] MEDS: bisoproloL fumarate 5 MG TAB PO SCH (11:17)
[2023-04-14] MEDS: MAGNESIUM OXIDE 400MG TAB (MAG-OX) PO SCH (11:17)
[2023-04-14] MEDS: ADVAIR HFA 230/21MCG INHALER INH SCH (11:19)
[2023-04-14] MEDS: TIOTROPIUM INHALER/CAPSULE (SPIRIVA) INH SCH (11:19)
[2023-04-14 11:22] LABS: INR 2.74
[2023-04-14 11:29] LABS: ALBUMIN 2.6 G/DL (3.2-5.2); ALKALINE PHOSPHATASE 89 U/L (46-116); ALT/SGPT 14 U/L (7.0-40); AST/SGOT 19 U/L (<34); BILIRUBIN,TOTAL 1.3 MG/DL (0.3-1.2); BLOOD UREA NITROGEN 15 MG/DL (9-23); CALCIUM LEVEL 8.1 MG/DL (8.3-10.6); CARBON DIOXIDE LEVEL 25 MMOL/L (20-31); CHLORIDE LEVEL 102 MMOL/L (98-107); CREATININE FOR GFR 0.87 MG/DL (0.55-1.30); DIGOXIN LEVEL 0.5 NG/ML (0.8-2.0); GLOMERULAR FILTRATION RATE > 60.0 (>32); GLUCOSE, FASTING 130 MG/DL (74-106); POTASSIUM SERUM 3.7 MMOL/L (3.5-5.1); SODIUM LEVEL 135 MMOL/L (136-145)
[2023-04-14] MEDS: DIGOXIN 0.125 MG TAB PO SCH (14:22)
[2023-04-14] MEDS: TORSEMIDE 20 MG TAB PO SCH (14:22)
[2023-04-14] MEDS: SPIRONOLACTONE 25 MG TAB PO SCH (14:23)
[2023-04-14] MEDS: KETOCONAZOLE 2% CREAM EXT SCH (14:23)
[2023-04-14] MEDS ORDERED: PILL CUTTER 1 EACH XX ONE (14:28)
[2023-04-14] MEDS: WARFARIN SOD 1MG TAB PO SCH (18:43)
[2023-04-14] MEDS: PANTOPRAZOLE 40MG TAB (PROTONIX) PO SCH (21:55)
[2023-04-14] MEDS: FAMOTIDINE 20 MG TAB PO SCH (21:55)
[2023-04-14] MEDS: ATORVASTATIN 20 MG TAB PO SCH (21:55)
[2023-04-14] MEDS: AMITRIPTYLINE 25MG TABLET PO SCH (21:55)
[2023-04-14] MEDS: LACTIC ACID 12% LOTION 225 GM BTL TOP SCH (21:56)
[2023-04-14] MEDS: ACETAMINOPHEN TAB 650MG DOSE (2X325MG) PO PRN (21:56)
[2023-04-15] VITALS (20 sets, daily range): BP systolic 121–178; BP diastolic 60–75; TEMP 96.8–99; O2SAT 92–99
[2023-04-15 06:30] LABS: BASO % 0.3 % (0.0-1.0); EOS # 0.1 10^3/uL (0.0-0.5); EOS % 0.6 % (0.0-3.0); HEMATOCRIT 33.3 % (36.0-47.0); HEMOGLOBIN 10.8 g/dl (12.0-15.5); LYMPH # 0.8 10^3/uL (1.5-5.0); LYMPH % 5.9 % (24.0-44.0); MEAN CORPUSCULAR HEMOGLOBIN 30.3 pg (27.0-33.0); MEAN CORPUSCULAR HGB CONC 32.4 g/dl (32.0-36.5); MEAN CORPUSCULAR VOLUME 93.5 fl (80.0-96.0); MONO # 1.3 10^3/uL (0.0-0.8); MONO % 10.1 % (2.0-8.0); NEUTROPHILS # 10.7 10^3/uL (1.5-8.5); NEUTROPHILS % 82.4 % (36.0-66.0); PLATELET COUNT, AUTOMATED 255 10^3/uL (150-450); RED BLOOD COUNT 3.56 10^6/uL (4.00-5.40)
[2023-04-15 06:50] LABS: INR 2.72; PROTHROMBIN TIME 27.9 SECONDS (12.5-14.5)
[2023-04-15 07:02] LABS: ALBUMIN 2.3 G/DL (3.2-5.2); BILIRUBIN,TOTAL 1.5 MG/DL (0.3-1.2); CALCIUM LEVEL 8.1 MG/DL (8.3-10.6); CREATININE FOR GFR 1.1 MG/DL (0.55-1.30); GLOMERULAR FILTRATION RATE 50.4 (>32); MAGNESIUM LEVEL 1.6 MG/DL (1.8-2.4); POTASSIUM SERUM 3.5 MMOL/L (3.5-5.1); TOTAL PROTEIN 5.7 G/DL (5.7-8.2)
[2023-04-15] MEDS: MAG SULF 1GM/100ML (MAG RUN) 1 GM in IV 1 EA IV ONE (09:39)
[2023-04-15] MEDS: WARFARIN SOD 2MG TAB PO SCH (17:31)
[2023-04-15] MEDS: FUROSEMIDE 40MG/4ML VIAL IV SCH (17:32)
[2023-04-15] MEDS: LevoFLOXacin IV 750 MG in IV 1 EA IV SCH (23:45)
[2023-04-16] VITALS (14 sets, daily range): BP systolic 128–160; BP diastolic 51–86; TEMP 96.8–98.4; O2SAT 91–99
[2023-04-16 04:54] LABS: BASO % 0.4 % (0.0-1.0); EOS # 0.1 10^3/uL (0.0-0.5); EOS % 1.2 % (0.0-3.0); HEMATOCRIT 34.1 % (36.0-47.0); HEMOGLOBIN 11.3 g/dl (12.0-15.5); LYMPH % 8.5 % (24.0-44.0); MEAN CORPUSCULAR HEMOGLOBIN 30.5 pg (27.0-33.0); MEAN CORPUSCULAR HGB CONC 33.1 g/dl (32.0-36.5); MEAN CORPUSCULAR VOLUME 92.2 fl (80.0-96.0); MONO # 1.1 10^3/uL (0.0-0.8); MONO % 9.8 % (2.0-8.0); NEUTROPHILS % 79.1 % (36.0-66.0); PLATELET COUNT, AUTOMATED 270 10^3/uL (150-450); WHITE BLOOD COUNT 11.4 10^3/uL (4.0-10.0)
[2023-04-16 05:06] LABS: INR 2.67; PROTHROMBIN TIME 27.5 SECONDS (12.5-14.5)
[2023-04-16 05:19] LABS: ALBUMIN 2.2 G/DL (3.2-5.2); CALCIUM LEVEL 8.1 MG/DL (8.3-10.6); CREATININE FOR GFR 1.25 MG/DL (0.55-1.30); GLOMERULAR FILTRATION RATE 43.5 (>32); MAGNESIUM LEVEL 1.7 MG/DL (1.8-2.4); POTASSIUM SERUM 3.4 MMOL/L (3.5-5.1); TOTAL PROTEIN 5.7 G/DL (5.7-8.2)
[2023-04-16] MEDS: POTASSIUM CHLORIDE 10MEQ SR TABLET PO ONE (06:50)
[2023-04-16] MEDS: MAG SULF 1GM/100ML (MAG RUN) 1 GM in IV 1 EA IV SCH (06:51)
[2023-04-16 07:31] LABS: PROCALCITONIN 0.84 ng/ml
[2023-04-16 07:33] LABS: C REACTIVE PROTEIN QUANTITATIV 35.2 MG/DL (<1.0)
[2023-04-16] MEDS ORDERED: AZITHROMYCIN INJ 500 MG, VIAL MATE ADAPTER 1 EACH in NS 250 ML IV SCH (09:05)
[2023-04-16] MEDS: cefTRIAXone SOD 1 GM in D5W MINI-BAG PLUS 50 ML IV SCH (11:18)
[2023-04-16] MEDS: DOXYCYCLINE HYCLATE 100MG TABLET PO SCH (11:24)
[2023-04-16] MEDS: BENZONATATE 100MG CAPSULE PO PRN (17:38)
[2023-04-16] MEDS: RAMELTEON 8 MG TAB (ROZEREM) PO PRN (20:31)
[2023-04-16] MEDS: guaiFENesin ER TABLET 600 MG TAB PO SCH (20:31)
[2023-04-17 03:36] VITALS: BP 127/62; TEMP 97.3; O2SAT 96
[2023-04-17 06:02] LABS: HEMATOCRIT 32.1 % (36.0-47.0); HEMOGLOBIN 10.5 g/dl (12.0-15.5); MEAN CORPUSCULAR HEMOGLOBIN 30.5 pg (27.0-33.0); MEAN CORPUSCULAR HGB CONC 32.7 g/dl (32.0-36.5); MEAN CORPUSCULAR VOLUME 93.3 fl (80.0-96.0); PLATELET COUNT, AUTOMATED 323 10^3/uL (150-450); RED BLOOD COUNT 3.44 10^6/uL (4.00-5.40); WHITE BLOOD COUNT 13.7 10^3/uL (4.0-10.0)
[2023-04-17 06:06] LABS: INR 3.09; PROTHROMBIN TIME 30.7 SECONDS (12.5-14.5)
[2023-04-17 06:20] LABS: ALBUMIN 2.2 G/DL (3.2-5.2); BILIRUBIN,TOTAL 0.6 MG/DL (0.3-1.2); CREATININE FOR GFR 1.33 MG/DL (0.55-1.30); GLOMERULAR FILTRATION RATE 40.5 (>32); TOTAL PROTEIN 5.9 G/DL (5.7-8.2)
[2023-04-17 06:26] LABS: PROCALCITONIN 0.67 ng/ml
[2023-04-17 06:37] LABS: ATYPICAL LYMPH 1 % (0-5); EOSINOPHILS 3 % (0-3); LYMPHOCYTES 8 % (16-44); METAMYELOCYTES 2 % (0-0); MONOCYTES 5 % (0-5); NEUTROPHILS 81 % (28-66)
[2023-04-17 06:39] LABS: PLATELET ESTIMATE NORMAL (NORMAL)
[2023-04-17 06:57] LABS: C REACTIVE PROTEIN QUANTITATIV 31.7 MG/DL (<1.0)
[2023-04-17 07:32] VITALS: BP 155/67; TEMP 97.9; O2SAT 95
[2023-04-17] MEDS: guaiFENesin DM LIQ 10ML UD PO PRN (10:04)
[2023-04-17 12:07] VITALS: BP 131/59; TEMP 97.3; O2SAT 97
[2023-04-17 16:02] VITALS: BP 139/63; TEMP 97.1; O2SAT 98
[2023-04-17 19:00] VITALS: BP 136/61; TEMP 98.5; O2SAT 95
[2023-04-17 23:23] VITALS: BP 150/63; TEMP 97.8; O2SAT 96
[2023-04-18] VITALS (7 sets, daily range): BP systolic 125–154; BP diastolic 60–72; TEMP 96.9–98.4; O2SAT 90–96
[2023-04-18 05:43] LABS: BASO # 0.1 10^3/uL (0.0-0.2); BASO % 0.5 % (0.0-1.0); EOS # 0.4 10^3/uL (0.0-0.5); EOS % 2.6 % (0.0-3.0); HEMATOCRIT 32.8 % (36.0-47.0); HEMOGLOBIN 10.6 g/dl (12.0-15.5); LYMPH # 1.4 10^3/uL (1.5-5.0); LYMPH % 9.6 % (24.0-44.0); MEAN CORPUSCULAR HEMOGLOBIN 29.9 pg (27.0-33.0); MEAN CORPUSCULAR HGB CONC 32.3 g/dl (32.0-36.5); MEAN CORPUSCULAR VOLUME 92.7 fl (80.0-96.0); MONO % 6.6 % (2.0-8.0); NEUTROPHILS # 11.2 10^3/uL (1.5-8.5); NEUTROPHILS % 76.9 % (36.0-66.0); PLATELET COUNT, AUTOMATED 330 10^3/uL (150-450); RED BLOOD COUNT 3.54 10^6/uL (4.00-5.40); WHITE BLOOD COUNT 14.6 10^3/uL (4.0-10.0)
[2023-04-18 05:57] LABS: INR 3.26
[2023-04-18 06:13] LABS: ALBUMIN 2.1 G/DL (3.2-5.2); BILIRUBIN,TOTAL 0.5 MG/DL (0.3-1.2); CALCIUM LEVEL 8.3 MG/DL (8.3-10.6); CREATININE FOR GFR 1.14 MG/DL (0.55-1.30); GLOMERULAR FILTRATION RATE 48.3 (>32)
[2023-04-18] MEDS: TORSEMIDE 20 MG TAB PO SCH (09:01)
[2023-04-18 13:12] LABS: HEPATITIS C VIRUS ABY INDEX 0.03 INDEX (<0.8)
[2023-04-18 13:13] LABS: HEPATITIS B CORE ANTIBODY IGM NEGATIVE (NEGATIVE)
[2023-04-18 16:08] LABS: BODY FLUID CULTURE Not indicated. (.); LEGIONELLA ANTIGEN URINE Negative (Negative); ORGANISM ID Not indicated. (.); SPECIMEN SOURCE Urine (.); URINE STREP PNEUMONIAE ANTIGEN Negative (Negative)
[2023-04-19 03:58] VITALS: BP 156/70; TEMP 96.7; O2SAT 95
[2023-04-19 05:54] LABS: BASO # 0.1 10^3/uL (0.0-0.2); BASO % 0.9 % (0.0-1.0); EOS # 0.3 10^3/uL (0.0-0.5); EOS % 2.8 % (0.0-3.0); HEMATOCRIT 34.1 % (36.0-47.0); HEMOGLOBIN 11.1 g/dl (12.0-15.5); LYMPH # 1.6 10^3/uL (1.5-5.0); LYMPH % 12.6 % (24.0-44.0); MEAN CORPUSCULAR HEMOGLOBIN 30.7 pg (27.0-33.0); MEAN CORPUSCULAR HGB CONC 32.6 g/dl (32.0-36.5); MEAN CORPUSCULAR VOLUME 94.5 fl (80.0-96.0); MONO # 0.9 10^3/uL (0.0-0.8); MONO % 6.9 % (2.0-8.0); NEUTROPHILS # 8.6 10^3/uL (1.5-8.5); PLATELET COUNT, AUTOMATED 356 10^3/uL (150-450); RED BLOOD COUNT 3.61 10^6/uL (4.00-5.40); WHITE BLOOD COUNT 12.3 10^3/uL (4.0-10.0)
[2023-04-19 06:03] LABS: INR 3.1; PROTHROMBIN TIME 30.8 SECONDS (12.5-14.5)
[2023-04-19 06:15] LABS: C REACTIVE PROTEIN QUANTITATIV 20.9 MG/DL (<1.0)
[2023-04-19 06:32] LABS: ALBUMIN 2.2 G/DL (3.2-5.2); BILIRUBIN,TOTAL 0.5 MG/DL (0.3-1.2); CALCIUM LEVEL 8.5 MG/DL (8.3-10.6); CREATININE FOR GFR 1.46 MG/DL (0.55-1.30); GLOMERULAR FILTRATION RATE 36.3 (>32); POTASSIUM SERUM 3.9 MMOL/L (3.5-5.1); TOTAL PROTEIN 6.4 G/DL (5.7-8.2)
[2023-04-19 07:39] VITALS: BP 148/70; TEMP 97.5; O2SAT 94
[2023-04-19 08:42] VITALS: BP 148/70
[2023-04-19] MEDS ORDERED: CEFD1CAP9 PO (09:45)
[2023-04-19] MEDS ORDERED: DOXY-444 PO (09:45)
[2023-04-19] MEDS ORDERED: TORS20TA2 PO (10:40)
[2023-04-19] MEDS ORDERED: WARF4TAB51 PO ×2 (10:40)
[2023-04-19] MEDS ORDERED: PROB250C PO (11:06)
[2023-04-19] MEDS ORDERED: SPIR-10 PO (13:56)
== END 2023-04-19 12:55 | disposition home health service (06) | DRG 193 ==
LOC: EDBD 21:36 → M ED 21:36 → M ED INP 04-14 02:13 → ENRESERV 04-14 10:59 → M PCU 04-14 13:43
PROVIDERS: ADMIT Family Medicine; ATTEND Internal Medicine
PROC: B246ZZZ Ultrasonography of Right and Left Heart (ICD-10-PCS; principal; 2023-04-16)
DX: J18.9 Pneumonia, unspecified organism (principal); G93.41 Metabolic encephalopathy; J96.21 Acute and chronic respiratory failure with hypoxia; I50.33 Acute on chronic diastolic (congestive) heart failure; I48.11 Longstanding persistent atrial fibrillation; E87.1 Hypo-osmolality and hyponatremia; I13.0 Hypertensive heart and chronic kidney disease with heart failure and stage 1 through stage 4 chronic kidney disease, or unspecified chronic kidney disease; J44.0 Chronic obstructive pulmonary disease with (acute) lower respiratory infection; Q21.12 Patent foramen ovale; E78.5 Hyperlipidemia, unspecified; M19.90 Unspecified osteoarthritis, unspecified site; K21.9 Gastro-esophageal reflux disease without esophagitis; F32.A Depression, unspecified; F41.9 Anxiety disorder, unspecified; E87.6 Hypokalemia; R74.01 Elevation of levels of liver transaminase levels; M85.80 Other specified disorders of bone density and structure, unspecified site; G47.33 Obstructive sleep apnea (adult) (pediatric); E87.5 Hyperkalemia; I27.29 Other secondary pulmonary hypertension; I73.9 Peripheral vascular disease, unspecified; N18.31 Chronic kidney disease, stage 3a; G44.209 Tension-type headache, unspecified, not intractable; E83.42 Hypomagnesemia; G25.3 Myoclonus; Z98.41 Cataract extraction status, right eye; Z98.42 Cataract extraction status, left eye; Z96.651 Presence of right artificial knee joint; Z86.010 Personal history of colon polyps; Z87.891 Personal history of nicotine dependence; Z99.81 Dependence on supplemental oxygen; Z79.01 Long term (current) use of anticoagulants; Z79.899 Other long term (current) drug therapy; Z88.0 Allergy status to penicillin; Z86.73 Personal history of transient ischemic attack (TIA), and cerebral infarction without residual deficits

== ENCOUNTER → 2023-04-21 | Outpatient (CLI) | payer MEDICARE ==
[~2023-04-21] MED LIST changes: +ACET650T61 PO; +AMMO12LO TOP; +CEFD1CAP9 PO; +KETO2CR EXT; +KETO2SHA8 TOP; +LEVOTAB10 PO; +PROB250C PO; +TORS20TA2 PO
[2023-04-21 16:59] LABS: CALCIUM LEVEL 8.8 MG/DL (8.3-10.6); CREATININE FOR GFR 1.1 MG/DL (0.55-1.30); GLOMERULAR FILTRATION RATE 50.4 (>32); POTASSIUM SERUM 4.5 MMOL/L (3.5-5.1)
[2023-04-21 17:13] LABS: INR 2.59; PROTHROMBIN TIME 26.9 SECONDS (12.5-14.5)
== END ==
LOC: M WUC 13:04
PROVIDERS: ATTEND Internal Medicine
DX: I50.42 Chronic combined systolic (congestive) and diastolic (congestive) heart failure (principal); Z79.01 Long term (current) use of anticoagulants

== ENCOUNTER → 2023-05-08 | Outpatient (CLI) | payer MEDICARE ==
[~2023-05-08] MED LIST changes: +ISOVUE-370 76% 100ML VIAL As Ordered ONE
== END ==
LOC: M RAD 08:17
PROVIDERS: ATTEND Family Medicine
DX: K56.1 Intussusception (principal); I77.1 Stricture of artery
CPT/HCPCS: 75635; Q9967

== ENCOUNTER → 2023-05-08 | Outpatient (CLI) | payer MEDICARE ==
[~2023-05-08] MED LIST changes: -ISOVUE-370 76% 100ML VIAL As Ordered ONE
[2023-05-08 10:45] LABS: INR 3.48; PROTHROMBIN TIME 33.6 SECONDS (12.5-14.5)
== END ==
LOC: M LAB 09:12
PROVIDERS: ATTEND Family Medicine
DX: Z79.01 Long term (current) use of anticoagulants (principal)

== ENCOUNTER → 2023-05-12 | Outpatient (CLI) | payer MEDICARE ==
[2023-05-12 17:36] LABS: PROTHROMBIN TIME 45.1 SECONDS (12.5-14.5)
[2023-05-12 18:56] LABS: INR 5.09
== END ==
LOC: M LAB 16:24
PROVIDERS: ATTEND Family Medicine
DX: Z79.01 Long term (current) use of anticoagulants (principal)

== ENCOUNTER → 2023-05-17 | Outpatient (CLI) | payer MEDICARE ==
[2023-05-17 12:10] LABS: BASO # 0.1 10^3/uL (0.0-0.2); BASO % 0.9 % (0.0-1.0); EOS # 0.7 10^3/uL (0.0-0.5); EOS % 8.8 % (0.0-3.0); HEMATOCRIT 31.4 % (36.0-47.0); HEMOGLOBIN 9.9 g/dl (12.0-15.5); LYMPH # 1.1 10^3/uL (1.5-5.0); LYMPH % 14.3 % (24.0-44.0); MEAN CORPUSCULAR HEMOGLOBIN 29.7 pg (27.0-33.0); MEAN CORPUSCULAR HGB CONC 31.5 g/dl (32.0-36.5); MEAN CORPUSCULAR VOLUME 94.3 fl (80.0-96.0); MONO # 0.6 10^3/uL (0.0-0.8); MONO % 8.3 % (2.0-8.0); NEUTROPHILS # 4.9 10^3/uL (1.5-8.5); NEUTROPHILS % 64.8 % (36.0-66.0); PLATELET COUNT, AUTOMATED 288 10^3/uL (150-450); RED BLOOD COUNT 3.33 10^6/uL (4.00-5.40); WHITE BLOOD COUNT 7.5 10^3/uL (4.0-10.0)
[2023-05-17 12:23] LABS: INR 2.29; PROTHROMBIN TIME 24.4 SECONDS (12.5-14.5)
[2023-05-17 12:34] LABS: ALBUMIN 2.5 G/DL (3.2-5.2); ALKALINE PHOSPHATASE 113 U/L (46-116); ALT/SGPT 19 U/L (7.0-40); AST/SGOT 27 U/L (<34); BILIRUBIN,TOTAL 0.7 MG/DL (0.3-1.2); BLOOD UREA NITROGEN 16 MG/DL (9-23); CALCIUM LEVEL 8.4 MG/DL (8.3-10.6); CARBON DIOXIDE LEVEL 26 MMOL/L (20-31); CHLORIDE LEVEL 106 MMOL/L (98-107); CREATININE FOR GFR 0.87 MG/DL (0.55-1.30); GLOMERULAR FILTRATION RATE > 60.0 (>32); GLUCOSE, FASTING 100 MG/DL (74-106); POTASSIUM SERUM 4.5 MMOL/L (3.5-5.1); SODIUM LEVEL 137 MMOL/L (136-145); TOTAL PROTEIN 6.4 G/DL (5.7-8.2)
== END ==
LOC: M WUC 10:01
PROVIDERS: ATTEND Family Medicine
DX: Z79.01 Long term (current) use of anticoagulants (principal)

== ENCOUNTER → 2023-05-17 | Outpatient (CLI) | payer MEDICARE ==
[2023-05-17 12:11] LABS: HEMATOCRIT 31.7 % (36.0-47.0); HEMOGLOBIN 9.8 g/dl (12.0-15.5); MEAN CORPUSCULAR HEMOGLOBIN 29.2 pg (27.0-33.0); MEAN CORPUSCULAR HGB CONC 30.9 g/dl (32.0-36.5); MEAN CORPUSCULAR VOLUME 94.3 fl (80.0-96.0); PLATELET COUNT, AUTOMATED 297 10^3/uL (150-450); RED BLOOD COUNT 3.36 10^6/uL (4.00-5.40); WHITE BLOOD COUNT 7.7 10^3/uL (4.0-10.0)
[2023-05-17 12:39] LABS: ALBUMIN 2.5 G/DL (3.2-5.2); ALKALINE PHOSPHATASE 112 U/L (46-116); ALT/SGPT 21 U/L (7.0-40); AST/SGOT 33 U/L (<34); BILIRUBIN,TOTAL 0.6 MG/DL (0.3-1.2); BLOOD UREA NITROGEN 17 MG/DL (9-23); CALCIUM LEVEL 8.2 MG/DL (8.3-10.6); CARBON DIOXIDE LEVEL 24 MMOL/L (20-31); CHLORIDE LEVEL 106 MMOL/L (98-107); CHOLESTEROL LEVEL 101 MG/DL (<200); CHOLESTEROL RISK RATIO 3.69 (<5); CREATININE FOR GFR 0.89 MG/DL (0.55-1.30); GLOMERULAR FILTRATION RATE > 60.0 (>32); GLUCOSE, FASTING 98 MG/DL (74-106); HDL CHOLESTEROL 27.3 MG/DL (>40); LDL CHOLESTEROL 44.5 MG/DL (<100); MAGNESIUM LEVEL 1.6 MG/DL (1.8-2.4); NON-HDL-C 73.7 MG/DL; POTASSIUM SERUM 4.7 MMOL/L (3.5-5.1); SODIUM LEVEL 137 MMOL/L (136-145); TOTAL PROTEIN 6.4 G/DL (5.7-8.2); TRIGLYCERIDES LEVEL 146 MG/DL (<150)
== END ==
LOC: M WUC 10:04
PROVIDERS: ATTEND Physician Assistant
DX: I48.3 Typical atrial flutter (principal); I27.81 Cor pulmonale (chronic); E78.00 Pure hypercholesterolemia, unspecified

== ENCOUNTER → 2023-05-29 | Outpatient (CLI) | payer MEDICARE ==
[2023-05-29 16:43] LABS: BASO # 0.1 10^3/uL (0.0-0.2); BASO % 1.1 % (0.0-1.0); EOS # 0.6 10^3/uL (0.0-0.5); EOS % 9.4 % (0.0-3.0); HEMOGLOBIN 10.1 g/dl (12.0-15.5); LYMPH # 1.1 10^3/uL (1.5-5.0); LYMPH % 18.7 % (24.0-44.0); MEAN CORPUSCULAR HEMOGLOBIN 29.6 pg (27.0-33.0); MEAN CORPUSCULAR HGB CONC 30.6 g/dl (32.0-36.5); MEAN CORPUSCULAR VOLUME 96.8 fl (80.0-96.0); MONO # 0.4 10^3/uL (0.0-0.8); MONO % 6.4 % (2.0-8.0); NEUTROPHILS # 3.8 10^3/uL (1.5-8.5); NEUTROPHILS % 62.9 % (36.0-66.0); PLATELET COUNT, AUTOMATED 300 10^3/uL (150-450); RED BLOOD COUNT 3.41 10^6/uL (4.00-5.40); WHITE BLOOD COUNT 6.1 10^3/uL (4.0-10.0)
[2023-05-29 17:09] LABS: ALBUMIN 2.8 G/DL (3.2-5.2); ALKALINE PHOSPHATASE 104 U/L (46-116); ALT/SGPT 13 U/L (7.0-40); AST/SGOT 24 U/L (<34); BILIRUBIN,TOTAL 0.6 MG/DL (0.3-1.2); BLOOD UREA NITROGEN 19 MG/DL (9-23); CALCIUM LEVEL 8.5 MG/DL (8.3-10.6); CARBON DIOXIDE LEVEL 24 MMOL/L (20-31); CHLORIDE LEVEL 109 MMOL/L (98-107); CREATININE FOR GFR 0.91 MG/DL (0.55-1.30); GLOMERULAR FILTRATION RATE > 60.0 (>32); GLUCOSE, FASTING 86 MG/DL (74-106); INR 3.2; POTASSIUM SERUM 4.9 MMOL/L (3.5-5.1); PROTHROMBIN TIME 31.6 SECONDS (12.5-14.5); SODIUM LEVEL 140 MMOL/L (136-145); TOTAL PROTEIN 6.5 G/DL (5.7-8.2)
== END ==
LOC: M LAB 15:55
PROVIDERS: ATTEND Family Medicine
DX: Z79.01 Long term (current) use of anticoagulants (principal)

== ENCOUNTER → 2023-06-01 | Outpatient (REF) | payer MEDICARE | LOC: M SFHCPLAZ 14:22 | PROVIDERS: ATTEND Family Medicine | DX: D64.9 Anemia, unspecified (principal) ==

== ENCOUNTER → 2023-06-09 | Outpatient (REF) | payer MEDICARE ==
[2023-06-09 18:39] LABS: BASO # 0.1 10^3/uL (0.0-0.2); BASO % 1.1 % (0.0-1.0); EOS # 0.4 10^3/uL (0.0-0.5); EOS % 7.4 % (0.0-3.0); HEMATOCRIT 35.8 % (36.0-47.0); HEMOGLOBIN 10.7 g/dl (12.0-15.5); LYMPH # 1.2 10^3/uL (1.5-5.0); LYMPH % 20.7 % (24.0-44.0); MEAN CORPUSCULAR HEMOGLOBIN 29.4 pg (27.0-33.0); MEAN CORPUSCULAR HGB CONC 29.9 g/dl (32.0-36.5); MEAN CORPUSCULAR VOLUME 98.4 fl (80.0-96.0); MONO # 0.5 10^3/uL (0.0-0.8); MONO % 8.3 % (2.0-8.0); NEUTROPHILS # 3.5 10^3/uL (1.5-8.5); NEUTROPHILS % 61.8 % (36.0-66.0); PLATELET COUNT, AUTOMATED 245 10^3/uL (150-450); RED BLOOD COUNT 3.64 10^6/uL (4.00-5.40); WHITE BLOOD COUNT 5.7 10^3/uL (4.0-10.0)
[2023-06-09 19:00] LABS: PERCENT SATURATION 11.8 % (13.2-45.0)
[2023-06-09 19:01] LABS: BILIRUBIN,TOTAL 0.9 MG/DL (0.3-1.2); CALCIUM LEVEL 9.1 MG/DL (8.3-10.6); CREATININE FOR GFR 1.03 MG/DL (0.55-1.30); GLOMERULAR FILTRATION RATE 54.3 (>32); POTASSIUM SERUM 5.1 MMOL/L (3.5-5.1); TOTAL PROTEIN 6.5 G/DL (5.7-8.2)
[2023-06-09 19:02] LABS: FERRITIN 91.1 NG/ML (7.3-270.7)
[2023-06-09 19:18] LABS: PROTHROMBIN TIME 54.8 SECONDS (12.5-14.5)
[2023-06-09 19:24] LABS: INR 6.56
[2023-06-13 17:07] LABS: SOLUBLE TRANSFERRIN RECEPTOR 37.1 nmol/L (12.2-27.3)
== END ==
LOC: M PLALAB 17:05
PROVIDERS: ATTEND Family Medicine
DX: D64.9 Anemia, unspecified (principal); R79.89 Other specified abnormal findings of blood chemistry; Z79.01 Long term (current) use of anticoagulants

== ENCOUNTER → 2023-06-14 | Outpatient (CLI) | payer MEDICARE ==
[2023-06-14 18:08] LABS: INR 3.11; PROTHROMBIN TIME 30.9 SECONDS (12.5-14.5)
== END ==
LOC: M LAB 17:12
PROVIDERS: ATTEND Family Medicine
DX: Z79.01 Long term (current) use of anticoagulants (principal)

== ENCOUNTER → 2023-06-16 | Outpatient (CLI) | payer MEDICARE ==
[2023-06-16 12:59] LABS: INR 1.67; PROTHROMBIN TIME 19.2 SECONDS (12.5-14.5)
== END ==
LOC: M LAB 11:44
PROVIDERS: ATTEND Family Medicine
DX: Z79.01 Long term (current) use of anticoagulants (principal)

== ENCOUNTER → 2023-06-21 | Outpatient (REF) | payer MEDICARE ==
[2023-06-21 17:29] LABS: INR 1.68; PROTHROMBIN TIME 19.2 SECONDS (12.5-14.5)
== END ==
LOC: M LABDRAWP 16:51 → M SFHCPLAZ 16:51
PROVIDERS: ATTEND Family Medicine
DX: Z79.01 Long term (current) use of anticoagulants (principal)

== ENCOUNTER → 2023-06-22 | Outpatient (CLI) | payer MEDICARE | LOC: M RAD 13:43 | PROVIDERS: ATTEND Internal Medicine Critical Care Medicine | DX: J18.9 Pneumonia, unspecified organism (principal) ==

== ENCOUNTER → 2023-07-04 | Outpatient (CLI) | payer MEDICARE ==
[~2023-07-04] MED LIST changes: +DOXY-440 PO; -DOXY-444 PO
[2023-07-04 15:41] LABS: INR 3.07; PROTHROMBIN TIME 30.6 SECONDS (12.5-14.5)
== END ==
LOC: M LAB 14:32
PROVIDERS: ATTEND Family Medicine
DX: Z79.01 Long term (current) use of anticoagulants (principal)

== ENCOUNTER → 2023-07-10 | Outpatient (CLI) | payer MEDICARE | LOC: M SOG 07:53 | PROVIDERS: ATTEND Orthopaedic Surgery | DX: M19.011 Primary osteoarthritis, right shoulder (principal); M85.811 Other specified disorders of bone density and structure, right shoulder; M25.511 Pain in right shoulder ==

== ENCOUNTER → 2023-07-11 | Outpatient (CLI) | payer MEDICARE | LOC: M PLAIMG 11:04 | PROVIDERS: ATTEND Internal Medicine Hematology & Oncology | DX: D64.9 Anemia, unspecified (principal); M54.2 Cervicalgia; I89.0 Lymphedema, not elsewhere classified ==

== ENCOUNTER → 2023-07-13 | Outpatient (CLI) | payer MEDICARE | LOC: M PLALAB 15:57 | PROVIDERS: ATTEND Family Medicine | DX: Z79.01 Long term (current) use of anticoagulants (principal) ==

== ENCOUNTER → 2023-07-14 | Outpatient (CLI) | payer MEDICARE | LOC: M SOG 07:59 | PROVIDERS: ATTEND Orthopaedic Surgery | DX: M25.552 Pain in left hip (principal); M25.551 Pain in right hip ==

== ENCOUNTER → 2023-07-27 | Outpatient (CLI) | payer MEDICARE ==
[~2023-07-27] MED LIST changes: +SLOW160T12 PO
[2023-07-27 17:20] LABS: INR 1.45; PROTHROMBIN TIME 17.2 SECONDS (12.5-14.5)
== END ==
LOC: M PLALAB 14:18
PROVIDERS: ATTEND Family Medicine
DX: Z79.01 Long term (current) use of anticoagulants (principal)

== ENCOUNTER 2023-08-06 19:18 | Emergency (ER) | payer MEDICARE ==
[2023-08-06 20:09] LABS: BASO # 0.1 10^3/uL (0.0-0.2); EOS # 0.2 10^3/uL (0.0-0.5); EOS % 3.6 % (0.0-3.0); HEMOGLOBIN 12.1 g/dl (12.0-15.5); LYMPH # 1.2 10^3/uL (1.5-5.0); LYMPH % 20.3 % (24.0-44.0); MEAN CORPUSCULAR HEMOGLOBIN 28.5 pg (27.0-33.0); MEAN CORPUSCULAR VOLUME 91.8 fl (80.0-96.0); MONO # 0.5 10^3/uL (0.0-0.8); MONO % 7.6 % (2.0-8.0); NEUTROPHILS % 67.2 % (36.0-66.0); RED BLOOD COUNT 4.25 10^6/uL (4.00-5.40); WHITE BLOOD COUNT 5.9 10^3/uL (4.0-10.0)
[2023-08-06 20:23] LABS: ALBUMIN 3.1 G/DL (3.2-5.2); ALKALINE PHOSPHATASE 79 U/L (46-116); ALT/SGPT 13 U/L (7.0-40); AST/SGOT 24 U/L (<34); BILIRUBIN,DIRECT 0.2 MG/DL (<0.4); BILIRUBIN,TOTAL 0.8 MG/DL (0.3-1.2); BLOOD UREA NITROGEN 15 MG/DL (9-23); CALCIUM LEVEL 8.9 MG/DL (8.3-10.6); CARBON DIOXIDE LEVEL 34 MMOL/L (20-31); CHLORIDE LEVEL 104 MMOL/L (98-107); CREATININE FOR GFR 0.82 MG/DL (0.55-1.30); GLOMERULAR FILTRATION RATE > 60.0 (>32); GLUCOSE, FASTING 113 MG/DL (74-106); POTASSIUM SERUM 3.8 MMOL/L (3.5-5.1); SODIUM LEVEL 142 MMOL/L (136-145); TOTAL PROTEIN 6.2 G/DL (5.7-8.2)
[2023-08-06 20:26] LABS: THYROID STIMULATING HORMONE 2.871 uIU/ML (0.55-4.78)
[2023-08-06 21:09] LABS: AMPHETAMINES LEVEL URINE NEGATIVE (NEGATIVE); BARBITURATES URINE NEGATIVE (NEGATIVE); CANNABINOIDS URINE NEGATIVE (NEGATIVE); COCAINE METABOLITE URINE NEGATIVE (NEGATIVE); METHADONE URINE NEGATIVE (NEGATIVE); OPIATES URINE NEGATIVE (NEGATIVE); PHENCYCLIDINE URINE NEGATIVE (NEGATIVE)
[2023-08-06 21:10] LABS: BENZODIAZEPINES URINE NEGATIVE (NEGATIVE)
[2023-08-06 21:53] LABS: VENOUS HCO3 34.5 MMOL/L (23.0-27.0); VENOUS O2 SATURATION 52.6 % (60.0-80.0); VENOUS PARTIAL PRESSURE CO2 71.8 mmHg (38.0-50.0); VENOUS PARTIAL PRESSURE O2 30.7 mmHg (30.0-50.0); VENOUS STANDARD HCO3 28.9 MMOL/L; VENOUS TOTAL CO2 36.7 MMOL/L (24.0-28.0)
[2023-08-06 22:40] LABS: INR 1.41; PARTIAL THROMBOPLASTIN TIME 26.5 SECONDS (24.8-34.2); PROTHROMBIN TIME 16.8 SECONDS (12.5-14.5)
[2023-08-07 00:05] VITALS: BP 130/86; TEMP 97.9; O2SAT 99
== END 2023-08-07 00:20 | disposition home or self-care (01) ==
LOC: M ED 19:18 → EDBD 19:18 → M ED 08-07 00:20
DX: R00.1 Bradycardia, unspecified (principal); T50.905A Adverse effect of unspecified drugs, medicaments and biological substances, initial encounter; G31.84 Mild cognitive impairment of uncertain or unknown etiology; I48.91 Unspecified atrial fibrillation; I50.22 Chronic systolic (congestive) heart failure; J44.9 Chronic obstructive pulmonary disease, unspecified; I11.0 Hypertensive heart disease with heart failure; E78.5 Hyperlipidemia, unspecified; K21.9 Gastro-esophageal reflux disease without esophagitis; Z88.0 Allergy status to penicillin; Z79.1 Long term (current) use of non-steroidal anti-inflammatories (NSAID); Z79.51 Long term (current) use of inhaled steroids; Z79.899 Other long term (current) drug therapy

== ENCOUNTER → 2023-08-10 | Outpatient (CLI) | payer MEDICARE | LOC: M SOG 14:42 | PROVIDERS: ATTEND Physician Assistant | DX: M50.322 Other cervical disc degeneration at C5-C6 level (principal); M50.323 Other cervical disc degeneration at C6-C7 level ==

== ENCOUNTER → 2023-09-01 | Outpatient (CLI) | payer MEDICARE | LOC: M PLAIMG 14:28 | PROVIDERS: ATTEND Physician Assistant | DX: M25.552 Pain in left hip (principal) ==

== ENCOUNTER → 2023-11-01 | Outpatient (CLI) | payer MEDICARE | LOC: M WUC 08:10 | PROVIDERS: ATTEND Physician Assistant | DX: M79.641 Pain in right hand (principal) ==

== ENCOUNTER → 2023-12-21 | Outpatient (CLI) | payer MEDICARE ==
[~2023-12-21] MED LIST changes: +GABA-1172 PO; -GABA-282 PO
[2023-12-21 17:49] LABS: BASO % 0.5 % (0.0-1.0); EOS # 0.3 10^3/uL (0.0-0.5); EOS % 3.7 % (0.0-3.0); HEMATOCRIT 36.8 % (36.0-47.0); HEMOGLOBIN 11.9 g/dl (12.0-15.5); LYMPH # 1.5 10^3/uL (1.5-5.0); LYMPH % 17.5 % (24.0-44.0); MEAN CORPUSCULAR HEMOGLOBIN 32.3 pg (27.0-33.0); MEAN CORPUSCULAR HGB CONC 32.3 g/dl (32.0-36.5); MONO # 0.6 10^3/uL (0.0-0.8); NEUTROPHILS # 5.9 10^3/uL (1.5-8.5); NEUTROPHILS % 69.4 % (36.0-66.0); PLATELET COUNT, AUTOMATED 194 10^3/uL (150-450); RED BLOOD COUNT 3.68 10^6/uL (4.00-5.40); WHITE BLOOD COUNT 8.5 10^3/uL (4.0-10.0)
[2023-12-21 18:05] LABS: HEMOGLOBIN A1c 5.6 % (4.0-6.0)
[2023-12-21 18:10] LABS: ALBUMIN 3.7 G/DL (3.2-5.2); ALKALINE PHOSPHATASE 64 U/L (46-116); ALT/SGPT 11 U/L (7.0-40); AST/SGOT 12 U/L (<34); BLOOD UREA NITROGEN 30 MG/DL (9-23); CALCIUM LEVEL 9.6 MG/DL (8.3-10.6); CARBON DIOXIDE LEVEL 31 MMOL/L (20-31); CHLORIDE LEVEL 107 MMOL/L (98-107); CREATININE FOR GFR 1.04 MG/DL (0.55-1.30); GLOMERULAR FILTRATION RATE 53.6 (>32); GLUCOSE, FASTING 73 MG/DL (74-106); POTASSIUM SERUM 4.8 MMOL/L (3.5-5.1); SODIUM LEVEL 142 MMOL/L (136-145); TOTAL PROTEIN 6.8 G/DL (5.7-8.2)
[2023-12-21 18:14] LABS: FERRITIN 63.3 NG/ML (7.3-270.7)
[2023-12-21 18:43] LABS: HIV 1&2 SCREEN NEGATIVE (NEGATIVE)
[2023-12-21 18:51] LABS: HEPATITIS C VIRUS ABY INDEX < 0.02 INDEX (<0.8)
== END ==
LOC: M PLALAB 15:41
PROVIDERS: ATTEND Family Medicine
DX: D64.9 Anemia, unspecified (principal); R63.4 Abnormal weight loss; Z79.899 Other long term (current) drug therapy

== ENCOUNTER → 2024-01-15 | Outpatient (CLI) | payer MEDICARE ==
[~2024-01-15] MED LIST changes: +ATOR-398 PO; -LEVO750T14 PO; +LEVO75TAB PO; -LIPI80TA PO; +NYST1POW3 TOP; -NYST1POW9 TOP
[2024-01-15 17:32] LABS: BASO # 0.1 10^3/uL (0.0-0.2); BASO % 0.7 % (0.0-1.0); EOS # 0.3 10^3/uL (0.0-0.5); EOS % 3.8 % (0.0-3.0); HEMATOCRIT 38.1 % (36.0-47.0); HEMOGLOBIN 12.4 g/dl (12.0-15.5); LYMPH # 1.2 10^3/uL (1.5-5.0); LYMPH % 16.8 % (24.0-44.0); MEAN CORPUSCULAR HEMOGLOBIN 32.6 pg (27.0-33.0); MEAN CORPUSCULAR HGB CONC 32.5 g/dl (32.0-36.5); MEAN CORPUSCULAR VOLUME 100.3 fl (80.0-96.0); MONO # 0.5 10^3/uL (0.0-0.8); MONO % 7.6 % (2.0-8.0); NEUTROPHILS # 4.9 10^3/uL (1.5-8.5); NEUTROPHILS % 68.8 % (36.0-66.0); PLATELET COUNT, AUTOMATED 223 10^3/uL (150-450); WHITE BLOOD COUNT 7.1 10^3/uL (4.0-10.0)
[2024-01-15 17:38] LABS: ERYTHROCYTE SEDIMENTATION RATE 26 mm/hr (0-30)
[2024-01-15 18:04] LABS: ALBUMIN 3.7 G/DL (3.2-5.2); BILIRUBIN,TOTAL 0.8 MG/DL (0.3-1.2); CALCIUM LEVEL 9.3 MG/DL (8.3-10.6); CREATININE FOR GFR 1.19 MG/DL (0.55-1.30); GLOMERULAR FILTRATION RATE 45.9 (>32); POTASSIUM SERUM 4.6 MMOL/L (3.5-5.1)
== END ==
LOC: M PLALAB 14:43
PROVIDERS: ATTEND Physician Assistant
DX: Z96.651 Presence of right artificial knee joint (principal)

== ENCOUNTER → 2024-02-13 | Outpatient (CLI) | payer MEDICARE, MEDICAID | LOC: M RAD 09:58 | PROVIDERS: ATTEND Physician Assistant | DX: Z96.651 Presence of right artificial knee joint (principal) | CPT/HCPCS: 78315; A9503 ==

== ENCOUNTER → 2024-02-15 | Outpatient (CLI) | payer MEDICARE, MEDICAID | LOC: M WUC 14:55 | PROVIDERS: ATTEND Student in an Organized Health Care Education/Training Program | DX: J06.9 Acute upper respiratory infection, unspecified (principal); R06.02 Shortness of breath ==

== ENCOUNTER → 2024-03-27 | Outpatient (CLI) | payer MEDICARE, MEDICAID ==
[2024-03-27 18:03] LABS: BLOOD UREA NITROGEN 57 MG/DL (9-23); CREATININE FOR GFR 0.94 MG/DL (0.55-1.30); GLOMERULAR FILTRATION RATE > 60.0 (>32)
== END ==
LOC: M PLALAB 14:31
PROVIDERS: ATTEND Otolaryngology
DX: H92.02 Otalgia, left ear (principal); F45.8 Other somatoform disorders

== ENCOUNTER → 2024-03-29 | Outpatient (CLI) | payer MEDICARE, MEDICAID ==
[~2024-03-29] MED LIST changes: +ISOVUE-370 76% 100ML VIAL As Ordered ONE
== END ==
LOC: M RAD 13:45
PROVIDERS: ATTEND Otolaryngology
DX: R13.10 Dysphagia, unspecified (principal)
CPT/HCPCS: 70491; Q9967

== ENCOUNTER → 2024-04-02 | Outpatient (CLI) | payer MEDICARE, MEDICAID ==
[~2024-04-02] MED LIST changes: -ISOVUE-370 76% 100ML VIAL As Ordered ONE
== END ==
LOC: M WHC 14:06
PROVIDERS: ATTEND Nurse Practitioner Family
DX: N64.4 Mastodynia (principal); N64.3 Galactorrhea not associated with childbirth
CPT/HCPCS: 76642; 77066; G0279

== ENCOUNTER → 2024-04-05 | Outpatient (REF) | payer MEDICARE, MEDICAID ==
[2024-04-05 18:14] LABS: APPEARANCE, URINE HAZY (CLEAR); BACTERIA, URINE AUTO NEGATIVE (NEGATIVE); BILIRUBIN, URINE AUTO NEGATIVE (NEGATIVE); BLOOD, URINE BLOOD NEGATIVE (NEGATIVE); COLOR, URINE YELLOW (YELLOW); GLUCOSE, URINE (UA) AUTO NEGATIVE (NEGATIVE); KETONE, URINE AUTO NEGATIVE (NEGATIVE); LEUKOCYTE ESTERASE, URINE AUTO NEGATIVE (NEGATIVE); MUCUS, URINE SMALL (NEGATIVE); NITRITE, URINE AUTO NEGATIVE (NEGATIVE); PROTEIN, URINE AUTO 1+ mg/dL (NEGATIVE); RBC, URINE AUTO 1 /HPF (0-3); SPECIFIC GRAVITY URINE AUTO 1.018 (1.002-1.035); SQUAMOUS EPITHELIAL CELL UR AU 0 /HPF (0-6); UROBILINOGEN, URINE AUTO 0.2 mg/dL (0.0-2.0); WBC, URINE AUTO 0 /HPF (0-3)
== END ==
LOC: M SMT 17:24
PROVIDERS: ATTEND Physician Assistant
DX: R39.9 Unspecified symptoms and signs involving the genitourinary system (principal)

== ENCOUNTER → 2024-05-10 | Outpatient (CLI) | payer MEDICARE, MEDICAID | LOC: M WHC 14:09 | PROVIDERS: ATTEND Otolaryngology | DX: E04.1 Nontoxic single thyroid nodule (principal) ==

== ENCOUNTER → 2024-05-31 | Outpatient (CLI) | payer MEDICARE, MEDICAID ==
[~2024-05-31] MED LIST changes: +E-Z-GAS II EFFERVESCENT PACKET (SODIUM BICARB./CITRIC ACID/SIMETHICONE) As Ordered ONE; +E-Z-HD 98% w/w 340GM SUSP BTL As Ordered ONE; +E-Z-PAQUE 96% w/w SUSP 176GM BTL As Ordered ONE
== END ==
LOC: M RAD 09:46
PROVIDERS: ATTEND Otolaryngology
DX: R13.10 Dysphagia, unspecified (principal); R93.3 Abnormal findings on diagnostic imaging of other parts of digestive tract

== ENCOUNTER → 2024-06-04 | Outpatient (CLI) | payer MEDICARE, MEDICAID ==
[~2024-06-04] MED LIST changes: -E-Z-GAS II EFFERVESCENT PACKET (SODIUM BICARB./CITRIC ACID/SIMETHICONE) As Ordered ONE; -E-Z-HD 98% w/w 340GM SUSP BTL As Ordered ONE; -E-Z-PAQUE 96% w/w SUSP 176GM BTL As Ordered ONE
[2024-06-04 19:02] LABS: HEMATOCRIT 37.9 % (36.0-47.0); HEMOGLOBIN 12.1 g/dl (12.0-15.5); MEAN CORPUSCULAR HEMOGLOBIN 32.7 pg (27.0-33.0); MEAN CORPUSCULAR HGB CONC 31.9 g/dl (32.0-36.5); MEAN CORPUSCULAR VOLUME 102.4 fl (80.0-96.0); PLATELET COUNT, AUTOMATED 275 10^3/uL (150-450); WHITE BLOOD COUNT 9.5 10^3/uL (4.0-10.0)
[2024-06-04 19:44] LABS: ALBUMIN 3.3 G/DL (3.2-5.2); BILIRUBIN,TOTAL 0.6 MG/DL (0.3-1.2); CALCIUM LEVEL 8.8 MG/DL (8.3-10.6); CHOLESTEROL RISK RATIO 3.16 (<5); CREATININE FOR GFR 1.06 MG/DL (0.55-1.30); GLOMERULAR FILTRATION RATE 51.5 (>32); HDL CHOLESTEROL 47.1 MG/DL (>40); LDL CHOLESTEROL 63.7 MG/DL (<100); MAGNESIUM LEVEL 1.8 MG/DL (1.8-2.4); NON-HDL-C 101.9 MG/DL; POTASSIUM SERUM 4.5 MMOL/L (3.5-5.1)
== END ==
LOC: M PLALAB 16:04
PROVIDERS: ATTEND Family Medicine
DX: I27.81 Cor pulmonale (chronic) (principal); E78.00 Pure hypercholesterolemia, unspecified; I48.21 Permanent atrial fibrillation

== ENCOUNTER → 2024-07-17 | Outpatient (CLI) | payer MEDICARE, MEDICAID ==
[~2024-07-17] MED LIST changes: -CLOT10TR MT; +CLOT10TR11 MT; +KETO120S5 TOP; -KETO2SHA8 TOP; +LORA-1164 PO; -LORA-622 PO
== END ==
LOC: M WUC 15:46
PROVIDERS: ATTEND Nurse Practitioner Family
DX: R07.82 Intercostal pain (principal)

== ENCOUNTER → 2024-09-04 | Outpatient (CLI) | payer MEDICARE, MEDICAID ==
[~2024-09-04] MED LIST changes: +AMIT10TA11 PO; +BISO10TA13 PO; +BISO5TAB14 PO; +CLOT10TR11 PO; +ELIQ2.5T PO; +HALO0.5H PO; +IPRA0.00 INH; +LANO62.5 PO; +MUCI1TAB16 PO; +TORS10TA3 PO
== END ==
LOC: M WHC 08:32
PROVIDERS: ATTEND Surgery
DX: L03.123 Acute lymphangitis of right upper limb (principal); R10.12 Left upper quadrant pain

== ENCOUNTER → 2024-09-04 | Outpatient (CLI) | payer MEDICARE, MEDICAID | LOC: M WHC 08:53 | PROVIDERS: ATTEND Family Medicine | DX: R10.12 Left upper quadrant pain (principal) ==

== ENCOUNTER 2024-09-05 16:15 | Emergency (ER) | payer MEDICARE, MEDICAID ==
[~2024-09-05] VITALS: Ht 160 cm; Wt 60.9 kg
[~2024-09-05 16:15] MED LIST changes: -AMIT10TA11 PO; -BISO10TA13 PO; -HALO0.5H PO; -IPRA0.00 INH
[2024-09-05] MEDS ORDERED: HALO0.5H PO (16:37)
[2024-09-05 18:16] LABS: BASO # 0.1 10^3/uL (0.0-0.2); BASO % 0.7 % (0.0-1.0); EOS # 0.3 10^3/uL (0.0-0.5); EOS % 2.7 % (0.0-3.0); LYMPH # 0.8 10^3/uL (1.5-5.0); LYMPH % 9.2 % (24.0-44.0); MONO # 0.6 10^3/uL (0.0-0.8); MONO % 6.9 % (2.0-8.0); NEUTROPHILS # 7.3 10^3/uL (1.5-8.5); NEUTROPHILS % 80.0 % (36.0-66.0); PLATELET COUNT, AUTOMATED 264 10^3/uL (150-450)
[2024-09-05 18:38] LABS: ALT/SGPT 21.0 U/L (7.0-40); AST/SGOT 44.0 U/L (<34); CALCIUM LEVEL 9.3 MG/DL (8.3-10.6); CARBON DIOXIDE LEVEL 25.0 MMOL/L (20-31); CHLORIDE LEVEL 104.0 MMOL/L (98-107); CREATININE FOR GFR 1.52 MG/DL (0.55-1.30); GLOMERULAR FILTRATION RATE 33.2 (>32); POTASSIUM SERUM 5.1 MMOL/L (3.5-5.1); SODIUM LEVEL 142.0 MMOL/L (136-145)
[2024-09-05 19:38] VITALS: BP 138/67; TEMP 97.8; O2SAT 100
== END 2024-09-05 20:53 | disposition left against medical advice (07) ==
LOC: M ED 16:15
DX: Z53.21 Procedure and treatment not carried out due to patient leaving prior to being seen by health care provider (principal); J90 Pleural effusion, not elsewhere classified; J98.11 Atelectasis

== ENCOUNTER → 2024-09-05 | Outpatient (CLI) | payer MEDICARE, MEDICAID | LOC: M WUC 14:55 | PROVIDERS: ATTEND Student in an Organized Health Care Education/Training Program | DX: J90 Pleural effusion, not elsewhere classified (principal); J98.11 Atelectasis ==

== ENCOUNTER → 2024-09-06 | Outpatient (CLI) | payer MEDICARE, MEDICAID ==
[~2024-09-06] MED LIST changes: +HALO0.5H
== END ==
LOC: M WUC 14:58
PROVIDERS: ATTEND Student in an Organized Health Care Education/Training Program
DX: S20.212A Contusion of left front wall of thorax, initial encounter (principal); W18.30XA Fall on same level, unspecified, initial encounter; Y92.009 Unspecified place in unspecified non-institutional (private) residence as the place of occurrence of the external cause

== ENCOUNTER → 2024-09-06 | Outpatient (CLI) | payer MEDICARE, MEDICAID ==
[~2024-09-06] MED LIST changes: +BARIUM SULFATE 700 MG TABLET As Ordered ONE; +E-Z-PAQUE 96% w/w SUSP 176 GM BTL As Ordered ONE; +VARIBAR NECTAR 40% w/v 240ML SUSP BTL As Ordered ONE; +VARIBAR PUDDING 40% w/v 230ML TUBE As Ordered ONE
== END ==
LOC: M RAD 12:58
PROVIDERS: ATTEND Otolaryngology
DX: R13.10 Dysphagia, unspecified (principal)

== ENCOUNTER 2024-09-10 17:15 | Inpatient (IN) | payer MEDICARE, MEDICAID ==
[~2024-09-10] VITALS: Ht 160 cm; Wt 60.0 kg
[~2024-09-10 17:15] MED LIST changes: -BARIUM SULFATE 700 MG TABLET As Ordered ONE; -E-Z-PAQUE 96% w/w SUSP 176 GM BTL As Ordered ONE; -HALO0.5H; +HALO0.5H PO; -VARIBAR NECTAR 40% w/v 240ML SUSP BTL As Ordered ONE; -VARIBAR PUDDING 40% w/v 230ML TUBE As Ordered ONE
[2024-09-10] MEDS ORDERED: AMIT10TA11 PO (19:37)
[2024-09-10 19:44] LABS: VENOUS BASE EXCESS -0.5 (-2.0-2.0); VENOUS HCO3 27.1 MMOL/L (23.0-27.0); VENOUS O2 SATURATION 62.8 % (60.0-80.0); VENOUS PARTIAL PRESSURE CO2 57.7 mmHg (38.0-50.0); VENOUS PARTIAL PRESSURE O2 34.3 mmHg (30.0-50.0); VENOUS PH 7.290 UNITS (7.330-7.430); VENOUS STANDARD HCO3 23.4 MMOL/L; VENOUS TOTAL CO2 28.9 MMOL/L (24.0-28.0)
[2024-09-10 19:55] LABS: BASO # 0.0 10^3/uL (0.0-0.2); BASO % 0.5 % (0.0-1.0); EOS # 0.2 10^3/uL (0.0-0.5); EOS % 2.1 % (0.0-3.0); LYMPH # 0.8 10^3/uL (1.5-5.0); LYMPH % 8.7 % (24.0-44.0); MONO # 0.6 10^3/uL (0.0-0.8); MONO % 6.5 % (2.0-8.0); NEUTROPHILS # 7.2 10^3/uL (1.5-8.5); NEUTROPHILS % 81.6 % (36.0-66.0); PLATELET COUNT, AUTOMATED 321 10^3/uL (150-450)
[2024-09-10] MEDS ORDERED: IPRA0.00 INH (20:15)
[2024-09-10] MEDS ORDERED: TORS10TA3 PO (20:15)
[2024-09-10] MEDS ORDERED: BISO10TA13 PO (20:15)
[2024-09-10 20:18] LABS: ALT/SGPT 14.0 U/L (7.0-40); AST/SGOT 27.0 U/L (<34); CALCIUM LEVEL 8.9 MG/DL (8.3-10.6); CARBON DIOXIDE LEVEL 27.0 MMOL/L (20-31); CHLORIDE LEVEL 99.0 MMOL/L (98-107); CREATININE FOR GFR 1.68 MG/DL (0.55-1.30); GLOMERULAR FILTRATION RATE 29.4 (>32); POTASSIUM SERUM 4.1 MMOL/L (3.5-5.1); SODIUM LEVEL 140.0 MMOL/L (136-145)
[2024-09-10] MEDS ORDERED: HOME MED LIST COMPLETE! XX SCH (20:20)
[2024-09-10] MEDS: AMITRIPTYLINE 10 MG TABLET PO STA (20:27)
[2024-09-11] VITALS (9 sets, daily range): BP systolic 127–165; BP diastolic 48–68; TEMP 97.1–97.6; O2SAT 92–99
[2024-09-11] MEDS ORDERED: MOM 30 ML SUSPENSION UDC PO PRN (01:05)
[2024-09-11] MEDS ORDERED: ALBUTEROL 90 MCG/ACT 8 GM HFA INHALER INH PRN (01:15)
[2024-09-11] MEDS ORDERED: IPRATROPIUM 0.5 MG/ALBUTEROL 2.5 MG INH SOL UD 3 ML NEB PRN (01:15)
[2024-09-11] MEDS: FUROSEMIDE 40 MG/4 ML VIAL IV SCH (06:29)
[2024-09-11 07:24] LABS: PLATELET COUNT, AUTOMATED 305 10^3/uL (150-450)
[2024-09-11] MEDS: SYMBICORT 160/4.5MCG INHALER 6GM INH SCH (07:38)
[2024-09-11 07:53] LABS: ALT/SGPT 14.0 U/L (7.0-40); AST/SGOT 31.0 U/L (<34); CALCIUM LEVEL 8.9 MG/DL (8.3-10.6); CARBON DIOXIDE LEVEL 28.0 MMOL/L (20-31); CHLORIDE LEVEL 101.0 MMOL/L (98-107); CREATININE FOR GFR 1.4 MG/DL (0.55-1.30); GLOMERULAR FILTRATION RATE 36.6 (>32); POTASSIUM SERUM 4.4 MMOL/L (3.5-5.1); SODIUM LEVEL 143.0 MMOL/L (136-145)
[2024-09-11] MEDS: DOCUSATE SODIUM 100 MG CAPSULE PO SCH (08:31)
[2024-09-11] MEDS: PANTOPRAZOLE 40MG TAB PO SCH (08:32)
[2024-09-11] MEDS: MAGNESIUM GLUCONATE 500 MG TAB PO SCH (08:32)
[2024-09-11] MEDS: DIGOXIN 0.0625 MG PER 1/2 TABLET PO SCH (08:38)
[2024-09-11] MEDS ORDERED: APIXABAN 2.5 MG TAB PO SCH (09:00)
[2024-09-11] MEDS: ACETAMINOPHEN 325 MG TAB PO PRN (12:29)
[2024-09-11] MEDS ORDERED: IPRATROPIUM 0.5 MG/ALBUTEROL 2.5 MG INH SOL UD 3 ML INH PRN (12:55)
[2024-09-11] MEDS: LIDOCAINE 1% MDV 20 ML VIAL SC SCH (13:30)
[2024-09-11] MEDS: NS (Normal Saline) 0.9% 1,000 ML IV SCH (13:30)
[2024-09-11] MEDS: SODIUM CHLORIDE 0.9% 1000 ML XX SCH (13:30)
[2024-09-11] MEDS ORDERED: MIDAZOLAM INJ 2 MG/2 ML VIAL As Ordered ONE (15:47)
[2024-09-11] MEDS: ceFAZolin SODIUM 2 GM in DEXTROSE 5% (D5W) ADV/MINI-BAG 50 ML IV ONE (16:07)
[2024-09-11] MEDS: MIDAZOLAM INJ 2 MG/2 ML VIAL IV PRN (16:08)
[2024-09-11] MEDS ORDERED: PERCOCET 5MG/325MG TAB PO PRN (17:05)
[2024-09-11] MEDS: PERCOCET 5MG/325MG TAB PO PRN (17:46)
[2024-09-11] MEDS: FAMOTIDINE 20 MG TAB PO SCH (20:51)
[2024-09-11] MEDS: AMITRIPTYLINE 10 MG TABLET PO SCH (20:51)
[2024-09-11] MEDS: ATORVASTATIN 20 MG TAB PO SCH (20:51)
[2024-09-11] MEDS: HALOPERIDOL 0.5 MG TAB PO SCH (20:51)
[2024-09-11] MEDS: KETOCONAZOLE 2% CREAM EXT SCH (20:52)
[2024-09-11] MEDS ORDERED: ADVAIR HFA 230/21 MCG INHALER INH SCH (21:00)
[2024-09-12] VITALS (7 sets, daily range): BP systolic 124–158; BP diastolic 60–76; TEMP 96.8–97.8; O2SAT 97–100
[2024-09-12] MEDS: PERCOCET 5MG/325MG TAB PO PRN (06:49)
[2024-09-12 08:32] LABS: BASO # 0.0 10^3/uL (0.0-0.2); BASO % 0.3 % (0.0-1.0); EOS # 0.3 10^3/uL (0.0-0.5); EOS % 2.7 % (0.0-3.0); LYMPH # 0.6 10^3/uL (1.5-5.0); LYMPH % 6.9 % (24.0-44.0); MONO # 0.7 10^3/uL (0.0-0.8); MONO % 7.2 % (2.0-8.0); NEUTROPHILS # 7.6 10^3/uL (1.5-8.5); NEUTROPHILS % 82.0 % (36.0-66.0); PLATELET COUNT, AUTOMATED 311 10^3/uL (150-450)
[2024-09-12 09:00] LABS: CALCIUM LEVEL 8.5 MG/DL (8.3-10.6); CARBON DIOXIDE LEVEL 28.0 MMOL/L (20-31); CHLORIDE LEVEL 100.0 MMOL/L (98-107); CREATININE FOR GFR 1.65 MG/DL (0.55-1.30); GLOMERULAR FILTRATION RATE 30.1 (>32); POTASSIUM SERUM 4.2 MMOL/L (3.5-5.1); SODIUM LEVEL 141.0 MMOL/L (136-145)
[2024-09-12] MEDS: TIOTROPIUM BROM 2.5MCG/ACTUATION 4GM INH INH SCH (09:14)
[2024-09-12] MEDS: TORSEMIDE 10 MG TABLET PO SCH (09:47)
[2024-09-12] MEDS: ONDANSETRON 4MG 2ML VIAL IV PRN (10:55)
[2024-09-12 11:54] LABS: DIGOXIN LEVEL 1.5 NG/ML (0.8-2.0)
[2024-09-12] MEDS: APIXABAN 2.5 MG TAB PO SCH (20:46)
[2024-09-12] MEDS: ACETAMINOPHEN 325 MG TAB PO PRN (23:33)
[2024-09-13 04:28] VITALS: BP 129/60; TEMP 97.4; O2SAT 99
[2024-09-13 08:00] VITALS: BP 130/62; TEMP 97.2; O2SAT 98
[2024-09-13 11:35] LABS: BASO # 0.0 10^3/uL (0.0-0.2); BASO % 0.4 % (0.0-1.0); EOS # 0.4 10^3/uL (0.0-0.5); EOS % 3.9 % (0.0-3.0); LYMPH # 0.5 10^3/uL (1.5-5.0); LYMPH % 5.5 % (24.0-44.0); MONO # 0.8 10^3/uL (0.0-0.8); MONO % 8.8 % (2.0-8.0); NEUTROPHILS # 7.3 10^3/uL (1.5-8.5); NEUTROPHILS % 80.4 % (36.0-66.0); PLATELET COUNT, AUTOMATED 298 10^3/uL (150-450)
[2024-09-13 12:00] VITALS: BP 141/67; TEMP 97.3; O2SAT 69
[2024-09-13 12:09] LABS: ALT/SGPT < 9 U/L (7.0-40); AST/SGOT 26 U/L (<34); CALCIUM LEVEL 8.4 MG/DL (8.3-10.6); CARBON DIOXIDE LEVEL 29 MMOL/L (20-31); CHLORIDE LEVEL 96 MMOL/L (98-107); CREATININE FOR GFR 2.12 MG/DL (0.55-1.30); GLOMERULAR FILTRATION RATE 22.3 (>32); MAGNESIUM LEVEL 2.2 MG/DL (1.8-2.4); POTASSIUM SERUM 4.0 MMOL/L (3.5-5.1); SODIUM LEVEL 137 MMOL/L (136-145)
[2024-09-13] MEDS ORDERED: NS (Normal Saline) 0.9% 1,000 ML IV SCH (14:05)
[2024-09-13] MEDS ORDERED: ATROPINE SULFATE 1% OPHTH SOLN 2 ML BTL SL PRN (14:55)
[2024-09-13] MEDS ORDERED: POLYVINYL ALCOHOL OPHTH SOLN 15ML (LIQUITEARS) OU PRN (14:55)
[2024-09-13] MEDS ORDERED: HYOSCYAMINE SULFATE 0.125 MG SUBL TABLET PO PRN (14:55)
[2024-09-13] MEDS ORDERED: SALIVA SUBSTITUTE BTL MT PRN (14:55)
[2024-09-13] MEDS ORDERED: MORPHINE 10 MG/0.5 ML ORAL CONCENTRATE SOLUTION U/D SL PRN (14:55)
[2024-09-13] MEDS ORDERED: HALOPERIDOL 2 MG TAB PO PRN (14:55)
[2024-09-13] MEDS ORDERED: ONDANSETRON 4MG ORAL DISINTEGRATING TAB PO PRN (14:55)
[2024-09-13] MEDS: HALOPERIDOL 2 MG TAB PO SCH (15:26)
[2024-09-13] MEDS ORDERED: ACETAMINOPHEN 500 MG TAB PO PRN (16:35)
[2024-09-13 16:52] VITALS: BP 123/57; TEMP 97.7; O2SAT 94
[2024-09-13] MEDS: MORPHINE 10 MG/0.5 ML ORAL CONCENTRATE SOLUTION U/D SL SCH (17:17)
[2024-09-14] MEDS: LORazepam 0.5 MG TAB PO PRN (21:08)
[2024-09-15 09:30] VITALS: BP 111/82
== END 2024-09-16 07:20 | disposition expired | DRG 180 ==
LOC: M ED 17:15 → M ED INP 17:16 → M PCU 09-11 11:02 → OBSVTOIN 09-11 12:37 → M MSPAV 09-13 16:48
PROVIDERS: ADMIT Family Medicine; ATTEND Internal Medicine
PROC: 0W9B30Z Drainage of Left Pleural Cavity with Drainage Device, Percutaneous Approach (ICD-10-PCS; principal; 2024-09-11 15:30)
DX: C34.90 Malignant neoplasm of unspecified part of unspecified bronchus or lung (principal); G92.9 Unspecified toxic encephalopathy; J91.0 Malignant pleural effusion; J98.11 Atelectasis; Q21.12 Patent foramen ovale; N17.9 Acute kidney failure, unspecified; J96.11 Chronic respiratory failure with hypoxia; I48.91 Unspecified atrial fibrillation; I27.20 Pulmonary hypertension, unspecified; I08.1 Rheumatic disorders of both mitral and tricuspid valves; I73.9 Peripheral vascular disease, unspecified; J44.9 Chronic obstructive pulmonary disease, unspecified; I12.9 Hypertensive chronic kidney disease with stage 1 through stage 4 chronic kidney disease, or unspecified chronic kidney disease; F32.A Depression, unspecified; I70.1 Atherosclerosis of renal artery; I77.1 Stricture of artery; N18.9 Chronic kidney disease, unspecified; E78.5 Hyperlipidemia, unspecified; K21.9 Gastro-esophageal reflux disease without esophagitis; G47.33 Obstructive sleep apnea (adult) (pediatric); G25.3 Myoclonus; M19.90 Unspecified osteoarthritis, unspecified site; F41.9 Anxiety disorder, unspecified; G44.209 Tension-type headache, unspecified, not intractable; E83.42 Hypomagnesemia; R57.1 Hypovolemic shock; Z96.651 Presence of right artificial knee joint; Z87.891 Personal history of nicotine dependence; Z99.81 Dependence on supplemental oxygen; Z79.01 Long term (current) use of anticoagulants; Z79.899 Other long term (current) drug therapy; Z88.0 Allergy status to penicillin; Z98.41 Cataract extraction status, right eye; Z98.42 Cataract extraction status, left eye; Z66 Do not resuscitate